=== PATIENT | male | born 1945 | race Caucasian/White ===

== ENCOUNTER → 2016-08-18 | Outpatient (CLI) | payer MEDICARE, BC ==
[2016-08-18 12:14] LABS: ALT 32 U/L (21-72); AST 15 U/L (17-59); Alkaline Phosphatase 89 U/L (38-126); Anion Gap 9 mmol/L; Blood Urea Nitrogen 14 mg/dL (9-20); Calcium 9.1 mg/dL (8.4-10.2); Carbon Dioxide 29 mmol/L (22-30); Chloride 103 mmol/L (98-107); Cholesterol 160 mg/dL (<200); Glucose 163 mg/dL (74-99); HDL Cholesterol 83 mg/dL (40-60); Non-African American GFR(MDRD) >60 (>60 ml/min/1.73 sqM); Potassium 4.6 mmol/L (3.5-5.1); Sodium 141 mmol/L (137-145); Total Bilirubin 0.7 mg/dL (0.2-1.3); Total Protein 6.8 g/dL (6.3-8.2); Triglycerides 48 mg/dL (<150)
== END | disposition home or self-care (01) ==
LOC: LABWHC1 10:19
PROVIDERS: ATTEND Internal Medicine Endocrinology, Diabetes & Metabolism
DX: E11.65 Type 2 diabetes mellitus with hyperglycemia (principal)
CPT/HCPCS: 36415; 80053; 80061; 82043

== ENCOUNTER → 2017-01-27 | Outpatient (CLI) | payer MEDICARE, BC ==
[2017-01-27 09:31] LABS: ALT 17 U/L (21-72); AST 13 U/L (17-59); Alkaline Phosphatase 83 U/L (38-126); Anion Gap 8 mmol/L; Blood Urea Nitrogen 17 mg/dL (9-20); Calcium 9.1 mg/dL (8.4-10.2); Carbon Dioxide 27 mmol/L (22-30); Chloride 103 mmol/L (98-107); Cholesterol 161 mg/dL (<200); Glucose 212 mg/dL (74-99); HDL Cholesterol 64 mg/dL (40-60); Non-African American GFR(MDRD) >60 (>60 ml/min/1.73 sqM); Potassium 4.6 mmol/L (3.5-5.1); Sodium 138 mmol/L (137-145); Total Bilirubin 0.9 mg/dL (0.2-1.3); Total Protein 6.4 g/dL (6.3-8.2); Triglycerides 62 mg/dL (<150)
[2017-01-27 19:35] LABS: Urine Creatinine 59.4 mg/dL
== END ==
LOC: LABWHC1 08:26
PROVIDERS: ATTEND Internal Medicine Endocrinology, Diabetes & Metabolism
DX: E11.65 Type 2 diabetes mellitus with hyperglycemia (principal)
CPT/HCPCS: 36415; 80053; 80061; 82043; 82570

== ENCOUNTER → 2017-08-12 | Outpatient (CLI) | payer MEDICARE, BC ==
[2017-08-12 09:16] LABS: ALT 31 U/L (21-72); AST 15 U/L (17-59); Albumin 3.8 g/dL (3.5-5.0); Alkaline Phosphatase 71 U/L (38-126); Anion Gap 8 mmol/L; Blood Urea Nitrogen 18 mg/dL (9-20); Calcium 9.5 mg/dL (8.4-10.2); Carbon Dioxide 31 mmol/L (22-30); Chloride 103 mmol/L (98-107); Cholesterol 154 mg/dL (<200); Glucose 107 mg/dL (74-99); HDL Cholesterol 70 mg/dL (40-60); LDL Cholesterol,Calculated 76 mg/dL (0-99); Potassium 4.7 mmol/L (3.5-5.1); Sodium 142 mmol/L (137-145); Total Bilirubin 0.5 mg/dL (0.2-1.3); Total Protein 6.3 g/dL (6.3-8.2); Triglycerides 42 mg/dL (<150)
[2017-08-12 20:07] LABS: Hemoglobin A1C 10.7 % (4.0-6.0)
== END | disposition home or self-care (01) ==
LOC: LABWHC1 08:17
PROVIDERS: ATTEND Internal Medicine Endocrinology, Diabetes & Metabolism
DX: E11.65 Type 2 diabetes mellitus with hyperglycemia (principal)
CPT/HCPCS: 36415; 80053; 80061; 82043; 82570; 83036

== ENCOUNTER → 2018-03-10 | Outpatient (CLI) | payer MEDICARE, BC ==
[2018-03-10 08:59] LABS: Basophils % (A) 0 %; Eosinophils # (A) 0.1 k/uL (0-0.7); Eosinophils % (A) 1 %; HCT 47.6 % (39.0-53.0); HGB 14.9 gm/dL (13.0-17.5); Lymphocytes # (A) 1.2 k/uL (1.0-4.8); Lymphocytes % (A) 16 %; MCH 29.1 pg (25.0-35.0); MCHC 31.3 g/dL (31.0-37.0); MCV 92.9 fL (80.0-100.0); Mean Platelet Volume 7.9; Monocytes # (A) 0.4 k/uL (0-1.0); Monocytes % (A) 5 %; Neutrophils # (A) 5.7 k/uL (1.3-7.7); Neutrophils % (A) 76 %; Platelet Count 171 k/uL (150-450); RBC 5.13 m/uL (4.30-5.90); RDW 13.3 % (11.5-15.5); WBC 7.4 k/uL (3.8-10.6)
[2018-03-10 11:35] LABS: ALT 31 U/L (21-72); AST 20 U/L (17-59); Albumin 3.9 g/dL (3.5-5.0); Alkaline Phosphatase 73 U/L (38-126); Anion Gap 6 mmol/L; Blood Urea Nitrogen 17 mg/dL (9-20); Calcium 9.3 mg/dL (8.4-10.2); Carbon Dioxide 28 mmol/L (22-30); Chloride 106 mmol/L (98-107); Cholesterol 160 mg/dL (<200); Glucose 138 mg/dL (74-99); HDL Cholesterol 76 mg/dL (40-60); LDL Cholesterol,Calculated 72 mg/dL (0-99); Potassium 4.7 mmol/L (3.5-5.1); Sodium 140 mmol/L (137-145); Total Bilirubin 0.5 mg/dL (0.2-1.3); Total Protein 6.4 g/dL (6.3-8.2); Triglycerides 58 mg/dL (<150)
[2018-03-10 11:52] LABS: T4, Free (Free Thyroxine) 0.92 ng/dL (0.78-2.19)
[2018-03-10 12:05] LABS: Prostate Specific Antigen 4.03 ng/mL (0.00-4.00)
[2018-03-10 18:00] LABS: Hemoglobin A1C 10.6 % (4.0-6.0)
== END | disposition home or self-care (01) ==
LOC: LABWHC1 08:07
PROVIDERS: ATTEND Internal Medicine Endocrinology, Diabetes & Metabolism
DX: R07.9 Chest pain, unspecified (principal); E78.5 Hyperlipidemia, unspecified; N40.1 Benign prostatic hyperplasia with lower urinary tract symptoms; E11.65 Type 2 diabetes mellitus with hyperglycemia
CPT/HCPCS: 36415; 80053; 80061; 82043; 82570; 83036; 84153; 84439; 84443; 85025

== ENCOUNTER → 2018-03-18 | Outpatient (CLI) | payer MEDICARE, BC ==
[~2018-03-18] MED LIST: DOBUTamine 250 MG in DEXTROSE 5% IN WATER 250 ML IV ONE; DOBUTamine DRIP for NUC MED 500 MG in DEXTROSE/WATER 1 250ML.BAG IV ONE
--- NOTE | 2018-03-18 13:07 | ECHOS ---
STRESS ECHOCARDIOGRAM DATE OF SERVICE: 03/18/2018 INDICATIONS: Physical MEDICATIONS: BASELINE HEART RATE: 69 BASELINE BLOOD PRESSURE: 147/52 MAXIMUM HEART RATE: 123 MAXIMUM BLOOD PRESSURE: 213/38 85% MPHR: 126 100% MPHR: 148 METS: MAXIMUM STAGE REACHED: TOTAL EXERCISE TIME: CLINICAL INFORMATION: Baseline rhythm is sinus mechanism, rate 69, normal axis and intervals with sinus arrhythmia. Baseline blood pressure 147/52 mmHg. Patient received an infusion of dobutamine per protocol reaching peak rate 123 beats per minute which is equal to 83% maximum predicted heart rate. Peak blood pressure 213/38 mmHg. Electrocardiograph monitoring revealed occasional PVCs with triplets. There was a [address]-segment depression that resolved rapidly in recovery. Baseline echocardiogram revealed normal wall motion. At peak infusion, there was normal wall thickening and motion. There was no evidence of stress-induced ischemia. CONCLUSION: 1. Borderline electrocardiograph response to dobutamine fusion with occasional PVCs and triplets. 2. Normal stress echocardiogram with no evidence of stress induced ischemia. MMODL / IJN: [id number] /
== END | disposition home or self-care (01) ==
LOC: RADNMMAIN 09:49
PROVIDERS: ATTEND Internal Medicine Geriatric Medicine
DX: I49.3 Ventricular premature depolarization (principal)
CPT/HCPCS: 93351; J1250

== ENCOUNTER → 2018-10-04 | Outpatient (CLI) | payer MEDICARE, BC ==
[2018-10-04 16:27] LABS: Albumin/Globulin Ratio 2.35 (1.60-3.17); Anion Gap 12.2 mmol/L (4.00-12.00); Calcium 9.1 mg/dL (8.7-10.3); Carbon Dioxide 25.8 mmol/L (21.6-31.8); Globulin 1.7 g/dL (1.6-3.3); LDL Cholesterol,Calculated 85.2 mg/dL (0.0-131.0); Potassium 4.7 mmol/L (3.5-5.5); Total Bilirubin 0.6 mg/dL (0.2-1.2); Total Protein 5.7 g/dL (6.2-8.2); VLDL Calculation 10.8 mg/dL (5.00-40.00)
[2018-10-04 18:46] LABS: Hemoglobin A1C 10.7 % (4.0-6.0)
== END ==
LOC: LABWHC1 08:19
PROVIDERS: ATTEND Internal Medicine Endocrinology, Diabetes & Metabolism
DX: E11.65 Type 2 diabetes mellitus with hyperglycemia (principal)
CPT/HCPCS: 36415; 80053; 80061; 82043; 82570; 83036; 84443

== ENCOUNTER → 2019-05-05 | Outpatient (CLI) | payer MEDICARE, BC ==
[2019-05-05 16:08] LABS: ALT 17 U/L (10-49); AST 18 U/L (14-35); African American GFR (CKD) 97.9 (60.0-200.0); Albumin/Globulin Ratio 2.35 (1.60-3.17); Alkaline Phosphatase 71 U/L (41-126); BUN/Creat Ratio 18.89 Ratio (12.00-20.00); Calcium 9.2 mg/dL (8.7-10.3); Carbon Dioxide 27.3 mmol/L (21.6-31.8); Chloride 106 mmol/L (96-109); Chol/HDL Ratio 2.38; Cholesterol 157 mg/dL (0-200); Globulin 1.7 g/dL (1.6-3.3); Glucose 113 mg/dL (70-110); Potassium 4.4 mmol/L (3.5-5.5); Sodium 140 mmol/L (135-145); Total Bilirubin 0.6 mg/dL (0.3-1.2); Total Protein 5.7 g/dL (6.2-8.2); Triglycerides <50.0 mg/dL (0.0-149.0)
[2019-05-05 16:49] LABS: Hemoglobin A1C 9.6 % (4.0-6.0)
== END | disposition home or self-care (01) ==
LOC: LABWHC1 08:13
PROVIDERS: ATTEND Internal Medicine Endocrinology, Diabetes & Metabolism
DX: E11.65 Type 2 diabetes mellitus with hyperglycemia (principal)
CPT/HCPCS: 36415; 80053; 80061; 82043; 82570; 83036; 84443

== ENCOUNTER 2023-07-26 08:34 | Inpatient (IN) | payer MEDICARE, BC ==
--- NOTE | 2023-07-26 08:45 | ED ---
Chest Pain HPI - General Chief Complaint: Chest Pain Stated Complaint: Chest pain, Weakness Time Seen by Provider: 07/26/23 08:40 Source: patient, RN notes reviewed, old records reviewed Mode of arrival: ambulatory Limitations: no limitations - History of Present Illness Initial Comments: This is a 77-year-old male who comes in complaining for the last 10 days he's had intermittent chest pain but it only occurs with breathing. Patient states she's also been more short of breath. Patient states he was in [place] when it started but since she's been home he has seen his doctor about it but it continues. Patient denies any fever chills. Patient denies any radiation of the pain. Patient states he doesn't breathe there is no pain. Patient is on a abdominal pain patient started vomiting diarrhea. Patient denies any swelling to legs or calf tenderness. - Related Data Allergies Allergy/AdvReac Type Severity Reaction Status Date / Time No Known Allergies Allergy Unverified 07/26/23 08:40 Review of Systems ROS Statement: Those systems with pertinent positive or pertinent negative responses have been documented in the HPI. ROS Other: All systems not noted in ROS Statement are negative. Past Medical History Past Medical History: Coronary Artery Disease (CAD), Diabetes Mellitus, GERD/Reflux History of Any Multi-Drug Resistant Organisms: None Reported Past Surgical History: No Surgical Hx Reported Past Psychological History: No Psychological Hx Reported Smoking Status: Never smoker Past Alcohol Use History: Occasional Past Drug Use History: None Reported General Exam - General Exam Comments Initial Comments: GENERAL: Patient is well-developed and well-nourished. Patient is nontoxic and well- hydrated and is in mild. ENT: Neck is soft and supple. No significant lymphadenopathy is noted. Oropharynx is clear. Moist mucous membranes. Neck has full range of motion without eliciting any pain. EYES: The sclera were anicteric and conjunctiva were pink and moist. Extraocular movements were intact and pupils were equal round and reactive to light. Eyelids were unremarkable. PULMONARY: Unlabored respirations. Good breath sounds bilaterally. No audible rales rhonchi or wheezing was noted. CARDIOVASCULAR: There is a regular rate and rhythm without any murmurs gallops or rubs. ABDOMEN: Soft and nontender with normal bowel sounds. N SKIN: Skin is clear with no lesions or rashes and otherwise unremarkable. NEUROLOGIC: Patient is alert and oriented x3. Cranial nerves II through XII are grossly intact. Motor and sensory are also intact. Normal speech, volume and content. Symmetrical smile. MUSCULOSKELETAL: Normal extremities with adequate strength and full range of motion. No lower extremity swelling or edema. No calf tenderness. LYMPHATICS: No significant lymphadenopathy is noted PSYCHIATRIC: Normal psychiatric evaluation. Limitations: no limitations Course Vital Signs 07/26/23 07/26/23 08:38 10:35 Temperature 98 F 99.5 F Pulse Rate 64 104 H Respiratory 20 20 Rate Blood Pressure 137/75 134/85 O2 Sat by Pulse 99 95 Oximetry Chest Pain [facility] EKG is interpreted by myself. EKG shows sinus tachycardia at 114 bpm TN interval is on a 76 QRS is 80 QT interval 293 Q-T C is 370. EKG shows T-wave inversion in precordial leads V4 through V6 as well as 1 and aVL. Was pt. sent in by a medical professional or institution (, PA, [employer], urgent care, hospital, or skilled nursing...) When possible be specific @ -No Did you speak to anyone other than the patient for history (EMS, parent, family, police, friend...)? What history was obtained from this source @ - gave part of the history Did you review nursing and triage notes (agree or disagree)? Why? @ -I reviewed and agree with nursing and triage notes Were old charts reviewed (outside hosp., previous admission, EMS record, old EKG, old radiological studies, urgent care reports/EKG's, skilled nursing records)? Report findings @ -I reviewed prior labs prior charts on this patient Differential Diagnosis (chest pain, altered mental status, abdominal pain women, abdominal pain men, vaginal bleeding, weakness, fever, dyspnea, syncope, headache, dizziness, GI bleed, back pain, seizure, CVA, palpatations, mental health, musculoskeletal)? @ -Differential Dyspnea: Coronary syndrome, arrhythmia, tamponade, asthma, COPD, pulmonary embolism, pneumonia, pneumothorax, pulmonary effusion, anaphylaxis, diabetic ketoacidosis, flailed chest, pulmonary contusion, diaphragmatic rupture, anemia, neuromuscular, this is not meant to be an all-inclusive list. EKG interpreted by me (3pts min.). @ -As above X-rays interpreted by me (1pt min.). @ -Chest x-ray shows pulmonary edema CT interpreted by me (1pt min.). @ -None done U/S interpreted by me (1pt. min.). @ -None done What testing was considered but not performed or refused? (CT, X-rays, U/S, labs)? Why? @ -None What meds were considered but not given or refused? Why? @ -None Did you discuss the management of the patient with other professionals (professionals i.e. , PA, [employer], lab, RT, psych nurse, medical social worker, e commerce project manager, teacher, ship's officer, case investigator)? Give summary @ -[facility] Was smoking cessation discussed for >3mins.? @ -No Was critical care preformed (if so, how long)? @ -35 minutes Were there social determinants of health that impacted care today? How? (Homelessness, low income, unemployed, alcoholism, drug addiction, transportation, low edu. Level, literacy, decrease access to med. care, [facility], rehab)? @ -No Was there de-escalation of care discussed even if they declined (Discuss DNR or withdrawal of care, Hospice)? DNR status @ -No What co-morbidities impacted this encounter? (DM, HTN, Smoking, COPD, CAD, Cancer, CVA, ARF, Chemo, Hep., AIDS, mental health diagnosis, sleep apnea, morbid obesity)? @ -Diabetes Was patient admitted / discharged? Hospital course, mention meds given and rou te, prescriptions, significant lab abnormalities, going to OR and other pertinent info. @ -Patient's troponin was elevated so patient was having a non-STEMI patient was placed on heparin given aspirin had Nitropaste placed. Patient's pain continued to only be with deep breathing. I consult cardiology [facility]-ray showed pulmonary edema psychiatric the patient Lasix as well Undiagnosed new problem with uncertain prognosis? @ -No Drug Therapy requiring intensive monitoring for toxicity (Heparin, Nitro, Insulin, Cardizem)? @ -No Were any procedures done? @ -No Diagnosis/symptom? @ -Non-STEMI Acute, or Chronic, or Acute on Chronic? @ -Acute Uncomplicated (without systemic symptoms) or Complicated (systemic symptoms)? @ -Complicated Side effects of treatment? @ -No Exacerbation, Progression, or Severe Exacerbation? @ -No Poses a threat to life or bodily function? How? (Chest pain, USA, AR, pneumonia, PE, COPD, DKA, ARF, appy, cholecystitis, CVA, Diverticulitis, Homicidal, Suicida l, threat to staff... and all critical care pts) @ -Yes this could lead to hypoxia and end organ dysfunction Critical Care Time Critical Care Time: Yes Total Critical Care Time: 35 Disposition Clinical Impression: Acute non-ST elevation myocardial infarction (NSTEMI) Disposition: ADMITTED IP TO THIS HOSP Referrals: Derian Link MD [Primary Care Provider] - 1-2 days Time of Disposition: 10:50
[2023-07-26 09:10] LABS: Basophils % (A) 0 %; Eosinophils # (A) 0.3 k/uL (0-0.7); Eosinophils % (A) 2 %; HCT 44.8 % (39.0-53.0); HGB 14.5 gm/dL (13.0-17.5); Lymphocytes # (A) 0.8 k/uL (1.0-4.8); Lymphocytes % (A) 5 %; MCH 31.1 pg (25.0-35.0); MCHC 32.3 g/dL (31.0-37.0); MCV 96.2 fL (80.0-100.0); Mean Platelet Volume 9.6; Monocytes # (A) 0.6 k/uL (0-1.0); Monocytes % (A) 4 %; Neutrophils # (A) 14.9 k/uL (1.3-7.7); Neutrophils % (A) 90 %; Platelet Count 247 k/uL (150-450); RBC 4.66 m/uL (4.30-5.90); WBC 16.7 k/uL (3.8-10.6)
--- NOTE | 2023-07-26 09:12 | XR ---
EXAMINATION TYPE: XR chest 2V DATE OF EXAM: 07/26/2023 COMPARISON: None HISTORY: 77-year-old male with chest pain for a week TECHNIQUE: PA and lateral views FINDINGS: Heart borderline in size. Diffuse interstitial density. Some Tay B lines also noted. Some blunting of the left costophrenic angle. IMPRESSION: Correlate for CHF with pulmonary vascular congestion. The presence of some Tay B lines suggests mi ld interstitial edema. Trace left pleural effusion.
[2023-07-26 09:40] LABS: ALT 35 U/L (4-49); AST 36 U/L (17-59); African American GFR (CKD) 89 (>60 ml/min/1.73 sqM); Albumin 3.7 g/dL (3.5-5.0); Alkaline Phosphatase 88 U/L (38-126); Anion Gap 11 mmol/L; Blood Urea Nitrogen 21 mg/dL (9-20); Carbon Dioxide 25 mmol/L (22-30); Chloride 104 mmol/L (98-107); Glucose 199 mg/dL (74-99); INR 1.1 (<1.2); Magnesium 2.1 mg/dL (1.6-2.3); Non-African American GFR(CKD) 77 (>60 ml/min/1.73 sqM); Partial Thromboplastin Time 25.1 sec (22.0-30.0); Prothrombin Time 11.4 sec (10.0-12.5); Sodium 140 mmol/L (137-145); Total Protein 6.8 g/dL (6.3-8.2)
[2023-07-26 09:42] LABS: Potassium 5.1 mmol/L (3.5-5.1)
[2023-07-26] MEDS ORDERED: HEPARIN SODIUM 1,000 UN/ML (10ML VL) IV ONE (10:24)
[2023-07-26] MEDS ORDERED: FUROSEMIDE 10 MG/ML 4 ML VIAL IV STA (10:24)
[2023-07-26] MEDS ORDERED: NITROGLYCERIN OINT 1 INCH/GM PACKET TOPICAL STA (10:25)
[2023-07-26] MEDS ORDERED: ASPIRIN 81 MG PO STA (10:25)
[2023-07-26] MEDS: HEPARIN SOD,PORK IN 0.45% NACL 25,000 UNIT in 0.45% NACL 1 250ML.BAG IV SCH (10:48)
[2023-07-26] MEDS ORDERED: NITROGLYCERIN SL TABS 0.4 MG TAB SUBLINGUAL PRN (10:50)
[2023-07-26] MEDS: NITROGLYCERIN OINT 1 INCH/GM PACKET TOPICAL SCH ×3 (11:02→23:56)
[2023-07-26] MEDS ORDERED: ACETAMINOPHEN TAB 325 MG TAB PO PRN (14:29)
[2023-07-26] MEDS ORDERED: DEXTROSE 50% SYRINGE 50 ML IVP PRN ×2 (15:10)
--- NOTE | 2023-07-26 15:11 | P.HPIM ---
History of Present Illness H&P Date: 07/26/23 History of present illness; patient is 77-year-old gentleman with past medical h istory significant for diabetes mellitus, hypertension presented to the ER for chest pain. Patient states that chest pain started 2 weeks ago, the patient on the left side, intermittent, sharp in intensity, no aggravating or relieving factors associated with this chest pain, nonradiating. Patient did mention that sometimes he gets short of breath during those episodes of chest pain. Denies any nausea or vomiting. Denies any diaphoresis. Because this chest pain, patient became concerned and came to the ER Initial lab work done in the ER showed 16.7, hemoglobin 14.5, platelet count 247, sodium 140, potassium 5.1, BUN 21, creatinine 0.95, troponin 1.2 Influenza A not detected Influenza B not detected RSV not detected COVID-19 not detected EKG done in the ER showed heart rate of 114, no ST segment elevation or depression seen, no T-wave inversions seen. Chest x-ray done in the ER correlate for CHF with pulmonary vascular congestion Patient admitted to internal medicine service REVIEW OF SYSTEMS: CONSTITUTIONAL: No fever, no malaise, no fatigue. HEENT: No recent visual problems or hearing problems. Denied any sore throat. CARDIOVASCULAR: Mentioned in HPI PULMONARY: As mentioned in HPI GASTROINTESTINAL: No diarrhea, no nausea, no vomiting, no abdominal pain. NEUROLOGICAL: No headaches, no weakness, no numbness. HEMATOLOGICAL: Denies any bleeding or petechiae. GENITOURINARY: Denies any burning micturition, frequency, or urgency. MUSCULOSKELETAL/RHEUMATOLOGICAL: Denies any joint pain, swelling, or any muscle pain. ENDOCRINE: Denies any polyuria or polydipsia. The rest of the 14-point review of systems is negative. PHYSICAL EXAMINATION: GENERAL: The patient is alert and oriented x3, not in any acute distress. Well developed, well nourished. HEENT: Pupils are round and equally reacting to light. EOMI. No scleral icterus. No conjunctival pallor. Normocephalic, atraumatic. No pharyngeal erythema. No thyromegaly. CARDIOVASCULAR: S1 and S2 present. No murmurs, rubs, or gallops. PULMONARY: Chest is clear to auscultation, no wheezing or crackles. ABDOMEN: Soft, nontender, nondistended, normoactive bowel sounds. No palpable organomegaly. MUSCULOSKELETAL: No joint swelling or deformity. EXTREMITIES: No cyanosis, clubbing, or pedal edema. NEUROLOGICAL: Gross neurological examination did not reveal any focal deficits. SKIN: No rashes. Assessment and plan Non-ST elevation KS Hypertension Insulin-dependent diabetes mellitus Monitor vital signs Monitor CBC Monitor CMP Continue telemetry monitoring Trend troponin Ordered 2-D echo Continue pharmacy dose heparin Continue aspirin and Lipitor Monitor blood sugar levels, continue sliding scale insulin. Consult cardiology Labs and medication were reviewed.. Continue same treatment. Continue with symptomatic treatment. Resume home medication. Monitor labs and vitals. DVT and GI prophylaxis. Further recommendations as per clinical course of the patient Dictation was produced using [employer] dictation software. please excuse any grammatical, word or spelling errors. Past Medical History Past Medical History: Coronary Artery Disease (CAD), Diabetes Mellitus, GERD/Reflux History of Any Multi-Drug Resistant Organisms: None Reported Past Surgical History: No Surgical Hx Reported Past Psychological History: No Psychological Hx Reported Smoking Status: Never smoker Past Alcohol Use History: Occasional Past Drug Use History: None Reported Medications and Allergies Home Medications Medication Instructions Recorded Confirmed Type Glucagon [Gvoke Pfs 1-Pack Syringe] 1 mg SQ DIRECTED PRN 07/26/23 07/26/23 History INSULIN ASPART (NovoLOG) [NovoLOG 15 - 30 unit SQ AC-TID 07/26/23 07/26/23 History (formulary)] Insulin Degludec [Tresiba 55 units SQ DAILY 07/26/23 07/26/23 History Flextouch U-100 Pen] Losartan [Cozaar] 50 mg PO DAILY 07/26/23 07/26/23 History Lovastatin [Mevacor] 40 mg PO DAILY 07/26/23 07/26/23 History Semaglutide [Ozempic] 2 mg SQ FR 07/26/23 07/26/23 History metFORMIN HCL ER [Glucophage XR] 1,000 mg PO BID 07/26/23 07/26/23 History Allergies Allergy/AdvReac Type Severity Reaction Status Date / Time No Known Allergies Allergy Verified 07/26/23 12:15 Physical Exam Vitals: Vital Signs Temp Pulse Pulse Resp BP Pulse Ox 07/26/23 14:15 100.7 F H 94 23 111/81 94 L 07/26/23 13:25 100 17 126/79 97 07/26/23 12:00 98 16 126/72 95 07/26/23 11:14 105 H 18 128/75 96 07/26/23 10:35 99.5 F 104 H 20 134/85 95 07/26/23 10:30 105 H 07/26/23 08:38 98 F 64 20 137/75 99 Intake and Output 07/26/23 07/26/23 07/26/23 06:59 14:59 22:59 Other: Weight 102.058 kg Results CBC & Chem 7: 07/26/23 08:41 07/26/23 08:41 Labs: Abnormal Lab Results - Last 24 Hours (Table) 07/26/23 07/26/23 07/26/23 Range/Units 08:41 08:41 08:41 WBC 16.7 H (3.8-10.6) k/uL Neutrophils # 14.9 H (1.3-7.7) k/uL Lymphocytes # 0.8 L (1.0-4.8) k/uL D-Dimer 0.64 H (<0.60) mg/L FEU BUN 21 H (9-20) mg/dL Glucose 199 H (74-99) mg/dL Troponin I (0.000-0.034) ng/mL 07/26/23 07/26/23 Range/Units 08:41 12:11 WBC (3.8-10.6) k/uL Neutrophils # (1.3-7.7) k/uL Lymphocytes # (1.0-4.8) k/uL D-Dimer (<0.60) mg/L FEU BUN (9-20) mg/dL Glucose (74-99) mg/dL Troponin I 1.200 H* 1.320 H* (0.000-0.034) ng/mL
--- NOTE | 2023-07-26 16:20 | CT ---
EXAMINATION TYPE: CT chest angio for PE DATE OF EXAM: 07/26/2023 COMPARISON: Radiograph same day HISTORY: 77-year-old male shortness of breath, code STEMI- dyspnea, high dimer. TECHNIQUE: Contiguous axial scanning of the chest performed with IV Contrast, patient injected with 1 00 mL of Isovue 300. Coronal and sagittal MIP reconstructions performed. CT DLP: 508.5 mGycm Automated exposure control for dose reduction was used. FINDINGS: The heart borderline enlarged without pericardial effusion. No flattening of the interventricular sep cheryl. Minimal reflux of contrast into the hepatic veins. LAD coronary artery calcifications are presen t. Aorta normal caliber with conventional arch vessel branching anatomy. Scattered prominent lymph nodes measuring up to 1.9 cm and the right hilum. Measuring up to 1.2 cm pr ecarinal. Likely reactive/post inflammatory. Borderline caliber to the main right and left pulmonary arteries measuring up to 2.6 cm. There is cuco athing motion artifact limiting assessment of the more distal arterial branches. No definite pulmonar y embolus is seen. There are small bilateral pleural effusions with some adjacent atelectasis. No consolidation. Visualized upper abdomen shows no gross abnormality. Bones: Left paracentral disc protrusion T8-T9 does not contribute any significant spinal canal steno sis. IMPRESSION: 1. BREATHING MOTION LIMITING ASSESSMENT OF THE MORE DISTAL ARTERIAL BRANCHES. NO DEFINITE PULMONARY E MBOLUS IS SEEN. 2. BORDERLINE CARDIOMEGALY WITH PULMONARY ARTERIAL HYPERTENSION. SMALL BILATERAL PLEURAL EFFUSIONS WI TH ADJACENT ATELECTASIS. CORRELATE FOR MILD CHF WITH PULMONARY VASCULAR CONGESTION. 3. Prominent LAD coronary artery calcifications. 4. A few scattered mildly enlarged mediastinal/hilar lymph nodes measuring up to 1.9 cm likely reacti ve. Follow-up CT in 3 months to ensure stability/resolution.
[2023-07-26] MEDS: INSULIN ASPART (NovoLOG) 100 UNIT/ML VIAL SQ SCH ×2 (17:31→20:39)
[2023-07-26] MEDS: FUROSEMIDE 10 MG/ML 2 ML VIAL IV SCH ×2 (17:36→23:59)
[2023-07-26] MEDS ORDERED: NITROGLYCERIN-D5W PMX 50 MG in DEXTROSE/WATER 1 250ML.BAG IV PRN (18:16)
[2023-07-26 20:35] LABS: Glucose,Whole Blood 303 mg/dL (70-110)
[2023-07-26] MEDS: ATORVASTATIN 80 MG TAB PO SCH (20:45)
[2023-07-26] MEDS: METOPROLOL TARTRATE 25 MG TAB PO SCH (20:46)
[2023-07-27] MEDS ORDERED: HEPARIN SODIUM 1,000 UN/ML (10ML VL) IV PRN (03:17)
[2023-07-27] MEDS: INSULIN DETEMIR (LEVEMIR) 100 UNIT/ML SYR SQ SCH (06:30)
[2023-07-27] MEDS ORDERED: HEPARIN SODIUM,PORCINE (1 ML) 2,500 UNIT in SODIUM CHLORIDE 0.9% 250 ML IRRIGATION PRN (07:00)
[2023-07-27] MEDS ORDERED: HEPARIN SODIUM,PORCINE 10,000 UNIT in SODIUM CHLORIDE 0.9% 1,000 ML IRRIGATION PRN (07:00)
[2023-07-27] MEDS: HEPARIN SOD,PORK IN 0.45% NACL 25,000 UNIT in 0.45% NACL 1 250ML.BAG IV SCH (07:49)
[2023-07-27 08:19] LABS: Basophils % (A) 0 %; Eosinophils # (A) 0.4 k/uL (0-0.7); Eosinophils % (A) 4 %; HCT 43.3 % (39.0-53.0); Hypochromasia Slight; Lymphocytes # (A) 1.7 k/uL (1.0-4.8); Lymphocytes % (A) 16 %; MCH 31.7 pg (25.0-35.0); MCHC 32.3 g/dL (31.0-37.0); MCV 98.2 fL (80.0-100.0); Mean Platelet Volume 10.7; Monocytes # (A) 0.6 k/uL (0-1.0); Monocytes % (A) 6 %; Neutrophils # (A) 7.8 k/uL (1.3-7.7); Neutrophils % (A) 72 %; Platelet Count 174 k/uL (150-450); RBC 4.41 m/uL (4.30-5.90); RDW 12.9 % (11.5-15.5); WBC 10.8 k/uL (3.8-10.6)
[2023-07-27] MEDS ORDERED: ALPRAZolam 0.25 MG TAB PO PRN (08:22)
[2023-07-27] MEDS ORDERED: ALPRAZolam 0.5 MG TAB PO PRN (08:22)
[2023-07-27] MEDS ORDERED: NITROGLYCERIN SL TABS 0.4 MG TAB SUBLINGUAL PRN (08:22)
[2023-07-27] MEDS ORDERED: ASPIRIN 325 MG TAB PO STA (08:22)
[2023-07-27] MEDS ORDERED: ATORVASTATIN 80 MG TAB PO STA (08:22)
[2023-07-27 08:27] LABS: African American GFR (CKD) 74 (>60 ml/min/1.73 sqM); Anion Gap 8 mmol/L; Blood Urea Nitrogen 27 mg/dL (9-20); Calcium 8.7 mg/dL (8.4-10.2); Carbon Dioxide 28 mmol/L (22-30); Chloride 101 mmol/L (98-107); Glucose 142 mg/dL (74-99); Non-African American GFR(CKD) 64 (>60 ml/min/1.73 sqM); Potassium 4.4 mmol/L (3.5-5.1); Sodium 137 mmol/L (137-145)
[2023-07-27 08:31] LABS: Glucose,Whole Blood 123 mg/dL (70-110)
[2023-07-27] MEDS: INSULIN ASPART (NovoLOG) 100 UNIT/ML VIAL SQ SCH ×4 (08:31→21:36)
[2023-07-27] MEDS: NITROGLYCERIN OINT 1 INCH/GM PACKET TOPICAL SCH ×3 (08:32→23:45)
[2023-07-27] MEDS: METOPROLOL TARTRATE 25 MG TAB PO SCH ×2 (08:32→21:36)
[2023-07-27] MEDS ORDERED: ATORVASTATIN 10 MG TAB PO SCH (09:00)
[2023-07-27] MEDS ORDERED: ASPIRIN 325 MG TAB PO SCH (09:00)
[2023-07-27] MEDS: SODIUM CHLORIDE 0.9% 1,000 ML in EMPTY BAG 1 BAG IV SCH ×2 (10:17→17:26)
[2023-07-27] MEDS: LOSARTAN 50 MG TAB PO SCH (10:17)
[2023-07-27] MEDS ORDERED: VERAPAMIL 2.5 MG/ML 2 ML AMP ONE (10:51)
[2023-07-27] MEDS ORDERED: HEPARIN SODIUM 1,000 UN/ML (10ML VL) ONE (10:52)
[2023-07-27] MEDS ORDERED: IV FLUID CONTINUATION 1,000 ML IV ONE (11:07)
[2023-07-27] MEDS ORDERED: MIDAZOLAM 2 MG/2 ML VIAL IVP ONE (11:07)
[2023-07-27] MEDS ORDERED: LIDOCAINE 1% INJ 10MG/ML (10 ML MDV) SQ ONE (11:12)
[2023-07-27] MEDS ORDERED: VERAPAMIL SYRINGE (5 MG/10 ML) INTRAARTER ONE (11:14)
--- NOTE | 2023-07-27 11:20 | P.CRDCN ---
History of Present Illness History of present illness: HISTORY OF PRESENT ILLNESS: This is a 77-year-old male with a past medical history significant for hypertension, hyperlipidemia, and diabetes. 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 We have been asked to see the patient in consultation for non- STEMI. Patient examined at the bedside in the emergency room. Patient's spouse is present. Patient states he has been having chest pain for the past 2-3 days. He states the chest pain is fairly steady. He states the pain started when he was not doing anything exertionally related. He reports the pain is on the left side of his chest and is associated with shortness of breath. He describes the pain as a dull pain. His states that he was ashen in color at home. The patient denies a history of CAD. However he reports that his 2 brothers in their 40s due to heart attacks. * EKG reveals sinus mechanism with Q waves in V1V2 and T-wave inversions in lateral leads * Chest xray correlate for CHF with pulmonary vascular congestion. Trace left pleural effusion. * Chest CT: Negative for pulmonary embolism. Prominent LAD coronary artery calcifications. Borderline cardiomegaly with pulmonary arterial hypertension. Small bilateral pleural effusions with adjacent atelectasis. * Laboratory data: Troponin 1.200. 1.320. 1.560 * Patient underwent dobutamine stress test in February 2018 which was negative for stress-induced ischemia REVIEW OF SYSTEMS: At the time of my exam: CONSTITUTIONAL: Denies fever or chills. HEENT: Denies blurred vision, vision changes, or eye pain. Denies hemoptysis CARDIOVASCULAR: Denies chest pain. Denies orthopnea. Denies PND. Denies palpitations RESPIRATORY: Denies shortness of breath. GASTROINTESTINAL: Denies abdominal pain. Denies nausea or vomiting. HEMATOLOGIC: Denies bleeding disorders. GENITOURINARY: Denies any blood in urine. SKIN: Denies pruitis. Denies rash. PHYSICAL EXAM: VITAL SIGNS: Reviewed. GENERAL: Well-developed in no acute distress. HEENT: Head is normocephalic. Pupils are equal, round. Sclerae anicteric. Mucous membranes of the mouth are moist. Neck supple. No JVD or thyromegaly LUNGS: Respirations even and unlabored. Lungs essentially clear to auscultation bilaterally. HEART: Regular rate and rhythm. S1 and S2 heard. ABDOMEN: Soft. Nondistended. Nontender. EXTREMITIES: Normal range of motion. No clubbing or cyanosis. Peripheral pulses intact. No lower extremity edema NEUROLOGIC: Awake and alert. Oriented x 3. ASSESSMENT: Non-STEMI Possible mild acute heart failure, type unknown, echo pending, proBNP 2610, currently euvolemic at the time of examination Hypertension Hyperlipidemia Diabetes Family history of premature coronary artery disease PLAN: Obtain 2-D echo to assess cardiac structure and function Continue IV heparin Discontinue IV Lasix. Begin oral Lasix 20 mg daily Continue aspirin 81 mg daily and atorvastatin 80 mg at night Continue metoprolol 25 mg twice a day and losartan 50 mg daily Continue Nitropaste Patient to undergo cardiac catheterization today with Dr. Dean Further recommendations pending patient's course Nurse practitioner note has been reviewed by physician. Signing provider agrees with the documented findings, assessment, and plan of care. 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 nephew/niece cardiac stents, Medications and Allergies Home Medications Medication Instructions Recorded Confirmed Type Glucagon [Gvoke Pfs 1-Pack Syringe] 1 mg SQ DIRECTED PRN 07/26/23 07/26/23 History INSULIN ASPART (NovoLOG) [NovoLOG 15 - 30 unit SQ AC-TID 07/26/23 07/26/23 History (formulary)] Insulin Degludec [Tresiba 55 units SQ DAILY 07/26/23 07/26/23 History Flextouch U-100 Pen] Losartan [Cozaar] 50 mg PO DAILY 07/26/23 07/26/23 History Lovastatin [Mevacor] 40 mg PO DAILY 07/26/23 07/26/23 History Semaglutide [Ozempic] 2 mg SQ FR 07/26/23 07/26/23 History metFORMIN HCL ER [Glucophage XR] 1,000 mg PO BID 07/26/23 07/26/23 History Allergies Allergy/AdvReac Type Severity Reaction Status Date / Time No Known Allergies Allergy Verified 07/26/23 12:15 Physical Exam Vitals: Vital Signs Temp Pulse Pulse Resp BP BP Pulse Ox 07/27/23 07:58 98.1 F 96 21 110/67 100 07/27/23 07:07 97.7 F 87 17 103/72 100 07/27/23 02:39 90 17 105/51 97 07/27/23 00:00 90 20 93/61 100 07/26/23 20:44 98.1 F 101 H 17 112/64 99 07/26/23 14:15 100.7 F H 94 23 111/81 94 L 07/26/23 13:25 100 17 126/79 97 07/26/23 12:00 98 16 126/72 95 07/26/23 11:14 105 H 18 128/75 96 07/26/23 10:35 99.5 F 104 H 20 134/85 95 07/26/23 10:30 105 H 07/26/23 08:38 98 F 64 20 137/75 99 Intake and Output 07/26/23 07/27/23 07/27/23 22:59 06:59 14:59 Intake Total 197.667 182.333 Output Total 200 Balance -2.333 182.333 Intake: IV 10 Invasive Line 1 10 Intake, IV Titration 67.667 182.333 Amount Heparin Sod,Pork in 0.45% 67.667 182.333 NaCl 25,000 unit In 0.45 % NaCl 1 250ml.bag @ 9. 798 UNITS/KG/HR 10 mls/hr IV .Q24H [facility] Rx#: [id number] Oral 120 Output: Urine 200 Other: Voiding Method Urinal # Voids 1 Weight 102.058 kg Results 07/27/23 07:09 07/27/23 07:09 Cardiac Enzymes 07/26/23 07/26/23 07/26/23 Range/Units 08:41 08:41 12:11 AST 36 (17-59) U/L Troponin I 1.200 H* 1.320 H* (0.000-0.034) ng/mL 07/26/23 Range/Units 16:29 AST (17-59) U/L Troponin I 1.560 H* (0.000-0.034) ng/mL Coagulation 07/26/23 07/26/23 07/26/23 Range/Units 08:41 16:29 22:40 PT 11.4 (10.0-12.5) sec APTT 25.1 29.3 40.1 H (22.0-30.0) sec 07/27/23 Range/Units 07:09 PT (10.0-12.5) sec APTT 69.7 H (22.0-30.0) sec CBC 07/26/23 Range/Units 08:41 WBC 16.7 H (3.8-10.6) k/uL RBC 4.66 (4.30-5.90) m/uL Hgb 14.5 (13.0-17.5) gm/dL Hct 44.8 (39.0-53.0) % Plt Count 247 (150-450) k/uL Comprehensive Metabolic Panel 07/26/23 Range/Units 08:41 Sodium 140 (137-145) mmol/L Potassium 5.1 (3.5-5.1) mmol/L Chloride 104 (98-107) mmol/L Carbon Dioxide 25 (22-30) mmol/L BUN 21 H (9-20) mg/dL Creatinine 0.95 (0.66-1.25) mg/dL Glucose 199 H (74-99) mg/dL Calcium 9.0 (8.4-10.2) mg/dL AST 36 (17-59) U/L ALT 35 (4-49) U/L Alkaline Phosphatase 88 (38-126) U/L Total Protein 6.8 (6.3-8.2) g/dL Albumin 3.7 (3.5-5.0) g/dL Current Medications Generic Name Dose Route Start Last Admin Trade Name Freq PRN Reason Stop Dose Admin Acetaminophen 650 mg 07/26/23 14:29 07/26/23 14:43 Acetaminophen Tab 325 Mg Tab PO 650 mg Q6HR PRN Administration Fever and/ or Pain Aspirin 325 mg 07/27/23 09:00 Aspirin 325 Mg Tab PO DAILY GUSTAVO Atorvastatin Calcium 80 mg 07/26/23 21:00 07/26/23 20:45 Atorvastatin 80 Mg Tab PO 80 mg HS GUSTAVO Administration Dextrose/Water 25 ml 07/26/23 15:10 Dextrose 50% Syringe 50 Ml IVP PER PROTOCOL PRN Hypoglycemia Protocol Dextrose/Water 50 ml 07/26/23 15:10 Dextrose 50% Syringe 50 Ml IVP PER PROTOCOL PRN Hypoglycemia Protocol Furosemide 20 mg 07/26/23 16:00 07/26/23 23:59 Furosemide 10 Mg/Ml 2 Ml Vial IV 20 mg Q8HR GUSTAVO Administration Heparin Sodium (Porcine) 0 unit 07/27/23 03:17 07/27/23 03:26 Heparin Sodium 1,000 Un/Ml (10ml Vl) IV 2,550 unit Q6HR PRN Administration Low PTT Protocol Heparin Sodium/Sodium Chloride 250 mls @ 10 mls/hr 07/26/23 10:30 07/27/23 07:49 25,000 unit/ Sodium Chloride IV 14.798 units/kg/hr .Q24H GUSTAVO 15.103 mls/hr Administration Protocol 9.798 UNITS/KG/HR Nitroglycerin/Dextrose 50 mg/ 250 mls @ 3 mls/hr 07/26/23 18:16 IV Solution IV .Q24H PRN Chest Pain Protocol 10 MCG/MIN Insulin Aspart 0 unit 07/26/23 17:30 07/26/23 20:39 Insulin Aspart (Novolog) 100 Unit/Ml Vial SQ 12 unit ACHS [facility] Administration Protocol Insulin Detemir 55 unit 07/27/23 07:00 07/27/23 06:30 Insulin Detemir (Levemir) 100 Unit/Ml Syr SQ 55 unit DAILY@0700 GUSTAVO Administration Losartan Potassium 50 mg 07/27/23 09:00 Losartan 50 Mg Tab PO DAILY [facility] Metoprolol Tartrate 25 mg 07/26/23 21:00 07/26/23 20:46 Metoprolol Tartrate 25 Mg Tab PO 25 mg BID GUSTAVO Administration Nitroglycerin 0.4 mg 07/26/23 10:50 Nitroglycerin Sl Tabs 0.4 Mg Tab SUBLINGUAL Q5M PRN Chest Pain Nitroglycerin 1 inch 07/27/23 00:00 07/26/23 23:56 Nitroglycerin Oint 1 Inch/Gm Packet TOPICAL 1 inch Q8HR GUSTAVO Administration Intake and Output 07/26/23 07/27/23 07/27/23 22:59 06:59 14:59 Intake Total 197.667 182.333 Output Total 200 Balance -2.333 182.333 Intake: IV 10 Invasive Line 1 10 Intake, IV Titration 67.667 182.333 Amount Heparin Sod,Pork in 0.45% 67.667 182.333 NaCl 25,000 unit In 0.45 % NaCl 1 250ml.bag @ 9. 798 UNITS/KG/HR 10 mls/hr IV .Q24H [facility] Rx#: [id number] Oral 120 Output: Urine 200 Other: Voiding Method Urinal # Voids 1 Weight 102.058 kg 07/26/23 08:41 07/26/23 08:41
[2023-07-27] MEDS: HEPARIN SODIUM 1,000 UN/ML (10ML VL) IV ONE ×2 (11:26→11:40)
[2023-07-27] MEDS ORDERED: IOPAMIDOL-370 100ML BTL INJ ONE (11:40)
[2023-07-27] MEDS ORDERED: RX INFO: IV CONTRAST WAS GIVEN 1 EACH MISC MISCELLANE PRN (11:52)
--- NOTE | 2023-07-27 11:57 | P.PCN ---
Date of Procedure: 07/27/23 Operative Findings: CARDIAC CATHETERIZATION PERFORMING PHYSICIAN: iRchie Dean MD, RPVI PROCEDURE PERFORMED: 1. Selective right and left coronary angiogram 2. Left heart catheterization 3. Ultrasound-guided access of the right radial artery INDICATION: Acute non-ST elevation myocardial infarction in this 77-year-old gentleman with diabetes and hypertension and dyslipidemia who presented to the emergency department with chest discomfort and ruled in for acute coronary syndrome. COMPLICATION: None APPROACH: Right radial artery LEVEL OF SEDATION: Moderate with a sedation length of 16 minutes PROCEDURE DESCRIPTION: After obtaining an informed consent, the patient was brought to cardiac laboratory analyst. Local anesthesia was performed using lidocaine subcutaneously. The right radial artery was cannulated using Seldinger technique, the guidewire passed easily, following that we advanced a 5-Bolivian sheath dilator assembly, the wire and dilator were removed and sheath was flushed. Following that, 2 mg of verapamil along with 5000 unit heparin were given. Selective right and left coronary angiogram using a 6-Bolivian JR4 and JL 3.5 catheters. Following that we did left heart catheterization using 6-Bolivian pigtail catheter. The procedure was completed there was no complication. SELECTIVE CORONARY ANGIOGRAM: The right coronary artery: Large caliber vessel and a dominant vessel. The RCA has a tight lesion in the proximal to midportion appears to be in the range of 80%. The mid RCA has intermediate lesion appeared to be in the range of 40-50%. The RCA distally appeared to be angiographically normal and bifurcates into PDA and PLV branches. Left main: Appears to be angiographically normal. Bifurcates into an LCx and LAD The left circumflex: The proximal LCx appeared to have mild disease only. It gives rises into a large OM branch which has mild disease as well. OM to is a small caliber vessel was a critical lesion. OM 3 appears to be angiographically normal. The circ umflex distally bifurcates into PDA branch which has a critical lesion by the ostium and the PLV branch which is small caliber vessel in the AV groove The left anterior descending artery: The proximal LAD appeared to have a critical lesion in the range of 95%. The lesion is tubular was possible thrombus formation. The lesion is by the bifurcation of a small size diagonal branch. The mid and distal LAD appears to have mild disease only. HEMODYNAMICS: The LVEDP was about 24 mmHg was no significant gradient across aortic valve. CONCLUSION: 1. Severe disease involving the proximal to mid RCA was a focal lesion 2. Critical disease involving the proximal LAD 3. Severe disease involving the ostial of the [employer] of the left circumflex which is small caliber vessel 4. Elevated left-sided filling pressure POSTPROCEDURE MANAGEMENT: Obtain a surgical consult for the evaluation of CABG
[2023-07-27] MEDS ORDERED: SODIUM CHLORIDE 0.9% 1,000 ML IV SCH (12:00)
--- NOTE | 2023-07-27 14:28 | P.GSCN ---
History of Present Illness Consult date: 07/27/23 Reason for Consult: Coronary artery disease, non-ST elevated myocardial infarction this admission, evaluation for myocardial revascularization surgery Requesting physician: Richie Dean History of present illness: This is a 77-year-old gentleman who follows in an outpatient basis with Dr. Derian Link for his primary care. He is a past medical history significant for hypertension, hyperlipidemia, pancreatitis, insulin-dependent diabetes mellitus type 2, obesity with a BMI of 33.2 kg/m, osteoarthritis, lifetime nonsmoker and a family history of early-onset coronary artery disease with his dad, 2 brothers and some nephews having myocardial infarctions in their 40s. Yesterday 07/26/2023 the patient presented to the emergency department here at [facility] with complaints of chest pain, chest tightness, associated with shortness of breath, nausea and vomiting. Patient denies any recent headache, fever, chills, hemoptysis, cough, hematemesis, palpitations, diarrhea, presyncope or syncope. A 12-lead EKG was completed in the emergency department which showed sinus tachycardia with a heart rate of 114, no ST segment elevation or depression or T-wave inversion. Initial laboratory results showed a WBC count is 16.7, hemoglobin 14.5, hematocrit 44.8, platelets 247, PT 11.4, INR 1.1, PTT 25.1, d-dimer 0.64, sodium 140, potassium 5.1, chloride 104, CO2 25, BUN 21, creatinine 0.95, glucose 199, calcium 9.0, magnesium 2.1, AST 36, ALT 35, proBNP 2610, and serial troponins showing positive at 1.200, 1.320 and 1.560. A chest x-ray was also completed which showed some pulmonary vascular congestion with presence of Tay B lines suggestive of mild interstitial edema and a trace left pleural effusion. A CT chest angio for PE was also completed with the report showing no definite pulmonary embolus seen, borderline cardiomegaly with pulmonary arterial hypertension, small bilateral pleural effusions with adjacent atelectasis, prominent LAD coronary artery calcifications and a few scattered mildly enlarged mediastinal/hilar lymph nodes measuring up to 1.9 cm likely reactive. Subsequently, due to the patient's presenting symptoms and elevated troponins a consult was placed to cardiology associates for further evaluation and treatment recommendations. The patient was recommended to undergo a cardiac catheterization which was completed today which demonstrated severe disease involving the proximal to mid right coronary artery with an 80% stenosis to the proximal right coronary artery, and a 40-50% stenosis to his mid right coronary artery, a 95% stenosis to his proximal left anterior descending coronary artery and mild disease to the proximal left circumflex coronary artery. Due to the findings on the cardiac catheterization films a consult was placed to Dr. Ran Villasenor from cardiothoracic surgery for further evaluation and treatment recommendations including myocardial revascularization surgery. Review of Systems A 14 point review of systems was completed and was negative except as mentioned in the HPI. 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 nephew/niece cardiac stents, Brother(s) Family Medical History: Coronary Artery Disease (CAD) Additional Family Medical History / Comment(s): 2 Brothers were diagnosed with early onset coronary artery disease in their 40s Medications and Allergies Home Medications Medication Instructions Recorded Confirmed Type Glucagon [Gvoke Pfs 1-Pack Syringe] 1 mg SQ ONCE PRN 07/26/23 08/06/23 History INSULIN ASPART (NovoLOG) [NovoLOG 15 - 30 unit SQ AC-TID 07/26/23 08/06/23 History (formulary)] Losartan [Cozaar] 50 mg PO DAILY 07/26/23 08/06/23 History metFORMIN HCL ER [Glucophage XR] 1,000 mg PO BID 07/26/23 08/06/23 History Apixaban [Eliquis] 2.5 mg PO BID #60 tab 07/31/23 08/06/23 Rx Aspirin 81 mg PO DAILY #90 tab 07/31/23 08/06/23 Rx Atorvastatin [Lipitor] 80 mg PO HS #90 tab 07/31/23 08/06/23 Rx Furosemide [Lasix] 20 mg PO DAILY #90 tab 07/31/23 08/06/23 Rx Insulin Degludec [Tresiba 40 units SQ DAILY #0 07/31/23 08/06/23 Rx Flextouch U-100 Pen] Metoprolol Tartrate [Lopressor] 50 mg PO BID #180 tab 07/31/23 08/06/23 Rx Nitroglycerin Sl Tabs [Nitrostat] 0.4 mg SUBLINGUAL Q5M PRN #100 tab 07/31/23 08/06/23 Rx Omeprazole [PriLOSEC] 20 mg PO AC-BID #60 cap 07/31/23 08/06/23 Rx Ticagrelor [Brilinta] 90 mg PO BID #180 tab 07/31/23 08/06/23 Rx Amiodarone [Cordarone] See Taper PO DIRECTED 08/06/23 08/06/23 History Allergies Allergy/AdvReac Type Severity Reaction Status Date / Time No Known Allergies Allergy Verified 08/06/23 11:04 Surgical - Exam Vital Signs Temp Pulse Resp BP Pulse Ox 98 F 64 20 137/75 99 07/26/23 08:38 07/26/23 08:38 07/26/23 08:38 07/26/23 08:38 07/26/23 08:38 - General well developed, well nourished, no distress, no pain, obese - Eyes PERRL, normal ocular movement, no pale, no icteric - ENT normal pinna, normal nares, normal mucosa, no congestion, decreased hearing - Neck Neck is supple, no lymphadenopathy. no masses, no bruits, trachea midline, no venous distension - Respiratory Lungs essentially clear throughout, respirations are symmetrical and nonlabored. No wheezes, rhonchi or crackles. - Cardiovascular Regular rhythm and rate. S1 and S2 present, negative for S3, gallop or murmur. - Abdomen Abdomen is soft, nontender and nondistended. Active bowel sounds present in all 4 abdominal quadrants. No guarding or rigidity. No organomegaly appreciated. - Genitourinary Deferred - Rectum Deferred - Integumentary Skin is warm and dry. No clubbing or cyanosis is present. no rash, no growths, no abnormal pigmentation - Neurologic No focal deficits. normal coordination - Musculoskeletal Moves all 4 extremities with equal strength bilateral. - Psychiatric oriented to time, oriented to person, oriented to place, speech is normal, memory intact Results - Labs 07/30/23 08:08 07/30/23 08:08 Abnormal Lab Results - Last 24 Hours (Table) 07/26/23 07/26/23 07/26/23 Range/Units 16:29 20:33 22:40 WBC (3.8-10.6) k/uL Neutrophils # (1.3-7.7) k/uL APTT 40.1 H (22.0-30.0) sec BUN (9-20) mg/dL Glucose (74-99) mg/dL POC Glucose (mg/dL) 303 H (70-110) mg/dL Hemoglobin A1c (<=6.0) % Troponin I 1.560 H* (0.000-0.034) ng/mL Procalcitonin (0.02-0.09) ng/mL 07/27/23 07/27/23 07/27/23 Range/Units 07:09 07:09 07:09 WBC (3.8-10.6) k/uL Neutrophils # (1.3-7.7) k/uL APTT (22.0-30.0) sec BUN 27 H (9-20) mg/dL Glucose 142 H (74-99) mg/dL POC Glucose (mg/dL) (70-110) mg/dL Hemoglobin A1c 8.1 H (<=6.0) % Troponin I (0.000-0.034) ng/mL Procalcitonin 0.62 H (0.02-0.09) ng/mL 07/27/23 07/27/23 07/27/23 Range/Units 07:09 07:09 08:30 WBC 10.8 H (3.8-10.6) k/uL Neutrophils # 7.8 H (1.3-7.7) k/uL APTT 69.7 H (22.0-30.0) sec BUN (9-20) mg/dL Glucose (74-99) mg/dL POC Glucose (mg/dL) 123 H (70-110) mg/dL Hemoglobin A1c (<=6.0) % Troponin I (0.000-0.034) ng/mL Procalcitonin (0.02-0.09) ng/mL Diabetes panel 07/27/23 07/27/23 Range/Units 07:09 07:09 Sodium 137 (137-145) mmol/L Potassium 4.4 (3.5-5.1) mmol/L Chloride 101 (98-107) mmol/L Carbon Dioxide 28 (22-30) mmol/L BUN 27 H (9-20) mg/dL Creatinine 1.11 (0.66-1.25) mg/dL Glucose 142 H (74-99) mg/dL Hemoglobin A1c 8.1 H (<=6.0) % Calcium 8.7 (8.4-10.2) mg/dL Calcium panel 07/27/23 Range/Units 07:09 Calcium 8.7 (8.4-10.2) mg/dL Pituitary panel 07/27/23 Range/Units 07:09 Sodium 137 (137-145) mmol/L Potassium 4.4 (3.5-5.1) mmol/L Chloride 101 (98-107) mmol/L Carbon Dioxide 28 (22-30) mmol/L BUN 27 H (9-20) mg/dL Creatinine 1.11 (0.66-1.25) mg/dL Glucose 142 H (74-99) mg/dL Calcium 8.7 (8.4-10.2) mg/dL Adrenal panel 07/27/23 Range/Units 07:09 Sodium 137 (137-145) mmol/L Potassium 4.4 (3.5-5.1) mmol/L Chloride 101 (98-107) mmol/L Carbon Dioxide 28 (22-30) mmol/L BUN 27 H (9-20) mg/dL Creatinine 1.11 (0.66-1.25) mg/dL Glucose 142 H (74-99) mg/dL Calcium 8.7 (8.4-10.2) mg/dL - Imaging Chest x-ray: report reviewed, image reviewed Additional studies: Cardiac catheterization films reviewed by Dr. Ran Villasenor. Assessment and Plan Assessment: Coronary artery disease Non-ST elevated myocardial infarction this admission Hypertension Hyperlipidemia Insulin-dependent diabetes mellitus Osteoarthritis Obesity with a BMI of 33.2 kg/m Lifetime nonsmoker History of pancreatitis Plan: The patient was seen and examined at his bedside in the extended stay unit. His chart and diagnostics were reviewed. This case was discussed in detail with Dr. Ran Villasenor from cardiothoracic surgery. At this point we will obtain a transthoracic 2-D echocardiogram to evaluate his anterior wall viability. Once the 2-D echocardiogram has been reviewed more recommendations to follow. Continue CHF optimalization. Continue to maximize medical management with aspir in, statin and beta casper. Medical management and other comorbidities per primary care service. More recommendations to follow based on patient's clinical course and once the results of the transthoracic 2-D echocardiogram have been reviewed. Thank you Dr. Dean for this consult and we look for to work with you in the care of this patient. I have personally seen and examined the patient, performed the documentation and the assessment and plan as written. 30 minutes spent on the visit . Odell ULLOAC Addendum: 2D Echo reviewed and as preliminary result shows evidence of an old extensive anterior wall myocardial infarction therefore, patient was considered poor candidate for surgical revascularization. RAN VILLASENOR MD
[2023-07-27 15:16] LABS: Chol/HDL Ratio 2.42 Ratio; LDL Cholesterol,Calculated 52.8 mg/dL (0.0-131.0); VLDL Calculation 12.38 mg/dL (5.00-40.00)
[2023-07-27 16:54] LABS: Glucose,Whole Blood 57 mg/dL (70-110)
[2023-07-27 16:54] LABS: Glucose,Whole Blood 60 mg/dL (70-110)
--- NOTE | 2023-07-27 16:56 | CA ---
Transthoracic Echo Report Name: Bhupinder Ruiz Age: 77 Gender: M : 1945 Exam Date: 07/27/2023 14:35 Exam Location: [place] [facility] Ht (in): 69 Wt (lb): 225 Ordering Physician: Blane Parham MD Attending/Referring Phys: Environmental Health Technician Hilary Hollingsworth RDCS Procedure CPT: Indications: Non-STEMI Cardiac Hx: Technical Quality: Fair Contrast 1: Total Dose (mL): Contrast 2: Total Dose (mL): MEASUREMENTS (Male / Female) Normal Values 2D ECHO LV Diastolic Diameter PLAX 5.7 cm 4.2 - 5.9 / 3.9 - 5.3 cm LV Systolic Diameter PLAX 4.9 cm IVS Diastolic Thickness 1.2 cm 0.6 - 1.0 / 0.6 - 0.9 cm LVPW Diastolic Thickness 1.2 cm 0.6 - 1.0 / 0.6 - 0.9 cm LV Relative Wall Thickness 0.4 RV Internal Dim ED PLAX 4.0 cm LA Systolic Diameter LX 4.3 cm 3.0 - 4.0 / 2.7 - 3.8 cm LV Diastolic Volume MOD 4C 79.1 cm??? LV Systolic Volume MOD 4C 57.9 cm??? LV Ejection Fraction MOD 4C 26.8 % LV Cardiac Index MOD 4C 878.4 cm???/min???m??? LV Diastolic Length 4C 8.1 cm LV Systolic Length 4C 7.2 cm LV Diastolic Volume MOD 2C 115.1 cm??? LV Systolic Volume MOD 2C 89.3 cm??? LV Ejection Fraction MOD 2C 22.4 % LV Cardiac Index MOD 2C 1069.2 cm???/min???m??? LV Diastolic Length 2C 8.5 cm LV Systolic Length 2C 7.9 cm LA Volume 70.9 cm??? 18 - 58 / 22 - 52 cm??? LA Volume Index 31.3 cm???/m??? 16 - 28 cm???/m??? M-MODE LV Diastolic Diameter MM 6.4 cm 4.2 - 5.9 / 3.9 - 5.3 cm LV Systolic Diameter MM 5.5 cm LV Cardiac Index MM Teich 2541.4 cm???/min???m??? IVS Diastolic Thickness MM 0.9 cm 0.6 - 1.0 / 0.6 - 0.9 cm LVPW Diastolic Thickness MM 1.0 cm 0.6 - 1.0 / 0.6 - 0.9 cm LV Relative Wall Thickness MM 0.3 0.24 - 0.42 / 0.22 - 0.42 LV Mass Index MM 111.1 g/m??? 49 - 115 / 43 - 95 g/m??? Aortic Root Diameter MM 3.1 cm AV Cusp Separation MM 1.8 cm DOPPLER AV Peak Velocity 108.4 cm/s AV Peak Gradient 4.7 mmHg MV Area PHT 4.2 cm??? Mitral E Point Velocity 97.3 cm/s Mitral A Point Velocity 50.7 cm/s Mitral E to A Ratio 1.9 MV Deceleration Time 180.1 ms TR Peak Velocity 280.5 cm/s TR Peak Gradient 31.5 mmHg Right Ventricular Systolic Press 46.3 mmHg FINDINGS Left Ventricle Left ventricular ejection fraction is estimated at 25-30 %. Borderline left ventricular hypertrophy. Severely reduced global left ventricular systolic function. Mildly increased left ventricular mass. Severely decreased fractional shortening. Severely decreased midwall fractional shortening. Mildly increased left ventricular diastolic diameter. Right Ventricle Severe right ventricular dilatation. Moderate pulmonary hypertension. Right ventricular systolic pressure estimated at 46 mm hg. Right Atrium Normal right atrial size. Left Atrium Mildly increased left atrial diameter. Mildly increased left atrial volume. Mitral Valve Structurally normal mitral valve. Moderate mitral regurgitation. Aortic Valve Trileaflet aortic valve. No aortic valve stenosis or regurgitation. Tricuspid Valve Structurally normal tricuspid valve. Mild tricuspid regurgitation. Pulmonic Valve Pulmonic valve not well visualized. No pulmonic regurgitation. Pericardium No pericardial effusion. Aorta Normal size aortic root and proximal ascending aorta. CONCLUSIONS Severe LV systolic dysfunction Right ventricular dilated dictation Moderate pulmonary hypertension Moderate mitral regurgitation Previewed by: Dr. Marciano Rodarte MD (Electronically Signed) Final Date: 27 July 2023 16:55
--- NOTE | 2023-07-27 18:52 | P.PN ---
Subjective History of present illness; patient is 77-year-old gentleman with past medical history significant for diabetes mellitus, hypertension presented to the ER for chest pain. Patient states that chest pain started 2 weeks ago, the patient on the left side, intermittent, sharp in intensity, no aggravating or relieving factors associated with this chest pain, nonradiating. Patient did mention that sometimes he gets short of breath during those episodes of chest pain. Denies any nausea or vomiting. Denies any diaphoresis. Because this chest pain, patient became concerned and came to the ER Initial lab work done in the ER showed 16.7, hemoglobin 14.5, platelet count 247, sodium 140, potassium 5.1, BUN 21, creatinine 0.95, troponin 1.2 Influenza A not detected Influenza B not detected RSV not detected COVID-19 not detected EKG done in the ER showed heart rate of 114, no ST segment elevation or depression seen, no T-wave inversions seen. Chest x-ray done in the ER correlate for CHF with pulmonary vascular congestion Patient admitted to internal medicine service 07/27/2023 Patient presents with non-STEMI, he underwent cardiac cath today showing severe triple vessel coronary artery disease Thoracic surgery team were consulted Hypertension with urgency is better controlled now patient IV Lasix were switched to oral dose 20 mg once daily He is currently on aspirin 81 mg on heparin drip Patient has 1 episodes of low-grade fever around 100 and mild increase in WBC him back to close to the reference range from 16.7 down to 10.8. Patient currently is afebrile admitted for antibiotics for acute monitoring Objective - Vital Signs Vital signs: Vital Signs Temp 98.1 F 07/27/23 07:58 Pulse 92 07/27/23 13:46 Resp 14 07/27/23 13:46 BP 107/53 07/27/23 13:46 Pulse Ox 100 07/27/23 13:46 FiO2 Intake & Output 07/26/23 07/27/23 07/27/23 18:59 06:59 18:59 Intake Total 77.667 302.333 102.792 Output Total 200 Balance 77.667 102.333 102.792 Weight 102.058 kg Intake: IV 10 60 Invasive Line 1 10 10 Intake, IV Titration 67.667 182.333 42.792 Amount Heparin Sod,Pork in 0.45% 67.667 182.333 42.792 NaCl 25,000 unit In 0.45 % NaCl 1 250ml.bag @ 9. 798 UNITS/KG/HR 10 mls/hr IV .Q24H [facility] Rx#: [id number] Oral 120 Output: Urine 200 Other: Voiding Method Urinal Urinal # Voids 1 - Exam GENERAL: The patient is alert and oriented x3, not in any acute distress. Well developed, well nourished. HEENT: Pupils are round and equally reacting to light. EOMI. No scleral icterus. No conjunctival pallor. Normocephalic, atraumatic. No pharyngeal erythema. No thyromegaly. CARDIOVASCULAR: S1 and S2 present. No murmurs, rubs, or gallops. PULMONARY: Chest is clear to auscultation, no wheezing , no crackles. ABDOMEN: Soft, nontender, nondistended, normoactive bowel sounds. No palpable organomegaly. MUSCULOSKELETAL: No joint swelling or deformity. EXTREMITIES: No cyanosis, clubbing, or pedal edema. NEUROLOGICAL: Gross neurological examination did not reveal any focal deficits. SKIN: No rashes. no petechiae. - Labs CBC & Chem 7: 07/27/23 07:09 07/27/23 07:09 Labs: Abnormal Lab Results - Last 24 Hours (Table) 07/26/23 07/26/23 07/26/23 Range/Units 16:29 20:33 22:40 WBC (3.8-10.6) k/uL Neutrophils # (1.3-7.7) k/uL APTT 40.1 H (22.0-30.0) sec BUN (9-20) mg/dL Glucose (74-99) mg/dL POC Glucose (mg/dL) 303 H (70-110) mg/dL Hemoglobin A1c (<=6.0) % Troponin I 1.560 H* (0.000-0.034) ng/mL Procalcitonin (0.02-0.09) ng/mL 07/27/23 07/27/23 07/27/23 Range/Units 07:09 07:09 07:09 WBC (3.8-10.6) k/uL Neutrophils # (1.3-7.7) k/uL APTT (22.0-30.0) sec BUN 27 H (9-20) mg/dL Glucose 142 H (74-99) mg/dL POC Glucose (mg/dL) (70-110) mg/dL Hemoglobin A1c 8.1 H (<=6.0) % Troponin I (0.000-0.034) ng/mL Procalcitonin 0.62 H (0.02-0.09) ng/mL 07/27/23 07/27/23 07/27/23 Range/Units 07:09 07:09 08:30 WBC 10.8 H (3.8-10.6) k/uL Neutrophils # 7.8 H (1.3-7.7) k/uL APTT 69.7 H (22.0-30.0) sec BUN (9-20) mg/dL Glucose (74-99) mg/dL POC Glucose (mg/dL) 123 H (70-110) mg/dL Hemoglobin A1c (<=6.0) % Troponin I (0.000-0.034) ng/mL Procalcitonin (0.02-0.09) ng/mL Assessment and Plan Assessment: Non-ST elevation [place], secondary to triple-vessel coronary artery disease involving critical disease of the RCA, LAD and PDA branch of the left circumflex artery Hypertension Insulin-dependent diabetes mellitus Leukocytosis, most likely reactive Hilar and mediastinal lymphadenopathy, require repeat this in 3 months Plan: Continue with heparin drip Continue with aspirin Cardiology consult Cardiothoracic surgery consult Continue with insulin and monitor glucose Labs and medication were reviewed.. Continue same treatment. Continue with symptomatic treatment. Resume home medication. Monitor labs and vitals. DVT a nd GI prophylaxis. Further recommendations as per clinical course of the patient DVT prophylaxis: heparin GI Prophylaxis: Pepcid Prognosis is guarded
[2023-07-27 20:53] LABS: Glucose,Whole Blood 170 mg/dL (70-110)
[2023-07-27] MEDS: FUROSEMIDE 10 MG/ML 2 ML VIAL IV SCH (21:33)
[2023-07-27] MEDS: ATORVASTATIN 80 MG TAB PO SCH (21:36)
[2023-07-28 05:53] LABS: Glucose,Whole Blood 81 mg/dL (70-110)
[2023-07-28] MEDS: INSULIN ASPART (NovoLOG) 100 UNIT/ML VIAL SQ SCH ×4 (06:05→20:13)
[2023-07-28] MEDS: FUROSEMIDE 20 MG TAB PO SCH (09:43)
[2023-07-28] MEDS: LOSARTAN 50 MG TAB PO SCH (09:43)
[2023-07-28] MEDS: ASPIRIN 81 MG PO SCH (09:43)
[2023-07-28] MEDS: METOPROLOL TARTRATE 25 MG TAB PO SCH ×2 (09:43→20:15)
--- NOTE | 2023-07-28 09:52 | P.PN ---
Subjective Progress Note Date: 07/28/23 Principal diagnosis: Coronary artery disease, non-ST elevated myocardial infarction this admission, evaluation for myocardial revascularization surgery. He is a past medical histor y significant for hypertension, hyperlipidemia, pancreatitis, insulin-dependent diabetes mellitus type 2, obesity with a BMI of 33.2 kg/m, osteoarthritis, lifetime nonsmoker and a family history of early-onset coronary artery disease with his dad, 2 brothers and some nephews having myocardial infarctions in their 40s. The patient was seen and examined in follow-up today 07/28/2023 at his bedside on the third floor cardiac stepdown unit. The patient's is present at his bedside at this time. The patient is currently laying in bed, is awake, alert, oriented 3 and is in no acute apparent distress. The patient underwent a transthoracic 2-D echocardiogram yesterday which demonstrated a left ventricular ejection fraction estimated at 25-30%, borderline left ventricular hypertrophy, severely reduced global left ventricular systolic function, mildly increased left ventricular mass, severely decreased fractional shortening, severely decreased mental fractional shortening and mildly increased left ventricular diastolic diameter. The 2-D echo also demonstrated moderate mitral valve regurgitation, no aortic valve stenosis or regurgitation, mild tricuspid valve regurgitation, no pulmonic regurgitation, and no pericardial effusion. This morning he denies any further complaints of chest pain or pressure. He remains hemodynamically stable and is currently on no inotropic pressor support. Dr. Villasenor had met with the patient and his family members present at his bedside yesterday and discussed treatment options. Objective - Vital Signs Vital signs: Vital Signs Temp 97.9 F 07/28/23 08:00 Pulse 96 07/28/23 08:00 Resp 17 07/28/23 08:00 BP 125/72 07/28/23 08:00 Pulse Ox 99 07/28/23 08:00 FiO2 Intake & Output 07/27/23 07/28/23 07/28/23 18:59 06:59 18:59 Intake Total 422.792 Balance 422.792 Weight 98.8 kg Intake: IV 260 Invasive Line 1 10 Intake, IV Titration 42.792 Amount Heparin Sod,Pork in 0.45% 42.792 NaCl 25,000 unit In 0.45 % NaCl 1 250ml.bag @ 9. 798 UNITS/KG/HR 10 mls/hr IV .Q24H [facility] Rx#: [id number] Oral 120 Other: Voiding Method Urinal Urinal # Voids 1 1 - Exam CONSTITUTIONAL: Appears comfortable, cooperative, no apparent acute distress. HEENT: Neck is supple, no JVD, no lymphadenopathy. RESPIRATORY: Lungs sounds essentially clear throughout, diminished to his bilateral bases. Respirations are symmetrical and nonlabored. Currently on room air with oxygen saturations 99%. CARDIOVASCULAR: Regular rhythm and rate. S1 and S2 present, negative for S3, gallop or murmur. GASTROINTESTINAL: Abdomen soft, nontender, nondistended. Active bowel sounds present 4 quadrants. GENITOURINARY: Continues to void. INTEGUMENTARY: Skin is warm and dry with no evidence of clubbing or cyanosis. NEUROLOGIC: Cranial nerves II through XII intact. No focal deficits. MUSKULOSKELETAL: Able to move all extremities, strength equal bilaterally, generalized weakness. PSYCHIATRIC: Alert and oriented to person place and time, appropriate affect, intact judgment and insight. - Allied health notes Allied health notes reviewed: nursing - Labs CBC & Chem 7: 07/27/23 07:09 07/27/23 07:09 Labs: Abnormal Lab Results - Last 24 Hours (Table) 07/27/23 07/27/23 07/27/23 Range/Units 07:09 07:09 16:43 POC Glucose (mg/dL) 60 L (70-110) mg/dL Hemoglobin A1c 8.1 H (<=6.0) % Procalcitonin 0.62 H (0.02-0.09) ng/mL 07/27/23 07/27/23 Range/Units 16:44 20:51 POC Glucose (mg/dL) 57 L 170 H (70-110) mg/dL Hemoglobin A1c (<=6.0) % Procalcitonin (0.02-0.09) ng/mL Assessment and Plan Assessment: Coronary artery disease Non-ST elevated myocardial infarction this admission Hypertension Hyperlipidemia Insulin-dependent diabetes mellitus Osteoarthritis Obesity with a BMI of 33.2 kg/m Lifetime nonsmoker History of pancreatitis Plan: Dr. Villasenor review the results of the transthoracic 2-D echocardiogram and is recommending medical management with possible PCI. This was discussed with Dr. Dean from cardiology. Medical management and other comorbidities per primary care service and other consultants. Continue to maximize medical management with aspirin, statin and beta casper. We will continue to follow the patient on an as-needed basis. Time with Patient: Less than 30
[2023-07-28] MEDS ORDERED: ALPRAZolam 0.25 MG TAB PO PRN (10:14)
[2023-07-28] MEDS ORDERED: ATORVASTATIN 80 MG TAB PO STA (10:14)
[2023-07-28] MEDS ORDERED: NITROGLYCERIN SL TABS 0.4 MG TAB SUBLINGUAL PRN (10:14)
[2023-07-28] MEDS ORDERED: ASPIRIN 325 MG TAB PO STA (10:14)
[2023-07-28] MEDS: NITROGLYCERIN OINT 1 INCH/GM PACKET TOPICAL SCH ×3 (10:33→23:48)
[2023-07-28 11:18] LABS: Basophils % (A) 0 %; Eosinophils # (A) 0.4 k/uL (0-0.7); Eosinophils % (A) 3 %; HGB 12.7 gm/dL (13.0-17.5); Lymphocytes # (A) 1.1 k/uL (1.0-4.8); Lymphocytes % (A) 10 %; MCH 30.5 pg (25.0-35.0); MCHC 31.6 g/dL (31.0-37.0); MCV 96.6 fL (80.0-100.0); Mean Platelet Volume 9.8; Monocytes # (A) 0.6 k/uL (0-1.0); Monocytes % (A) 6 %; Neutrophils # (A) 8.8 k/uL (1.3-7.7); Neutrophils % (A) 80 %; Platelet Count 241 k/uL (150-450); RBC 4.15 m/uL (4.30-5.90); RDW 13.1 % (11.5-15.5); WBC 11.1 k/uL (3.8-10.6)
[2023-07-28 11:43] LABS: African American GFR (CKD) 74 (>60 ml/min/1.73 sqM); Anion Gap 11 mmol/L; Blood Urea Nitrogen 25 mg/dL (9-20); Calcium 8.8 mg/dL (8.4-10.2); Carbon Dioxide 27 mmol/L (22-30); Chloride 100 mmol/L (98-107); Glucose 86 mg/dL (74-99); Non-African American GFR(CKD) 64 (>60 ml/min/1.73 sqM); Potassium 4.7 mmol/L (3.5-5.1); Sodium 138 mmol/L (137-145)
[2023-07-28 12:06] LABS: Glucose,Whole Blood 109 mg/dL (70-110)
--- NOTE | 2023-07-28 12:36 | P.PN ---
Subjective History of present illness; patient is 77-year-old gentleman with past medical history significant for diabetes mellitus, hypertension presented to the ER for chest pain. Patient states that chest pain started 2 weeks ago, the patient on the left side, intermittent, sharp in intensity, no aggravating or relieving factors associated with this chest pain, nonradiating. Patient did mention that sometimes he gets short of breath during those episodes of chest pain. Denies any nausea or vomiting. Denies any diaphoresis. Because this chest pain, patient became concerned and came to the ER Initial lab work done in the ER showed 16.7, hemoglobin 14.5, platelet count 247, sodium 140, potassium 5.1, BUN 21, creatinine 0.95, troponin 1.2 Influenza A not detected Influenza B not detected RSV not detected COVID-19 not detected EKG done in the ER showed heart rate of 114, no ST segment elevation or depression seen, no T-wave inversions seen. Chest x-ray done in the ER correlate for CHF with pulmonary vascular congestion Patient admitted to internal medicine service 07/27/2023 Patient presents with non-STEMI, he underwent cardiac cath today showing severe triple vessel coronary artery disease Thoracic surgery team were consulted Hypertension with urgency is better controlled now patient IV Lasix were switched to oral dose 20 mg once daily He is currently on aspirin 81 mg on heparin drip Patient has 1 episodes of low-grade fever around 100 and mild increase in WBC him back to close to the reference range from 16.7 down to 10.8. Patient currently is afebrile admitted for antibiotics for acute monitoring 07/28/2023 Patient with no chest pain or dyspnea today Cardia thoracic surgery recommended no surgical intervention Patient is going for cardiac cath with cartilage team today. Patient informed about his hilar and mediastinal lymphadenopathy and the need to repeat CAT scan in 3 months and he agrees. Risk of tumor and cancer explained for him and he verbalized understanding and acceptance. He is vitals and labs looks stable Continue with aspirin and heparin drip was held. Objective - Vital Signs Vital signs: Vital Signs Temp 97.9 F 07/28/23 08:00 Pulse 96 07/28/23 08:00 Resp 17 07/28/23 08:00 BP 125/72 07/28/23 08:00 Pulse Ox 99 07/28/23 08:00 FiO2 Intake & Output 07/27/23 07/28/23 07/28/23 18:59 06:59 18:59 Intake Total 422.792 Balance 422.792 Weight 98.8 kg Intake: IV 260 Invasive Line 1 10 Intake, IV Titration 42.792 Amount Heparin Sod,Pork in 0.45% 42.792 NaCl 25,000 unit In 0.45 % NaCl 1 250ml.bag @ 9. 798 UNITS/KG/HR 10 mls/hr IV .Q24H [facility] Rx#: [id number] Oral 120 Other: Voiding Method Urinal Urinal # Voids 1 1 - Exam GENERAL: The patient is alert and oriented x3, not in any acute distress. Well developed, well nourished. HEENT: Pupils are round and equally reacting to light. EOMI. No scleral icterus. No conjunctival pallor. Normocephalic, atraumatic. No pharyngeal erythema. No thyromegaly. CARDIOVASCULAR: S1 and S2 present. No murmurs, rubs, or gallops. PULMONARY: Chest is clear to auscultation, no wheezing , no crackles. ABDOMEN: Soft, nontender, nondistended, normoactive bowel sounds. No palpable organomegaly. MUSCULOSKELETAL: No joint swelling or deformity. EXTREMITIES: No cyanosis, clubbing, or pedal edema. NEUROLOGICAL: Gross neurological examination did not reveal any focal deficits. SKIN: No rashes. no petechiae. - Labs CBC & Chem 7: 07/28/23 10:40 07/28/23 10:40 Labs: Abnormal Lab Results - Last 24 Hours (Table) 07/27/23 07/27/23 07/27/23 Range/Units 07:09 16:43 16:44 POC Glucose (mg/dL) 60 L 57 L (70-110) mg/dL Procalcitonin 0.62 H (0.02-0.09) ng/mL 07/27/23 Range/Units 20:51 POC Glucose (mg/dL) 170 H (70-110) mg/dL Procalcitonin (0.02-0.09) ng/mL Assessment and Plan Assessment: Non-ST elevation [place], secondary to triple-vessel coronary artery disease involving critical disease of the RCA, LAD and PDA branch of the left circumflex artery Hypertension Insulin-dependent diabetes mellitus Leukocytosis, most likely reactive Hilar and mediastinal lymphadenopathy, require repeat this in 3 months Plan: Continue with heparin, after that patient is going for cardiac cath with cartilage team Continue with aspirin Cardiology consult Cardiothoracic surgery consult, recommend no surgical intervention Continue with insulin and monitor glucose Labs and medication were reviewed.. Continue same treatment. Continue with symptomatic treatment. Resume home medication. Monitor labs and vitals. DVT and GI prophylaxis. Further recommendations as per clinical course of the patient DVT prophylaxis: heparin GI Prophylaxis: Pepcid Prognosis is guarded
[2023-07-28] MEDS: SODIUM CHLORIDE 0.9% 1,000 ML in EMPTY BAG 1 BAG IV SCH ×4 (12:58→22:42)
[2023-07-28] MEDS: HEPARIN SOD,PORK IN 0.45% NACL 25,000 UNIT in 0.45% NACL 1 250ML.BAG IV SCH (12:58)
[2023-07-28] MEDS: INSULIN DETEMIR (LEVEMIR) 100 UNIT/ML SYR SQ SCH (13:30)
[2023-07-28] MEDS ORDERED: LIDOCAINE 1% INJ 10MG/ML (20 ML MDV) ONE (13:43)
[2023-07-28] MEDS ORDERED: VERAPAMIL 2.5 MG/ML 2 ML AMP ONE (13:44)
[2023-07-28] MEDS ORDERED: HEPARIN SODIUM 1,000 UN/ML (10ML VL) ONE (13:44)
[2023-07-28] MEDS ORDERED: IV FLUID CONTINUATION 1,000 ML IV ONE (14:00)
[2023-07-28] MEDS ORDERED: MIDAZOLAM 2 MG/2 ML VIAL IVP ONE (14:08)
[2023-07-28] MEDS ORDERED: fentaNYL (PF) 50 MCG/ML 2 ML AMP IVP ONE (14:08)
[2023-07-28] MEDS ORDERED: LIDOCAINE 1% INJ 10MG/ML (20 ML MDV) SQ ONE (14:08)
[2023-07-28] MEDS ORDERED: fentaNYL (PF) 50 MCG/ML 2 ML AMP ONE (14:09)
[2023-07-28] MEDS ORDERED: HEPARIN SODIUM 1,000 UN/ML (10ML VL) IV ONE (14:24)
[2023-07-28] MEDS ORDERED: TICAGRELOR 90 MG TAB ONE (14:39)
[2023-07-28] MEDS ORDERED: TICAGRELOR 90 MG TAB PO ONE (14:42)
[2023-07-28] MEDS ORDERED: IOPAMIDOL-370 100ML BTL INJ ONE ×2 (15:24→15:31)
[2023-07-28] MEDS ORDERED: NITROGLYCERIN 1000MCG/10ML SYRINGE INTRACORON ONE (15:26)
[2023-07-28] MEDS ORDERED: RX INFO: IV CONTRAST WAS GIVEN 1 EACH MISC MISCELLANE PRN (15:44)
[2023-07-28] MEDS ORDERED: ZOLPIDEM 5 MG TAB PO PRN (15:44)
[2023-07-28] MEDS ORDERED: ATROPINE SULFATE 0.1 MG/ML 10ML SYRINGE IV PRN (15:44)
[2023-07-28 15:57] LABS: Glucose,Whole Blood 99 mg/dL (70-110)
--- NOTE | 2023-07-28 18:04 | P.PCN ---
Date of Procedure: 07/28/23 Operative Findings: PERCUTANEOUS PERIPHERAL INTERVENTION Performing physician Richie Dean M.D. Procedure performed 1. Successful stenting of the right coronary artery using 4.0 x 15 mm and 3.5 x 23 mm Xience GERI with an excellent angiographic results 2. Successful stenting of the left anterior descending artery using 2.75 x 28 and 3.5 x 15 mm Xience GERI with an excellent angiographic results 3. Adjunctive use of intravascular imaging 4. Successful placement Impella in the left ventricle 5. Right common femoral artery angiogram 6. Ultrasound-guided of the right common femoral artery Indication Severe vessels a CAD involving the RCA and LAD in this patient who was admitted with acute coronary syndrome and deemed to be high risk for surgery Approach Right common femoral artery Complications None Level of sedation Moderate with a sedation time of 61 minutes Procedure description After obtaining informed consent the patient was brought to the cardiac dental lab technician. The right common femoral artery was cannulated using micropuncture te chnique under ultrasound guidance and micropuncture wire passed easily then I placed the micropuncture sheath over the wire and the wire and dilator were pulled out and I did selective right common femoral artery angiogram and showed that the entry was in the middle of the right common femoral artery. At that point I did exchange might micropuncture sheath into 6 Latvian 11 cm sheath using a 035 wire. Subsequently I did place Perclose device with 10:00 and 2:00. After that I did plate and 8 Latvian sheath at the right common femoral artery. Subsequently I did exchange my 035 wire into and 035 stiff wire rhythm dilated using 12 Latvian dilator and subsequently I advanced 14 Latvian sheath under fluoroscopy guidance. At that point anticoagulation was initiated using heparin with continuous ACT monitoring. After that I did graft the aortic valve using a 6 Latvian pigtail catheter with a 035 wire and subsequently I pulled the 035 wire out and did advance 018 wire and then the pigtail catheter was withdrawn out. Under fluoroscopy guidance the Impella CP was advanced to the LV and palpitation no to be was noted. After that I accessed the 14 Latvian sheath using micropuncture doing well and I placed a 6 Latvian sheath inside the 14 Latvian sheath. Subsequently I did engage the right coronary artery using JR4 guiding catheter and I wire to think vented through wire. Intravascular imaging performed and showed a diameter around 4 mm. Predilatation was performed using 3.5 mm balloon before I deployed in the proximal RCA 4.0 x 15 mm stent and an angiogram was performed showed that the and aunts dissection distally decided to cover with another stent so I deployed a 3.5 x 23 mm. Final angiogram showed excellent angiographic results. Subsequently I did engage the left main using CLS 3.5 guiding catheter. After that I did wire and cross the lesion in the LAD using a whisper wire with the backup support of microcatheter. Subsequently intravascular imaging showed calcified lesion in the LAD. I believe that he would using 2 mm balloon and subsequently 2.5 mm noncompliant balloon before I deployed 2.75 x 28 mm stent. An angiogram showed possible edge dissection. I decided to cover with another stent so I deployed 2.5 x 15 mm. The area of overlap was dilated using the stent balloon. Final angiogram showed good angiographic results and the procedure was completed was no complication. After that the Impella CP was withdrawn out and I was able to achieve hemostasis at the right groin. Postprocedure management 1. Dual antiplatelet therapy using aspirin and Brilinta for at least 12 month 2. Aggressive cholesterol control 3. Risk factors modification 4. Follow-up with the patient Proc
[2023-07-28] MEDS ORDERED: DEXTROSE 5% IN WATER 100 ML with AMIODARONE 150 MG IV ONE (18:49)
[2023-07-28] MEDS ORDERED: AMIODARONE 360 MG in DEXTROSE 5% IN WATER 200 ML IV ONE ×2 (18:50)
[2023-07-28] MEDS ORDERED: HEPARIN SODIUM 1,000 UN/ML (10ML VL) IV PRN (18:52)
[2023-07-28] MEDS ORDERED: HEPARIN SOD,PORK IN 0.45% NACL 25,000 UNIT in 0.45% NACL 1 250ML.BAG IV SCH (19:00)
[2023-07-28] MEDS ORDERED: AMIODARONE 450 MG in DEXTROSE 5% IN WATER 250 ML IV SCH ×2 (19:00)
[2023-07-28 19:17] LABS: Basophils % (A) 0 %; Eosinophils # (A) 0.2 k/uL (0-0.7); Eosinophils % (A) 2 %; HCT 39.8 % (39.0-53.0); HGB 13.1 gm/dL (13.0-17.5); Lymphocytes # (A) 0.6 k/uL (1.0-4.8); Lymphocytes % (A) 6 %; MCH 31.5 pg (25.0-35.0); MCV 95.6 fL (80.0-100.0); Mean Platelet Volume 9.4; Monocytes # (A) 0.4 k/uL (0-1.0); Monocytes % (A) 4 %; Neutrophils # (A) 8.9 k/uL (1.3-7.7); Neutrophils % (A) 87 %; Platelet Count 225 k/uL (150-450); RBC 4.16 m/uL (4.30-5.90); RDW 12.9 % (11.5-15.5); WBC 10.2 k/uL (3.8-10.6)
[2023-07-28 19:26] LABS: INR 1.1 (<1.2); Partial Thromboplastin Time 26.1 sec (22.0-30.0); Prothrombin Time 11.6 sec (10.0-12.5)
[2023-07-28 20:09] LABS: Glucose,Whole Blood 133 mg/dL (70-110)
[2023-07-28] MEDS: ATORVASTATIN 80 MG TAB PO SCH (20:15)
[2023-07-28] MEDS: TICAGRELOR 90 MG TAB PO SCH (20:15)
[2023-07-28] MEDS ORDERED: HEPARIN SODIUM,PORCINE 5,000 UNIT/ML 1 ML VIAL SQ SCH (21:00)
[2023-07-29] MEDS ORDERED: AMIODARONE 450 MG in DEXTROSE 5% IN WATER 250 ML IV SCH ×2 (01:00)
[2023-07-29] MEDS ORDERED: SODIUM CHLORIDE 0.9% 1,000 ML in EMPTY BAG 1 BAG IV SCH (02:00)
[2023-07-29 04:16] LABS: Basophils % (A) 0 %; Eosinophils % (A) 0 %; HCT 39.5 % (39.0-53.0); HGB 12.9 gm/dL (13.0-17.5); Lymphocytes # (A) 0.6 k/uL (1.0-4.8); Lymphocytes % (A) 6 %; MCHC 32.5 g/dL (31.0-37.0); MCV 95.2 fL (80.0-100.0); Mean Platelet Volume 9.5; Monocytes # (A) 0.5 k/uL (0-1.0); Monocytes % (A) 5 %; Neutrophils # (A) 9.2 k/uL (1.3-7.7); Neutrophils % (A) 87 %; Platelet Count 239 k/uL (150-450); RBC 4.15 m/uL (4.30-5.90); RDW 12.8 % (11.5-15.5); WBC 10.5 k/uL (3.8-10.6)
[2023-07-29 05:00] LABS: INR 1.2 (<1.2); Prothrombin Time 12.8 sec (10.0-12.5)
[2023-07-29 06:25] LABS: Glucose,Whole Blood 207 mg/dL (70-110)
[2023-07-29] MEDS: INSULIN ASPART (NovoLOG) 100 UNIT/ML VIAL SQ SCH ×4 (06:56→20:44)
[2023-07-29] MEDS: SODIUM CHLORIDE 0.9% 1,000 ML in EMPTY BAG 1 BAG IV SCH (06:57)
[2023-07-29] MEDS: INSULIN DETEMIR (LEVEMIR) 100 UNIT/ML SYR SQ SCH (06:59)
--- NOTE | 2023-07-29 06:59 | P.PN ---
Subjective Progress Note Date: 07/29/23 Principal diagnosis: Coronary artery disease The patient is a pleasant 77-year-old gentleman with coronary artery disease he underwent yesterday successful stenting of the LAD and RCA as well as ischemic cardiomyopathy and hypertension and dyslipidemia and recent diagnosis of atrial fibrillation. He was admitted to the hospital with acute coronary syndrome consistent with acute non-ST elevation myocardial infarction and underwent heart catheterization which revealed critical 2 vessel CAD he was deemed to be at high-risk undergo open heart surgery and he underwent yesterday PCI of the RCA and LAD. May [id number] The patient was seen and evaluated this morning. He is asymptomatic. He is a moderately stable. Yesterday he went into atrial fibrillation with RVR. He is in atrial fibrillation at this point with overall controlled heart rate. Currently he is on heparin IV which I'm going to stop and start him on oral anticoagulation. Continue aspirin. Continue antiplatelet. DC amiodarone IV and start the patient on amiodarone orally. The examination is remarkable for soft nontender right groin with a good femoral pulse and only Doppler pulse in both feet. Otherwise the rest of the examination is unremarkable beside irregular heart rhythm. Assessment Acute non-ST elevation myocardial infarction Status post PCI of the RCA and LAD Ischemic cardiomyopathy Hypertension Dyslipidemia Paroxysmal atrial fibrillation Plan DC amiodarone IV and start the patient on oral amiodarone DC IV heparin and start the patient on oral anticoagulation The patient can be transferred to the third floor Is not ready to be discharged home as of yet Follow-up with the patient Objective - Vital Signs Vital signs: Vital Signs Temp 98.4 F 07/29/23 00:00 Pulse 107 H 07/29/23 04:00 Resp 18 07/29/23 04:00 BP 120/68 07/29/23 04:00 Pulse Ox 95 07/29/23 04:00 FiO2 Intake & Output 07/28/23 07/28/23 07/29/23 06:59 18:59 06:59 Intake Total 500 663.494 Output Total 350 550 Balance 150 113.494 Weight 98.8 kg 101 kg Intake: IV 100 400 Sodium Chloride 0.9% 1, 400 000 ml In Empty Bag 1 bag @ 75 mls/hr IV .[id number] [facility] Rx#:[id number] Intake, IV Titration 400 263.494 Amount Heparin Sod,Pork in 0.45% 63.494 NaCl 25,000 unit In 0.45 % NaCl 1 250ml.bag @ 10. 12 UNITS/KG/HR 9.999 mls/ hr IV .Q24H [facility] Rx#: [id number] Sodium Chloride 0.9% 1, 400 200 000 ml In Empty Bag 1 bag @ 1 ML/KG/HR 98.8 mls/hr IV .Q10H8M [facility] Rx#: [id number] Sodium Chloride 0.9% 1, 0 000 ml In Empty Bag 1 bag @ 75 mls/hr IV .[id number] [facility] Rx#:[id number] Output: Urine 350 550 Other: Voiding Method Urinal Urinal Urinal # Voids 1 2 - Labs CBC & Chem 7: 07/29/23 03:43 07/28/23 10:40 Labs: Abnormal Lab Results - Last 24 Hours (Table) 07/28/23 07/28/23 07/28/23 Range/Units 10:40 10:40 19:02 WBC 11.1 H (3.8-10.6) k/uL RBC 4.15 L 4.16 L (4.30-5.90) m/uL Hgb 12.7 L (13.0-17.5) gm/dL Neutrophils # 8.8 H 8.9 H (1.3-7.7) k/uL Lymphocytes # 0.6 L (1.0-4.8) k/uL PT (10.0-12.5) sec INR (<1.2) APTT (22.0-30.0) sec BUN 25 H (9-20) mg/dL POC Glucose (mg/dL) (70-110) mg/dL 07/28/23 07/29/23 07/29/23 Range/Units 20:08 00:30 03:43 WBC (3.8-10.6) k/uL RBC 4.15 L (4.30-5.90) m/uL Hgb 12.9 L (13.0-17.5) gm/dL Neutrophils # 9.2 H (1.3-7.7) k/uL Lymphocytes # 0.6 L (1.0-4.8) k/uL PT (10.0-12.5) sec INR (<1.2) APTT 31.2 H (22.0-30.0) sec BUN (9-20) mg/dL POC Glucose (mg/dL) 133 H (70-110) mg/dL 07/29/23 07/29/23 Range/Units 03:43 06:22 WBC (3.8-10.6) k/uL RBC (4.30-5.90) m/uL Hgb (13.0-17.5) gm/dL Neutrophils # (1.3-7.7) k/uL Lymphocytes # (1.0-4.8) k/uL PT 12.8 H (10.0-12.5) sec INR 1.2 H (<1.2) APTT (22.0-30.0) sec BUN (9-20) mg/dL POC Glucose (mg/dL) 207 H (70-110) mg/dL
[2023-07-29] MEDS ORDERED: HEPARIN SODIUM,PORCINE 10,000 UNIT in SODIUM CHLORIDE 0.9% 1,000 ML IRRIGATION PRN (07:00)
[2023-07-29] MEDS ORDERED: HEPARIN SODIUM,PORCINE (1 ML) 2,500 UNIT in SODIUM CHLORIDE 0.9% 250 ML IRRIGATION PRN (07:00)
[2023-07-29 07:36] LABS: African American GFR (CKD) >90 (>60 ml/min/1.73 sqM); Anion Gap 12 mmol/L; Blood Urea Nitrogen 24 mg/dL (9-20); Calcium 8.2 mg/dL (8.4-10.2); Carbon Dioxide 19 mmol/L (22-30); Chloride 102 mmol/L (98-107); Glucose 213 mg/dL (74-99); Non-African American GFR(CKD) 78 (>60 ml/min/1.73 sqM); Potassium 4.4 mmol/L (3.5-5.1); Sodium 133 mmol/L (137-145)
[2023-07-29] MEDS: AMIODARONE 200 MG TAB PO SCH ×2 (08:24→20:44)
[2023-07-29] MEDS: LOSARTAN 50 MG TAB PO SCH (08:24)
[2023-07-29] MEDS: ASPIRIN 81 MG PO SCH (08:24)
[2023-07-29] MEDS: FUROSEMIDE 20 MG TAB PO SCH (08:24)
[2023-07-29] MEDS: METOPROLOL TARTRATE 25 MG TAB PO SCH ×2 (08:24→20:44)
[2023-07-29] MEDS: NITROGLYCERIN OINT 1 INCH/GM PACKET TOPICAL SCH ×2 (08:25→16:40)
[2023-07-29] MEDS: APIXABAN 2.5 MG TABLET PO SCH ×2 (08:25→20:44)
[2023-07-29] MEDS: TICAGRELOR 90 MG TAB PO SCH ×2 (08:25→20:44)
[2023-07-29 11:26] LABS: Glucose,Whole Blood 226 mg/dL (70-110)
[2023-07-29 11:28] VITALS: BMI 32.8
--- NOTE | 2023-07-29 11:57 | CDI ---
Documentation Clarification Form Date: 07/29/2023 11:39:23 AM From: Nanette Anand RN CCDS Phone: [phone] Admit Date: 07/26/2023 10:52:00 AM Patient Name: Bhupinder Ruiz Visit Number: [id number] Discharge Date: ATTENTION: The Clinical Documentation Specialists (CDI) and [facility] Coding Staff appreciate your assistance in clarifying documentation. Please respond to the clarification below the line at the bottom and electronically sign. The CDI & [facility] Coding staff will review the response and follow-up if needed. Please note: Queries are made part of the Legal Health Record. If you have any questions, please contact the author of this message via ITS. Dr. Richie Dean Your patient has the documented diagnosis of possible mild acute heart failure 07/27, Cardiology consult. Additional information regarding the type of CHF is requested. History/Risk Factors: 77-year-old male presents to the ED for left sided chest pain with shortness of breath. Medical Hx: HTN, DM, HLD and CAD. 07/26, H&P. Clinical Indicators: VS/Pulse OX, 07/26: B/P 137/75; HR 64; Temp 98.0 F Oral; RR 20; SpO2 99% room air BNP, 07/26: 2610 Echocardiogram Results, 07/27: EF 25-30% Severe LV systolic dysfunction. Right ventricular dilated dictation. Moderate pulmonary hypertension. Moderate mitral regurgitation. Chest X Ray, 07/26: Correlate for CHF with pulmonary vascular congestion. The presence of some Tay B lines suggests mild interstitial edema. Trace left pleural effusion. Treatment: 07/26 Lasix 40mg IV x 1; 07/26 07/27 Lasix 20mg IV Q8HR, 07/28 Lasix 20mg PO Daily; 07/26 Lopressor 25mg PO BID In your professional opinion, can you please clarify the [acuity and type] of CHF if known? [ ] Acute Systolic Heart Failure (reduced EF) [ ] Heart Failure ruled out [ ] Other, please specify [ ] Unable to determine (Template Last Revised: August 2020) Answered in Cardiology Note 07/30/2022: Dr. Dean / Suzie Melendrez [employer]CH Possible mild acute heart failure with reduced EF, currently euvolemic. MTDD
--- NOTE | 2023-07-29 14:42 | P.PN ---
Subjective Progress Note Date: 07/29/23 History of present illness; patient is 77-year-old gentleman with past medical history significant for diabetes mellitus, hypertension presented to the ER for chest pain. Patient states that chest pain started 2 weeks ago, the patient on the left side, intermittent, sharp in intensity, no aggravating or relieving factors associated with this chest pain, nonradiating. Patient did mention that sometimes he gets short of breath during those episodes of chest pain. Denies any nausea or vomiting. Denies any diaphoresis. Because this chest pain, patient became concerned and came to the ER Initial lab work done in the ER showed 16.7, hemoglobin 14.5, platelet count 247, sodium 140, potassium 5.1, BUN 21, creatinine 0.95, troponin 1.2 Influenza A not detected Influenza B not detected RSV not detected COVID-19 not detected EKG done in the ER showed heart rate of 114, no ST segment elevation or depr ession seen, no T-wave inversions seen. Chest x-ray done in the ER correlate for CHF with pulmonary vascular congestion Patient admitted to internal medicine service 07/27/2023 Patient presents with non-STEMI, he underwent cardiac cath today showing severe triple vessel coronary artery disease Thoracic surgery team were consulted Hypertension with urgency is better controlled now patient IV Lasix were switched to oral dose 20 mg once daily He is currently on aspirin 81 mg on heparin drip Patient has 1 episodes of low-grade fever around 100 and mild increase in WBC him back to close to the reference range from 16.7 down to 10.8. Patient currently is afebrile admitted for antibiotics for acute monitoring 07/28/2023 Patient with no chest pain or dyspnea today Cardia thoracic surgery recommended no surgical intervention Patient is going for cardiac cath with cardiology team today. Patient informed about his hilar and mediastinal lymphadenopathy and the need to repeat CAT scan in 3 months and he agrees. Risk of tumor and cancer explained for him and he verbalized understanding and acceptance. He is vitals and labs looks stable Continue with aspirin and heparin drip was held. 07/29. Patient seen and examined. Status post cardiac cath with stent placement in RCA and LAD on 07/28. Denies any chest pain. Denies any shortness of breath. Vital signs stable REVIEW OF SYSTEMS: CONSTITUTIONAL: No fever, no malaise,. CARDIOVASCULAR: No chest pain, no palpitations, no syncope. PULMONARY: No shortness of breath, no cough, GASTROINTESTINAL: No diarrhea, no nausea, no vomiting, no abdominal pain. NEUROLOGICAL: No headaches, no weakness, PHYSICAL EXAMINATION: GENERAL: The patient is alert and oriented x3, not in any acute distress. Well developed, well nourished. HEENT: Pupils are round and equally reacting to light. EOMI. No scleral icterus. No conjunctival pallor. Normocephalic, atraumatic. No pharyngeal erythema. No thyromegaly. CARDIOVASCULAR: S1 and S2 present. No murmurs, rubs, or gallops. PULMONARY: Chest is clear to auscultation, no wheezing or crackles. ABDOMEN: Soft, nontender, nondistended, normoactive bowel sounds. No palpable or ganomegaly. MUSCULOSKELETAL: No joint swelling or deformity. EXTREMITIES: No cyanosis, clubbing, or pedal edema. NEUROLOGICAL: Gross neurological examination did not reveal any focal deficits. SKIN: No rashes. Assessment and plan Non-ST elevation UT, secondary to triple-vessel coronary artery disease involving critical disease of the RCA, LAD and PDA branch of the left circumflex artery Status post PCI of the RCA and LAD Ischemic cardiomyopathy Hypertension Dyslipidemia Paroxysmal atrial fibrillation Insulin-dependent diabetes mellitus Leukocytosis, most likely reactive Hilar and mediastinal lymphadenopathy, require repeat this in 3 months Plan: Monitor vital signs Monitor CBC Monitor CMP Continue telemetry monitoring Status post cardiac cath , Successful stenting of the right coronary artery using 4.0 x 15 mm and 3.5 x 23 mm Xience GERI with an excellent angiographic results, Successful stenting of the left anterior descending artery using 2.75 x 28 and 3.5 x 15 mm Xience GERI with an excellent angiographic results Continue with aspirin and brilinta IV amiodarone switched to oral amiodarone DC heparin and patient was started on Eliquis. Patient will be transferred out of ICU Cardiology following Labs and medication were reviewed.. Continue same treatment. Continue with symptomatic treatment. Resume home medication. Monitor labs and vitals. DVT and GI prophylaxis. Further recommendations as per clinical course of the patient Dictation was produced using [employer] dictation software. please excuse any gram matical, word or spelling errors. Objective - Vital Signs Vital signs: Vital Signs Temp 97.9 F 07/29/23 08:00 Pulse 109 H 07/29/23 09:00 Resp 20 07/29/23 09:00 BP 131/79 07/29/23 08:00 Pulse Ox 94 L 07/29/23 09:00 FiO2 Intake & Output 07/28/23 07/29/23 07/29/23 18:59 06:59 18:59 Intake Total 500 663.494 194.231 Output Total 350 550 Balance 150 113.494 194.231 Weight 101 kg Intake: IV 100 400 Sodium Chloride 0.9% 1, 400 000 ml In Empty Bag 1 bag @ 75 mls/hr IV .[id number] [facility] Rx#:[id number] Intake, IV Titration 400 263.494 194.231 Amount Amiodarone 450 mg In 110.836 Dextrose 5% in Water 250 ml @ 0.5 MG/MIN 16.667 mls/hr IV .Q15H [facility] Rx#: [id number] Heparin Sod,Pork in 0.45% 63.494 83.395 NaCl 25,000 unit In 0.45 % NaCl 1 250ml.bag @ 10. 12 UNITS/KG/HR 9.999 mls/ hr IV .Q24H [facility] Rx#: [id number] Sodium Chloride 0.9% 1, 400 200 0 000 ml In Empty Bag 1 bag @ 1 ML/KG/HR 98.8 mls/hr IV .Q10H8M [facility] Rx#: [id number] Sodium Chloride 0.9% 1, 0 000 ml In Empty Bag 1 bag @ 75 mls/hr IV .[id number] [facility] Rx#:[id number] Output: Urine 350 550 Other: Voiding Method Urinal Urinal # Voids 2 - Labs CBC & Chem 7: 07/29/23 03:43 07/29/23 07:01 Labs: Abnormal Lab Results - Last 24 Hours (Table) 07/28/23 07/28/23 07/28/23 Range/Units 10:40 10:40 19:02 WBC 11.1 H (3.8-10.6) k/uL RBC 4.15 L 4.16 L (4.30-5.90) m/uL Hgb 12.7 L (13.0-17.5) gm/dL Neutrophils # 8.8 H 8.9 H (1.3-7.7) k/uL Lymphocytes # 0.6 L (1.0-4.8) k/uL PT (10.0-12.5) sec INR (<1.2) APTT (22.0-30.0) sec Sodium (137-145) mmol/L Carbon Dioxide (22-30) mmol/L BUN 25 H (9-20) mg/dL Glucose (74-99) mg/dL POC Glucose (mg/dL) (70-110) mg/dL Calcium (8.4-10.2) mg/dL 07/28/23 07/29/23 07/29/23 Range/Units 20:08 00:30 03:43 WBC (3.8-10.6) k/uL RBC 4.15 L (4.30-5.90) m/uL Hgb 12.9 L (13.0-17.5) gm/dL Neutrophils # 9.2 H (1.3-7.7) k/uL Lymphocytes # 0.6 L (1.0-4.8) k/uL PT (10.0-12.5) sec INR (<1.2) APTT 31.2 H (22.0-30.0) sec Sodium (137-145) mmol/L Carbon Dioxide (22-30) mmol/L BUN (9-20) mg/dL Glucose (74-99) mg/dL POC Glucose (mg/dL) 133 H (70-110) mg/dL Calcium (8.4-10.2) mg/dL 07/29/23 07/29/23 07/29/23 Range/Units 03:43 06:22 07:01 WBC (3.8-10.6) k/uL RBC (4.30-5.90) m/uL Hgb (13.0-17.5) gm/dL Neutrophils # (1.3-7.7) k/uL Lymphocytes # (1.0-4.8) k/uL PT 12.8 H (10.0-12.5) sec INR 1.2 H (<1.2) APTT 48.4 H (22.0-30.0) sec Sodium (137-145) mmol/L Carbon Dioxide (22-30) mmol/L BUN (9-20) mg/dL Glucose (74-99) mg/dL POC Glucose (mg/dL) 207 H (70-110) mg/dL Calcium (8.4-10.2) mg/dL 07/29/23 Range/Units 07:01 WBC (3.8-10.6) k/uL RBC (4.30-5.90) m/uL Hgb (13.0-17.5) gm/dL Neutrophils # (1.3-7.7) k/uL Lymphocytes # (1.0-4.8) k/uL PT (10.0-12.5) sec INR (<1.2) APTT (22.0-30.0) sec Sodium 133 L (137-145) mmol/L Carbon Dioxide 19 L (22-30) mmol/L BUN 24 H (9-20) mg/dL Glucose 213 H (74-99) mg/dL POC Glucose (mg/dL) (70-110) mg/dL Calcium 8.2 L (8.4-10.2) mg/dL
[2023-07-29 16:21] LABS: Glucose,Whole Blood 190 mg/dL (70-110)
[2023-07-29 19:51] LABS: Glucose,Whole Blood 162 mg/dL (70-110)
[2023-07-29] MEDS: ATORVASTATIN 80 MG TAB PO SCH (20:44)
[2023-07-30] MEDS: NITROGLYCERIN OINT 1 INCH/GM PACKET TOPICAL SCH ×2 (00:02→13:29)
[2023-07-30 00:41] LABS: Glucose,Whole Blood 78 mg/dL (70-110)
[2023-07-30 05:52] LABS: Glucose,Whole Blood 147 mg/dL (70-110)
[2023-07-30] MEDS: INSULIN ASPART (NovoLOG) 100 UNIT/ML VIAL SQ SCH ×4 (05:58→20:41)
[2023-07-30] MEDS: INSULIN DETEMIR (LEVEMIR) 100 UNIT/ML SYR SQ SCH (06:08)
[2023-07-30 08:40] LABS: Basophils % (A) 0 %; Eosinophils # (A) 0.1 k/uL (0-0.7); Eosinophils % (A) 1 %; HCT 41.2 % (39.0-53.0); HGB 13.5 gm/dL (13.0-17.5); Lymphocytes # (A) 0.8 k/uL (1.0-4.8); Lymphocytes % (A) 7 %; MCH 30.9 pg (25.0-35.0); MCHC 32.6 g/dL (31.0-37.0); MCV 94.8 fL (80.0-100.0); Mean Platelet Volume 9.3; Monocytes # (A) 0.8 k/uL (0-1.0); Monocytes % (A) 7 %; Neutrophils % (A) 84 %; Platelet Count 270 k/uL (150-450); RBC 4.35 m/uL (4.30-5.90); RDW 13.1 % (11.5-15.5); WBC 10.8 k/uL (3.8-10.6)
[2023-07-30 09:03] LABS: ALT 36 U/L (4-49); AST 55 U/L (17-59); African American GFR (CKD) 76 (>60 ml/min/1.73 sqM); Albumin 3.1 g/dL (3.5-5.0); Alkaline Phosphatase 109 U/L (38-126); Anion Gap 10 mmol/L; Blood Urea Nitrogen 25 mg/dL (9-20); Calcium 8.6 mg/dL (8.4-10.2); Carbon Dioxide 26 mmol/L (22-30); Chloride 99 mmol/L (98-107); Glucose 173 mg/dL (74-99); Non-African American GFR(CKD) 66 (>60 ml/min/1.73 sqM); Potassium 4.4 mmol/L (3.5-5.1); Sodium 135 mmol/L (137-145); Total Bilirubin 0.9 mg/dL (0.2-1.3); Total Protein 5.9 g/dL (6.3-8.2)
[2023-07-30] MEDS: ALPRAZolam 0.5 MG TAB PO PRN ×2 (09:07→23:18)
[2023-07-30] MEDS: FUROSEMIDE 20 MG TAB PO SCH (09:07)
[2023-07-30] MEDS: APIXABAN 2.5 MG TABLET PO SCH ×2 (09:08→20:40)
[2023-07-30] MEDS: ASPIRIN 81 MG PO SCH (09:08)
[2023-07-30] MEDS: TICAGRELOR 90 MG TAB PO SCH ×2 (09:08→20:40)
[2023-07-30] MEDS: AMIODARONE 200 MG TAB PO SCH ×2 (09:08→20:40)
[2023-07-30] MEDS: LOSARTAN 50 MG TAB PO SCH (09:08)
[2023-07-30] MEDS: METOPROLOL TARTRATE 50 MG TAB PO SCH ×2 (09:08→20:40)
[2023-07-30] MEDS ORDERED: ONDANSETRON 4 MG/2 ML VIAL IVP PRN (09:18)
[2023-07-30 11:23] LABS: Glucose,Whole Blood 159 mg/dL (70-110)
--- NOTE | 2023-07-30 11:26 | CA ---
Transthoracic Echo Report Name: Bhupinder Ruiz Age: 77 Gender: M : 1945 Exam Date: 07/29/2023 17:04 Exam Location: [place] [facility] Ht (in): 69 Wt (lb): 222 Ordering Physician: Richie Dean MD ([id number]) Attending/Referring Phys: Quality Assurance Intern Hilary Hollingsworth, PRANAY Procedure CPT: Indications: s/p PCI Cardiac Hx: Technical Quality: Fair Contrast 1: Total Dose (mL): Contrast 2: Total Dose (mL): MEASUREMENTS (Male / Female) Normal Values 2D ECHO LV Diastolic Volume MOD BP 127.1 cm??? 67 - 155 / 56 - 104 cm??? LV Systolic Volume MOD BP 105.9 cm??? 22 - 58 / 19 - 49 cm??? LV Ejection Fraction MOD BP 16.7 % >= 55 % LV Cardiac Index MOD BP 1010.0 cm???/min???m??? LV Diastolic Volume MOD 4C 109.0 cm??? LV Systolic Volume MOD 4C 94.8 cm??? LV Ejection Fraction MOD 4C 13.0 % LV Cardiac Index MOD 4C 675.6 cm???/min???m??? LV Diastolic Length 4C 9.2 cm LV Systolic Length 4C 8.8 cm LV Diastolic Volume MOD 2C 137.4 cm??? LV Systolic Volume MOD 2C 107.8 cm??? LV Ejection Fraction MOD 2C 21.6 % LV Cardiac Index MOD 2C 1411.8 cm???/min???m??? LV Diastolic Length 2C 8.4 cm LV Systolic Length 2C 8.0 cm DOPPLER TR Peak Velocity 244.6 cm/s TR Peak Gradient 23.9 mmHg Right Atrial Pressure 15.0 mmHg Pulmonary Artery Systolic Pressu 38.9 mmHg Right Ventricular Systolic Press 39.0 mmHg FINDINGS Left Ventricle Left ventricular ejection fraction is estimated at 20 %. Severely reduced global left ventricular systolic function. Right Ventricle Mild pulmonary hypertension. Right Atrium Left Atrium Mitral Valve Moderate mitral regurgitation. Aortic Valve Trileaflet aortic valve. No aortic valve stenosis or regurgitation. Tricuspid Valve Mild tricuspid regurgitation. Pulmonic Valve Pericardium No pericardial effusion. Aorta CONCLUSIONS Severe LV systolic dysfunction Moderate mitral regurgitation Previewed by: Dr. Marciano Rodarte MD (Electronically Signed) Final Date: 30 July 2023 11:26
[2023-07-30] MEDS: MAG HYDROX/AL HYDROX/SIMETH 30 ML CUP PO PRN ×2 (12:51→21:09)
[2023-07-30] MEDS ORDERED: QUEtiapine 25 MG TAB PO PRN (13:01)
--- NOTE | 2023-07-30 13:21 | P.PN ---
Subjective HISTORY OF PRESENT ILLNESS: This is a 77-year-old male with a past medical history significant for hypertension, hyperlipidemia, and diabetes. Patient does not follow with a surveillance sensor officer. We have been asked to see the patient in consultation for non- STEMI. Patient examined at the bedside in the emergency room. Patient's spouse is present. Patient states he has been having chest pain for the past 2-3 days. He states the chest pain is fairly steady. He states the pain started when he was not doing anything exertionally related. He reports the pain is on the left side of his chest and is associated with shortness of breath. He describes the pain as a dull pain. His states that he was ashen in color at home. The patient denies a history of CAD. However he reports that his 2 brothers in their 40s due to heart attacks. * EKG reveals sinus mechanism with Q waves in V1V2 and T-wave inversions in lat eral leads * Chest xray correlate for CHF with pulmonary vascular congestion. Trace left pleural effusion. * Chest CT: Negative for pulmonary embolism. Prominent LAD coronary artery calcifications. Borderline cardiomegaly with pulmonary arterial hypertension. Small bilateral pleural effusions with adjacent atelectasis. * Laboratory data: Troponin 1.200. 1.320. 1.560 * Patient underwent dobutamine stress test in February 2018 which was negative for stress-induced ischemia July 30 2023 Patient examined this morning at the bedside. Patient's family is present. Patient is status post cardiac catheterization with stenting of the RCA and LAD. Patient denies chest pain or pressure. He reports mild soreness of breath which he thinks is related to anxiety. He states he feels that his mind is racing. He reports mild nausea but no vomiting. Telemetry reveals atrial fibrillation with a heart rate around 110. PHYSICAL EXAM: VITAL SIGNS: Reviewed. GENERAL: Well-developed in no acute distress. HEENT: Head is normocephalic. Pupils are equal, round. Sclerae anicteric. Mucous membranes of the mouth are moist. Neck supple. No JVD or thyromegaly LUNGS: Respirations even and unlabored. Lungs essentially clear to auscultation bilaterally. HEART: Irregular rate and rhythm. S1 and S2 heard. ABDOMEN: Soft. Nondistended. Nontender. EXTREMITIES: Normal range of motion. No clubbing or cyanosis. Peripheral pulses intact. No lower extremity edema NEUROLOGIC: Awake and alert. Oriented x 3. ASSESSMENT: Non-STEMI Status post PCI of RCA and LAD Ischemic cardiomyopathy Paroxysmal atrial fibrillation Possible mild acute heart failure with reduced EF, currently euvolemic Hypertension Hyperlipidemia Diabetes Family history of premature coronary artery disease PLAN: Continue current cardiac medications Increase metoprolol tartrate to 50 mg twice a day Patient to receive Xanax on an as-needed basis Continue to monitor patient for an additional 24 hours Further recommendations pending patient's course Nurse practitioner note has been reviewed by physician. Signing provider agrees with the documented findings, assessment, and plan of care. Objective - Vital Signs Vital signs: Vital Signs Temp 98.1 F 07/30/23 12:00 Pulse 104 H 07/30/23 12:00 Resp 17 07/30/23 12:00 BP 112/76 07/30/23 12:00 Pulse Ox 98 07/30/23 12:00 FiO2 Intake & Output 07/29/23 07/30/23 07/30/23 18:59 06:59 18:59 Intake Total 194.231 120 Output Total 550 350 1 Balance -355.769 -350 119 Weight 101 kg 99.5 kg Intake: Intake, IV Titration 194.231 Amount Amiodarone 450 mg In 110.836 Dextrose 5% in Water 250 ml @ 0.5 MG/MIN 16.667 mls/hr IV .Q15H [facility] Rx#: [id number] Heparin Sod,Pork in 0.45% 83.395 NaCl 25,000 unit In 0.45 % NaCl 1 250ml.bag @ 10. 12 UNITS/KG/HR 9.999 mls/ hr IV .Q24H [facility] Rx#: [id number] Sodium Chloride 0.9% 1, 0 000 ml In Empty Bag 1 bag @ 1 ML/KG/HR 98.8 mls/hr IV .Q10H8M [facility] Rx#: [id number] Oral 120 Output: Urine 550 350 Emesis 1 Other: Voiding Method Urinal External Catheter External Catheter # Voids 2 - Labs CBC & Chem 7: 07/30/23 08:08 07/30/23 08:08 Labs: Abnormal Lab Results - Last 24 Hours (Table) 07/29/23 07/29/23 07/30/23 Range/Units 16:19 19:49 05:50 WBC (3.8-10.6) k/uL Neutrophils # (1.3-7.7) k/uL Lymphocytes # (1.0-4.8) k/uL Sodium (137-145) mmol/L BUN (9-20) mg/dL Glucose (74-99) mg/dL POC Glucose (mg/dL) 190 H 162 H 147 H (70-110) mg/dL Total Protein (6.3-8.2) g/dL Albumin (3.5-5.0) g/dL 07/30/23 07/30/23 07/30/23 Range/Units 08:08 08:08 11:22 WBC 10.8 H (3.8-10.6) k/uL Neutrophils # 9.0 H (1.3-7.7) k/uL Lymphocytes # 0.8 L (1.0-4.8) k/uL Sodium 135 L (137-145) mmol/L BUN 25 H (9-20) mg/dL Glucose 173 H (74-99) mg/dL POC Glucose (mg/dL) 159 H (70-110) mg/dL Total Protein 5.9 L (6.3-8.2) g/dL Albumin 3.1 L (3.5-5.0) g/dL
[2023-07-30 16:17] LABS: Glucose,Whole Blood 161 mg/dL (70-110)
[2023-07-30 19:51] LABS: Glucose,Whole Blood 218 mg/dL (70-110)
[2023-07-30] MEDS: ATORVASTATIN 80 MG TAB PO SCH (20:41)
--- NOTE | 2023-07-30 22:07 | P.PN ---
Subjective Progress Note Date: 07/30/23 Patient is evaluated on the medical floor today. Cardiology recommending to monitor overnight. Underwent cardiac catheterization found to have triple vessel disease evaluated by CT surgery. Patient underwent PCI and stent placed to the LAD and RCA. Remains on triple therapy with eliquis, aspirin, and brilinta. He has been anxious most of the day and episode of vomiting. Was given xanax. Does complain of some dizziness with ambulation today. Cardiology wants to monitor for one more night. Limited echocardiogram comes back showing EF 20% moderate MR and mild pulmonary hypertension. Review of Systems Constitutional: Denied any fatigue denied any fever. Reports dizziness and lightheadedness. Cardio vascular: denied any chest pain, palpitations Gastrointestinal: denied any nausea, vomiting, diarrhea Pulmonary: Denied any shortness of breath cough Neurologic denied any new focal deficits All inpatient medications were reviewed and appropriate changes in these medications as dictated in the interval history and assessment and plan. PHYSICAL EXAMINATION: GENERAL: The patient is alert and oriented x3, not in any acute distress. Well developed, well nourished. HEENT: Pupils are round and equally reacting to light. EOMI. No scleral icterus. No conjunctival pallor. Normocephalic, atraumatic. No pharyngeal erythema. No thyromegaly. CARDIOVASCULAR: S1 and S2 present. No murmurs, rubs, or gallops. PULMONARY: Chest is clear to auscultation, no wheezing or crackles. ABDOMEN: Soft, nontender, nondistended, normoactive bowel sounds. No palpable organomegaly. MUSCULOSKELETAL: No joint swelling or deformity. EXTREMITIES: No cyanosis, clubbing, or pedal edema. NEUROLOGICAL: Gross neurological examination did not reveal any focal deficits. SKIN: No rashes. Assessment Non-ST elevation MD, secondary to triple-vessel coronary artery disease involving critical disease of the RCA, LAD and PDA branch of the left circumflex artery Status post PCI of the RCA and LAD Ischemic cardiomyopathy EF 20% Hypertension Dyslipidemia Paroxysmal atrial fibrillation anticoagulated with eliquis Insulin-dependent diabetes mellitus Leukocytosis, most likely reactive Hilar and mediastinal lymphadenopathy, require repeat this in 3 months GI prophylaxis DVT prophylaxis Full Code Plan Continue triple therapy Continue statin therapy Continue on xanax Check orthostatic blood pressure Monitor for the next 24 hours The impression and plan of care has been dictated by Emily Espinosa, Nurse Practitioner as directed. Dr. Nancy MD I have performed a history and physical examination and medical decision making of this patient, discussed the same with the dictator, and agree with the dictators assessment and plan as written, documented as a scribe. Based on total visit time, I have performed more than 50% of this visit. Objective - Vital Signs Vital signs: Vital Signs Temp 97.7 F 07/30/23 20:00 Pulse 109 H 07/30/23 20:00 Resp 18 07/30/23 20:00 BP 109/63 07/30/23 20:00 Pulse Ox 99 07/30/23 20:00 FiO2 Intake & Output 07/30/23 07/30/23 07/31/23 06:59 18:59 06:59 Intake Total 240 Output Total 350 1 Balance -350 239 Weight 99.5 kg Intake: Oral 240 Output: Gastric Drainage 0 Urine 350 0 Stool 0 Urine/Stool Mix 0 Emesis 1 Oral Regurgitation 0 Other 0 Other: Voiding Method External Catheter External Catheter Toilet # Voids 0 # Bowel Movements 0 - Labs CBC & Chem 7: 07/30/23 08:08 07/30/23 08:08 Labs: Abnormal Lab Results - Last 24 Hours (Table) 07/30/23 07/30/23 07/30/23 Range/Units 05:50 08:08 08:08 WBC 10.8 H (3.8-10.6) k/uL Neutrophils # 9.0 H (1.3-7.7) k/uL Lymphocytes # 0.8 L (1.0-4.8) k/uL Sodium 135 L (137-145) mmol/L BUN 25 H (9-20) mg/dL Glucose 173 H (74-99) mg/dL POC Glucose (mg/dL) 147 H (70-110) mg/dL Total Protein 5.9 L (6.3-8.2) g/dL Albumin 3.1 L (3.5-5.0) g/dL 07/30/23 07/30/23 07/30/23 Range/Units 11:22 16:16 19:50 WBC (3.8-10.6) k/uL Neutrophils # (1.3-7.7) k/uL Lymphocytes # (1.0-4.8) k/uL Sodium (137-145) mmol/L BUN (9-20) mg/dL Glucose (74-99) mg/dL POC Glucose (mg/dL) 159 H 161 H 218 H (70-110) mg/dL Total Protein (6.3-8.2) g/dL Albumin (3.5-5.0) g/dL
[2023-07-31 06:18] LABS: Glucose,Whole Blood 56 mg/dL (70-110)
[2023-07-31] MEDS: INSULIN ASPART (NovoLOG) 100 UNIT/ML VIAL SQ SCH ×2 (06:29→11:52)
[2023-07-31 06:32] LABS: Glucose,Whole Blood 60 mg/dL (70-110)
[2023-07-31 06:45] LABS: Glucose,Whole Blood 69 mg/dL (70-110)
[2023-07-31] MEDS: INSULIN DETEMIR (LEVEMIR) 100 UNIT/ML SYR SQ SCH (06:47)
[2023-07-31 07:26] LABS: Glucose,Whole Blood 117 mg/dL (70-110)
[2023-07-31] MEDS: METOPROLOL TARTRATE 50 MG TAB PO SCH (08:19)
[2023-07-31] MEDS: TICAGRELOR 90 MG TAB PO SCH (08:19)
[2023-07-31] MEDS: FUROSEMIDE 20 MG TAB PO SCH (08:19)
[2023-07-31] MEDS: APIXABAN 2.5 MG TABLET PO SCH (08:19)
[2023-07-31] MEDS: ASPIRIN 81 MG PO SCH (08:19)
[2023-07-31] MEDS: AMIODARONE 200 MG TAB PO SCH (08:19)
[2023-07-31] MEDS: LOSARTAN 50 MG TAB PO SCH (08:19)
[2023-07-31] MEDS: MAG HYDROX/AL HYDROX/SIMETH 30 ML CUP PO PRN (11:29)
[2023-07-31 11:47] LABS: Glucose,Whole Blood 149 mg/dL (70-110)
--- NOTE | 2023-07-31 13:51 | P.PN ---
Subjective HISTORY OF PRESENT ILLNESS: This is a 77-year-old male with a past medical history significant for hypertension, hyperlipidemia, and diabetes. 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 We have been asked to see the patient in consultation for non- STEMI. Patient examined at the bedside in the emergency room. Patient's spouse is present. Patient states he has been having chest pain for the past 2-3 days. He states the chest pain is fairly steady. He states the pain started when he was not doing anything exertionally related. He reports the pain is on the left side of his chest and is associated with shortness of breath. He describes the pain as a dull pain. His states that he was ashen in color at home. The patient denies a history of CAD. However he reports that his 2 brothers in their 40s due to heart attacks. * EKG reveals sinus mechanism with Q waves in V1V2 and T-wave inversions in lat eral leads * Chest xray correlate for CHF with pulmonary vascular congestion. Trace left pleural effusion. * Chest CT: Negative for pulmonary embolism. Prominent LAD coronary artery calcifications. Borderline cardiomegaly with pulmonary arterial hypertension. Small bilateral pleural effusions with adjacent atelectasis. * Laboratory data: Troponin 1.200. 1.320. 1.560 * Patient underwent dobutamine stress test in February 2018 which was negative for stress-induced ischemia July 30 2023 Patient examined this morning at the bedside. Patient's family is present. Patient is status post cardiac catheterization with stenting of the RCA and LAD. Patient denies chest pain or pressure. He reports mild soreness of breath which he thinks is related to anxiety. He states he feels that his mind is racing. He reports mild nausea but no vomiting. Telemetry reveals atrial fibrillation with a heart rate around 110. 07/31/2023 Patient examined this morning at the bedside. Patient denies chest pain or pressure. He denies shortness of breath. Patient states his anxiety is better controlled today. He has been up ambulating in his room without difficulty. Telemetry reveals sinus mechanism. PHYSICAL EXAM: VITAL SIGNS: Reviewed. GENERAL: Well-developed in no acute distress. HEENT: Head is normocephalic. Pupils are equal, round. Sclerae anicteric. Mucous membranes of the mouth are moist. Neck supple. No JVD or thyromegaly LUNGS: Respirations even and unlabored. Lungs essentially clear to auscultation bilaterally. HEART: Irregular rate and rhythm. S1 and S2 heard. ABDOMEN: Soft. Nondistended. Nontender. EXTREMITIES: Normal range of motion. No clubbing or cyanosis. Peripheral pulses intact. No lower extremity edema NEUROLOGIC: Awake and alert. Oriented x 3. ASSESSMENT: Non-STEMI Status post PCI of RCA and LAD Ischemic cardiomyopathy Paroxysmal atrial fibrillation Possible mild acute heart failure with reduced EF, currently euvolemic Hypertension Hyperlipidemia Diabetes Family history of premature coronary artery disease PLAN: Continue dual-antiplatelet therapy with aspirin and Brilinta Continue high intensity statin Continue current cardiac medications Discussed with patient and his spouse regarding wearing a LifeVest to prevent sudden cardiac . Patient is declining a LifeVest at this time and states he is not interested in a LifeVest at this time as he believes that it will increase his anxiety Patient is stable for discharge home today from a cardiac standpoint Patient to follow-up post discharge with Dr. Dean Nurse practitioner note has been reviewed by physician. Signing provider agrees with the documented findings, assessment, and plan of care. Objective - Vital Signs Vital signs: Vital Signs Temp 97.4 F L 07/31/23 08:15 Pulse 104 H 07/31/23 11:48 Resp 17 07/31/23 11:48 BP 95/64 07/31/23 11:48 Pulse Ox 99 07/31/23 08:15 FiO2 Intake & Output 07/30/23 07/31/23 07/31/23 18:59 06:59 18:59 Intake Total 240 240 Output Total 1 Balance 239 240 Weight 96.5 kg Intake: Oral 240 240 Output: Gastric Drainage 0 Urine 0 Stool 0 Urine/Stool Mix 0 Emesis 1 Oral Regurgitation 0 Other 0 Other: Voiding Method External Catheter External Catheter External Catheter # Voids 0 1 3 # Bowel Movements 0 - Labs CBC & Chem 7: 07/30/23 08:08 07/30/23 08:08 Labs: Abnormal Lab Results - Last 24 Hours (Table) 07/30/23 07/30/23 07/31/23 Range/Units 16:16 19:50 06:15 POC Glucose (mg/dL) 161 H 218 H 56 L (70-110) mg/dL 07/31/23 07/31/23 07/31/23 Range/Units 06:31 06:45 07:24 POC Glucose (mg/dL) 60 L 69 L 117 H (70-110) mg/dL 07/31/23 Range/Units 11:46 POC Glucose (mg/dL) 149 H (70-110) mg/dL
[2023-07-31 17:45] VITALS: BP 110/70; PULSE 100; RESP 16; TEMP 97.6
[2023-08-01] MEDS ORDERED: INSULIN DETEMIR (LEVEMIR) 100 UNIT/ML SYR SQ SCH (07:00)
--- NOTE | 2023-08-02 21:34 | P.DS ---
Providers Date of admission: 07/26/23 10:52 Attending physician: Liban Rg MD Consults: 07/26/23 10:50 Consult Physician Urgent Consulting Provider: Cardiology Shankar Consult Reason/Comments: Non-STEMI Do you want consulting provider notified?: Yes 07/28/23 15:44 Consult Physician Routine Consulting Provider: Carole Chaparro Consult Reason/Comments: Post Interventional Patient Do you want consulting provider notified?: Already Contacted Primary care physician: [facility] Course: Final Diagnosis Non-ST elevation HI, secondary to triple-vessel coronary artery disease involvi ng critical disease of the RCA, LAD and PDA branch of the left circumflex artery Status post PCI of the RCA and LAD Ischemic cardiomyopathy EF 20% Hypertension Dyslipidemia Paroxysmal atrial fibrillation anticoagulated with eliquis Insulin-dependent diabetes mellitus Leukocytosis, most likely reactive Hilar and mediastinal lymphadenopathy, require repeat this in 3 months GI prophylaxis DVT prophylaxis Full Code Discharge Disposition Patient is stable for discharge home. Recommending aggressive risk factor modification. Patient to continue on triple therapy with aspirin, brilinta and low dose eliquis 2.5 mg BID. He has been started on high dose statin therapy. Recommend to decrease long acting insulin to 40 units HS and monitor blood glucose. Continue on omeprazole twice a day for acid reflux can continue on maalox as well as needed. Follow up with cardiology has an appt made with Dr Dean on 08/12/2023. Patient to repeat BMP in 2 to 3 days. Follow up with PCP Dr. Link in 1 to 2 days. Hospital Course This is a 77-year-old gentleman with past medical history significant for diabetes mellitus, hypertension presented to the ER for chest pain. Patient states that chest pain started 2 weeks ago, the patient on the left side, intermittent, sharp in intensity, no aggravating or relieving factors associated with this chest pain, nonradiating. Patient did mention that sometimes he gets short of breath during those episodes of chest pain. Denies any nausea or vomiting. Denies any diaphoresis. Because this chest pain, patient became concerned and came to the ER. Initial lab work done in the ER showed 16.7, hemoglobin 14.5, platelet count 247, sodium 140, potassium 5.1, BUN 21, creatinine 0.95, troponin 1.2. Viral panel was negative. EKG done in the ER showed heart rate of 114, no ST segment elevation or depression seen, no T-wave inversions seen. Chest x-ray done in the ER correlate for CHF with pulmonary vascular congestion. Patient admitted to internal medicine service with consult placed to cardiology services. He was started on IV heaprin. He was also started on IV lasix. Patient was taken to the cardiac cleaning laborer showing triple vessel disease thoracic surgery was consulted for evaluation. Decision made to undergo PCI vs. Bypass. Patient underwent PCI and stent placed to the LAD and RCA. Remains on triple therapy with eliquis, aspirin, and brilinta. He has been anxious most of the day and episode of vomiting. Was given xanax. Does complain of some dizziness with ambulation today. Cardiology wants to monitor for one more night. Limited echocardiogram comes back showing EF 20% moderate MR and mild pulmonary hypertension. He has now denied chest pain, denies shortness of breath. No further reports of dizziness. He has been up ambulating. Lungs are clear, S1 S2 auscultated. Alert x 3. Discharged home with the above mentioned recommendations. Please see medication reconciliation for a list of current medication. Thank you for allowing us to participate in the care of this patient. The impression and plan of care has been dictated by Emily Espinosa Nurse Practitioner as directed. Dr. Nancy MD I have performed a history and physical examination and medical decision making of this patient, discussed the same with the dictator, and agree with the dictators assessment and plan as written, documented as a scribe. Based on total visit time, I have performed more than 50% of this visit. Patient Condition at Discharge: Fair Plan - Discharge Summary Discharge Rx Participant: No New Discharge Prescriptions: New Ticagrelor [Brilinta] 90 mg PO BID #180 tab Furosemide [Lasix] 20 mg PO DAILY #90 tab Metoprolol Tartrate [Lopressor] 50 mg PO BID #180 tab Omeprazole [PriLOSEC] 20 mg PO AC-BID #60 cap Aspirin 81 mg PO DAILY #90 tab Amiodarone [Cordarone] 400 mg PO BID #180 tab Apixaban [Eliquis] 2.5 mg PO BID #60 tab Atorvastatin [Lipitor] 80 mg PO HS #90 tab Nitroglycerin Sl Tabs [Nitrostat] 0.4 mg SUBLINGUAL Q5M PRN #100 tab PRN Reason: Chest Pain Continue metFORMIN HCL ER [Glucophage XR] 1,000 mg PO BID INSULIN ASPART (NovoLOG) [NovoLOG (formulary)] 15 - 30 unit SQ AC-TID Glucagon [Gvoke Pfs 1-Pack Syringe] 1 mg SQ DIRECTED PRN PRN Reason: Hypoglycemia Losartan [Cozaar] 50 mg PO DAILY Semaglutide [Ozempic] 2 mg SQ FR Changed Insulin Degludec [Tresiba Flextouch U-100 Pen] 40 units SQ DAILY #0 Discontinued Lovastatin [Mevacor] 40 mg PO DAILY Discharge Medication List Glucagon [Gvoke Pfs 1-Pack Syringe] 1 mg SQ DIRECTED PRN 07/26/23 [History] INSULIN ASPART (NovoLOG) [NovoLOG (formulary)] 15 - 30 unit SQ AC-TID 07/26/23 [History] Losartan [Cozaar] 50 mg PO DAILY 07/26/23 [History] Semaglutide [Ozempic] 2 mg SQ FR 07/26/23 [History] metFORMIN HCL ER [Glucophage XR] 1,000 mg PO BID 07/26/23 [History] Amiodarone [Cordarone] 400 mg PO BID #180 tab 07/31/23 [Rx] Apixaban [Eliquis] 2.5 mg PO BID #60 tab 07/31/23 [Rx] Aspirin 81 mg PO DAILY #90 tab 07/31/23 [Rx] Atorvastatin [Lipitor] 80 mg PO HS #90 tab 07/31/23 [Rx] Furosemide [Lasix] 20 mg PO DAILY #90 tab 07/31/23 [Rx] Insulin Degludec [Tresiba Flextouch U-100 Pen] 40 units SQ DAILY #0 07/31/23 [Rx] Metoprolol Tartrate [Lopressor] 50 mg PO BID #180 tab 07/31/23 [Rx] Nitroglycerin Sl Tabs [Nitrostat] 0.4 mg SUBLINGUAL Q5M PRN #100 tab 07/31/23 [Rx] Omeprazole [PriLOSEC] 20 mg PO AC-BID #60 cap 07/31/23 [Rx] Ticagrelor [Brilinta] 90 mg PO BID #180 tab 07/31/23 [Rx] Follow up Appointment(s)/Referral(s): Richie Dean MD [STAFF PHYSICIAN] - 08/12/23 2:00 pm Derian Link MD [Primary Care Provider] - 1-2 days (office closed please call to schedule thursday ) Ambulatory/Diagnostic Orders: Basic Metabolic Panel [LAB.AMB] Time Frame: 3 Days, Location: None Selected Patient Instructions/Handouts: *Surgery [facility] - After Heart Catheterization - Senior Statistician Instructions Activity/Diet/Wound Care/Special Instructions: Continue on omeprazole twice a day for acid reflux can continue on maalox as well as needed Recommend to decrease long acting insulin to 40 units HS and monitor blood gluco se Follow up with cardiology Activity limited until f/u Discharge Disposition: HOME WITH HOME HEALTH SERVICES
== END 2023-07-31 16:54 | disposition home health service (06) | DRG 216 ==
LOC: EC 08:34 → 3SCARD 10:52 → 2SICU 07-28 15:46 → 3SCARD 07-29 17:58
PROVIDERS: ADMIT Internal Medicine; ATTEND Internal Medicine
PROC: B2111ZZ Fluoroscopy of Multiple Coronary Arteries using Low Osmolar Contrast (ICD-10-PCS; 2023-07-27)
PROC: 4A023N7 Measurement of Cardiac Sampling and Pressure, Left Heart, Percutaneous Approach (ICD-10-PCS; 2023-07-27 18:10)
PROC: 02HA3RJ Insertion of Short-term External Heart Assist System into Heart, Intraoperative, Percutaneous Approach (ICD-10-PCS; principal; 2023-07-28 14:55)
PROC: 027136Z Dilation of Coronary Artery, Two Arteries with Three Drug-eluting Intraluminal Devices, Percutaneous Approach (ICD-10-PCS; 2023-07-28 14:55)
PROC: 5A0221D Assistance with Cardiac Output using Impeller Pump, Continuous (ICD-10-PCS; 2023-07-28 14:55)
DX: I21.4 Non-ST elevation (NSTEMI) myocardial infarction (principal); I50.21 Acute systolic (congestive) heart failure; I27.21 Secondary pulmonary arterial hypertension; E66.9 Obesity, unspecified; I11.0 Hypertensive heart disease with heart failure; E11.9 Type 2 diabetes mellitus without complications; I25.5 Ischemic cardiomyopathy; E78.5 Hyperlipidemia, unspecified; I48.0 Paroxysmal atrial fibrillation; R59.0 Localized enlarged lymph nodes; K21.9 Gastro-esophageal reflux disease without esophagitis; I25.119 Atherosclerotic heart disease of native coronary artery with unspecified angina pectoris; H91.90 Unspecified hearing loss, unspecified ear; M19.90 Unspecified osteoarthritis, unspecified site; I08.1 Rheumatic disorders of both mitral and tricuspid valves; I16.0 Hypertensive urgency; D72.828 Other elevated white blood cell count; Z68.33 Body mass index [BMI] 33.0-33.9, adult; Z82.49 Family history of ischemic heart disease and other diseases of the circulatory system; Z79.01 Long term (current) use of anticoagulants; Z11.52 Encounter for screening for COVID-19; Z79.4 Long term (current) use of insulin; Z79.84 Long term (current) use of oral hypoglycemic drugs; Z79.85 Long-term (current) use of injectable non-insulin antidiabetic drugs; Z79.899 Other long term (current) drug therapy; Z87.19 Personal history of other diseases of the digestive system
CPT/HCPCS: 33990; 36415; 71046; 71275; 76937; 80048; 80053; 80061; 83036; 83735; 83880; 84145; 84484; 85025; 85379; 85610; 85730; 87636; 92978; 92979; 93005; 93306; 93308; 93458; 94760; 96365; 96366; 96375; 96376; 99291

== ENCOUNTER → 2023-08-05 | Outpatient (CLI) | payer MEDICARE, BC ==
[2023-08-05 18:53] LABS: Basophils # (A) 0.03 X 10*3/uL (0.00-0.10); Basophils % (A) 0.3 %; Eosinophils # (A) 0.01 X 10*3/uL (0.04-0.35); Eosinophils % (A) 0.1 %; HCT 42.8 % (39.6-50.0); HGB 13.8 g/dL (13.0-17.0); Lymphocytes # (A) 0.57 X 10*3/uL (0.90-5.00); Lymphocytes % (A) 4.8 %; MCH 30.5 pg (27.0-32.0); MCHC 32.2 g/dL (32.0-37.0); MCV 94.7 FL (80.0-97.0); Mean Platelet Volume 12.3 FL (9.5-12.2); Monocytes # (A) 0.82 X 10*3/uL (0.20-1.00); Monocytes % (A) 6.9 %; NRBC Per 100 WBC 0 X 10*3/uL (0.00-0.01); Neutrophils # (A) 10.38 X 10*3/uL (1.80-7.70); Neutrophils % (A) 87.4 %; Platelet Count 345 X 10*3/uL (140-440); RBC 4.52 X 10*6/uL (4.40-5.60); RDW 13.8 % (11.5-14.5); WBC 11.87 X 10*3/uL (4.50-10.00)
[2023-08-05 19:15] LABS: Chol/HDL Ratio 2.36 Ratio; LDL Cholesterol,Calculated 33.2 mg/dL (0.0-131.0); VLDL Calculation 14.66 mg/dL (5.00-40.00)
[2023-08-05 19:40] LABS: ALT 739 U/L (10-49); AST 208 U/L (14-35); Albumin 3.7 g/dL (3.8-4.9); Albumin/Globulin Ratio 1.61 Ratio (1.60-3.17); Alkaline Phosphatase 154 U/L (41-126); BUN/Creat Ratio 37.31 Ratio (12.00-20.00); Carbon Dioxide 23.4 mmol/L (21.6-31.8); Chloride 103 mmol/L (96-109); Globulin 2.3 g/dL (1.6-3.3); Glucose 88 mg/dL (70-110); Potassium 4.9 mmol/L (3.5-5.5); Sodium 141 mmol/L (135-145); Total Bilirubin 0.9 mg/dL (0.3-1.2)
== END | disposition home or self-care (01) ==
LOC: LABWHC1 12:44
PROVIDERS: ATTEND Internal Medicine Geriatric Medicine
DX: E11.9 Type 2 diabetes mellitus without complications (principal)
CPT/HCPCS: 36415; 80053; 80061; 83036; 84443; 85025

== ENCOUNTER 2023-08-06 10:52 | Inpatient (IN) | payer MEDICARE, BC ==
[2023-08-06 11:23] LABS: Basophils % (A) 0 %; Eosinophils # (A) 0.1 k/uL (0-0.7); Eosinophils % (A) 1 %; HCT 42.3 % (39.0-53.0); HGB 13.8 gm/dL (13.0-17.5); Lymphocytes # (A) 0.7 k/uL (1.0-4.8); Lymphocytes % (A) 6 %; MCH 31.2 pg (25.0-35.0); MCHC 32.8 g/dL (31.0-37.0); MCV 95.3 fL (80.0-100.0); Mean Platelet Volume 10.3; Monocytes # (A) 0.6 k/uL (0-1.0); Monocytes % (A) 5 %; Neutrophils # (A) 9.9 k/uL (1.3-7.7); Neutrophils % (A) 87 %; Platelet Count 305 k/uL (150-450); RBC 4.43 m/uL (4.30-5.90); RDW 13.4 % (11.5-15.5); WBC 11.3 k/uL (3.8-10.6)
[2023-08-06 11:40] LABS: INR 1.2 (<1.2); Partial Thromboplastin Time 25.6 sec (22.0-30.0)
--- NOTE | 2023-08-06 11:44 | XR ---
EXAMINATION TYPE: XR chest 2V DATE OF EXAM: 08/06/2023 COMPARISON: 07/26/2023 HISTORY: 77-year-old male with chest pain. TECHNIQUE: PA and lateral views FINDINGS: Heart mildly enlarged. A discrete cartilage calcifications. No consolidation or pleural effusion. Pre vious interstitial densities seen on 07/26/2023 have resolved. Cholecystectomy clips in the upper abdom en. IMPRESSION: Mild cardiomegaly. No acute process seen.
[2023-08-06 11:50] LABS: ALT 681 U/L (4-49); AST 198 U/L (17-59); African American GFR (CKD) 29 (>60 ml/min/1.73 sqM); Albumin 3.5 g/dL (3.5-5.0); Alkaline Phosphatase 161 U/L (38-126); Anion Gap 9 mmol/L; Blood Urea Nitrogen 91 mg/dL (9-20); Calcium 8.4 mg/dL (8.4-10.2); Carbon Dioxide 24 mmol/L (22-30); Chloride 107 mmol/L (98-107); Glucose 124 mg/dL (74-99); Magnesium 3.1 mg/dL (1.6-2.3); Non-African American GFR(CKD) 25 (>60 ml/min/1.73 sqM); Potassium 4.4 mmol/L (3.5-5.1); Sodium 140 mmol/L (137-145); Total Bilirubin 1.1 mg/dL (0.2-1.3); Total Protein 6.3 g/dL (6.3-8.2)
--- NOTE | 2023-08-06 12:41 | CT ---
EXAMINATION TYPE: CT abdomen pelvis wo con DATE OF EXAM: 08/06/2023 HISTORY: elevated LFTs, acute renal failure CT DLP: 906.8 mGycm. Automated Exposure Control for Dose Reduction was Utilized. TECHNIQUE: CT scan of the abdomen and pelvis is performed without oral or IV contrast. COMPARISON: NONE FINDINGS: Within the limitations of a non-contrast study, the following observations are made. LUNG BASES: Coronary artery stent in the RCA distribution. LIVER/GB: Cholecystectomy clips are seen. PANCREAS: No significant abnormality is seen. SPLEEN: No significant abnormality is seen. ADRENALS: No significant abnormality is seen. KIDNEYS: Cortical thinning in both kidneys. No hydronephrosis seen bilaterally. BOWEL: No significant abnormality is seen. GENITAL ORGANS: No gross abnormality seen. LYMPH NODES: No greater than 1cm abdominal or pelvic lymph nodes are appreciated. OSSEOUS STRUCTURES: Multilevel vacuum disc phenomenon L2-L3 through the L4-L5 levels. [id number] ere disc space narrowing at L2-L3 level. OTHER: Mild subcutaneous edema over the lower abdomen and pelvis. Mild calcified plaque of the aorta extends over branch vessels IMPRESSION: Some evidence of chronic medical renal disease. No hydronephrosis seen bilaterally. No dumas spicious intrahepatic mass or biliary dilatation.
[2023-08-06 13:19] LABS: Albumin 3.6 g/dL (3.5-5.0); Bilirubin, Delta 0.4 mg/dL (0.0-0.2); Bilirubin,Unconjugated 0.7 mg/dL (0.0-1.1); Total Bilirubin 1.1 mg/dL (0.2-1.3); Total Protein 6.3 g/dL (6.3-8.2)
--- NOTE | 2023-08-06 14:02 | US ---
EXAMINATION TYPE: US abdomen complete DATE OF EXAM: 08/06/2023 COMPARISON: NONE CLINICAL INDICATION: Male, 77 years old with history of kidney failure, renal failure s/p cardiac mercedes nts; Abdnormal labs TECHNIQUE: Multiple sonographic images of the abdomen are obtained. FINDINGS: EXAM MEASUREMENTS: Liver Length: 12.8 cm Gallbladder Wall: Surgically absent CBD: .6 cm Spleen: 8.5 cm Right Kidney: 11.1 x 4.8 x 5.2 cm Left Kidney: 12 x 4.8 x 3.3 cm Pancreas: Obscured by bowel gas Liver: Increased attenuation and echogenicity. No focal lesion identified. Gallbladder: Surgically absent Evidence for sonographic Ruffin's sign: No CBD: wnl Spleen: wnl Right Kidney: No hydronephrosis or masses seen Left Kidney: No hydronephrosis or masses seen Upper IVC: wnl Abd Aorta: Obscured by overlying bowel gas . IMPRESSION: Bile duct upper limits of normal in caliber likely age-related change and postcholecystectomy status. Moderate hepatic steatosis.
[2023-08-06] MEDS ORDERED: SODIUM CHLORIDE 0.9% 1,000 ML IV STA (14:07)
--- NOTE | 2023-08-06 14:07 | ED ---
General Adult HPI - General Chief complaint: Recheck/Abnormal Lab/Rx Stated complaint: Pain in kidneys Time Seen by Provider: 08/06/23 11:53 Source: patient Mode of arrival: ambulatory Limitations: no limitations - History of Present Illness Initial comments: The patient is a 77-year-old gentleman with a history of hypertension, diabetes, hyperlipidemia, coronary artery disease with 2 recent stents placed who presents to the emergency room accompanied by his [id number] for renal failure and elevated liver enzymes. Patient had routine blood work yesterday by was ordered by his chemistry instructor. They called him today and told him to come to the hospital for admission for abnormal LFTs and kidney function. The patient has no complaints. He denies any abdominal or flank pain. He denies any nausea, vomiting, fevers, shortness of breath, diarrhea since being discharged from the hospital last week. The patient's [id number] states that he may look a little bit jaundice but nothing severely abnormal. The patient does admit he had very bright yellow urine yesterday. He feels as though he is urinating normally however he has not urinated since this morning. He denies any blood in the urine. Denies any history of kidney issues. He's had a cholecystectomy in the past. - Related Data Home Medications Medication Instructions Recorded Confirmed Glucagon [Gvoke Pfs 1-Pack Syringe] 1 mg SQ ONCE PRN 07/26/23 08/06/23 INSULIN ASPART (NovoLOG) [NovoLOG 15 - 30 unit SQ AC-TID 07/26/23 08/06/23 (formulary)] Losartan [Cozaar] 50 mg PO DAILY 07/26/23 08/06/23 metFORMIN HCL ER [Glucophage XR] 1,000 mg PO BID 07/26/23 08/06/23 Amiodarone [Cordarone] See Taper PO DIRECTED 08/06/23 08/06/23 Previous Rx's Medication Instructions Recorded Apixaban [Eliquis] 2.5 mg PO BID #60 tab 07/31/23 Aspirin 81 mg PO DAILY #90 tab 07/31/23 Atorvastatin [Lipitor] 80 mg PO HS #90 tab 07/31/23 Furosemide [Lasix] 20 mg PO DAILY #90 tab 07/31/23 Insulin Degludec [Tresiba 40 units SQ DAILY #0 01/12/24 Flextouch U-100 Pen] Metoprolol Tartrate [Lopressor] 50 mg PO BID #180 tab 07/31/23 Nitroglycerin Sl Tabs [Nitrostat] 0.4 mg SUBLINGUAL Q5M PRN #100 tab 07/31/23 Omeprazole [PriLOSEC] 20 mg PO AC-BID #60 cap 07/31/23 Ticagrelor [Brilinta] 90 mg PO BID #180 tab 07/31/23 Allergies Allergy/AdvReac Type Severity Reaction Status Date / Time No Known Allergies Allergy Verified 08/06/23 11:04 Review of Systems ROS Statement: Those systems with pertinent positive or pertinent negative responses have been documented in the HPI. ROS Other: All systems not noted in ROS Statement are negative. 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 nephew/niece cardiac stents, Brother(s) Family Medical History: Coronary Artery Disease (CAD) Additional Family Medical History / Comment(s): 2 Brothers were diagnosed with early onset coronary artery disease in their 40s General Exam Limitations: no limitations General appearance: alert, in no apparent distress Head exam: Present: atraumatic Eye exam: Present: PERRL ENT exam: Present: normal exam Neck exam: Present: normal inspection, full ROM Respiratory exam: Present: normal lung sounds bilaterally Cardiovascular Exam: Present: regular rate, normal rhythm GI/Abdominal exam: Present: soft. Absent: distended, tenderness, guarding, rebound Extremities exam: Present: full ROM Back exam: Present: full ROM Neurological exam: Present: alert, oriented X3, CN II-XII intact Psychiatric exam: Present: normal affect, normal mood Skin exam: Present: warm, dry Course Vital Signs 08/06/23 08/06/23 11:01 18:44 Temperature 97.7 F Pulse Rate 99 87 Respiratory 18 18 Rate Blood Pressure 107/73 104/68 O2 Sat by Pulse 98 97 Oximetry - Reevaluation(s) Reevaluation #1: 08/06/23 1539 Patient will be admitted for further evaluation as the aching TIA and elevated liver enzymes. Hepatitis panel is pending. Patient had a bladder scan which showed a 5 90 mL bladder. He is attempting to urinate at this time as he did not have the urge to go. Will follow this her as well Patient be given IV fluids at a slower rate he will admitted for nephrology cons ult upon admission. 08/06/23 19:13 I discussed patient's symptoms are And disposition with attending ED physician Dr. Plummer today. Reevaluation #2: 08/06/23 19:19 Amylase and lipase level were added for further evaluation after speaking with the admitting nurse practitioner. The lipase was elevated at 1039 so there could be some slight pancreatitis Medical Decision Making - Medical Decision Making Was pt. sent in by a medical professional or institution (, PA, WELDING PROCESS SPECIALIST, urgent care, hospital, or skilled nursing...) When possible be specific @ -Sent in by chemistry instructor and pcp Did you speak to anyone other than the patient for history (EMS, parent, family, police, friend...)? What history was obtained from this source @ -spoke with [id number] who is initially at the bedside and then Did you review nursing and triage notes (agree or disagree)? Why? @ -[I reviewed and agree with nursing and triage notes] Were old charts reviewed (outside hosp., previous admission, EMS record, old EKG, old radiological studies, urgent care reports/EKG's, skilled nursing records)? Report findings @ -[yes old charts were reviewed] Differential Diagnosis (chest pain, altered mental status, abdominal pain women, abdominal pain men, vaginal bleeding, weakness, fever, dyspnea, syncope, headache, dizziness, GI bleed, back pain, seizure, CVA, palpatations, mental health, musculoskeletal)? @ -[elevated LFTs, GWEN, urinary retention, UTI, hepatorenal syndrome, choledocholithiasis, hepatitis EKG interpreted by me (3pts min.). @ -[As above] X-rays interpreted by me (1pt min.). @ -[None done] CT interpreted by me (1pt min.). @ -No significant changes on CT of the abdomen. Pending liver seen. Cholecystectomy seen. U/S interpreted by me (1pt. min.). @ -[Cholecystectomy noted, higher and the normal dilated common bile duct likely age-related. No obvious stones. Fatty liver seen What testing was considered but not performed or refused? (CT, X-rays, U/S, labs)? Why? @ -[None] What meds were considered but not given or refused? Why? @ -[None] Did you discuss the management of the patient with other professionals (professionals i.e. , PA, WELDING PROCESS SPECIALIST, lab, RT, psych nurse, social service director, stretch press operator, teacher, escrow officer, casework specialist)? Give summary @ -I spoke with Emily the nurse practitioner for EMS regarding the patient's admission for the GWEN and nephrology referral. patient continues to be hydrated at a slow rate. Was smoking cessation discussed for >3mins.? @ -[No] Was critical care preformed (if so, how long)? @ -[No] Were there social determinants of health that impacted care today? How? (Homelessness, low income, unemployed, alcoholism, drug addiction, transportation, low edu. Level, literacy, decrease access to med. care, care home, rehab)? @ -[No] Was there de-escalation of care discussed even if they declined (Discuss DNR or withdrawal of care, Hospice)? DNR status @ -[No] What co-morbidities impacted this encounter? (DM, HTN, Smoking, COPD, CAD, Cancer, CVA, ARF, Chemo, Hep., AIDS, mental health diagnosis, sleep apnea, morbid obesity)? @ -[HTN, recent cardiac stents and hospital admission Was patient admitted / discharged? Hospital course, mention meds given and route, prescriptions, significant lab abnormalities, going to OR and other pertinent info. @ -[patient will be admitted for further evaluation of the elevated LFTs and GWEN. He will continue with IVFs and receive a nephrology consult.] Undiagnosed new problem with uncertain prognosis? @ -[No] Drug Therapy requiring intensive monitoring for toxicity (Heparin, Nitro, Insulin, Cardizem)? @ -[No] Were any procedures done? @ -[No] Diagnosis/symptom? @ -[GWEN, elevated LFTs, hepatic steatosis, pancreatitis Acute, or Chronic, or Acute on Chronic? @ -[acute Uncomplicated (without systemic symptoms) or Complicated (systemic symptoms)? @ -[default] Side effects of treatment? @ -[No] Exacerbation, Progression, or Severe Exacerbation? @ -[No] Poses a threat to life or bodily function? How? (Chest pain, USA, MA, pneumonia, PE, COPD, DKA, ARF, appy, cholecystitis, CVA, Diverticulitis, Homicidal, Suicidal, threat to staff... and all critical care pts) @ -YES - Lab Data Result diagrams: 08/06/23 11:19 08/06/23 11:19 Lab Results 08/06/23 08/06/23 08/06/23 Range/Units 11:19 11:19 11:19 WBC 11.3 H (3.8-10.6) k/uL RBC 4.43 (4.30-5.90) m/uL Hgb 13.8 (13.0-17.5) gm/dL Hct 42.3 (39.0-53.0) % MCV 95.3 (80.0-100.0) fL MCH 31.2 (25.0-35.0) pg MCHC 32.8 (31.0-37.0) g/dL RDW 13.4 (11.5-15.5) % Plt Count 305 (150-450) k/uL MPV 10.3 Neutrophils % 87 % Lymphocytes % 6 % Monocytes % 5 % Eosinophils % 1 % Basophils % 0 % Neutrophils # 9.9 H (1.3-7.7) k/uL Lymphocytes # 0.7 L (1.0-4.8) k/uL Monocytes # 0.6 (0-1.0) k/uL Eosinophils # 0.1 (0-0.7) k/uL Basophils # 0.0 (0-0.2) k/uL PT 13.0 H (10.0-12.5) sec INR 1.2 H (<1.2) APTT 25.6 (22.0-30.0) sec Sodium 140 (137-145) mmol/L Potassium 4.4 (3.5-5.1) mmol/L Chloride 107 (98-107) mmol/L Carbon Dioxide 24 (22-30) mmol/L Anion Gap 9 mmol/L BUN 91 H (9-20) mg/dL Creatinine 2.42 H (0.66-1.25) mg/dL Est GFR (CKD-EPI)AfAm 29 (>60 ml/min/1.73 sqM) Est GFR (CKD-EPI)NonAf 25 (>60 ml/min/1.73 sqM) Glucose 124 H (74-99) mg/dL POC Glucose (mg/dL) (70-110) mg/dL POC Glu Burial Agent ID Calcium 8.4 (8.4-10.2) mg/dL Magnesium 3.1 H (1.6-2.3) mg/dL Total Bilirubin 1.1 (0.2-1.3) mg/dL Conjugated Bilirubin (0.0-0.3) mg/dL Unconjugated Bilirubin (0.0-1.1) mg/dL Delta Bilirubin (0.0-0.2) mg/dL AST 198 H (17-59) U/L ALT 681 H (4-49) U/L Alkaline Phosphatase 161 H (38-126) U/L Total Protein 6.3 (6.3-8.2) g/dL Albumin 3.5 (3.5-5.0) g/dL Amylase (30-110) U/L Lipase (23-300) U/L Urine Color Urine Appearance (Clear) Urine pH (5.0-8.0) Ur Specific [place] (1.001-1.035) Urine Protein (Negative) Urine Glucose (UA) (Negative) Urine Ketones (Negative) Urine Blood (Negative) Urine Nitrite (Negative) Urine Bilirubin (Negative) Urine Urobilinogen (<2.0) mg/dL Ur Leukocyte Esterase (Negative) 08/06/23 08/06/23 08/06/23 Range/Units 13:09 15:18 18:44 WBC (3.8-10.6) k/uL RBC (4.30-5.90) m/uL Hgb (13.0-17.5) gm/dL Hct (39.0-53.0) % MCV (80.0-100.0) fL MCH (25.0-35.0) pg MCHC (31.0-37.0) g/dL RDW (11.5-15.5) % Plt Count (150-450) k/uL MPV Neutrophils % % Lymphocytes % % Monocytes % % Eosinophils % % Basophils % % Neutrophils # (1.3-7.7) k/uL Lymphocytes # (1.0-4.8) k/uL Monocytes # (0-1.0) k/uL Eosinophils # (0-0.7) k/uL Basophils # (0-0.2) k/uL PT (10.0-12.5) sec INR (<1.2) APTT (22.0-30.0) sec Sodium (137-145) mmol/L Potassium (3.5-5.1) mmol/L Chloride (98-107) mmol/L Carbon Dioxide (22-30) mmol/L Anion Gap mmol/L BUN (9-20) mg/dL Creatinine (0.66-1.25) mg/dL Est GFR (CKD-EPI)AfAm (>60 ml/min/1.73 sqM) Est GFR (CKD-EPI)NonAf (>60 ml/min/1.73 sqM) Glucose (74-99) mg/dL POC Glucose (mg/dL) (70-110) mg/dL POC Glu Burial Agent ID Calcium (8.4-10.2) mg/dL Magnesium (1.6-2.3) mg/dL Total Bilirubin 1.1 (0.2-1.3) mg/dL Conjugated Bilirubin 0.0 (0.0-0.3) mg/dL Unconjugated Bilirubin 0.7 (0.0-1.1) mg/dL Delta Bilirubin 0.4 H (0.0-0.2) mg/dL AST 195 H (17-59) U/L ALT 670 H (4-49) U/L Alkaline Phosphatase 158 H (38-126) U/L Total Protein 6.3 (6.3-8.2) g/dL Albumin 3.6 (3.5-5.0) g/dL Amylase 223 H (30-110) U/L Lipase 1062 H (23-300) U/L Urine Color Light Yellow Urine Appearance Clear (Clear) Urine pH 5.0 (5.0-8.0) Ur Specific [place] 1.021 (1.001-1.035) Urine Protein Negative (Negative) Urine Glucose (UA) Negative (Negative) Urine Ketones Negative (Negative) Urine Blood Negative (Negative) Urine Nitrite Negative (Negative) Urine Bilirubin Negative (Negative) Urine Urobilinogen <2.0 (<2.0) mg/dL Ur Leukocyte Esterase Negative (Negative) 08/06/23 Range/Units 18:45 WBC (3.8-10.6) k/uL RBC (4.30-5.90) m/uL Hgb (13.0-17.5) gm/dL Hct (39.0-53.0) % MCV (80.0-100.0) fL MCH (25.0-35.0) pg MCHC (31.0-37.0) g/dL RDW (11.5-15.5) % Plt Count (150-450) k/uL MPV Neutrophils % % Lymphocytes % % Monocytes % % Eosinophils % % Basophils % % Neutrophils # (1.3-7.7) k/uL Lymphocytes # (1.0-4.8) k/uL Monocytes # (0-1.0) k/uL Eosinophils # (0-0.7) k/uL Basophils # (0-0.2) k/uL PT (10.0-12.5) sec INR (<1.2) APTT (22.0-30.0) sec Sodium (137-145) mmol/L Potassium (3.5-5.1) mmol/L Chloride (98-107) mmol/L Carbon Dioxide (22-30) mmol/L Anion Gap mmol/L BUN (9-20) mg/dL Creatinine (0.66-1.25) mg/dL Est GFR (CKD-EPI)AfAm (>60 ml/min/1.73 sqM) Est GFR (CKD-EPI)NonAf (>60 ml/min/1.73 sqM) Glucose (74-99) mg/dL POC Glucose (mg/dL) 237 H (70-110) mg/dL POC Glu Burial Agent ID December, Calcium (8.4-10.2) mg/dL Magnesium (1.6-2.3) mg/dL Total Bilirubin (0.2-1.3) mg/dL Conjugated Bilirubin (0.0-0.3) mg/dL Unconjugated Bilirubin (0.0-1.1) mg/dL Delta Bilirubin (0.0-0.2) mg/dL AST (17-59) U/L ALT (4-49) U/L Alkaline Phosphatase (38-126) U/L Total Protein (6.3-8.2) g/dL Albumin (3.5-5.0) g/dL Amylase (30-110) U/L Lipase (23-300) U/L Urine Color Urine Appearance (Clear) Urine pH (5.0-8.0) Ur Specific [place] (1.001-1.035) Urine Protein (Negative) Urine Glucose (UA) (Negative) Urine Ketones (Negative) Urine Blood (Negative) Urine Nitrite (Negative) Urine Bilirubin (Negative) Urine Urobilinogen (<2.0) mg/dL Ur Leukocyte Esterase (Negative) - Radiology Data Radiology results: report reviewed, image reviewed Disposition Clinical Impression: GWEN (acute kidney injury), Elevated LFTs, Hepatic steatosis, Pancreatitis Disposition: ADMITTED IP TO THIS [facility] Condition: Fair Referrals: Derian Link MD [Primary Care Provider] - 1-2 days Decision to Admit Reason: Admit from EC Decision Time: 15:39
[2023-08-06] MEDS ORDERED: NALOXONE 0.4 MG/ML 1 ML VIAL IV PRN (15:39)
[2023-08-06 16:31] LABS: Amylase 223 U/L (30-110); Lipase 1062 U/L (23-300)
[2023-08-06 18:47] LABS: Glucose,Whole Blood 237 mg/dL (70-110)
[2023-08-06 18:56] LABS: Appearance,Urine Clear (Clear); Bilirubin,Urine Negative (Negative); Blood,Urine Negative (Negative); Color,Urine Light Yellow; Glucose,Urine (UA) Negative (Negative); Ketones,Urine Negative (Negative); Leukocyte Esterase,Urine Negative (Negative); Nitrite,Urine Negative (Negative); Protein,Urine Negative (Negative); Specific Gravity,Urine 1.021 (1.001-1.035); Urobilinogen,Urine <2.0 mg/dL (<2.0)
[2023-08-06] MEDS ORDERED: NITROGLYCERIN SL TABS 0.4 MG TAB SUBLINGUAL PRN (19:37)
[2023-08-06] MEDS ORDERED: DEXTROSE 50% SYRINGE 50 ML IVP PRN ×2 (19:39)
[2023-08-06 21:45] LABS: Glucose,Whole Blood 353 mg/dL (70-110)
[2023-08-06] MEDS: APIXABAN 2.5 MG TABLET PO SCH (21:48)
[2023-08-06] MEDS: INSULIN ASPART (NovoLOG) 100 UNIT/ML VIAL SQ SCH (21:49)
[2023-08-06] MEDS: METOPROLOL TARTRATE 50 MG TAB PO SCH (21:49)
[2023-08-06] MEDS: TICAGRELOR 90 MG TAB PO SCH (22:00)
[2023-08-07 07:33] LABS: Glucose,Whole Blood 149 mg/dL (70-110)
[2023-08-07] MEDS ORDERED: SODIUM CHLORIDE 0.65% NASAL SPRAY 44 ML BTL NASAL PRN (08:20)
[2023-08-07] MEDS: INSULIN ASPART (NovoLOG) 100 UNIT/ML VIAL SQ SCH ×5 (08:24→21:23)
[2023-08-07 09:57] LABS: Basophils % (A) 0 %; Eosinophils # (A) 0.2 k/uL (0-0.7); Eosinophils % (A) 2 %; HCT 38.6 % (39.0-53.0); HGB 12.5 gm/dL (13.0-17.5); Lymphocytes # (A) 0.8 k/uL (1.0-4.8); Lymphocytes % (A) 10 %; MCH 31.3 pg (25.0-35.0); MCHC 32.5 g/dL (31.0-37.0); MCV 96.4 fL (80.0-100.0); Mean Platelet Volume 10.1; Monocytes # (A) 0.5 k/uL (0-1.0); Monocytes % (A) 6 %; Neutrophils # (A) 6.7 k/uL (1.3-7.7); Neutrophils % (A) 81 %; Platelet Count 231 k/uL (150-450); RBC 4.01 m/uL (4.30-5.90); RDW 13.5 % (11.5-15.5); WBC 8.3 k/uL (3.8-10.6)
[2023-08-07 10:08] LABS: ALT 466 U/L (4-49); AST 76 U/L (17-59); African American GFR (CKD) 35 (>60 ml/min/1.73 sqM); Albumin 2.9 g/dL (3.5-5.0); Albumin/Globulin Ratio 1.2; Alkaline Phosphatase 135 U/L (38-126); Anion Gap 8 mmol/L; Blood Urea Nitrogen 77 mg/dL (9-20); Calcium 7.8 mg/dL (8.4-10.2); Carbon Dioxide 21 mmol/L (22-30); Chloride 107 mmol/L (98-107); Globulin 2.5 g/dL; Glucose 161 mg/dL (74-99); Non-African American GFR(CKD) 30 (>60 ml/min/1.73 sqM); Potassium 4.3 mmol/L (3.5-5.1); Sodium 136 mmol/L (137-145); Total Bilirubin 0.8 mg/dL (0.2-1.3); Total Protein 5.4 g/dL (6.3-8.2)
[2023-08-07] MEDS: ASPIRIN 81 MG PO SCH (10:15)
[2023-08-07] MEDS: APIXABAN 2.5 MG TABLET PO SCH ×2 (10:15→21:23)
[2023-08-07] MEDS: TICAGRELOR 90 MG TAB PO SCH ×2 (10:15→21:23)
[2023-08-07] MEDS: METOPROLOL TARTRATE 50 MG TAB PO SCH ×2 (10:15→21:23)
[2023-08-07 12:14] LABS: Glucose,Whole Blood 198 mg/dL (70-110)
--- NOTE | 2023-08-07 12:24 | P.NPCON ---
History of Present Illness - Reason for Consult acute renal failure - History of Present Illness Reason for consultation: Acute kidney injury History of present illness: Patient is a 77-year-old male seen in renal consultation for acute kidney injury. Patient's creatinine dated 07/29/2023 was 0.94. This admission it was elevated at 2.6 and is down to 2.05 today. Patient states he was in the hospital last week and had cardiac stents placed. Patient's ejection fraction is 25-30% and also has moderate mitral regurgitation and pulmonary hypertension. is present at bedside. He denies any personal history of kidney disease and does not follow with nephrology outpatient. Patient had blood work done outpatient and was sent to the hospital. CAT scan showed no evidence of hydronephrosis. No evidence of fluid overload noted on chest x-ray. He denies chest pain or shortness of breath. He does have significant edema in the lower extremities. Has been voiding. Denies gross hematuria. This morning his bladder scan showed over 500 mL of urine in Sánchez catheter was placed. Patient does have history of diabetes. Denies regular use of nonsteroidals. Denies family history of renal disease. Vital signs are stable. General: No acute distress. HEENT: Head exam is unremarkable. LUNGS: No audible rhonchi or wheezes. HEART: Rate and Rhythm are regular. ABDOMEN: Nontender. EXTREMITITES: 2+ edema. 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 nephew/niece cardiac stents, Brother(s) Family Medical History: Coronary Artery Disease (CAD) Additional Family Medical History / Comment(s): 2 Brothers were diagnosed with early onset coronary artery disease in their 40s Medications and Allergies Home Medications Medication Instructions Recorded Confirmed Type Glucagon [Gvoke Pfs 1-Pack Syringe] 1 mg SQ ONCE PRN 07/26/23 08/06/23 History INSULIN ASPART (NovoLOG) [NovoLOG 15 - 30 unit SQ AC-TID 07/26/23 08/06/23 History (formulary)] Losartan [Cozaar] 50 mg PO DAILY 07/26/23 08/06/23 History metFORMIN HCL ER [Glucophage XR] 1,000 mg PO BID 07/26/23 08/06/23 History Apixaban [Eliquis] 2.5 mg PO BID #60 tab 07/31/23 08/06/23 Rx Aspirin 81 mg PO DAILY #90 tab 07/31/23 08/06/23 Rx Atorvastatin [Lipitor] 80 mg PO HS #90 tab 07/31/23 08/06/23 Rx Furosemide [Lasix] 20 mg PO DAILY #90 tab 07/31/23 08/06/23 Rx Insulin Degludec [Tresiba 40 units SQ DAILY #0 07/31/23 08/06/23 Rx Flextouch U-100 Pen] Metoprolol Tartrate [Lopressor] 50 mg PO BID #180 tab 07/31/23 08/06/23 Rx Nitroglycerin Sl Tabs [Nitrostat] 0.4 mg SUBLINGUAL Q5M PRN #100 tab 07/31/23 08/06/23 Rx Omeprazole [PriLOSEC] 20 mg PO AC-BID #60 cap 07/31/23 08/06/23 Rx Ticagrelor [Brilinta] 90 mg PO BID #180 tab 07/31/23 08/06/23 Rx Amiodarone [Cordarone] See Taper PO DIRECTED 08/06/23 08/06/23 History Allergies Allergy/AdvReac Type Severity Reaction Status Date / Time No Known Allergies Allergy Verified 08/06/23 11:04 Physical Exam Vitals: Vital Signs Temp Pulse Pulse Resp BP BP Pulse Ox 08/07/23 07:25 97.7 F 93 16 103/68 97 08/07/23 02:11 97.7 F 91 19 100/60 97 08/06/23 21:39 97.5 F L 90 18 104/68 99 08/06/23 18:44 87 18 104/68 97 Intake and Output 08/06/23 08/07/2308/07/24 22:59 06:59 14:59 Intake Total 120 Balance 120 Intake: Oral 120 Other: Voiding Method Toilet # Voids 1 Weight 99.337 kg Results - Lab Results Most recent lab results Calcium 7.8 mg/dL (8.4-10.2) L 08/07/23 07:06 Magnesium 3.0 mg/dL (1.6-2.3) H 08/07/23 07:06 08/07/23 07:06 08/07/23 07:06 Assessment and Plan Plan: Assessment: 1. Acute kidney injury secondary to ATN secondary to cardiorenal syndrome and component of urinary retention. Creatinine 2.6 on admission and is down to 2.05 today. Creatinine near 1 earlier in July 2023. No hydronephrosis noted on CAT scan. UA benign. 2. Acute on chronic systolic CHF with ejection fraction of 25-30% with moderate mitral regurgitation and pulmonary hypertension. 3. Coronary disease with cardiac stents. 4. Volume overload. 5. Diabetes mellitus. 6. Urinary retention status post Sánchez catheter placement. Plan: Add IV Lasix 40 mg twice daily. Low-salt diet and 1500 mL fluid restriction. Add Flomax. Avoid nephrotoxins. Continue to monitor renal function and urine output. Thank you for the consultation. I will continue to follow the patient with you during his hospital stay.
[2023-08-07] MEDS: FUROSEMIDE 10 MG/ML 4 ML VIAL IV SCH ×2 (13:03→21:23)
[2023-08-07] MEDS: TAMSULOSIN 0.4 MG CAP.ER.24H PO SCH (13:04)
--- NOTE | 2023-08-07 14:48 | P.HPIM ---
History of Present Illness H&P Date: 08/07/23 This is a 77-year-old gentleman with past medical history significant for diabetes mellitus, hypertension. He was recently hospitalized with Non-ST elevation [place], secondary to triple-vessel coronary artery disease involving critical disease of the RCA, LAD and PDA branch of the left circumflex artery, Status post PCI of the RCA and LAD with 4 stents. He was also found to have Ischemic cardiomyopathy with an EF 25% and also has moderate mitral regurgitation and pulmonary hypertension. He was discharged home on triple therapy with acetaminophen to low-dose eliquis as well as high-dose statin ther apy. Patient is also on amiodarone. Patient was at his PCPs office for routine blood work and hospital follow-up found to have significantly elevated LFTs and renal dysfunction he was sent to the hospital for evaluation. Denies having any chest pain he is not having any shortness of breath no nausea vomiting or diarrhea. States he is not drinking alcohol he has been compliant with this medication. Initial blood work reveals a white count of 11.3, INR 1.2, BUN 91, current 2.42, glucose 353, magnesium 3.1, AST ALT and alk phos elevated. Check amylase and lipase which were also elevated. His chest x-ray does not reveal any vascular congestion or fluid overload. His computed tomography scan shows evidence of chronic medical renal disease with no hydronephrosis seen bilaterally with no intrahepatic mass or biliary dilation. Abdominal ultrasound shows bile duct upper limits of normal in caliber likely age-related change in post cholecystectomy status moderate hepatic steatosis. He was admitted to the hospital and consult placed to nephrology. Suspect is a component of vascular c ongestion as he has quite edematous in his lower extremities. REVIEW OF SYSTEMS: CONSTITUTIONAL: No fever, no malaise, no fatigue. HEENT: No recent visual problems or hearing problems. Denied any sore throat. CARDIOVASCULAR: No chest pain, orthopnea, PND, no palpitations, no syncope. PULMONARY: No shortness of breath, no cough, no hemoptysis. GASTROINTESTINAL: No diarrhea, no nausea, no vomiting, no abdominal pain. NEUROLOGICAL: No headaches, no weakness, no numbness. HEMATOLOGICAL: Denies any bleeding or petechiae. GENITOURINARY: Denies any burning micturition, frequency, or urgency. MUSCULOSKELETAL/RHEUMATOLOGICAL: Denies any joint pain, swelling, or any muscle pain. ENDOCRINE: Denies any polyuria or polydipsia. The rest of the 14-point review of systems is negative. PHYSICAL EXAMINATION: GENERAL: The patient is alert and oriented x3, not in any acute distress. Well developed, well nourished. HEENT: Pupils are round and equally reacting to light. EOMI. No scleral icterus. No conjunctival pallor. Normocephalic, atraumatic. No pharyngeal erythema. No thyromegaly. CARDIOVASCULAR: S1 and S2 present. No murmurs, rubs, or gallops. PULMONARY: Chest is clear to auscultation, no wheezing or crackles. ABDOMEN: Soft, nontender, nondistended, normoactive bowel sounds. No palpable organomegaly. MUSCULOSKELETAL: No joint swelling or deformity. EXTREMITIES: No cyanosis, clubbing, or pedal edema. Significant bilateral lower extremity edema NEUROLOGICAL: Gross neurological examination did not reveal any focal deficits. SKIN: No rashes. Assessment and Plan Acute kidney injury due to ATN and need to rule out urinary retention. Bladder scan requested follow protocol for placement of IDC. Transaminitis likely due to vascular congestion patient has been started on IV lasix this should improve. Abdominal ultrasound shows fatty liver. Status post PCI of the RCA and LAD discharged from the hospital 1 week ago with NSTEMI Ischemic cardiomyopathy EF 25% Acute on chronic systolic heart failure Hypertension holding losartan. 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 GI prophylaxis DVT prophylaxis Full Code The impression and plan of care has been dictated by Emily Espinosa, Nurse Practitioner as directed. Dr. Nancy MD I have performed a history and physical examination and medical decision making of this patient, discussed the same with the dictator, and agree with the dictators assessment and plan as written, documented as a scribe. Based on total visit time, I have performed more than 50% of this visit. 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, [facility] History of Any Multi-Drug Resistant Organisms: None Reported Past Surgical History: Cholecystectomy Past Anesthesia/Blood Transfusion Reactions: No Reported Reaction Past Psychological History: No Psychological Hx Reported Smoking Status: Never smoker Past Alcohol Use History: Occasional Past Drug Use History: None Reported - Past Family History Mother Additional Family Medical History / Comment(s): Sick sinus syndrome Father Family Medical History: Congestive Heart Failure (CHF) Additional Family Medical History / Comment(s): brother-heart failure, other borther heart attack. nephew/niece cardiac stents, Brother(s) Family Medical History: Coronary Artery Disease (CAD) Additional Family Medical History / Comment(s): 2 Brothers were diagnosed with early onset coronary artery disease in their 40s Medications and Allergies Home Medications Medication Instructions Recorded Confirmed Type Glucagon [Gvoke Pfs 1-Pack Syringe] 1 mg SQ ONCE PRN 07/26/23 08/06/23 History INSULIN ASPART (NovoLOG) [NovoLOG 15 - 30 unit SQ AC-TID 07/26/23 08/06/23 History (formulary)] Losartan [Cozaar] 50 mg PO DAILY 07/26/23 08/06/23 History metFORMIN HCL ER [Glucophage XR] 1,000 mg PO BID 07/26/23 08/06/23 History Apixaban [Eliquis] 2.5 mg PO BID #60 tab 07/31/23 08/06/23 Rx Aspirin 81 mg PO DAILY #90 tab 07/31/23 08/06/23 Rx Atorvastatin [Lipitor] 80 mg PO HS #90 tab 07/31/23 08/06/23 Rx Furosemide [Lasix] 20 mg PO DAILY #90 tab 07/31/23 08/06/23 Rx Insulin Degludec [Tresiba 40 units SQ DAILY #0 07/31/23 08/06/23 Rx Flextouch U-100 Pen] Metoprolol Tartrate [Lopressor] 50 mg PO BID #180 tab 07/31/23 08/06/23 Rx Nitroglycerin Sl Tabs [Nitrostat] 0.4 mg SUBLINGUAL Q5M PRN #100 tab 07/31/23 08/06/23 Rx Omeprazole [PriLOSEC] 20 mg PO AC-BID #60 cap 07/31/23 08/06/23 Rx Ticagrelor [Brilinta] 90 mg PO BID #180 tab 07/31/23 08/06/23 Rx Amiodarone [Cordarone] See Taper PO DIRECTED 08/06/23 08/06/23 History Allergies Allergy/AdvReac Type Severity Reaction Status Date / Time No Known Allergies Allergy Verified 08/06/23 11:04 Physical Exam Vitals: Vital Signs Temp Pulse Pulse Resp BP BP Pulse Ox 08/07/23 07:25 97.7 F 93 16 103/68 97 08/07/23 02:11 97.7 F 91 19 100/60 97 08/06/23 21:39 97.5 F L 90 18 104/68 99 08/06/23 18:44 87 18 104/68 97 08/06/23 11:01 97.7 F 99 18 107/73 98 Intake and Output 08/06/23 08/07/23 08/07/23 22:59 06:59 14:59 Intake Total 120 Balance 120 Intake: Oral 120 Other: # Voids 1 Weight 99.337 kg Results CBC & Chem 7: 08/07/23 07:06 08/07/23 07:06 Labs: Abnormal Lab Results - Last 24 Hours (Table) 08/06/23 08/06/23 08/06/23 Range/Units 11:19 11:19 11:19 WBC 11.3 H (3.8-10.6) k/uL RBC (4.30-5.90) m/uL Hgb (13.0-17.5) gm/dL Hct (39.0-53.0) % Neutrophils # 9.9 H (1.3-7.7) k/uL Lymphocytes # 0.7 L (1.0-4.8) k/uL PT 13.0 H (10.0-12.5) sec INR 1.2 H (<1.2) BUN 91 H (9-20) mg/dL Creatinine 2.42 H (0.66-1.25) mg/dL Glucose 124 H (74-99) mg/dL POC Glucose (mg/dL) (70-110) mg/dL Magnesium 3.1 H (1.6-2.3) mg/dL Delta Bilirubin (0.0-0.2) mg/dL AST 198 H (17-59) U/L ALT 681 H (4-49) U/L Alkaline Phosphatase 161 H (38-126) U/L Amylase (30-110) U/L Lipase (23-300) U/L 08/06/23 08/06/23 08/06/23 Range/Units 13:09 15:18 18:45 WBC (3.8-10.6) k/uL RBC (4.30-5.90) m/uL Hgb (13.0-17.5) gm/dL Hct (39.0-53.0) % Neutrophils # (1.3-7.7) k/uL Lymphocytes # (1.0-4.8) k/uL PT (10.0-12.5) sec INR (<1.2) BUN (9-20) mg/dL Creatinine (0.66-1.25) mg/dL Glucose (74-99) mg/dL POC Glucose (mg/dL) 237 H (70-110) mg/dL Magnesium (1.6-2.3) mg/dL Delta Bilirubin 0.4 H (0.0-0.2) mg/dL AST 195 H (17-59) U/L ALT 670 H (4-49) U/L Alkaline Phosphatase 158 H (38-126) U/L Amylase 223 H (30-110) U/L Lipase 1062 H (23-300) U/L 08/06/23 08/07/23 08/07/23 Range/Units 21:44 07:06 07:06 WBC (3.8-10.6) k/uL RBC 4.01 L (4.30-5.90) m/uL Hgb 12.5 L (13.0-17.5) gm/dL Hct 38.6 L (39.0-53.0) % Neutrophils # (1.3-7.7) k/uL Lymphocytes # 0.8 L (1.0-4.8) k/uL PT (10.0-12.5) sec INR (<1.2) BUN (9-20) mg/dL Creatinine (0.66-1.25) mg/dL Glucose (74-99) mg/dL POC Glucose (mg/dL) 353 H (70-110) mg/dL Magnesium 3.0 H (1.6-2.3) mg/dL Delta Bilirubin (0.0-0.2) mg/dL AST (17-59) U/L ALT (4-49) U/L Alkaline Phosphatase (38-126) U/L Amylase (30-110) U/L Lipase (23-300) U/L 08/07/23 Range/Units 07:31 WBC (3.8-10.6) k/uL RBC (4.30-5.90) m/uL Hgb (13.0-17.5) gm/dL Hct (39.0-53.0) % Neutrophils # (1.3-7.7) k/uL Lymphocytes # (1.0-4.8) k/uL PT (10.0-12.5) sec INR (<1.2) BUN (9-20) mg/dL Creatinine (0.66-1.25) mg/dL Glucose (74-99) mg/dL POC Glucose (mg/dL) 149 H (70-110) mg/dL Magnesium (1.6-2.3) mg/dL Delta Bilirubin (0.0-0.2) mg/dL AST (17-59) U/L ALT (4-49) U/L Alkaline Phosphatase (38-126) U/L Amylase (30-110) U/L Lipase (23-300) U/L Thrombosis Risk Factor Assmnt - Choose All That Apply Any of the Below Risk Factors Present?: Yes Each Factor Represents 1 point: Obesity (BMI >25) Each Risk Factor Represents 3 Points: Age 75 years or older Other congenital or acquired thrombophilia - If yes, enter type in comment: No Thrombosis Risk Factor Assessment Total Risk Factor Score: 4 Thrombosis Risk Factor Assessment Level: Moderate Risk Assessment and Plan Time with Patient: Less than 30
[2023-08-07 17:41] LABS: Glucose,Whole Blood 335 mg/dL (70-110)
[2023-08-07 21:13] LABS: Glucose,Whole Blood 383 mg/dL (70-110)
[2023-08-08 07:56] LABS: Glucose,Whole Blood 172 mg/dL (70-110)
[2023-08-08] MEDS: APIXABAN 2.5 MG TABLET PO SCH ×2 (09:12→21:28)
[2023-08-08] MEDS: ASPIRIN 81 MG PO SCH (09:12)
[2023-08-08] MEDS: TICAGRELOR 90 MG TAB PO SCH ×2 (09:13→21:30)
[2023-08-08] MEDS: INSULIN ASPART (NovoLOG) 100 UNIT/ML VIAL SQ SCH ×7 (09:13→21:29)
[2023-08-08] MEDS: FAMOTIDINE 20 MG TAB PO SCH (09:14)
[2023-08-08] MEDS: FUROSEMIDE 10 MG/ML 4 ML VIAL IV SCH ×2 (09:14→21:28)
[2023-08-08] MEDS: METOPROLOL TARTRATE 50 MG TAB PO SCH ×2 (09:14→21:29)
[2023-08-08] MEDS: TAMSULOSIN 0.4 MG CAP.ER.24H PO SCH (09:14)
--- NOTE | 2023-08-08 11:35 | P.PN ---
Subjective Patient is seen in follow-up for acute kidney injury. Morning labs pending. On IV Lasix. Nonoliguric. Has Sánchez catheter for urinary retention. Denies chest pain or shortness of breath. Edema improved. Vital signs are stable. General: No acute distress. HEENT: Head exam is unremarkable. LUNGS: No audible rhonchi or wheezes. HEART: Rate and Rhythm are regular. ABDOMEN: Nontender. EXTREMITITES: 2+ edema. Objective - Vital Signs Vital signs: Vital Signs Temp 98.0 F 08/08/23 07:54 Pulse 99 08/08/23 07:54 Resp 16 08/08/23 07:54 BP 111/77 08/08/23 07:54 Pulse Ox 95 08/08/23 07:54 FiO2 Intake & Output 08/07/23 08/08/23 08/08/23 18:59 06:59 18:59 Intake Total 740 Output Total 1400 1175 Balance -1400 -435 Intake: Oral 740 Output: Urine 1400 1175 Uretheral (Sánchez) 150 Other: Voiding Method Toilet Indwelling Catheter Indwelling Catheter - Labs CBC & Chem 7: 08/07/23 07:06 08/07/23 07:06 Labs: Abnormal Lab Results - Last 24 Hours (Table) 08/07/23 08/07/23 08/07/23 Range/Units 07:06 12:13 17:40 POC Glucose (mg/dL) 198 H 335 H (70-110) mg/dL Hemoglobin A1c 7.9 H (<=6.0) % 08/07/23 08/08/23 Range/Units 21:10 07:55 POC Glucose (mg/dL) 383 H 172 H (70-110) mg/dL Hemoglobin A1c (<=6.0) % Assessment and Plan Plan: Assessment: 1. Acute kidney injury secondary to ATN secondary to cardiorenal syndrome and component of urinary retention. Creatinine 2.6 on admission - 2.05 yesterday. Creatinine near 1 earlier in July 2023. No hydronephrosis noted on CAT scan. UA benign. 2. Acute on chronic systolic CHF with ejection fraction of 25-30% with moderate mitral regurgitation and pulmonary hypertension. 3. Coronary disease with cardiac stents. 4. Volume overload. Improving with diuresis. 5. Diabetes mellitus. 6. Urinary retention status post Sánchez catheter placement. On Flomax. Urology consulted. Plan: Maintain IV Lasix. Low-salt diet and 1500 mL fluid restriction. Avoid nephrotoxins. Continue to monitor renal function and urine output.
[2023-08-08 12:19] LABS: Glucose,Whole Blood 142 mg/dL (70-110)
--- NOTE | 2023-08-08 12:36 | P.GSCN ---
History of Present Illness Consult date: 08/08/23 Reason for Consult: Urinary retention Requesting physician: Mane Alba History of present illness: The patient is a 77-year-old white male recently hospitalized with non-ST elevation [place]. He underwent PCI with stents. He has a history of ischemic cardiomyopathy (EF=25%) with mitral regurgitation and pulmonary hypertension. He is now admitted after being told to return to the hospital for evaluation of abnormal laboratory values. CT scan showed no evidence of hydronephrosis, but bladder distention was noted. Bladder scan showed 558 mL, and a Sánchez catheter was placed. For the past year, the patient has noted his urinary stream to be weak and prolonged, with intermittency. 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, [facility] History of Any Multi-Drug Resistant Organisms: None Reported Past Surgical History: Cholecystectomy Past Anesthesia/Blood Transfusion Reactions: No Reported Reaction Past Psychological History: No Psychological Hx Reported Smoking Status: Never smoker Past Alcohol Use History: Occasional Past Drug Use History: None Reported - Past Family History Mother Additional Family Medical History / Comment(s): Sick sinus syndrome Father Family Medical History: Congestive Heart Failure (CHF) Additional Family Medical History / Comment(s): brother-heart failure, other borther heart attack. nephew/niece cardiac stents, Brother(s) Family Medical History: Coronary Artery Disease (CAD) Additional Family Medical History / Comment(s): 2 Brothers were diagnosed with early onset coronary artery disease in their 40s Medications and Allergies Home Medications Medication Instructions Recorded Confirmed Type Glucagon [Gvoke Pfs 1-Pack Syringe] 1 mg SQ ONCE PRN 07/26/23 08/06/23 History INSULIN ASPART (NovoLOG) [NovoLOG 15 - 30 unit SQ AC-TID 07/26/23 08/06/23 History (formulary)] Losartan [Cozaar] 50 mg PO DAILY 07/26/23 08/06/23 History metFORMIN HCL ER [Glucophage XR] 1,000 mg PO BID 07/26/23 08/06/23 History Apixaban [Eliquis] 2.5 mg PO BID #60 tab 07/31/23 08/06/23 Rx Aspirin 81 mg PO DAILY #90 tab 07/31/23 08/06/23 Rx Atorvastatin [Lipitor] 80 mg PO HS #90 tab 07/31/23 08/06/23 Rx Furosemide [Lasix] 20 mg PO DAILY #90 tab 07/31/23 08/06/23 Rx Insulin Degludec [Tresiba 40 units SQ DAILY #0 07/31/23 08/06/23 Rx Flextouch U-100 Pen] Metoprolol Tartrate [Lopressor] 50 mg PO BID #180 tab 07/31/23 08/06/23 Rx Nitroglycerin Sl Tabs [Nitrostat] 0.4 mg SUBLINGUAL Q5M PRN #100 tab 07/31/23 08/06/23 Rx Omeprazole [PriLOSEC] 20 mg PO AC-BID #60 cap 07/31/23 08/06/23 Rx Ticagrelor [Brilinta] 90 mg PO BID #180 tab 07/31/23 08/06/23 Rx Amiodarone [Cordarone] See Taper PO DIRECTED 08/06/23 08/06/23 History Allergies Allergy/AdvReac Type Severity Reaction Status Date / Time No Known Allergies Allergy Verified 08/06/23 11:04 Surgical - Exam Vital Signs Temp Pulse Resp BP Pulse Ox 97.7 F 99 18 107/73 98 08/06/23 11:01 08/06/23 11:01 08/06/23 11:01 08/06/23 11:01 08/06/23 11:01 - General well developed, well nourished, no distress - Respiratory normal respiratory effort - Abdomen Abdomen: soft, non tender, no guarding, no rigid, no rebound - Genitourinary normal penis with no external lesions, testicles non-tender - Rectum Rectum: normal sphincter tone, no masses, other (Prostate 30 g in size, smooth in consistency) - Psychiatric oriented to time, oriented to person, oriented to place, speech is normal, memory intact Results - Labs 08/07/23 07:06 08/07/23 07:06 Abnormal Lab Results - Last 24 Hours (Table) 08/07/23 08/07/23 08/07/23 Range/Units 07:06 07:06 07:06 RBC 4.01 L (4.30-5.90) m/uL Hgb 12.5 L (13.0-17.5) gm/dL Hct 38.6 L (39.0-53.0) % Lymphocytes # 0.8 L (1.0-4.8) k/uL Sodium 136 L (137-145) mmol/L Carbon Dioxide 21 L (22-30) mmol/L BUN 77 H (9-20) mg/dL Creatinine 2.05 H (0.66-1.25) mg/dL Glucose 161 H (74-99) mg/dL POC Glucose (mg/dL) (70-110) mg/dL Hemoglobin A1c 7.9 H (<=6.0) % Calcium 7.8 L (8.4-10.2) mg/dL AST 76 H (17-59) U/L ALT 466 H (4-49) U/L Alkaline Phosphatase 135 H (38-126) U/L Total Protein 5.4 L (6.3-8.2) g/dL Albumin 2.9 L (3.5-5.0) g/dL 08/07/23 08/07/23 08/07/23 Range/Units 12:13 17:40 21:10 RBC (4.30-5.90) m/uL Hgb (13.0-17.5) gm/dL Hct (39.0-53.0) % Lymphocytes # (1.0-4.8) k/uL Sodium (137-145) mmol/L Carbon Dioxide (22-30) mmol/L BUN (9-20) mg/dL Creatinine (0.66-1.25) mg/dL Glucose (74-99) mg/dL POC Glucose (mg/dL) 198 H 335 H 383 H (70-110) mg/dL Hemoglobin A1c (<=6.0) % Calcium (8.4-10.2) mg/dL AST (17-59) U/L ALT (4-49) U/L Alkaline Phosphatase (38-126) U/L Total Protein (6.3-8.2) g/dL Albumin (3.5-5.0) g/dL 08/08/23 Range/Units 07:55 RBC (4.30-5.90) m/uL Hgb (13.0-17.5) gm/dL Hct (39.0-53.0) % Lymphocytes # (1.0-4.8) k/uL Sodium (137-145) mmol/L Carbon Dioxide (22-30) mmol/L BUN (9-20) mg/dL Creatinine (0.66-1.25) mg/dL Glucose (74-99) mg/dL POC Glucose (mg/dL) 172 H (70-110) mg/dL Hemoglobin A1c (<=6.0) % Calcium (8.4-10.2) mg/dL AST (17-59) U/L ALT (4-49) U/L Alkaline Phosphatase (38-126) U/L Total Protein (6.3-8.2) g/dL Albumin (3.5-5.0) g/dL Diabetes panel 08/07/23 08/07/23 Range/Units 07:06 07:06 Sodium 136 L (137-145) mmol/L Potassium 4.3 (3.5-5.1) mmol/L Chloride 107 (98-107) mmol/L Carbon Dioxide 21 L (22-30) mmol/L BUN 77 H (9-20) mg/dL Creatinine 2.05 H (0.66-1.25) mg/dL Glucose 161 H (74-99) mg/dL Hemoglobin A1c 7.9 H (<=6.0) % Calcium 7.8 L (8.4-10.2) mg/dL AST 76 H (17-59) U/L ALT 466 H (4-49) U/L Alkaline Phosphatase 135 H (38-126) U/L Total Protein 5.4 L (6.3-8.2) g/dL Albumin 2.9 L (3.5-5.0) g/dL Calcium panel 08/07/23 Range/Units 07:06 Calcium 7.8 L (8.4-10.2) mg/dL Albumin 2.9 L (3.5-5.0) g/dL Pituitary panel 08/07/23 Range/Units 07:06 Sodium 136 L (137-145) mmol/L Potassium 4.3 (3.5-5.1) mmol/L Chloride 107 (98-107) mmol/L Carbon Dioxide 21 L (22-30) mmol/L BUN 77 H (9-20) mg/dL Creatinine 2.05 H (0.66-1.25) mg/dL Glucose 161 H (74-99) mg/dL Calcium 7.8 L (8.4-10.2) mg/dL Adrenal panel 08/07/23 Range/Units 07:06 Sodium 136 L (137-145) mmol/L Potassium 4.3 (3.5-5.1) mmol/L Chloride 107 (98-107) mmol/L Carbon Dioxide 21 L (22-30) mmol/L BUN 77 H (9-20) mg/dL Creatinine 2.05 H (0.66-1.25) mg/dL Glucose 161 H (74-99) mg/dL Calcium 7.8 L (8.4-10.2) mg/dL Total Bilirubin 0.8 (0.2-1.3) mg/dL AST 76 H (17-59) U/L ALT 466 H (4-49) U/L Alkaline Phosphatase 135 H (38-126) U/L Total Protein 5.4 L (6.3-8.2) g/dL Albumin 2.9 L (3.5-5.0) g/dL - Imaging CT scan - abdomen: report reviewed, image reviewed US - abdomen: report reviewed Assessment and Plan (1) Retention of urine, unspecified Current Visit: Yes Status: Acute Code(s): R33.9 - RETENTION OF URINE, UNSPECIFIED SNOMED Code(s): 067414446 Plan: - Continue Sánchez catheter drainage for several days - Continue tamsulosin - Assuming the patient has been discharged home, he has been instructed to remove his catheter 12 hours prior to seeing me in the office on 08/12/2023. If he remains hospitalized, the voiding trial can occur while he is here. They confirm it approaches rate Mr. Ruiz's care. Please notify me if I can be of any further assistance. Time with Patient: Greater than 30
[2023-08-08 12:46] LABS: Magnesium 2.4 mg/dL (1.5-2.4)
[2023-08-08 12:51] LABS: BUN/Creat Ratio 28.33 Ratio (12.00-20.00); Blood Urea Nitrogen 59.5 mg/dL (9.0-27.0); Carbon Dioxide 22.6 mmol/L (21.6-31.8); Chloride 104 mmol/L (96-109); Glucose 177 mg/dL (70-110); Sodium 137 mmol/L (135-145)
--- NOTE | 2023-08-08 13:31 | P.PN ---
Subjective Progress Note Date: 08/08/23 This is a 77-year-old gentleman with past medical history significant for diabetes mellitus, hypertension. He was recently hospitalized with Non-ST elevation [place], secondary to triple-vessel coronary artery disease involving critical disease of the RCA, LAD and PDA branch of the left circumflex artery, Status post PCI of the RCA and LAD with 4 stents. He was also found to have Ischemic cardiomyopathy with an EF 25% and also has moderate mitral regurgitation and pulmonary hypertension. He was discharged home on triple therapy with acetaminophen to low-dose eliquis as well as high-dose statin therapy. Patient is also on amiodarone. Patient was at his PCPs office for routine blood work and hospital follow-up found to have significantly elevated LFTs and renal dysfunction he was sent to the hospital for evaluation. Denies having any chest pain he is not having any shortness of breath no nausea v omiting or diarrhea. States he is not drinking alcohol he has been compliant with this medication. Initial blood work reveals a white count of 11.3, INR 1.2, BUN 91, current 2.42, glucose 353, magnesium 3.1, AST ALT and alk phos elevated. Check amylase and lipase which were also elevated. His chest x-ray does not reveal any vascular congestion or fluid overload. His computed tomography scan shows evidence of chronic medical renal disease with no hydronephrosis seen bilaterally with no intrahepatic mass or biliary dilation. Abdominal ultrasound shows bile duct upper limits of normal in caliber likely age-related change in post cholecystectomy status moderate hepatic steatosis. He was admitted to the hospital and consult placed to nephrology. Suspect is a component of vascular congestion as he has quite edematous in his lower extremities. 08/08. Patient seen and examined. Denies any shortness of breath. Still has swelling of extremities. REVIEW OF SYSTEMS: CONSTITUTIONAL: No fever, no malaise,. CARDIOVASCULAR: No chest pain, no palpitations, no syncope. PULMONARY: No shortness of breath, no cough, GASTROINTESTINAL: No diarrhea, no nausea, no vomiting, no abdominal pain. NEUROLOGICAL: No headaches, no weakness, PHYSICAL EXAMINATION: GENERAL: The patient is alert and oriented x3, not in any acute distress. Well developed, well nourished. HEENT: Pupils are round and equally reacting to light. EOMI. No scleral icterus. No conjunctival pallor. Normocephalic, atraumatic. No pharyngeal erythema. No thyromegaly. CARDIOVASCULAR: S1 and S2 present. No murmurs, rubs, or gallops. PULMONARY: Chest is clear to auscultation, no wheezing or crackles. ABDOMEN: Soft, nontender, nondistended, normoactive bowel sounds. No palpable organomegaly. MUSCULOSKELETAL: No joint swelling or deformity. EXTREMITIES: 2+ pitting edema of lower extremities bilaterally NEUROLOGICAL: Gross neurological examination did not reveal any focal deficits. SKIN: No rashes. 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 Monitor vital signs Monitor CBC Monitor CMP Continue telemetry monitoring Encourage use of incentive spirometer Strict I's and O's, daily weights Monitor LFTs Continue IV Lasix 40 mg every 12 Continue aspirin and brilinta Nephrology followed Cardiology following Labs and medication were reviewed.. Continue same treatment. Continue with symptomatic treatment. Resume home medication. Monitor labs and vitals. DVT and GI prophylaxis. Further recommendations as per clinical course of the fredy ent Dictation was produced using [employer] dictation software. please excuse any grammatical, word or spelling errors. Objective - Vital Signs Vital signs: Vital Signs Temp 98.0 F 08/08/23 07:54 Pulse 99 08/08/23 07:54 Resp 16 08/08/23 07:54 BP 111/77 08/08/23 07:54 Pulse Ox 95 08/08/23 07:54 FiO2 Intake & Output 08/07/23 08/08/23 08/08/23 18:59 06:59 18:59 Intake Total 740 Output Total 1400 1175 Balance -1400 -435 Intake: Oral 740 Output: Urine 1400 1175 Uretheral (Sánchez) 150 Other: Voiding Method Toilet Indwelling Catheter Indwelling Catheter - Labs CBC & Chem 7: 08/07/23 07:06 08/08/23 06:40 Labs: Abnormal Lab Results - Last 24 Hours (Table) 08/07/23 08/07/2308/07/24 Range/Units 07:06 12:13 17:40 POC Glucose (mg/dL) 198 H 335 H (70-110) mg/dL Hemoglobin A1c 7.9 H (<=6.0) % 08/07/23 08/08/23 Range/Units 21:10 07:55 POC Glucose (mg/dL) 383 H 172 H (70-110) mg/dL Hemoglobin A1c (<=6.0) %
[2023-08-08 17:14] LABS: Glucose,Whole Blood 235 mg/dL (70-110)
--- NOTE | 2023-08-08 18:39 | P.CRDCN ---
History of Present Illness Consult date: 08/08/23 History of present illness: HISTORY OF PRESENTING ILLNESS 77-year-old with PMH of type 2 diabetes, hypertension, recent non-STEMI and a heart cath which showed critical disease involving RCA, LAD, PDA branch of LCx. He is status post PCI of RCA and LAD with 4 stents. 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 Patient was at his PCPs office, His blood work showed elevated LFTs, and renal dysfunction for which he was asked to get evaluated in the hospital. Patient denies having any active chest pain chest pressure shortness of breath. WBC 11.3, INR 1.2, BUN 91, creatinine 2.4, glucose 300, transaminitis with AST 195, AST 600, ALP 150 His chest x-ray showed mild vascular congestion. His CT abdomen showed chronic medial kidney disease and and hepatic steatosis REVIEW OF SYSTEMS 14 point review of system is negative except what is mentioned above in HPI. PHYSICAL EXAMINATION Vital signs reviewed. Head: Normocephalic. Eyes: Sclerae nonicteric. Neck: Brisk carotid upstroke, no jugular venous distention. Lungs: Clear to auscultation. Heart: Regular rate and rhythm, S1-S2, no S3, no murmur or rub. Abdomen: Soft nontender, positive bowel sounds no organomegaly. Extremities: No edema, intact distal pulses. Neuro: Alert, oritented, no focal deficits ASSESSMENT Transaminitis combination of hepatic steatosis, statin use and congestive of neuropathy Right-sided heart failure Recent non-STEMI with status post PCI to RCA and LAD with 4 stents. 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 nephew/niece cardiac stents, Brother(s) Family Medical History: Coronary Artery Disease (CAD) Additional Family Medical History / Comment(s): 2 Brothers were diagnosed with early onset coronary artery disease in their 40s Medications and Allergies Home Medications Medication Instructions Recorded Confirmed Type Glucagon [Gvoke Pfs 1-Pack Syringe] 1 mg SQ ONCE PRN 07/26/23 08/06/23 History INSULIN ASPART (NovoLOG) [NovoLOG 15 - 30 unit SQ AC-TID 07/26/23 08/06/23 History (formulary)] Losartan [Cozaar] 50 mg PO DAILY 07/26/23 08/06/23 History metFORMIN HCL ER [Glucophage XR] 1,000 mg PO BID 07/26/23 08/06/23 History Apixaban [Eliquis] 2.5 mg PO BID #60 tab 07/31/23 08/06/23 Rx Aspirin 81 mg PO DAILY #90 tab 07/31/23 08/06/23 Rx Atorvastatin [Lipitor] 80 mg PO HS #90 tab 07/31/23 08/06/23 Rx Furosemide [Lasix] 20 mg PO DAILY #90 tab 07/31/23 08/06/23 Rx Insulin Degludec [Tresiba 40 units SQ DAILY #0 07/31/23 08/06/23 Rx Flextouch U-100 Pen] Metoprolol Tartrate [Lopressor] 50 mg PO BID #180 tab 07/31/23 08/06/23 Rx Nitroglycerin Sl Tabs [Nitrostat] 0.4 mg SUBLINGUAL Q5M PRN #100 tab 07/31/23 08/06/23 Rx Omeprazole [PriLOSEC] 20 mg PO AC-BID #60 cap 07/31/23 08/06/23 Rx Ticagrelor [Brilinta] 90 mg PO BID #180 tab 07/31/23 08/06/23 Rx Amiodarone [Cordarone] See Taper PO DIRECTED 08/06/23 08/06/23 History Allergies Allergy/AdvReac Type Severity Reaction Status Date / Time No Known Allergies Allergy Verified 08/06/23 11:04 Physical Exam Vitals: Vital Signs Temp Pulse Resp BP Pulse Ox 08/08/23 12:16 97.8 F 66 18 94/65 98 08/08/23 07:54 98.0 F 99 16 111/77 95 08/08/23 01:17 97.9 F 99 16 112/67 97 08/07/23 21:22 98 117/72 98 08/07/23 20:00 97.5 F L 97 16 110/65 98 Intake and Output 08/08/23 08/08/23 08/08/23 06:59 14:59 22:59 Intake Total 740 Output Total 525 1550 Balance 215 -1550 Intake: Oral 740 Output: Urine 525 1550 Uretheral (Sánchez) 150 Other: Voiding Method Indwelling Catheter # Voids 2 Results 08/07/23 07:06 08/08/23 06:40 Comprehensive Metabolic Panel 08/08/23 Range/Units 06:40 Sodium 137 (135-145) mmol/L Potassium 4.0 (3.5-5.5) mmol/L Chloride 104 (96-109) mmol/L Carbon Dioxide 22.6 (21.6-31.8) mmol/L BUN 59.5 H (9.0-27.0) mg/dL Creatinine 2.1 H (0.6-1.5) mg/dL Glucose 177 H (70-110) mg/dL Calcium 8.0 L (8.7-10.3) mg/dL Current Medications Generic Name Dose Route Start Last Admin Trade Name Miguelangelq PRN Reason Stop Dose Admin Apixaban 2.5 mg 08/06/23 21:00 08/08/23 09:12 Apixaban 2.5 Mg Tablet PO 2.5 mg BID GUSTAVO Administration Protocol Aspirin 81 mg 08/07/23 09:00 08/08/23 09:12 Aspirin 81 Mg PO 81 mg DAILY GUSTAVO Administration Dextrose/Water 25 ml 08/06/23 19:39 Dextrose 50% Syringe 50 Ml IVP PER PROTOCOL PRN Hypoglycemia Protocol Dextrose/Water 50 ml 08/06/23 19:39 Dextrose 50% Syringe 50 Ml IVP PER PROTOCOL PRN Hypoglycemia Protocol Famotidine 20 mg 08/08/23 09:00 08/08/23 09:14 Famotidine 20 Mg Tab PO 20 mg DAILY GUSTAVO Administration Furosemide 40 mg 08/07/23 12:30 08/08/23 09:14 Furosemide 10 Mg/Ml 4 Ml Vial IV 40 mg Q12HR GUSTAVO Administration Gabapentin 100 mg 08/08/23 22:00 Gabapentin 100 Mg Cap PO TID GUSTAVO Insulin Aspart 0 unit 08/06/23 21:00 08/08/23 17:41 Insulin Aspart (Novolog) 100 Unit/Ml Vial SQ 4 unit ACHS [facility] Administration Protocol Insulin Aspart 3 unit 08/07/23 17:30 08/08/23 17:41 Insulin Aspart (Novolog) 100 Unit/Ml Vial SQ 3 unit AC-TID [facility] Administration Metoprolol Tartrate 50 mg 08/06/23 21:00 08/08/23 09:14 Metoprolol Tartrate 50 Mg Tab PO 50 mg BID [facility] Administration Naloxone HCl 0.2 mg 08/06/23 15:39 Naloxone 0.4 Mg/Ml 1 Ml Vial IV Q2M PRN Opioid Reversal Nitroglycerin 0.4 mg 08/06/23 19:37 Nitroglycerin Sl Tabs 0.4 Mg Tab SUBLINGUAL Q5M PRN Chest Pain Sodium Chloride 2 spray 08/07/23 08:20 Sodium Chloride 0.65% Nasal [place] 44 Ml Btl NASAL QID PRN Nasal Congestion Tamsulosin HCl 0.4 mg 08/07/23 12:30 08/08/23 09:14 Tamsulosin 0.4 Mg Cap.Er.24h PO 0.4 mg PC-BRKFST [facility] Administration Ticagrelor 90 mg 08/06/23 21:00 08/08/23 09:13 Ticagrelor 90 Mg Tab PO 90 mg BID [facility] Administration Intake and Output 08/08/23 08/08/23 08/08/23 06:59 14:59 22:59 Intake Total 740 Output Total 525 1550 Balance 215 -1550 Intake: Oral 740 Output: Urine 525 1550 Uretheral (Sánchez) 150 Other: Voiding Method Indwelling Catheter # Voids 2 08/07/23 07:06 08/08/23 06:40
[2023-08-08 19:54] LABS: Glucose,Whole Blood 268 mg/dL (70-110)
[2023-08-08] MEDS: GABAPENTIN 100 MG CAP PO SCH (21:29)
[2023-08-09 07:24] LABS: Glucose,Whole Blood 255 mg/dL (70-110)
[2023-08-09] MEDS: GABAPENTIN 100 MG CAP PO SCH ×3 (08:56→21:30)
[2023-08-09] MEDS: TAMSULOSIN 0.4 MG CAP.ER.24H PO SCH (08:56)
[2023-08-09] MEDS: APIXABAN 2.5 MG TABLET PO SCH ×2 (08:56→21:29)
[2023-08-09] MEDS: METOPROLOL TARTRATE 50 MG TAB PO SCH ×2 (08:56→21:30)
[2023-08-09] MEDS: FAMOTIDINE 20 MG TAB PO SCH (08:56)
[2023-08-09] MEDS: ASPIRIN 81 MG PO SCH (08:56)
[2023-08-09] MEDS: INSULIN ASPART (NovoLOG) 100 UNIT/ML VIAL SQ SCH ×7 (08:57→21:29)
[2023-08-09] MEDS: FUROSEMIDE 10 MG/ML 4 ML VIAL IV SCH ×2 (08:57→21:29)
[2023-08-09] MEDS: TICAGRELOR 90 MG TAB PO SCH ×2 (08:57→21:30)
[2023-08-09 09:20] LABS: ALT 242 U/L (10-49); AST 19 U/L (14-35); Albumin 3.2 g/dL (3.8-4.9); Alkaline Phosphatase 112 U/L (41-126); BUN/Creat Ratio 24.52 Ratio (12.00-20.00); Blood Urea Nitrogen 51.5 mg/dL (9.0-27.0); Calcium 8.5 mg/dL (8.7-10.3); Carbon Dioxide 23.4 mmol/L (21.6-31.8); Chloride 103 mmol/L (96-109); Glucose 286 mg/dL (70-110); Potassium 4.3 mmol/L (3.5-5.5); Sodium 138 mmol/L (135-145); Total Bilirubin 0.6 mg/dL (0.3-1.2); Total Protein 5.2 g/dL (6.2-8.2)
[2023-08-09 09:52] LABS: Basophils # (A) 0.03 X 10*3/uL (0.00-0.10); Basophils % (A) 0.3 %; Eosinophils # (A) 0.42 X 10*3/uL (0.04-0.35); Eosinophils % (A) 3.9 %; HCT 37.8 % (39.6-50.0); HGB 12.3 g/dL (13.0-17.0); Lymphocytes # (A) 0.91 X 10*3/uL (0.90-5.00); Lymphocytes % (A) 8.4 %; MCH 30.6 pg (27.0-32.0); MCHC 32.5 g/dL (32.0-37.0); Mean Platelet Volume 12.8 FL (9.5-12.2); Monocytes # (A) 0.62 X 10*3/uL (0.20-1.00); Monocytes % (A) 5.7 %; NRBC Per 100 WBC 0 X 10*3/uL (0.00-0.01); Neutrophils # (A) 8.81 X 10*3/uL (1.80-7.70); Neutrophils % (A) 81.3 %; Platelet Count 202 X 10*3/uL (140-440); RBC 4.02 X 10*6/uL (4.40-5.60); RDW 13.4 % (11.5-14.5); WBC 10.83 X 10*3/uL (4.50-10.00)
--- NOTE | 2023-08-09 11:10 | P.PN ---
Subjective Patient is seen in follow-up for acute kidney injury. Renal function stable. On IV Lasix. Nonoliguric. Has Sánchez catheter for urinary retention. Denies chest pain or shortness of breath. Edema improving. Vital signs are stable. General: No acute distress. HEENT: Head exam is unremarkable. LUNGS: No audible rhonchi or wheezes. HEART: Rate and Rhythm are regular. ABDOMEN: Nontender. EXTREMITITES: 1+ edema. Objective - Vital Signs Vital signs: Vital Signs Temp 98.3 F 08/09/23 07:20 Pulse 104 H 08/09/23 07:20 Resp 18 08/09/23 07:20 BP 112/74 08/09/23 07:20 Pulse Ox 96 08/09/23 07:20 FiO2 Intake & Output 08/08/23 08/09/23 08/09/23 18:59 06:59 18:59 Intake Total 500 Output Total 1550 1200 Balance -1550 -700 Intake: Oral 500 Output: Urine 1550 1200 Other: Voiding Method Indwelling Catheter Indwelling Catheter Indwelling Catheter # Voids 2 - Labs CBC & Chem 7: 08/09/23 05:43 08/09/23 05:43 Labs: Abnormal Lab Results - Last 24 Hours (Table) 08/08/23 08/08/23 08/08/23 Range/Units 06:40 12:17 17:13 WBC (4.50-10.00) X 10*3/uL RBC (4.40-5.60) X 10*6/uL Hgb (13.0-17.0) g/dL Hct (39.6-50.0) % MPV (9.5-12.2) FL Neutrophils # (1.80-7.70) X 10*3/uL Eosinophils # (0.04-0.35) X 10*3/uL BUN 59.5 H (9.0-27.0) mg/dL Creatinine 2.1 H (0.6-1.5) mg/dL Est GFR (CKD-EPI) 32 L (>=60) BUN/Creatinine Ratio 28.33 H (12.00-20.00) Ratio Glucose 177 H (70-110) mg/dL POC Glucose (mg/dL) 142 H 235 H (70-110) mg/dL Calcium 8.0 L (8.7-10.3) mg/dL ALT (10-49) U/L Total Protein (6.2-8.2) g/dL Albumin (3.8-4.9) g/dL 08/08/23 08/09/23 08/09/23 Range/Units 19:52 05:43 05:43 WBC 10.83 H (4.50-10.00) X 10*3/uL RBC 4.02 L (4.40-5.60) X 10*6/uL Hgb 12.3 L (13.0-17.0) g/dL Hct 37.8 L (39.6-50.0) % MPV 12.8 H (9.5-12.2) FL Neutrophils # 8.81 H (1.80-7.70) X 10*3/uL Eosinophils # 0.42 H (0.04-0.35) X 10*3/uL BUN 51.5 H (9.0-27.0) mg/dL Creatinine 2.1 H (0.6-1.5) mg/dL Est GFR (CKD-EPI) 32 L (>=60) BUN/Creatinine Ratio 24.52 H (12.00-20.00) Ratio Glucose 286 H (70-110) mg/dL POC Glucose (mg/dL) 268 H (70-110) mg/dL Calcium 8.5 L (8.7-10.3) mg/dL ALT 242 H (10-49) U/L Total Protein 5.2 L (6.2-8.2) g/dL Albumin 3.2 L (3.8-4.9) g/dL 08/09/23 Range/Units 07:23 WBC (4.50-10.00) X 10*3/uL RBC (4.40-5.60) X 10*6/uL Hgb (13.0-17.0) g/dL Hct (39.6-50.0) % MPV (9.5-12.2) FL Neutrophils # (1.80-7.70) X 10*3/uL Eosinophils # (0.04-0.35) X 10*3/uL BUN (9.0-27.0) mg/dL Creatinine (0.6-1.5) mg/dL Est GFR (CKD-EPI) (>=60) BUN/Creatinine Ratio (12.00-20.00) Ratio Glucose (70-110) mg/dL POC Glucose (mg/dL) 255 H (70-110) mg/dL Calcium (8.7-10.3) mg/dL ALT (10-49) U/L Total Protein (6.2-8.2) g/dL Albumin (3.8-4.9) g/dL Assessment and Plan Plan: Assessment: 1. Acute kidney injury secondary to ATN secondary to cardiorenal syndrome and component of urinary retention. Creatinine 2.6 on admission - stable at 2.1 today. Creatinine near 1 earlier in July 2023. No hydronephrosis noted on CAT scan. UA benign. 2. Acute on chronic systolic CHF with ejection fraction of 25-30% with moderate mitral regurgitation and pulmonary hypertension. 3. Coronary disease with cardiac stents. 4. Volume overload. Improving with diuresis. 5. Diabetes mellitus. 6. Urinary retention status post Sánchez catheter placement. On Flomax. Urology following. Plan: Maintain IV Lasix. Transition to oral diuretics possibly tomorrow. Low-salt diet and 1500 mL fluid restriction. Avoid nephrotoxins. Continue to monitor renal function and urine output. Advised patient to maintain low salt diet and fluid restriction of less than 50 ounces per day upon discharge. He was also advised to monitor this closely at home and notify physician if de velops worsening edema or gains more than 3 pounds in 1 week duration. Follow up outpatient in 1 week post discharge.
[2023-08-09 12:49] LABS: Glucose,Whole Blood 325 mg/dL (70-110)
--- NOTE | 2023-08-09 13:02 | P.PN ---
Subjective Progress Note Date: 08/09/23 This is a 77-year-old gentleman with past medical history significant for diabetes mellitus, hypertension. He was recently hospitalized with Non-ST elevation [place], secondary to triple-vessel coronary artery disease involving critical disease of the RCA, LAD and PDA branch of the left circumflex artery, Status post PCI of the RCA and LAD with 4 stents. He was also found to have Ischemic cardiomyopathy with an EF 25% and also has moderate mitral regurgitation and pulmonary hypertension. He was discharged home on triple therapy with acetaminophen to low-dose eliquis as well as high-dose statin therapy. Patient is also on amiodarone. Patient was at his PCPs office for routine blood work and hospital follow-up found to have significantly elevated LFTs and renal dysfunction he was sent to the hospital for evaluation. Denies having any chest pain he is not having any shortness of breath no nausea v omiting or diarrhea. States he is not drinking alcohol he has been compliant with this medication. Initial blood work reveals a white count of 11.3, INR 1.2, BUN 91, current 2.42, glucose 353, magnesium 3.1, AST ALT and alk phos elevated. Check amylase and lipase which were also elevated. His chest x-ray does not reveal any vascular congestion or fluid overload. His computed tomography scan shows evidence of chronic medical renal disease with no hydronephrosis seen bilaterally with no intrahepatic mass or biliary dilation. Abdominal ultrasound shows bile duct upper limits of normal in caliber likely age-related change in post cholecystectomy status moderate hepatic steatosis. He was admitted to the hospital and consult placed to nephrology. Suspect is a component of vascular congestion as he has quite edematous in his lower extremities. 08/08. Patient seen and examined. Denies any shortness of breath. Still has swelling of extremities. 08/09. Patient seen and examined. Level done this morning sodium 138, potassium 4.3, BUN 51, creatinine 2.1, AST 19, ALT 242. Swelling of legs is improved. REVIEW OF SYSTEMS: CONSTITUTIONAL: No fever, no malaise,. CARDIOVASCULAR: No chest pain, no palpitations, no syncope. PULMONARY: No shortness of breath, no cough, GASTROINTESTINAL: No diarrhea, no nausea, no vomiting, no abdominal pain. NEUROLOGICAL: No headaches, no weakness, PHYSICAL EXAMINATION: GENERAL: The patient is alert and oriented x3, not in any acute distress. Well developed, well nourished. HEENT: Pupils are round and equally reacting to light. EOMI. No scleral icterus. No conjunctival pallor. Normocephalic, atraumatic. No pharyngeal erythema. No thyromegaly. CARDIOVASCULAR: S1 and S2 present. No murmurs, rubs, or gallops. PULMONARY: Chest is clear to auscultation, no wheezing or crackles. ABDOMEN: Soft, nontender, nondistended, normoactive bowel sounds. No palpable organomegaly. MUSCULOSKELETAL: No joint swelling or deformity. EXTREMITIES: 2+ pitting edema of lower extremities bilaterally NEUROLOGICAL: Gross neurological examination did not reveal any focal deficits. SKIN: No rashes. Assessment and plan Acute kidney injury due to ATN Transaminitis likely due to vascular congestion Status post PCI of the RCA and LAD discharged from the hospital 1 week ago with NSTEMI Ischemic cardiomyopathy EF 25% Acute on chronic systolic heart failure Hypertension Dyslipidemia Paroxysmal atrial fibrillation Insulin-dependent diabetes mellitus Hilar and mediastinal lymphadenopathy, require repeat imanging of this in 3 months History of cholecystectomy due to gallstone pancreatitis and states that his reyez creas does not function at baseline. Monitor vital signs Monitor CBC Monitor CMP Continue telemetry monitoring Encourage use of incentive spirometer Strict I's and O's, daily weights Monitor LFTs Continue IV Lasix 40 mg every 12 ow-salt diet and 1500 mL fluid restriction. Avoid nephrotoxins. Continue to monitor renal function and urine output. Continue aspirin and brilinta Continue Eliquis Nephrology followed Cardiology following Labs and medication were reviewed.. Continue same treatment. Continue with symptomatic treatment. Resume home medication. Monitor labs and vitals. DVT and GI prophylaxis. Further recommendations as per clinical course of the patient Dictation was produced using [employer] dictation software. please excuse any grammatical, word or spelling errors. Objective - Vital Signs Vital signs: Vital Signs Temp 98.3 F 08/09/23 07:20 Pulse 104 H 08/09/23 07:20 Resp 18 08/09/23 07:20 BP 112/74 08/09/23 07:20 Pulse Ox 96 08/09/23 07:20 FiO2 Intake & Output 08/08/23 08/09/23 08/09/23 18:59 06:59 18:59 Intake Total 500 Output Total 1550 1200 Balance -1550 -700 Intake: Oral 500 Output: Urine 1550 1200 Other: Voiding Method Indwelling Catheter Indwelling Catheter # Voids 2 - Labs CBC & Chem 7: 08/09/23 05:43 08/09/23 05:43 Labs: Abnormal Lab Results - Last 24 Hours (Table) 08/08/23 08/08/23 08/08/23 Range/Units 06:40 12:17 17:13 BUN 59.5 H (9.0-27.0) mg/dL Creatinine 2.1 H (0.6-1.5) mg/dL Est GFR (CKD-EPI) 32 L (>=60) BUN/Creatinine Ratio 28.33 H (12.00-20.00) Ratio Glucose 177 H (70-110) mg/dL POC Glucose (mg/dL) 142 H 235 H (70-110) mg/dL Calcium 8.0 L (8.7-10.3) mg/dL ALT (10-49) U/L Total Protein (6.2-8.2) g/dL Albumin (3.8-4.9) g/dL 08/08/23 08/09/23 08/09/23 Range/Units 19:52 05:43 07:23 BUN 51.5 H (9.0-27.0) mg/dL Creatinine 2.1 H (0.6-1.5) mg/dL Est GFR (CKD-EPI) 32 L (>=60) BUN/Creatinine Ratio 24.52 H (12.00-20.00) Ratio Glucose 286 H (70-110) mg/dL POC Glucose (mg/dL) 268 H 255 H (70-110) mg/dL Calcium 8.5 L (8.7-10.3) mg/dL ALT 242 H (10-49) U/L Total Protein 5.2 L (6.2-8.2) g/dL Albumin 3.2 L (3.8-4.9) g/dL
--- NOTE | 2023-08-09 13:41 | P.PN ---
Subjective Progress Note Date: 08/09/23 Progress note Patient is doing well. Hemodynamically stable. Good urine output with IV diuretic therapy. His renal function is stable. HISTORY OF PRESENTING ILLNESS 77-year-old with PMH of type 2 diabetes, hypertension, recent non-STEMI and a heart cath which showed critical disease involving RCA, LAD, PDA branch of LCx. He is status post PCI of RCA and LAD with 4 stents. 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 Patient was at his PCPs office, His blood work showed elevated LFTs, and renal dysfunction for which he was asked to get evaluated in the hospital. Patient denies having any active chest pain chest pressure shortness of breath. WBC 11.3, INR 1.2, BUN 91, creatinine 2.4, glucose 300, transaminitis with AST 195, AST 600, ALP 150 His chest x-ray showed mild vascular congestion. His CT abdomen showed chronic medial kidney disease and and hepatic steatosis REVIEW OF SYSTEMS 14 point review of system is negative except what is mentioned above in HPI. PHYSICAL EXAMINATION Vital signs reviewed. Head: Normocephalic. Eyes: Sclerae nonicteric. Neck: Brisk carotid upstroke, no jugular venous distention. Lungs: Clear to auscultation. Heart: Regular rate and rhythm, S1-S2, no S3, no murmur or rub. Abdomen: Soft nontender, positive bowel sounds no organomegaly. Extremities: No edema, intact distal pulses. Neuro: Alert, oritented, no focal deficits ASSESSMENT Transaminitis combination of hepatic steatosis, statin use and congestive of neuropathy Right-sided heart failure Recent non-STEMI with status post PCI to RCA and LAD with 4 stents. 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% Paroxysmal atrial fibrillation Pulmonary hypertension Essential hypertension Type 2 diabetes, poorly controlled Dyslipidemia PLAN Discontinue statin Aspirin, Brilinta, Eliquis Lasix 40 IV twice a day Monitor renal function Metoprolol succinate roasterman Prognosis is guarded, prognosis was discussed with family at bedside Objective - Vital Signs Vital signs: Vital Signs Temp 98.3 F 08/09/23 07:20 Pulse 104 H 08/09/23 07:20 Resp 18 08/09/23 07:20 BP 112/74 08/09/23 07:20 Pulse Ox 96 08/09/23 07:20 FiO2 Intake & Output 08/08/23 08/09/23 08/09/23 18:59 06:59 18:59 Intake Total 500 Output Total 1550 1200 Balance -1550 -700 Intake: Oral 500 Output: Urine 1550 1200 Other: Voiding Method Indwelling Catheter Indwelling Catheter Indwelling Catheter # Voids 2 - Labs CBC & Chem 7: 08/09/23 05:43 08/09/23 05:43 Labs: Abnormal Lab Results - Last 24 Hours (Table) 08/08/23 08/08/23 08/09/23 Range/Units 17:13 19:52 05:43 WBC 10.83 H (4.50-10.00) X 10*3/uL RBC 4.02 L (4.40-5.60) X 10*6/uL Hgb 12.3 L (13.0-17.0) g/dL Hct 37.8 L (39.6-50.0) % MPV 12.8 H (9.5-12.2) FL Neutrophils # 8.81 H (1.80-7.70) X 10*3/uL Eosinophils # 0.42 H (0.04-0.35) X 10*3/uL BUN (9.0-27.0) mg/dL Creatinine (0.6-1.5) mg/dL Est GFR (CKD-EPI) (>=60) BUN/Creatinine Ratio (12.00-20.00) Ratio Glucose (70-110) mg/dL POC Glucose (mg/dL) 235 H 268 H (70-110) mg/dL Calcium (8.7-10.3) mg/dL ALT (10-49) U/L Total Protein (6.2-8.2) g/dL Albumin (3.8-4.9) g/dL 08/09/23 08/09/23 08/09/23 Range/Units 05:43 07:23 12:48 WBC (4.50-10.00) X 10*3/uL RBC (4.40-5.60) X 10*6/uL Hgb (13.0-17.0) g/dL Hct (39.6-50.0) % MPV (9.5-12.2) FL Neutrophils # (1.80-7.70) X 10*3/uL Eosinophils # (0.04-0.35) X 10*3/uL BUN 51.5 H (9.0-27.0) mg/dL Creatinine 2.1 H (0.6-1.5) mg/dL Est GFR (CKD-EPI) 32 L (>=60) BUN/Creatinine Ratio 24.52 H (12.00-20.00) Ratio Glucose 286 H (70-110) mg/dL POC Glucose (mg/dL) 255 H 325 H (70-110) mg/dL Calcium 8.5 L (8.7-10.3) mg/dL ALT 242 H (10-49) U/L Total Protein 5.2 L (6.2-8.2) g/dL Albumin 3.2 L (3.8-4.9) g/dL
[2023-08-09 17:17] LABS: Glucose,Whole Blood 247 mg/dL (70-110)
[2023-08-09 20:18] LABS: Glucose,Whole Blood 237 mg/dL (70-110)
[2023-08-10 07:27] LABS: Glucose,Whole Blood 320 mg/dL (70-110)
[2023-08-10] MEDS: GABAPENTIN 100 MG CAP PO SCH ×3 (08:54→20:45)
[2023-08-10] MEDS: INSULIN ASPART (NovoLOG) 100 UNIT/ML VIAL SQ SCH ×7 (08:54→20:45)
[2023-08-10] MEDS: TAMSULOSIN 0.4 MG CAP.ER.24H PO SCH (08:54)
[2023-08-10] MEDS: FAMOTIDINE 20 MG TAB PO SCH (08:54)
[2023-08-10] MEDS: METOPROLOL TARTRATE 50 MG TAB PO SCH ×2 (08:54→20:45)
[2023-08-10] MEDS: ASPIRIN 81 MG PO SCH (08:54)
[2023-08-10] MEDS: APIXABAN 2.5 MG TABLET PO SCH ×2 (08:55→20:45)
[2023-08-10] MEDS: TICAGRELOR 90 MG TAB PO SCH ×2 (08:55→20:45)
[2023-08-10 09:06] LABS: HCT 37.9 % (39.6-50.0); MCH 29.9 pg (27.0-32.0); MCHC 31.7 g/dL (32.0-37.0); MCV 94.5 FL (80.0-97.0); Mean Platelet Volume 12.5 FL (9.5-12.2); NRBC Per 100 WBC 0 X 10*3/uL (0.00-0.01); Platelet Count 209 X 10*3/uL (140-440); RBC 4.01 X 10*6/uL (4.40-5.60); RDW 13.5 % (11.5-14.5); WBC 9.78 X 10*3/uL (4.50-10.00)
[2023-08-10] MEDS: FUROSEMIDE 10 MG/ML 4 ML VIAL IV SCH ×2 (09:11→20:46)
[2023-08-10 09:14] LABS: ALT 179 U/L (10-49); AST 14 U/L (14-35); Albumin/Globulin Ratio 1.43 Ratio (1.60-3.17); Alkaline Phosphatase 113 U/L (41-126); BUN/Creat Ratio 26.42 Ratio (12.00-20.00); Blood Urea Nitrogen 50.2 mg/dL (9.0-27.0); Calcium 8.3 mg/dL (8.7-10.3); Carbon Dioxide 27.4 mmol/L (21.6-31.8); Chloride 102 mmol/L (96-109); Globulin 2.1 g/dL (1.6-3.3); Glucose 324 mg/dL (70-110); Magnesium 2.2 mg/dL (1.5-2.4); Potassium 4.4 mmol/L (3.5-5.5); Sodium 139 mmol/L (135-145); Total Bilirubin 0.5 mg/dL (0.3-1.2); Total Protein 5.1 g/dL (6.2-8.2)
--- NOTE | 2023-08-10 09:31 | P.PN ---
Subjective Progress Note Date: 08/10/23 HISTORY OF PRESENTING ILLNESS 77-year-old with PMH of type 2 diabetes, hypertension, recent non-STEMI and a heart cath which showed critical disease involving RCA, LAD, PDA branch of LCx. He is status post PCI of RCA and LAD with 4 stents. 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 Patient was at his PCPs office, His blood work showed elevated LFTs, and renal dysfunction for which he was asked to get evaluated in the hospital. Patient denies having any active chest pain chest pressure shortness of breath. WBC 11.3, INR 1.2, BUN 91, creatinine 2.4, glucose 300, transaminitis with AST 195, AST 600, ALP 150 His chest x-ray showed mild vascular congestion. His CT abdomen showed chronic medial kidney disease and and hepatic steatosis Progress note Patient is doing well. Hemodynamically stable. Good urine output with IV diuretic therapy. His renal function is stable. 08/10 Patient is seen today in follow-up. He states he ate his breakfast this morning okay. He is urinating well. He is currently on IV Lasix 40 mg every 12 hours per nephrology. He states lower extremity edema accumulated quickly when he got out of bed to use the bathroom but improves with elevation. In general he is feeling much better. He does have a Sánchez catheter in place for urinary retention. Blood pressure 119/75, heart rate 88, pulse ox 96% on room air. Repeat blood work reveals hemoglobin of 12, electrolytes are normal with potassium 4.4, BUN 50 creatinine 1.9. Blood sugar 324. ALT 179. PHYSICAL EXAMINATION Vital signs reviewed. Head: Normocephalic. Eyes: Sclerae nonicteric. Neck: Brisk carotid upstroke, no jugular venous distention. Lungs: Clear to auscultation. Heart: Regular rate and rhythm, S1-S2, no S3, no murmur or rub. Abdomen: Soft nontender, positive bowel sounds no organomegaly. Extremities: +1 edema, intact distal pulses. Neuro: Alert, oritented, no focal deficits ASSESSMENT Transaminitis combination of hepatic steatosis, statin use and congestive of neuropathy Right-sided heart failure Recent non-STEMI with status post PCI to RCA and LAD with 4 stents. 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 Consider optimizing heart failure medications once renal function is improved. Nurse practitioner note has been reviewed, I agree with documented findings and plan of care. Patient was seen and examined. Objective - Vital Signs Vital signs: Vital Signs Temp 98.1 F 08/10/23 07:24 Pulse 88 08/10/23 07:24 Resp 18 08/10/23 07:24 BP 119/75 08/10/23 07:24 Pulse Ox 96 08/10/23 07:24 FiO2 Intake & Output 08/09/23 08/10/23 08/10/23 18:59 06:59 18:59 Intake Total 240 118 240 Output Total 2050 1350 Balance -1810 -1232 240 Intake: Oral 240 118 240 Output: Urine 2049 1350 Other: Voiding Method Indwelling Catheter - Labs CBC & Chem 7: 08/10/23 05:39 08/10/23 05:39 Labs: Abnormal Lab Results - Last 24 Hours (Table) 08/09/23 08/09/23 08/09/23 Range/Units 05:43 05:43 12:48 WBC 10.83 H (4.50-10.00) X 10*3/uL RBC 4.02 L (4.40-5.60) X 10*6/uL Hgb 12.3 L (13.0-17.0) g/dL Hct 37.8 L (39.6-50.0) % MPV 12.8 H (9.5-12.2) FL Neutrophils # 8.81 H (1.80-7.70) X 10*3/uL Eosinophils # 0.42 H (0.04-0.35) X 10*3/uL BUN 51.5 H (9.0-27.0) mg/dL Creatinine 2.1 H (0.6-1.5) mg/dL Est GFR (CKD-EPI) 32 L (>=60) BUN/Creatinine Ratio 24.52 H (12.00-20.00) Ratio Glucose 286 H (70-110) mg/dL POC Glucose (mg/dL) 325 H (70-110) mg/dL Calcium 8.5 L (8.7-10.3) mg/dL ALT 242 H (10-49) U/L Total Protein 5.2 L (6.2-8.2) g/dL Albumin 3.2 L (3.8-4.9) g/dL 08/09/23 08/09/23 08/10/23 Range/Units 17:15 20:16 07:25 WBC (4.50-10.00) X 10*3/uL RBC (4.40-5.60) X 10*6/uL Hgb (13.0-17.0) g/dL Hct (39.6-50.0) % MPV (9.5-12.2) FL Neutrophils # (1.80-7.70) X 10*3/uL Eosinophils # (0.04-0.35) X 10*3/uL BUN (9.0-27.0) mg/dL Creatinine (0.6-1.5) mg/dL Est GFR (CKD-EPI) (>=60) BUN/Creatinine Ratio (12.00-20.00) Ratio Glucose (70-110) mg/dL POC Glucose (mg/dL) 247 H 237 H 320 H (70-110) mg/dL Calcium (8.7-10.3) mg/dL ALT (10-49) U/L Total Protein (6.2-8.2) g/dL Albumin (3.8-4.9) g/dL
[2023-08-10] MEDS: INSULIN DETEMIR (LEVEMIR) 100 UNIT/ML SYR SQ SCH ×2 (11:06→22:50)
[2023-08-10 12:15] LABS: Glucose,Whole Blood 366 mg/dL (70-110)
--- NOTE | 2023-08-10 12:43 | P.CONS ---
History of Present Illness - Reason for Consult Consult date: 08/10/23 wound care - History of Present Illness This is a 77-year-old patient with past medical history significant for diabetes. Patient noticed drainage while walking in the hospital resulting in a ulceration to the left plantar foot. Patient has a blister filled with sanguinous drainage and callus to the left forefoot. Patient is unsure how long it has been there she did not notice it prior to coming to the hospital. Altagracia ent has history of diabetes and neuropathy. He is a former smoker. Review Of Systems: Constitutional: No fever, no chills, no night sweats. No weight change. No weakness, fatigue or lethargy. No daytime sleepiness. Integumentary:reports wounds, no lesions. No rash or pruritus. No unusual brui sing. No change in hair or nails. Physical exam: General Appearance: Alert, cooperative, no distress, appears stated age. Skin: See HPI all other Skin color, texture, tugor normal, no rashes or lesions. Neurologic: Alert oriented x3 Assessment: 1. Nonhealing ulceration plantar foot that layer exposure 2. Diabetic foot ulcer Plan: 1. Apply honey gel, border foam, wrap with rolled gauze and secure. Change Thursday. Patient benefit from advanced wound care and wound care setting. We'll be happy to see him upon discharge. Thank you for the consultation any questions to contact the wound care center DNP note has been reviewed and discussed with Dr. Kowalski and the impression and plan of care has been directed as dictated. 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, [facility] History of Any Multi-Drug Resistant Organisms: None Reported Past Surgical History: Cholecystectomy Past Anesthesia/Blood Transfusion Reactions: No Reported Reaction Past Psychological History: No Psychological Hx Reported Smoking Status: Never smoker Past Alcohol Use History: Occasional Past Drug Use History: None Reported - Past Family History Mother Additional Family Medical History / Comment(s): Sick sinus syndrome Father Family Medical History: Congestive Heart Failure (CHF) Additional Family Medical History / Comment(s): brother-heart failure, other sourav rther heart attack. nephew/niece cardiac stents, Brother(s) Family Medical History: Coronary Artery Disease (CAD) Additional Family Medical History / Comment(s): 2 Brothers were diagnosed with early onset coronary artery disease in their 40s Medications and Allergies Home Medications Medication Instructions Recorded Confirmed Type Glucagon [Gvoke Pfs 1-Pack Syringe] 1 mg SQ ONCE PRN 07/26/23 08/06/23 History INSULIN ASPART (NovoLOG) [NovoLOG 15 - 30 unit SQ AC-TID 07/26/23 08/06/23 Hist ory (formulary)] Losartan [Cozaar] 50 mg PO DAILY 07/26/23 08/06/23 History metFORMIN HCL ER [Glucophage XR] 1,000 mg PO BID 07/26/23 08/06/23 History Apixaban [Eliquis] 2.5 mg PO BID #60 tab 07/31/23 08/06/23 Rx Aspirin 81 mg PO DAILY #90 tab 07/31/23 08/06/23 Rx Atorvastatin [Lipitor] 80 mg PO HS #90 tab 07/31/23 08/06/23 Rx Furosemide [Lasix] 20 mg PO DAILY #90 tab 07/31/23 08/06/23 Rx Insulin Degludec [Tresiba 40 units SQ DAILY #0 07/31/23 08/06/23 Rx Flextouch U-100 Pen] Metoprolol Tartrate [Lopressor] 50 mg PO BID #180 tab 07/31/23 08/06/23 Rx Nitroglycerin Sl Tabs [Nitrostat] 0.4 mg SUBLINGUAL Q5M PRN #100 tab 07/31/23 08/06/23 Rx Omeprazole [PriLOSEC] 20 mg PO AC-BID #60 cap 07/31/23 08/06/23 Rx Ticagrelor [Brilinta] 90 mg PO BID #180 tab 07/31/23 08/06/23 Rx Amiodarone [Cordarone] See Taper PO DIRECTED 08/06/23 08/06/23 History Allergies Allergy/AdvReac Type Severity Reaction Status Date / Time No Known Allergies Allergy Verified 08/06/23 11:04 Physical Exam Vitals: Vital Signs Temp Pulse Resp BP Pulse Ox 08/10/23 12:14 97.5 F L 89 18 99/69 98 08/10/23 09:17 18 08/10/23 07:24 98.1 F 88 18 119/75 96 01/22/24 01:33 98.7 F 108 H 18 119/68 96 08/09/23 18:54 97.6 F 106 H 18 111/75 96 08/09/23 12:48 97.7 F 100 18 111/73 97 Intake and Output 08/09/23 08/10/23 08/10/23 22:59 06:59 14:59 Intake Total 358 360 Output Total 600 1350 1000 Balance -242 -1350 -640 Intake: Oral 358 360 Output: Urine 600 1350 1000 Other: Voiding Method Indwelling Catheter Results CBC & Chem 7: 08/10/23 05:39 08/10/23 05:39 Labs: Abnormal Lab Results - Last 24 Hours (Table) 08/09/23 08/09/23 08/09/23 Range/Units 12:48 17:15 20:16 RBC (4.40-5.60) X 10*6/uL Hgb (13.0-17.0) g/dL Hct (39.6-50.0) % MCHC (32.0-37.0) g/dL MPV (9.5-12.2) FL BUN (9.0-27.0) mg/dL Creatinine (0.6-1.5) mg/dL Est GFR (CKD-EPI) (>=60) BUN/Creatinine Ratio (12.00-20.00) Ratio Glucose (70-110) mg/dL POC Glucose (mg/dL) 325 H 247 H 237 H (70-110) mg/dL Calcium (8.7-10.3) mg/dL ALT (10-49) U/L Total Protein (6.2-8.2) g/dL Albumin (3.8-4.9) g/dL Albumin/Globulin Ratio (1.60-3.17) Ratio 08/10/23 08/10/23 08/10/23 Range/Units 05:39 05:39 07:25 RBC 4.01 L (4.40-5.60) X 10*6/uL Hgb 12.0 L (13.0-17.0) g/dL Hct 37.9 L (39.6-50.0) % MCHC 31.7 L (32.0-37.0) g/dL MPV 12.5 H (9.5-12.2) FL BUN 50.2 H (9.0-27.0) mg/dL Creatinine 1.9 H (0.6-1.5) mg/dL Est GFR (CKD-EPI) 36 L (>=60) BUN/Creatinine Ratio 26.42 H (12.00-20.00) Ratio Glucose 324 H (70-110) mg/dL POC Glucose (mg/dL) 320 H (70-110) mg/dL Calcium 8.3 L (8.7-10.3) mg/dL ALT 179 H (10-49) U/L Total Protein 5.1 L (6.2-8.2) g/dL Albumin 3.0 L (3.8-4.9) g/dL Albumin/Globulin Ratio 1.43 L (1.60-3.17) Ratio 08/10/23 Range/Units 12:14 RBC (4.40-5.60) X 10*6/uL Hgb (13.0-17.0) g/dL Hct (39.6-50.0) % MCHC (32.0-37.0) g/dL MPV (9.5-12.2) FL BUN (9.0-27.0) mg/dL Creatinine (0.6-1.5) mg/dL Est GFR (CKD-EPI) (>=60) BUN/Creatinine Ratio (12.00-20.00) Ratio Glucose (70-110) mg/dL POC Glucose (mg/dL) 366 H (70-110) mg/dL Calcium (8.7-10.3) mg/dL ALT (10-49) U/L Total Protein (6.2-8.2) g/dL Albumin (3.8-4.9) g/dL Albumin/Globulin Ratio (1.60-3.17) Ratio
--- NOTE | 2023-08-10 16:19 | P.PN ---
Subjective Patient is seen for f/u for GWEN and volume overload. Maintained on IV lasix Has diuresed well. No SOB. Leg edema has improved. Cr at 1.9 mg/dL Objective - Vital Signs Vital signs: Vital Signs Temp 97.5 F L 08/10/23 12:14 Pulse 89 08/10/23 12:14 Resp 18 08/10/23 12:14 BP 99/69 08/10/23 12:14 Pulse Ox 98 08/10/23 12:14 FiO2 Intake & Output 08/09/23 08/10/23 08/10/23 18:59 06:59 18:59 Intake Total 240 118 600 Output Total 0 1350 1000 Balance -1810 -1232 -400 Intake: Oral 240 118 600 Output: Urine 2049 1350 1000 Other: Voiding Method Indwelling Catheter Indwelling Catheter - Exam Awake, comfortable, alert and oriented x3 Lungs are clear CVS S1 and S2 Abdomen is soft. Extremities show edema 2+ bilateral WORKING MANAGER exam is grossly intact. - Labs CBC & Chem 7: 08/10/23 05:39 08/10/23 05:39 Labs: Abnormal Lab Results - Last 24 Hours (Table) 08/09/23 08/09/23 08/10/23 Range/Units 17:15 20:16 05:39 RBC 4.01 L (4.40-5.60) X 10*6/uL Hgb 12.0 L (13.0-17.0) g/dL Hct 37.9 L (39.6-50.0) % MCHC 31.7 L (32.0-37.0) g/dL MPV 12.5 H (9.5-12.2) FL BUN (9.0-27.0) mg/dL Creatinine (0.6-1.5) mg/dL Est GFR (CKD-EPI) (>=60) BUN/Creatinine Ratio (12.00-20.00) Ratio Glucose (70-110) mg/dL POC Glucose (mg/dL) 247 H 237 H (70-110) mg/dL Calcium (8.7-10.3) mg/dL ALT (10-49) U/L Total Protein (6.2-8.2) g/dL Albumin (3.8-4.9) g/dL Albumin/Globulin Ratio (1.60-3.17) Ratio 08/10/23 08/10/23 08/10/23 Range/Units 05:39 07:25 12:14 RBC (4.40-5.60) X 10*6/uL Hgb (13.0-17.0) g/dL Hct (39.6-50.0) % MCHC (32.0-37.0) g/dL MPV (9.5-12.2) FL BUN 50.2 H (9.0-27.0) mg/dL Creatinine 1.9 H (0.6-1.5) mg/dL Est GFR (CKD-EPI) 36 L (>=60) BUN/Creatinine Ratio 26.42 H (12.00-20.00) Ratio Glucose 324 H (70-110) mg/dL POC Glucose (mg/dL) 320 H 366 H (70-110) mg/dL Calcium 8.3 L (8.7-10.3) mg/dL ALT 179 H (10-49) U/L Total Protein 5.1 L (6.2-8.2) g/dL Albumin 3.0 L (3.8-4.9) g/dL Albumin/Globulin Ratio 1.43 L (1.60-3.17) Ratio Assessment and Plan Assessment: 1. Acute kidney injury secondary to ATN secondary to cardiorenal syndrome and c omponent of urinary retention. Creatinine 2.6 on admission - stable at 1.9 today. Creatinine near 1 earlier in July 2023. No hydronephrosis noted on CAT scan. UA benign. 2. Acute on chronic systolic CHF with ejection fraction of 25-30% with moderate mitral regurgitation and pulmonary hypertension. 3. Coronary disease with cardiac stents. 4. Volume overload. Improving with diuresis. 5. Diabetes mellitus. 6. Urinary retention status post Merino catheter placement. On Flomax. Urology following. Plan: Continue current dose of lasix. Repeat labs in am Continue with merino catheter.
[2023-08-10 17:05] LABS: Glucose,Whole Blood 337 mg/dL (70-110)
[2023-08-10 20:04] LABS: Glucose,Whole Blood 353 mg/dL (70-110)
--- NOTE | 2023-08-10 22:01 | P.PN ---
Subjective Progress Note Date: 08/10/23 This is a 77-year-old gentleman was sent in by his PCP found to have significantly elevated LFTs and renal dysfunction he was sent to the hospital for evaluation. He has been maintained on course of IV lasix bid and his creatinine is down to 1.9. His LFTs have also been improving. Review of Systems Constitutional: Denied any fatigue denied any fever. Cardio vascular: denied any chest pain, palpitations Gastrointestinal: denied any nausea, vomiting, diarrhea Pulmonary: Denied any shortness of breath cough Neurologic denied any new focal deficits All inpatient medications were reviewed and appropriate changes in these medications as dictated in the interval history and assessment and plan. PHYSICAL EXAMINATION: GENERAL: The patient is alert and oriented x3, not in any acute distress. Well d eveloped, well nourished. HEENT: Pupils are round and equally reacting to light. EOMI. No scleral icterus. No conjunctival pallor. Normocephalic, atraumatic. No pharyngeal erythema. No thyromegaly. CARDIOVASCULAR: S1 and S2 present. No murmurs, rubs, or gallops. PULMONARY: Chest is clear to auscultation, no wheezing or crackles. ABDOMEN: Soft, nontender, nondistended, normoactive bowel sounds. No palpable organomegaly. MUSCULOSKELETAL: No joint swelling or deformity. EXTREMITIES: No cyanosis, clubbing, or pedal edema. Significant bilateral lower extremity edema NEUROLOGICAL: Gross neurological examination did not reveal any focal deficits. SKIN: No rashes. Assessment and Plan -Acute kidney injury due to ATN and cardiorenal syndrome and also with urinary retention on admission. Avoid nephrotoxins. -Acute on chronic systolic dysfunction -Transaminitis likely due to vascular congestion patient has been started on IV lasix this should improve. Abdominal ultrasound shows fatty liver. -Status post PCI of the RCA and LAD discharged from the hospital 1 week ago with NSTEMI on dual antiplatelet therapy -Ischemic cardiomyopathy EF 25%, moderate MR and pulmonary hypertension -Acute on chronic systolic heart failure -Hypertension currently hypotensive/normal BP continue holding losartan. -Nonhealing diabetic foot ulcer continue local wound care with honey gel change MW and follow up at [facility] wound care -Charcot foot. -Dyslipidemia -Paroxysmal atrial fibrillation anticoagulated with eliquis -Insulin-dependent diabetes mellitus Continue accuchecks achs and sliding scale insulin Levemir has been increased due to the hyperglycemia -Hilar and mediastinal lymphadenopathy, require repeat imanging of this in 3 months -History of cholecystectomy due to gallstone pancreatitis and states that his pancreas does not function at baseline. GI prophylaxis DVT prophylaxis Full Code Repeat labs in the AM. Maintain fluid restriction. Continue local wound care. Repeat labs in AM. The impression and plan of care has been dictated by Emily Espinosa Nurse Practitioner as directed. Dr. Nancy MD I have performed a history and physical examination and medical decision making of this patient, discussed the same with the dictator, and agree with the dictators assessment and plan as written, documented as a scribe. Based on total visit time, I have performed more than 50% of this visit. Objective - Vital Signs Vital signs: Vital Signs Temp 98.1 F 08/10/23 07:24 Pulse 88 08/10/23 07:24 Resp 18 08/10/23 09:17 BP 119/75 08/10/23 07:24 Pulse Ox 96 08/10/23 07:24 FiO2 Intake & Output 08/09/23 08/10/23 08/10/23 18:59 06:59 18:59 Intake Total 240 118 240 Output Total 2050 1350 Balance -1810 -1232 240 Intake: Oral 240 118 240 Output: Urine 2049 1350 Other: Voiding Method Indwelling Catheter Toilet - Labs CBC & Chem 7: 08/10/23 05:39 08/10/23 05:39 Labs: Abnormal Lab Results - Last 24 Hours (Table) 08/09/23 08/09/23 08/09/23 Range/Units 05:43 12:48 17:15 WBC 10.83 H (4.50-10.00) X 10*3/uL RBC 4.02 L (4.40-5.60) X 10*6/uL Hgb 12.3 L (13.0-17.0) g/dL Hct 37.8 L (39.6-50.0) % MCHC (32.0-37.0) g/dL MPV 12.8 H (9.5-12.2) FL Neutrophils # 8.81 H (1.80-7.70) X 10*3/uL Eosinophils # 0.42 H (0.04-0.35) X 10*3/uL BUN (9.0-27.0) mg/dL Creatinine (0.6-1.5) mg/dL Est GFR (CKD-EPI) (>=60) BUN/Creatinine Ratio (12.00-20.00) Ratio Glucose (70-110) mg/dL POC Glucose (mg/dL) 325 H 247 H (70-110) mg/dL Calcium (8.7-10.3) mg/dL ALT (10-49) U/L Total Protein (6.2-8.2) g/dL Albumin (3.8-4.9) g/dL Albumin/Globulin Ratio (1.60-3.17) Ratio 08/09/23 08/10/23 08/10/23 Range/Units 20:16 05:39 05:39 WBC (4.50-10.00) X 10*3/uL RBC 4.01 L (4.40-5.60) X 10*6/uL Hgb 12.0 L (13.0-17.0) g/dL Hct 37.9 L (39.6-50.0) % MCHC 31.7 L (32.0-37.0) g/dL MPV 12.5 H (9.5-12.2) FL Neutrophils # (1.80-7.70) X 10*3/uL Eosinophils # (0.04-0.35) X 10*3/uL BUN 50.2 H (9.0-27.0) mg/dL Creatinine 1.9 H (0.6-1.5) mg/dL Est GFR (CKD-EPI) 36 L (>=60) BUN/Creatinine Ratio 26.42 H (12.00-20.00) Ratio Glucose 324 H (70-110) mg/dL POC Glucose (mg/dL) 237 H (70-110) mg/dL Calcium 8.3 L (8.7-10.3) mg/dL ALT 179 H (10-49) U/L Total Protein 5.1 L (6.2-8.2) g/dL Albumin 3.0 L (3.8-4.9) g/dL Albumin/Globulin Ratio 1.43 L (1.60-3.17) Ratio 08/10/23 Range/Units 07:25 WBC (4.50-10.00) X 10*3/uL RBC (4.40-5.60) X 10*6/uL Hgb (13.0-17.0) g/dL Hct (39.6-50.0) % MCHC (32.0-37.0) g/dL MPV (9.5-12.2) FL Neutrophils # (1.80-7.70) X 10*3/uL Eosinophils # (0.04-0.35) X 10*3/uL BUN (9.0-27.0) mg/dL Creatinine (0.6-1.5) mg/dL Est GFR (CKD-EPI) (>=60) BUN/Creatinine Ratio (12.00-20.00) Ratio Glucose (70-110) mg/dL POC Glucose (mg/dL) 320 H (70-110) mg/dL Calcium (8.7-10.3) mg/dL ALT (10-49) U/L Total Protein (6.2-8.2) g/dL Albumin (3.8-4.9) g/dL Albumin/Globulin Ratio (1.60-3.17) Ratio Assessment and Plan Time with Patient: Less than 30
[2023-08-11 02:12] LABS: Glucose,Whole Blood 288 mg/dL (70-110)
[2023-08-11 07:09] LABS: Glucose,Whole Blood 209 mg/dL (70-110)
[2023-08-11] MEDS: METOPROLOL TARTRATE 50 MG TAB PO SCH ×2 (08:21→21:28)
[2023-08-11] MEDS: FUROSEMIDE 10 MG/ML 4 ML VIAL IV SCH ×2 (08:21→21:28)
[2023-08-11] MEDS: GABAPENTIN 100 MG CAP PO SCH ×3 (08:21→21:28)
[2023-08-11] MEDS: ASPIRIN 81 MG PO SCH (08:21)
[2023-08-11] MEDS: TICAGRELOR 90 MG TAB PO SCH ×2 (08:21→21:28)
[2023-08-11] MEDS: TAMSULOSIN 0.4 MG CAP.ER.24H PO SCH (08:21)
[2023-08-11] MEDS: FAMOTIDINE 20 MG TAB PO SCH (08:21)
[2023-08-11] MEDS: APIXABAN 2.5 MG TABLET PO SCH ×2 (08:22→21:28)
[2023-08-11] MEDS: INSULIN DETEMIR (LEVEMIR) 100 UNIT/ML SYR SQ SCH ×2 (08:22→21:28)
[2023-08-11] MEDS: INSULIN ASPART (NovoLOG) 100 UNIT/ML VIAL SQ SCH ×7 (08:22→21:28)
[2023-08-11 09:58] VITALS: BMI 32.3
[2023-08-11 10:57] LABS: BUN/Creat Ratio 23.16 Ratio (12.00-20.00); Calcium 8.8 mg/dL (8.7-10.3); Carbon Dioxide 29.5 mmol/L (21.6-31.8); Chloride 102 mmol/L (96-109); Glucose 244 mg/dL (70-110); Potassium 4.5 mmol/L (3.5-5.5); Sodium 140 mmol/L (135-145)
[2023-08-11 12:04] LABS: Glucose,Whole Blood 203 mg/dL (70-110)
--- NOTE | 2023-08-11 14:22 | P.PN ---
Subjective Progress Note Date: 08/11/23 This is a 77-year-old gentleman was sent in by his PCP found to have significantly elevated LFTs and renal dysfunction he was sent to the hospital for evaluation. He has been maintained on course of IV lasix bid and his creatinine is down to 1.9. His LFTs have also been improving. 08/11/2023 Patient continues with indwelling catheter he is slightly hematuria however it is clearing up. His creatinine today is 1.9 he remains on IV Lasix twice a day with nephrology following closely. His blood glucose was in the 200s. She has improved from yesterday with the addition of Levemir. Wound care was consulted for his right foot wound recommending To apply honey gel bordered foam and wrapped with rolled gauze and secured to change Thursday and follow-up with wound care on discharge. Review of Systems Constitutional: Denied any fatigue denied any fever. Cardio vascular: denied any chest pain, palpitations Gastrointestinal: denied any nausea, vomiting, diarrhea Pulmonary: Denied any shortness of breath cough Neurologic denied any new focal deficits All inpatient medications were reviewed and appropriate changes in these medications as dictated in the interval history and assessment and plan. PHYSICAL EXAMINATION: GENERAL: The patient is alert and oriented x3, not in any acute distress. Well developed, well nourished. HEENT: Pupils are round and equally reacting to light. EOMI. No scleral icterus. No conjunctival pallor. Normocephalic, atraumatic. No pharyngeal erythema. No thyromegaly. CARDIOVASCULAR: S1 and S2 present. No murmurs, rubs, or gallops. PULMONARY: Chest is clear to auscultation, no wheezing or crackles. ABDOMEN: Soft, nontender, nondistended, normoactive bowel sounds. No palpable organomegaly. MUSCULOSKELETAL: No joint swelling or deformity. EXTREMITIES: No cyanosis, clubbing, or pedal edema. Significant bilateral lower extremity edema NEUROLOGICAL: Gross neurological examination did not reveal any focal deficits. SKIN: No rashes. Assessment and Plan -Acute kidney injury due to ATN and cardiorenal syndrome and also with urinary retention on admission. Avoid nephrotoxins. -Acute on chronic systolic dysfunction -Transaminitis likely due to vascular congestion patient has been started on IV lasix this should improve. Abdominal ultrasound shows fatty liver. -Status post PCI of the RCA and LAD discharged from the hospital 1 week ago with NSTEMI on dual antiplatelet therapy -Ischemic cardiomyopathy EF 25%, moderate MR and pulmonary hypertension -Acute on chronic systolic heart failure -Hypertension currently hypotensive/normal BP continue holding losartan. -Nonhealing diabetic foot ulcer continue local wound care with honey gel change MWF and follow up at [facility] wound care -Charcot foot. -Dyslipidemia -Paroxysmal atrial fibrillation anticoagulated with eliquis -Insulin-dependent diabetes mellitus Continue accuchecks achs and sliding scale insulin Levemir has been increased due to the hyperglycemia -Hilar and mediastinal lymphadenopathy, require repeat imanging of this in 3 months -History of cholecystectomy due to gallstone pancreatitis and states that his pancreas does not function at baseline. GI prophylaxis DVT prophylaxis Full Code Repeat labs in the AM. Maintain fluid restriction. Continue local wound care. Repeat labs in AM. The impression and plan of care has been dictated by Emily Espinosa Nurse Practitioner as directed. Dr. Nancy MD I have performed a history and physical examination and medical decision making of this patient, discussed the same with the dictator, and agree with the dictators assessment and plan as written, documented as a scribe. Based on total visit time, I have performed more than 50% of this visit. Objective - Vital Signs Vital signs: Vital Signs Temp 97.4 F L 08/11/23 07:09 Pulse 103 H 08/11/23 07:09 Resp 16 08/11/23 07:09 BP 113/70 08/11/23 07:09 Pulse Ox 97 08/11/23 07:09 FiO2 Intake & Output 08/10/23 08/11/23 08/11/23 18:59 06:59 18:59 Intake Total 840 240 Output Total 1750 1550 600 Balance -910 -1310 -600 Weight 99.337 kg Intake: Oral 840 240 Output: Urine 1750 1550 600 Other: Voiding Method Indwelling Catheter Indwelling Catheter - Labs CBC & Chem 7: 08/10/23 05:39 08/11/23 05:28 Labs: Abnormal Lab Results - Last 24 Hours (Table) 08/10/23 08/10/23 08/10/23 Range/Units 12:14 17:04 20:02 BUN (9.0-27.0) mg/dL Creatinine (0.6-1.5) mg/dL Est GFR (CKD-EPI) (>=60) BUN/Creatinine Ratio (12.00-20.00) Ratio Glucose (70-110) mg/dL POC Glucose (mg/dL) 366 H 337 H 353 H (70-110) mg/dL 08/11/23 08/11/23 08/11/23 Range/Units 02:10 05:28 07:08 BUN 44.0 H (9.0-27.0) mg/dL Creatinine 1.9 H (0.6-1.5) mg/dL Est GFR (CKD-EPI) 36 L (>=60) BUN/Creatinine Ratio 23.16 H (12.00-20.00) Ratio Glucose 244 H (70-110) mg/dL POC Glucose (mg/dL) 288 H 209 H (70-110) mg/dL Assessment and Plan Time with Patient: Less than 30
--- NOTE | 2023-08-11 14:41 | P.PN ---
Subjective Progress Note Date: 08/11/23 HISTORY OF PRESENTING ILLNESS 77-year-old with PMH of type 2 diabetes, hypertension, recent non-STEMI and a heart cath which showed critical disease involving RCA, LAD, PDA branch of LCx. He is status post PCI of RCA and LAD with 4 stents. 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 Patient was at his PCPs office, His blood work showed elevated LFTs, and renal dysfunction for which he was asked to get evaluated in the hospital. Patient denies having any active chest pain chest pressure shortness of breath. WBC 11.3, INR 1.2, BUN 91, creatinine 2.4, glucose 300, transaminitis with AST 195, AST 600, ALP 150 His chest x-ray showed mild vascular congestion. His CT abdomen showed chronic medial kidney disease and and hepatic steatosis Progress note Patient is doing well. Hemodynamically stable. Good urine output with IV diuretic therapy. His renal function is stable. 08/10 Patient is seen today in follow-up. He states he ate his breakfast this morning okay. He is urinating well. He is currently on IV Lasix 40 mg every 12 hours per nephrology. He states lower extremity edema accumulated quickly when he got out of bed to use the bathroom but improves with elevation. In general he is feeling much better. He does have a Sánchez catheter in place for urinary retention. Blood pressure 119/75, heart rate 88, pulse ox 96% on room air. Repeat blood work reveals hemoglobin of 12, electrolytes are normal with potassium 4.4, BUN 50 creatinine 1.9. Blood sugar 324. ALT 179. 08/11 Patient remains on IV Lasix 40 mg every 12 hours managed by nephrology. He has been resumed on his home cardiac medications. Blood pressure 111/68, heart rate 85. Pulse ox 97% on room air. Patient is been afebrile. Repeat blood work reveals potassium 4.5, BUN 44 creatinine 1.9. Patient denies any new concerns today. His states that he most likely will be leaving tomorrow to rehab. PHYSICAL EXAMINATION Vital signs reviewed. Head: Normocephalic. Eyes: Sclerae nonicteric. Neck: Brisk carotid upstroke, no jugular venous distention. Lungs: Clear to auscultation. Heart: Regular rate and rhythm, S1-S2, no S3, no murmur or rub. Abdomen: Soft nontender, positive bowel sounds no organomegaly. Extremities: +1 edema, intact distal pulses. Neuro: Alert, oritented, no focal deficits ASSESSMENT Transaminitis combination of hepatic steatosis, statin use and congestive of neuropathy Right-sided heart failure Recent non-STEMI with status post PCI to RCA and LAD with 4 stents. 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 Consider optimizing heart failure medications once renal function is improved. Nurse practitioner note has been reviewed, I agree with documented findings and plan of care. Patient was seen and examined. Objective - Vital Signs Vital signs: Vital Signs Temp 97.8 F 08/11/23 13:03 Pulse 85 08/11/23 13:03 Resp 20 08/11/23 13:03 BP 111/68 08/11/23 13:03 Pulse Ox 97 08/11/23 13:03 FiO2 Intake & Output 08/10/23 08/11/23 08/11/23 18:59 06:59 18:59 Intake Total 840 240 462 Output Total 1750 1550 600 Balance -910 -1310 -138 Weight 99.337 kg Intake: Oral 840 240 462 Output: Urine 1750 1550 600 Other: Voiding Method Indwelling Catheter Indwelling Catheter - Labs CBC & Chem 7: 08/10/23 05:39 08/11/23 05:28 Labs: Abnormal Lab Results - Last 24 Hours (Table) 08/10/23 08/10/23 08/11/23 Range/Units 17:04 20:02 02:10 BUN (9.0-27.0) mg/dL Creatinine (0.6-1.5) mg/dL Est GFR (CKD-EPI) (>=60) BUN/Creatinine Ratio (12.00-20.00) Ratio Glucose (70-110) mg/dL POC Glucose (mg/dL) 337 H 353 H 288 H (70-110) mg/dL 08/11/23 08/11/23 08/11/23 Range/Units 05:28 07:08 12:02 BUN 44.0 H (9.0-27.0) mg/dL Creatinine 1.9 H (0.6-1.5) mg/dL Est GFR (CKD-EPI) 36 L (>=60) BUN/Creatinine Ratio 23.16 H (12.00-20.00) Ratio Glucose 244 H (70-110) mg/dL POC Glucose (mg/dL) 209 H 203 H (70-110) mg/dL
--- NOTE | 2023-08-11 16:56 | P.PN ---
Subjective Patient is seen for f/u for GWEN and volume overload. Maintained on IV lasix Has diuresed well. No SOB. Leg edema has improved. Serum creatinine staying at 1.9 mg/dL 24-hour urine output at 3.3 L. Objective - Vital Signs Vital signs: Vital Signs Temp 97.8 F 08/11/23 13:03 Pulse 85 08/11/23 13:03 Resp 20 08/11/23 13:03 BP 111/68 08/11/23 13:03 Pulse Ox 97 08/11/23 13:03 FiO2 Intake & Output 08/10/23 08/11/23 08/11/23 18:59 06:59 18:59 Intake Total 840 240 462 Output Total 1750 1550 1300 Balance -910 -1310 -838 Weight 99.337 kg Intake: Oral 840 240 462 Output: Urine 1750 1550 1300 Other: Voiding Method Indwelling Catheter Indwelling Catheter - Exam Awake, comfortable, alert and oriented x3 Lungs are clear CVS S1 and S2 Abdomen is soft. Extremities show edema 2+ bilateral TIN ROOFER exam is grossly intact. - Labs CBC & Chem 7: 08/10/23 05:39 08/11/23 05:28 Labs: Abnormal Lab Results - Last 24 Hours (Table) 08/10/23 08/10/23 08/11/23 Range/Units 17:04 20:02 02:10 BUN (9.0-27.0) mg/dL Creatinine (0.6-1.5) mg/dL Est GFR (CKD-EPI) (>=60) BUN/Creatinine Ratio (12.00-20.00) Ratio Glucose (70-110) mg/dL POC Glucose (mg/dL) 337 H 353 H 288 H (70-110) mg/dL 08/11/23 08/11/23 08/11/23 Range/Units 05:28 07:08 12:02 BUN 44.0 H (9.0-27.0) mg/dL Creatinine 1.9 H (0.6-1.5) mg/dL Est GFR (CKD-EPI) 36 L (>=60) BUN/Creatinine Ratio 23.16 H (12.00-20.00) Ratio Glucose 244 H (70-110) mg/dL POC Glucose (mg/dL) 209 H 203 H (70-110) mg/dL Assessment and Plan Assessment: 1. Acute kidney injury secondary to ATN secondary to cardiorenal syndrome and component of urinary retention. Creatinine 2.6 on admission - stable at 1.9 today. Creatinine near 1 earlier in July 2023. No hydronephrosis noted on CAT scan. UA benign. 2. Acute on chronic systolic CHF with ejection fraction of 25-30% with moderate mitral regurgitation and pulmonary hypertension. 3. Coronary disease with cardiac stents. 4. Volume overload. Improving with diuresis. 5. Diabetes mellitus. 6. Urinary retention status post Merino catheter placement. On Flomax. Urology following. Plan: Continue current dose of lasix. Can switch to oral diuretics in a.m. Repeat labs in am Continue with merino catheter.
[2023-08-11 17:17] LABS: Glucose,Whole Blood 244 mg/dL (70-110)
[2023-08-11 20:03] LABS: Glucose,Whole Blood 288 mg/dL (70-110)
[2023-08-12 02:44] VITALS: RESP 16
[2023-08-12 07:24] LABS: Glucose,Whole Blood 87 mg/dL (70-110)
[2023-08-12] MEDS: INSULIN ASPART (NovoLOG) 100 UNIT/ML VIAL SQ SCH ×7 (08:57→21:45)
[2023-08-12] MEDS: GABAPENTIN 100 MG CAP PO SCH ×3 (09:16→21:45)
[2023-08-12] MEDS: FAMOTIDINE 20 MG TAB PO SCH (09:16)
[2023-08-12] MEDS: FUROSEMIDE 10 MG/ML 4 ML VIAL IV SCH (09:16)
[2023-08-12] MEDS: ASPIRIN 81 MG PO SCH (09:16)
[2023-08-12] MEDS: APIXABAN 2.5 MG TABLET PO SCH ×2 (09:16→21:45)
[2023-08-12] MEDS: INSULIN DETEMIR (LEVEMIR) 100 UNIT/ML SYR SQ SCH ×2 (09:16→21:45)
[2023-08-12] MEDS: TAMSULOSIN 0.4 MG CAP.ER.24H PO SCH (09:16)
[2023-08-12] MEDS: TICAGRELOR 90 MG TAB PO SCH ×2 (09:17→21:45)
[2023-08-12] MEDS: METOPROLOL TARTRATE 50 MG TAB PO SCH ×2 (09:17→21:46)
[2023-08-12 11:32] LABS: BUN/Creat Ratio 21.53 Ratio (12.00-20.00); Blood Urea Nitrogen 40.9 mg/dL (9.0-27.0); Calcium 8.9 mg/dL (8.7-10.3); Chloride 102 mmol/L (96-109); Glucose 98 mg/dL (70-110); Sodium 142 mmol/L (135-145)
[2023-08-12 11:45] LABS: Glucose,Whole Blood 211 mg/dL (70-110)
--- NOTE | 2023-08-12 12:38 | P.PN ---
Subjective Progress Note Date: 08/12/23 HISTORY OF PRESENTING ILLNESS 77-year-old with PMH of type 2 diabetes, hypertension, recent non-STEMI and a heart cath which showed critical disease involving RCA, LAD, PDA branch of LCx. He is status post PCI of RCA and LAD with 4 stents. 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 Patient was at his PCPs office, His blood work showed elevated LFTs, and renal dysfunction for which he was asked to get evaluated in the hospital. Patient denies having any active chest pain chest pressure shortness of breath. WBC 11.3, INR 1.2, BUN 91, creatinine 2.4, glucose 300, transaminitis with AST 195, AST 600, ALP 150 His chest x-ray showed mild vascular congestion. His CT abdomen showed chronic medial kidney disease and and hepatic steatosis Progress note Patient is doing well. Hemodynamically stable. Good urine output with IV diuretic therapy. His renal function is stable. 08/10 Patient is seen today in follow-up. He states he ate his breakfast this morning okay. He is urinating well. He is currently on IV Lasix 40 mg every 12 hours per nephrology. He states lower extremity edema accumulated quickly when he got out of bed to use the bathroom but improves with elevation. In general he is feeling much better. He does have a Sánchez catheter in place for urinary retention. Blood pressure 119/75, heart rate 88, pulse ox 96% on room air. Repeat blood work reveals hemoglobin of 12, electrolytes are normal with potassium 4.4, BUN 50 creatinine 1.9. Blood sugar 324. ALT 179. 08/11 Patient remains on IV Lasix 40 mg every 12 hours managed by nephrology. He has been resumed on his home cardiac medications. Blood pressure 111/68, heart rate 85. Pulse ox 97% on room air. Patient is been afebrile. Repeat blood work reveals potassium 4.5, BUN 44 creatinine 1.9. Patient denies any new concerns today. His states that he most likely will be leaving tomorrow to rehab. 08/12 Patient is anticipating discharge to rehab today. Heart rate is 109. He is on Lopressor 50 mg twice daily. Blood pressure 107/73, pulse ox 97% on room air. Patient remains on IV Lasix per nephrology. Blood work today reveals BUN of 40 creatinine 1.9 which appears stable. PHYSICAL EXAMINATION Vital signs reviewed. Head: Normocephalic. Eyes: Sclerae nonicteric. Neck: Brisk carotid upstroke, no jugular venous distention. Lungs: Clear to auscultation. Heart: Regular rate and rhythm, S1-S2, no S3, no murmur or rub. Abdomen: Soft nontender, positive bowel sounds no organomegaly. Extremities: +1 edema, intact distal pulses. Neuro: Alert, oritented, no focal deficits ASSESSMENT Transaminitis combination of hepatic steatosis, statin use and congestive of neuropathy Right-sided heart failure Recent non-STEMI with status post PCI to RCA and LAD with 4 stents. 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 Consider optimizing heart failure medications once renal function is improved. Patient is cleared for discharge from cardiology will follow-up in the office in 1 to 2 weeks. Nurse practitioner note has been reviewed, I agree with documented findings and plan of care. Patient was seen and examined. Objective - Vital Signs Vital signs: Vital Signs Temp 98.0 F 08/12/23 07:23 Pulse 109 H 08/12/23 07:23 Resp 16 08/12/23 07:23 BP 107/73 08/12/23 07:23 Pulse Ox 97 08/12/23 07:23 FiO2 Intake & Output 08/11/23 08/12/23 08/12/23 18:59 06:59 18:59 Intake Total 702 600 Output Total 1300 Balance -598 600 Weight 99.337 kg Intake: Oral 702 600 Output: Urine 1300 Other: # Voids 1 - Labs CBC & Chem 7: 08/10/23 05:39 08/12/23 06:03 Labs: Abnormal Lab Results - Last 24 Hours (Table) 08/11/23 08/11/23 08/11/23 Range/Units 05:28 12:02 17:15 BUN 44.0 H (9.0-27.0) mg/dL Creatinine 1.9 H (0.6-1.5) mg/dL Est GFR (CKD-EPI) 36 L (>=60) BUN/Creatinine Ratio 23.16 H (12.00-20.00) Ratio Glucose 244 H (70-110) mg/dL POC Glucose (mg/dL) 203 H 244 H (70-110) mg/dL 08/11/23 Range/Units 20:02 BUN (9.0-27.0) mg/dL Creatinine (0.6-1.5) mg/dL Est GFR (CKD-EPI) (>=60) BUN/Creatinine Ratio (12.00-20.00) Ratio Glucose (70-110) mg/dL POC Glucose (mg/dL) 288 H (70-110) mg/dL
--- NOTE | 2023-08-12 15:29 | P.DS ---
Providers Date of admission: 08/06/23 17:23 Attending physician: Kai Bone MD Consults: 08/06/23 15:54 Consult Physician Urgent Consulting Provider: Mane Alba Consult Reason/Comments: GWEN Do you want consulting provider notified?: Yes 08/07/23 16:36 Consult Physician Routine Consulting Provider: Ryan Holguin Consult Reason/Comments: CHF Do you want consulting provider notified?: Yes 08/08/23 09:09 Consult Physician Routine Consulting Provider: Brice Orona Consult Reason/Comments: urinary retention Do you want consulting provider notified?: Yes Primary care physician: [facility] Course: Final Diagnosis -Acute kidney injury due to ATN and cardiorenal syndrome and also with urinary retention on admission. Avoid nephrotoxins. -Acute on chronic systolic dysfunction -Transaminitis likely due to vascular congestion patient has been started on IV lasix this should improve. Abdominal ultrasound shows fatty liver. -Status post PCI of the RCA and LAD discharged from the hospital 1 week ago with NSTEMI on dual antiplatelet therapy -Ischemic cardiomyopathy EF 25%, moderate MR and pulmonary hypertension -Acute on chronic systolic heart failure -Hypertension currently hypotensive/normal BP continue holding losartan. -Nonhealing diabetic foot ulcer continue local wound care with honey gel change MW and follow up at [facility] wound care -Charcot foot. -Dyslipidemia -Paroxysmal atrial fibrillation anticoagulated with eliquis -Insulin-dependent diabetes mellitus kanika -Hilar and mediastinal lymphadenopathy, require repeat imanging of this in 3 months -History of cholecystectomy due to gallstone pancreatitis and states that his pancreas does not function at baseline. Discharge disposition Patient is stable for discharge to subacute rehab. He needs to follow-up with cardiology and nephrology closely in the office recommended within 1 week. He will discharge on oral Lasix 40 mg twice a day. He should continue on a 1500 cc fluid restriction. Additionally patient will continue with local wound care with honey gel to the left foot wound on the plantar surface and can continue to change Thursday and follow-up with [facility] wound care. Recommend to repeat labs in 2 to 3 days. Hospital course This is a 77-year-old gentleman with past medical history significant for diabetes mellitus, hypertension. He was recently hospitalized with Non-ST elevation NH, secondary to triple-vessel coronary artery disease involving critical disease of the RCA, LAD and PDA branch of the left circumflex artery, Status post PCI of the RCA and LAD with 4 stents. He was also found to have Ischemic cardiomyopathy with an EF 25% and also has moderate mitral regurgitation and pulmonary hypertension. He was discharged home on triple therapy with acetaminophen to low-dose eliquis as well as high-dose statin therapy. Patient is also on amiodarone. Patient was at his PCPs office for routine blood work and hospital follow-up found to have significantly elevated LFTs and renal dysfunction he was sent to the hospital for evaluation. Denies having any chest pain he is not having any shortness of breath no nausea vomiting or diarrhea. States he is not drinking alcohol he has been compliant with this medication. Initial blood work reveals a white count of 11.3, INR 1.2, BUN 91, current 2.42, glucose 353, magnesium 3.1, AST ALT and alk phos elevated. Check amylase and lipase which were also elevated. His chest x-ray does not reveal any vascular congestion or fluid overload. His computed tomography scan shows evidence of chronic medical renal disease with no hydronephrosis seen bilaterally with no intrahepatic mass or biliary dilation. Abdominal ultrasound shows bile duct upper limits of normal in caliber likely age-related change in post cholecystectomy status moderate hepatic steatosis. He was admitted to the hospital and consult placed to nephrology. Suspect is a component of vascular congestion as he has quite edematous in his lower extremities. Patient was also eval by cardiology he was started on IV Lasix and has been diuresed. His creatinine currently has improved down to 1.9 and his remained stable for the last 3 days. He was also having issues with urinary retention did have a Sánchez catheter placed with hematuria noted he was seen in consultation by urology and was recommending to begin Flomax and follow-up in t he office. He has since passed a voiding trial and will follow-up as needed. From a cardiology perspective he will continue on his dual antiplatelet therapy as well as optimize medications continue on Lasix twice a day and follow-up in the office. Currently denying chest pain no shortness of breath no nausea vomiting diarrhea he is alert x 3 with no focal neurological deficits. Hemodynamically he is stable. And he is cleared for discharge to rehab. Please see medication reconciliation for list of current medication. Thank you for allowing us to participate in care of this patient. The impression and plan of care has been dictated by Emily Espinosa, Nurse Practitioner as directed. Dr. Nancy MD I have performed a history and physical examination and medical decision making of this patient, discussed the same with the dictator, and agree with the dictators assessment and plan as written, documented as a scribe. Based on total visit time, I have performed more than 50% of this visit. Patient Condition at Discharge: Fair Plan - Discharge Summary New Discharge Prescriptions: New Tamsulosin [Flomax] 0.4 mg PO PC-BRKFST cap Furosemide [Lasix] 40 mg PO BID@0900,1600 tab Sodium Chloride 0.65% Nasal [Deep Sea (Saline)] 2 spray NASAL QID PRN ml PRN Reason: Nasal Congestion Famotidine [Pepcid AC] 10 mg PO DAILY #30 tablet Continue INSULIN ASPART (NovoLOG) [NovoLOG (formulary)] 15 - 30 unit SQ AC-TID Ticagrelor [Brilinta] 90 mg PO BID #180 tab Metoprolol Tartrate [Lopressor] 50 mg PO BID #180 tab Insulin Degludec [Tresiba Flextouch U-100 Pen] 40 units SQ DAILY #0 Amiodarone [Cordarone] See Taper PO DIRECTED Glucagon [Gvoke Pfs 1-Pack Syringe] 1 mg SQ ONCE PRN PRN Reason: Hypoglycemia Aspirin 81 mg PO DAILY #90 tab Apixaban [Eliquis] 2.5 mg PO BID #60 tab Atorvastatin [Lipitor] 80 mg PO HS #90 tab Nitroglycerin Sl Tabs [Nitrostat] 0.4 mg SUBLINGUAL Q5M PRN #100 tab PRN Reason: Chest Pain Discontinued metFORMIN HCL ER [Glucophage XR] 1,000 mg PO BID Furosemide [Lasix] 20 mg PO DAILY #90 tab Omeprazole [PriLOSEC] 20 mg PO AC-BID #60 cap Losartan [Cozaar] 50 mg PO DAILY Discharge Medication List Glucagon [Gvoke Pfs 1-Pack Syringe] 1 mg SQ ONCE PRN 07/26/23 [History] INSULIN ASPART (NovoLOG) [NovoLOG (formulary)] 15 - 30 unit SQ AC-TID 07/26/23 [History] Apixaban [Eliquis] 2.5 mg PO BID #60 tab 07/31/23 [Rx] Aspirin 81 mg PO DAILY #90 tab 07/31/23 [Rx] Atorvastatin [Lipitor] 80 mg PO HS #90 tab 07/31/23 [Rx] Insulin Degludec [Tresiba Flextouch U-100 Pen] 40 units SQ DAILY #0 07/31/23 [Rx] Metoprolol Tartrate [Lopressor] 50 mg PO BID #180 tab 07/31/23 [Rx] Nitroglycerin Sl Tabs [Nitrostat] 0.4 mg SUBLINGUAL Q5M PRN #100 tab 07/31/23 [Rx] Ticagrelor [Brilinta] 90 mg PO BID #180 tab 07/31/23 [Rx] Amiodarone [Cordarone] See Taper PO DIRECTED 08/06/23 [History] Famotidine [Pepcid AC] 10 mg PO DAILY #30 tablet 08/12/23 [Rx] Furosemide [Lasix] 40 mg PO BID@0900,1600 tab 08/12/23 [Rx] Sodium Chloride 0.65% Nasal [Deep Sea (Saline)] 2 spray NASAL QID PRN ml 08/12/23 [Rx] Tamsulosin [Flomax] 0.4 mg PO PC-BRKFST cap 08/12/23 [Rx] Follow up Appointment(s)/Referral(s): [facility], [NON-STAFF] - 1 Week Richie Dean MD [STAFF PHYSICIAN] - 1 Week (Office will call with appointment time) Derian Link MD [Primary Care Provider] - 1-2 days [facility] [NON-STAFF] - 08/18/23 12:45 pm Discharge/Stand Alone Forms: Who Do I Call?, Community Resources, Help In The Home
[2023-08-12] MEDS: FUROSEMIDE 40 MG TAB PO SCH (16:50)
[2023-08-12 17:21] LABS: Glucose,Whole Blood 208 mg/dL (70-110)
[2023-08-12 20:25] LABS: Glucose,Whole Blood 228 mg/dL (70-110)
[2023-08-13 07:35] LABS: Glucose,Whole Blood 157 mg/dL (70-110)
[2023-08-13 08:20] VITALS: BP 109/67; PULSE 106; TEMP 98.2
[2023-08-13] MEDS: INSULIN ASPART (NovoLOG) 100 UNIT/ML VIAL SQ SCH ×2 (08:24)
[2023-08-13] MEDS: INSULIN DETEMIR (LEVEMIR) 100 UNIT/ML SYR SQ SCH (08:24)
[2023-08-13] MEDS: FAMOTIDINE 20 MG TAB PO SCH (08:25)
[2023-08-13] MEDS: ASPIRIN 81 MG PO SCH (08:25)
[2023-08-13] MEDS: FUROSEMIDE 40 MG TAB PO SCH (08:25)
[2023-08-13] MEDS: METOPROLOL TARTRATE 50 MG TAB PO SCH (08:25)
[2023-08-13] MEDS: GABAPENTIN 100 MG CAP PO SCH (08:25)
[2023-08-13] MEDS: APIXABAN 2.5 MG TABLET PO SCH (08:25)
[2023-08-13] MEDS: TICAGRELOR 90 MG TAB PO SCH (08:26)
[2023-08-13] MEDS: TAMSULOSIN 0.4 MG CAP.ER.24H PO SCH (08:26)
--- NOTE | 2023-08-13 12:22 | P.PN ---
Subjective Patient is seen for f/u for GWEN and volume overload. Lasix has been switched to oral Has diuresed well. No SOB. Leg edema has improved. Serum creatinine staying at 1.9 mg/dL 24-hour urine output at 1.3 L. 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 - Labs CBC & Chem 7: 08/10/23 05:39 08/12/23 06:03 Labs: Abnormal Lab Results - Last 24 Hours (Table) 08/12/23 08/12/23 08/13/23 Range/Units 17:19 20:23 07:34 POC Glucose (mg/dL) 208 H 228 H 157 H (70-110) mg/dL Assessment and Plan Assessment: 1. Acute kidney injury secondary to ATN secondary to cardiorenal syndrome and component of urinary retention. Creatinine 2.6 on admission - stable at 1.9 today. Creatinine near 1 earlier in July 2023. No hydronephrosis noted on CAT scan. UA benign. 2. Acute on chronic systolic CHF with ejection fraction of 25-30% with moderate mitral regurgitation and pulmonary hypertension. 3. Coronary disease with cardiac stents. 4. Volume overload. Improving with diuresis. 5. Diabetes mellitus. 6. Urinary retention status post Sánchez catheter placement which has now been discontinued. On Flomax. Urology following. Plan: Continue current dose of lasix. Follow-up as outpatient in about 1 to 2 weeks
--- NOTE | 2023-08-13 12:41 | P.PN ---
Subjective Progress Note Date: 08/13/23 No acute overnight event, catheter was removed yesterday he is able to void without any difficulties Objective - Vital Signs Vital signs: Vital Signs Temp 98.2 F 08/13/23 07:32 Pulse 106 H 08/13/23 07:32 Resp 16 08/13/23 07:32 BP 109/67 08/13/23 07:32 Pulse Ox 96 08/13/23 07:32 FiO2 Intake & Output 08/12/23 08/13/23 08/13/23 18:59 06:59 18:59 Intake Total 240 830 Balance 240 830 Intake: Oral 240 830 Other: # Voids 4 3 - Constitutional General appearance: Present: no acute distress - Psychiatric Psychiatric: Present: A&O x's 3 - Labs CBC & Chem 7: 08/10/23 05:39 08/12/23 06:03 Labs: Abnormal Lab Results - Last 24 Hours (Table) 08/12/23 08/12/23 08/13/23 Range/Units 17:19 20:23 07:34 POC Glucose (mg/dL) 208 H 228 H 157 H (70-110) mg/dL Assessment and Plan Assessment: 77-year-old male with urinary retention, acute kidney injury, catheter was removed yesterday he is able to void spontaneously without any difficulties -Recommend obtaining a postvoid residual, if less than 300 mL then no further intervention from urology standpoint.
== END 2023-08-13 12:18 | DRG 682 ==
LOC: EC 10:52 → 4SSUR 17:23 → 5NMEDONC 19:16
PROVIDERS: ADMIT Internal Medicine; ATTEND Internal Medicine
DX: N17.0 Acute kidney failure with tubular necrosis (principal); I21.4 Non-ST elevation (NSTEMI) myocardial infarction; I50.23 Acute on chronic systolic (congestive) heart failure; I13.0 Hypertensive heart and chronic kidney disease with heart failure and stage 1 through stage 4 chronic kidney disease, or unspecified chronic kidney disease; A52.16 Charcot's arthropathy (tabetic); K76.0 Fatty (change of) liver, not elsewhere classified; E11.621 Type 2 diabetes mellitus with foot ulcer; E11.610 Type 2 diabetes mellitus with diabetic neuropathic arthropathy; I95.9 Hypotension, unspecified; E11.40 Type 2 diabetes mellitus with diabetic neuropathy, unspecified; E11.22 Type 2 diabetes mellitus with diabetic chronic kidney disease; E78.5 Hyperlipidemia, unspecified; H91.90 Unspecified hearing loss, unspecified ear; L97.522 Non-pressure chronic ulcer of other part of left foot with fat layer exposed; R33.9 Retention of urine, unspecified; E66.9 Obesity, unspecified; I25.10 Atherosclerotic heart disease of native coronary artery without angina pectoris; K86.9 Disease of pancreas, unspecified; R59.0 Localized enlarged lymph nodes; R31.9 Hematuria, unspecified; K21.9 Gastro-esophageal reflux disease without esophagitis; I25.5 Ischemic cardiomyopathy; Z68.32 Body mass index [BMI] 32.0-32.9, adult; I34.0 Nonrheumatic mitral (valve) insufficiency; I48.0 Paroxysmal atrial fibrillation; R74.01 Elevation of levels of liver transaminase levels; Z79.4 Long term (current) use of insulin; Z79.02 Long term (current) use of antithrombotics/antiplatelets; Z79.01 Long term (current) use of anticoagulants; Z79.82 Long term (current) use of aspirin; Z79.84 Long term (current) use of oral hypoglycemic drugs; Z79.899 Other long term (current) drug therapy; Z82.49 Family history of ischemic heart disease and other diseases of the circulatory system; Z95.5 Presence of coronary angioplasty implant and graft; Z71.3 Dietary counseling and surveillance
CPT/HCPCS: 36415; 71046; 74176; 76700; 80048; 80053; 80076; 81003; 82140; 82150; 83036; 83690; 83735; 85025; 85027; 85610; 85730; 93005; 96360; 96361; 99285

== ENCOUNTER → 2023-08-18 | Outpatient (CLI) | payer MEDICARE, BC ==
--- NOTE | 2023-08-19 07:13 | XR ---
EXAMINATION TYPE: XR foot complete LT DATE OF EXAM: 08/18/2023 CLINICAL HISTORY: pain TECHNIQUE: Frontal, lateral and oblique images of the left foot are obtained. COMPARISON: None. FINDINGS: There is no acute fracture/dislocation evident. Degenerative joint space narrowing through out the midfoot and tarsometatarsal joints felt to reflect changes of Charcot joint. There is pes jan nus deformity noted. Plantar calcaneal spur seen. The overlying soft tissue appears unremarkable. IMPRESSION: There is no acute fracture or dislocation. ICD 10 NO FRACTURE, INITIAL EVALUATION
== END | disposition home or self-care (01) ==
LOC: RADXRMAIN 14:34
PROVIDERS: ATTEND Nurse Practitioner Family
DX: I70.245 Atherosclerosis of native arteries of left leg with ulceration of other part of foot (principal); E11.621 Type 2 diabetes mellitus with foot ulcer; L97.524 Non-pressure chronic ulcer of other part of left foot with necrosis of bone

== ENCOUNTER → 2023-09-01 | Outpatient (CLI) | payer MEDICARE, BC ==
--- NOTE | 2023-09-02 08:45 | US ---
EXAMINATION TYPE: US venous doppler duplex LE DATE OF EXAM: 09/01/2023 2:58 PM COMPARISON: NONE CLINICAL INDICATION: Male, 77 years old with history of L97.524 NON-PRESSURE CHRONIC ULCER OF OTHER P ART O; WOUND CARE PATIENT OPEN WOUND LEFT FOOT SIDE PERFORMED: Bilateral LOWER EXTREMITY VENOUS INSUFFICIENCY CLINICAL INDICATION: Male, 77 years old with history of L97.524 NON-PRESSURE CHRONIC ULCER OF OTHER P ART O; SIDE PERFORMED Bilateral 1) Color flow is present and patency is documented in the following vessels. No DVT or SVT is noted . Common Femoral Vein Deep Femoral Vein Femoral Vein Popliteal Vein Proximal Calf Veins Greater Saph Vein Upper Small Saph Vein 2) There is venous reflux noted at the following venous levels: none 3) Incompetent perforators are noted at these levels: no IMPRESSION: 1. No evidence for insufficiency. 2. No evidence for deep vein thrombosis.
--- NOTE | 2023-09-02 08:47 | US ---
EXAMINATION TYPE: US arterial LE single level DATE OF EXAM: 09/01/2023 3:36 PM CLINICAL INDICATION: Male, 77 years old with history of L97.524 NON-PRESSURE CHRONIC ULCER OF OTHER P ART O; History of: Smoker: No Hypertension: No Diabetic: Yes Hyperlipidemia: Yes TIA/CVA: Yes Previous Vascular Surgery: Yes CAD: No KS: Yes Vascular Ulcers: Yes Claudication: No Gangrene: No Doppler Waveforms: Right: Multiphasic Left: Multiphasic Ankle-Brachial Indices: Right: 1.10 Left: 1.40 Toe Brachial Indices: Right: 0.57 Left: 0.57 IMPRESSION: 1. Ankle-brachial indices within normal limits. 2. Toe brachial indices suggest moderate disease.
== END | disposition home or self-care (01) ==
LOC: RADUSWWP 14:11
PROVIDERS: ATTEND Nurse Practitioner Family
DX: I70.245 Atherosclerosis of native arteries of left leg with ulceration of other part of foot (principal); L97.524 Non-pressure chronic ulcer of other part of left foot with necrosis of bone; E11.621 Type 2 diabetes mellitus with foot ulcer; E78.5 Hyperlipidemia, unspecified
CPT/HCPCS: 93922; 93970

== ENCOUNTER 2023-09-23 15:14 | Inpatient (IN) | payer MEDICARE, BC ==
--- NOTE | 2023-09-23 15:34 | ED ---
Syncope HPI - General Source: patient, family, RN notes reviewed Mode of arrival: ambulatory Limitations: no limitations <Renetta Tubbs - Last Filed: 09/23/23 15:52> - General Source: patient, family, old records reviewed Mode of arrival: ambulatory Limitations: no limitations - History of Present Illness MD Complaint: loss of consciousness, seizure -: hour(s) Prodromal Symptoms: none Description of Event: tonic-clonic movements, post-event confusion -: second(s) Witnessed: yes - by bystander Injuries Sustained Associated with Event: None Current Symptoms: back to baseline History: previous syncopal episode Context: at rest, after urination Treatments Prior to Arrival: none <Blane Espinosa - Last Filed: 10/01/23 00:20> - General Stated Complaint: Syncope then Seizure Time Seen by Provider: 09/23/23 15:33 - History of Present Illness Initial Comments: Patient is a 78-year-old male presenting to the ER with chief complaint of syncopal episode. Family reports while having at home physical therapy patient had a syncopal episode and a seizure while on the toilet. Unknown downtime. Patient recently released from [facility] after a 3-week stay. (Renetta Tubbs) This is a 78-year-old male with a syncopal event that occurred at home. Patient was going through physical therapy after having a urination and had a syncopal event which then physical therapy at home thought he was having a seizure. Patient is currently awake and alert has no headache chest pain or shortness of breath and no other complaints (Blane Espinosa) - Related Data Home Medications Medication Instructions Recorded Confirmed Furosemide [Lasix] 40 mg PO BID@0900,1700 09/23/23 09/23/23 INSULIN ASPART (NovoLOG) [NovoLOG See Protocol SQ ACHS 09/23/23 09/23/23 (formulary)] Levofloxacin [Levaquin] 500 mg PO DAILY 09/23/23 09/23/23 Metoprolol Tartrate [Lopressor] 50 mg PO BID@0900,1700 09/23/23 09/23/23 Omeprazole 20 mg PO DAILY 09/23/23 09/23/23 Tamsulosin [Flomax] 0.4 mg PO DAILY 09/23/23 09/23/23 Previous Rx's Medication Instructions Recorded Apixaban [Eliquis] 2.5 mg PO BID #60 tab 07/31/23 Aspirin 81 mg PO DAILY #90 tab 07/31/23 Insulin Degludec [Tresiba 40 units SQ DAILY #0 07/31/23 Flextouch U-100 Pen] Nitroglycerin Sl Tabs [Nitrostat] 0.4 mg SUBLINGUAL Q5M PRN #100 tab 07/31/23 Ticagrelor [Brilinta] 90 mg PO BID #180 tab 07/31/23 INSULIN ASPART (NovoLOG) [NovoLOG 3 unit SQ AC-TID each 08/12/23 (formulary)] Sodium Chloride 0.65% Nasal [Deep 2 spray NASAL QID PRN ml 08/12/23 Sea (Saline)] Allergies Allergy/AdvReac Type Severity Reaction Status Date / Time No Known Allergies Allergy Verified 09/23/23 17:34 Review of Systems ROS Other: All systems not noted in ROS Statement are negative. <Renetta Tubbs - Last Filed: 09/23/23 15:52> ROS Other: All systems not noted in ROS Statement are negative. <Blane Espinosa - Last Filed: 10/01/23 00:20> ROS Statement: Those systems with pertinent positive or pertinent negative responses have been documented in the HPI. 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 History of Any Multi-Drug Resistant Organisms: None Reported Past Surgical History: Cholecystectomy Past Anesthesia/Blood Transfusion Reactions: No Reported Reaction Past Psychological History: No Psychological Hx Reported Smoking Status: Never smoker Past Alcohol Use History: Occasional Past Drug Use History: None Reported - Past Family History Mother Additional Family Medical History / Comment(s): Sick sinus syndrome Father Family Medical History: Congestive Heart Failure (CHF) Additional Family Medical History / Comment(s): brother-heart failure, other borther heart attack. nephew/niece cardiac stents, Brother(s) Family Medical History: Coronary Artery Disease (CAD) Additional Family Medical History / Comment(s): 2 Brothers were diagnosed with early onset coronary artery disease in their 40s <Renetta Tubbs - Last Filed: 09/23/23 15:52> General Exam <Renetta Tubbs - Last Filed: 09/23/23 15:52> General appearance: alert, in no apparent distress Head exam: Present: atraumatic, normocephalic, normal inspection Eye exam: Present: normal appearance, PERRL, EOMI. Absent: scleral icterus, conjunctival injection, periorbital swelling ENT exam: Present: normal exam, mucous membranes moist Neck exam: Present: normal inspection. Absent: tenderness, meningismus, lymphadenopathy Respiratory exam: Present: normal lung sounds bilaterally. Absent: respiratory distress, wheezes, rales, rhonchi, stridor Cardiovascular Exam: Present: regular rate, normal rhythm, normal heart sounds. Absent: systolic murmur, diastolic murmur, rubs, gallop, clicks GI/Abdominal exam: Present: soft, normal bowel sounds. Absent: distended, tenderness, guarding, rebound, rigid Extremities exam: Present: normal inspection, full ROM, normal capillary refill. Absent: tenderness, pedal edema, joint swelling, calf tenderness Back exam: Present: normal inspection Neurological exam: Present: alert, oriented X3, CN II-XII intact Psychiatric exam: Present: normal affect, normal mood Skin exam: Present: warm, dry, intact, normal color. Absent: rash <Blane Espinosa - Last Filed: 10/01/23 00:20> - General Exam Comments Initial Comments: Visual Physical Exam Vital signs reviewed General: Well-appearing, nontoxic, no acute distress. Head: Normocephalic, atraumatic Eyes: PERRLA, EOMI ENT: Airway patent Chest: Nonlabored breathing Skin: No visual rash, normal skin tone Neuro: Alert and oriented 3 Musculoskeletal: No gross abnormalities (Renetta Tubbs) Course <Blane Espinosa - Last Filed: 10/01/23 00:20> Vital Signs 09/23/23 09/23/23 09/24/23 15:37 22:59 01:15 Temperature 97.8 F Pulse Rate 71 84 79 Pulse Rate [ Sitting Pulse Oximetery] Pulse Rate [ Standing Pulse Oximetery] Pulse Rate [ Supine Pulse Oximetery] Respiratory 18 18 18 Rate Blood Pressure 110/64 123/53 121/65 Blood Pressure [Right Arm Sitting] Blood Pressure [Right Arm Standing] Blood Pressure [Right Arm Supine] O2 Sat by Pulse 100 Oximetry 09/24/23 09/24/23 09/24/23 02:53 03:57 05:23 Temperature Pulse Rate 80 80 76 Pulse Rate [ Sitting Pulse Oximetery] Pulse Rate [ Standing Pulse Oximetery] Pulse Rate [ Supine Pulse Oximetery] Respiratory 12 16 16 Rate Blood Pressure 124/64 131/72 128/72 Blood Pressure [Right Arm Sitting] Blood Pressure [Right Arm Standing] Blood Pressure [Right Arm Supine] O2 Sat by Pulse 97 94 L 97 Oximetry 09/24/23 09/24/23 09/24/23 06:27 09:45 10:10 Temperature 97.6 F Pulse Rate 87 Pulse Rate [ 73 73 Sitting Pulse Oximetery] Pulse Rate [ 70 70 Standing Pulse Oximetery] Pulse Rate [ 82 82 Supine Pulse Oximetery] Respiratory 18 16 Rate Blood Pressure 117/59 Blood Pressure 93/53 [Right Arm Sitting] Blood Pressure 90/45 [Right Arm Standing] Blood Pressure 116/65 [Right Arm Supine] O2 Sat by Pulse 95 98 Oximetry 09/24/23 09/24/23 09/24/23 11:38 13:11 15:44 Temperature 98.1 F Pulse Rate 94 Pulse Rate [ Sitting Pulse Oximetery] Pulse Rate [ Standing Pulse Oximetery] Pulse Rate [ 93 93 Supine Pulse Oximetery] Respiratory 16 16 Rate Blood Pressure 116/68 Blood Pressure [Right Arm Sitting] Blood Pressure [Right Arm Standing] Blood Pressure 131/64 [Right Arm Supine] O2 Sat by Pulse 96 95 Oximetry - Reevaluation(s) Reevaluation #1: 09/23/23 19:23 medical record is reviewed (Blane Espinosa) Reevaluation #2: 09/23/23 19:23 no recurrent syncope here in the ED (Blane Espinosa) Reevaluation #3: 09/23/23 19:23 patient informed of rsesults and questions answered (Blane Espinosa) Reevaluation #4: Was pt. sent in by a medical professional or institution (, PA, REST ROOM MAID, urgent care, hospital, or [facility]...) When possible be specific @ -no Did you speak to anyone other than the patient for history (EMS, parent, family, police, friend...)? What history was obtained from this source @ -no Did you review nursing and triage notes (agree or disagree)? Why? @ -agree Are old charts reviewed (outside hosp., previous admission, EMS record, old EKG, old radiological studies, urgent care reports/EKG's, [facility] records)? Report findings @ -yes Differential Diagnosis (chest pain, altered mental status, abdominal pain women, abdominal pain men, vaginal bleeding, weakness, fever, dyspnea, syncope, headache, dizziness, GI bleed, back pain, seizure, CVA, palpatations, mental health, musculoskeletal)? @ -prior EKG interpreted by me (3pts min.). @ -yes X-rays interpreted by me (1pt min.). @ -yes negative for acute disease CT interpreted by me (1pt min.). @ -Yes negative for acute disease U/S interpreted by me (1pt. min.). @ -no What testing was considered but not performed or refused? (CT, X-rays, U/S, labs)? Why? @ -none What meds were considered but not given or refused? Why? @ -none Did you discuss the management of the patient with other professionals (professionals i.e. , PA, REST ROOM MAID, lab, RT, psych nurse, social science professor, dielectric press operator, teacher, environmental officer, pillowcase cleaner)? Give summary @ -no Was smoking cessation discussed for >3mins.? @ -no Was critical care preformed (if so, how long)? @ -no Were there social determinants of health that impacted care today? How? (Homelessness, low income, unemployed, alcoholism, drug addiction, transportation, low edu. Level, literacy, decrease access to med. care, long-term, rehab)? @ -none Was there de-escalation of care discussed even if they declined (Discuss DNR or withdrawal of care, Hospice)? DNR status @ -no What co-morbidities impacted this encounter? (DM, HTN, Smoking, COPD, CAD, Cancer, CVA, ARF, Chemo, Hep., AIDS, mental health diagnosis, sleep apnea, morbid obesity)? @ -none Was patient admitted / discharged? Hospital course, mention meds given and route, prescriptions, significant lab abnormalities, going to OR and other pertinent info. @ - 78 male to the ER for evaluation today. Patient presents today for evaluation regards to syncopal event with seizure activity. This was witnessed by his at home care nurse. Patient sent to ER for evaluation, no acute cause of syncope found here in the ER, no recurrent seizure activity, no headache chest pain shortness of breath abdominal pain. Patient admitted for cause of syncope Admitted Undiagnosed new problem with uncertain prognosis? @ -no Drug Therapy requiring intensive monitoring for toxicity (Heparin, Nitro, Insulin, Cardizem)? @ -no Were any procedures done? @ -no Diagnosis/symptom? @ -Syncope Acute, or Chronic, or Acute on Chronic? @ -Acute Uncomplicated (without systemic symptoms) or Complicated (systemic symptoms)? @ -Complicated Side effects of treatment? @ -no Exacerbation, Progression, or Severe Exacerbation? @ -exacerbation Poses a threat to life or bodily function? How? (Chest pain, [place], [place], pneumonia, PE, COPD, DKA, ARF, appy, cholecystitis, CVA, Diverticulitis, Homicidal, S uicidal, threat to staff... and all critical care pts) @ -yes with extreme of age and syncope (Blane Espinosa) Reevaluation #5: Differential Syncope: Valvular disease, hypertrophic cardiomyopathy, pulmonary embolism, tamponade, tachycardia, bradycardia, TX, hypovolemia, hemorrhage, dissection, anemia, intracranial hemorrhage, seizure, hypoglycemia, carbon monoxide poisoning, this is not meant to be an all-inclusive list. (Blane Espinosa) - Consultations Consultation #1: Spoke with many physicians who agreed admit this patient (Blane Espinosa) EKG Findings - EKG Comments: EKG Findings:: EKG is sinus 87 [place] 164 QRS 79 QTc 442 - EKG Results: EKG: interpreted by ERMD <Blane Espinosa - Last Filed: 10/01/23 00:20> Medical Decision Making <Renetta Tubbs - Last Filed: 09/23/23 15:52> - Lab Data Result diagrams: 09/24/23 07:23 09/24/23 07:23 - EKG Data -: EKG Interpreted by Vt - Radiology Data Radiology results: report reviewed (CT brain and chest x-ray is negative for acute disease), image reviewed <Blane Espinosa - Last Filed: 10/01/23 00:20> - Medical Decision Making I performed the quick note portion of this chart. Electronically signed by Renetta Tubbs PA-C (Renetta Tubbs) 78 male to the ER for evaluation today. Patient presents today for evaluation r egards to syncopal event with seizure activity. This was witnessed by his at home care nurse. Patient sent to ER for evaluation, no acute cause of syncope found here in the ER, no recurrent seizure activity, no headache chest pain shortness of breath abdominal pain. Patient admitted for cause of syncope (Blane Espinosa) - Lab Data Lab Results 09/23/23 09/23/23 09/23/23 Range/Units 15:51 15:51 15:51 WBC 9.8 (3.8-10.6) k/uL RBC 3.49 L (4.30-5.90) m/uL Hgb 10.7 L (13.0-17.5) gm/dL Hct 32.1 L (39.0-53.0) % MCV 92.0 (80.0-100.0) fL MCH 30.8 (25.0-35.0) pg MCHC 33.4 (31.0-37.0) g/dL RDW 13.8 (11.5-15.5) % Plt Count 370 (150-450) k/uL MPV 7.8 Neutrophils % 87 % Lymphocytes % 8 % Monocytes % 3 % Eosinophils % 1 % Basophils % 1 % Neutrophils # 8.5 H (1.3-7.7) k/uL Lymphocytes # 0.8 L (1.0-4.8) k/uL Monocytes # 0.3 (0-1.0) k/uL Eosinophils # 0.1 (0-0.7) k/uL Basophils # 0.1 (0-0.2) k/uL PT 12.2 (10.0-12.5) sec INR 1.1 (<1.2) APTT 30.2 H (22.0-30.0) sec Sodium 136 L (137-145) mmol/L Potassium 3.8 (3.5-5.1) mmol/L Chloride 102 (98-107) mmol/L Carbon Dioxide 27 (22-30) mmol/L Anion Gap 7 mmol/L BUN 39 H (9-20) mg/dL Creatinine 1.82 H (0.66-1.25) mg/dL Est GFR (CKD-EPI)AfAm 40 (>60 ml/min/1.73 sqM) Est GFR (CKD-EPI)NonAf 35 (>60 ml/min/1.73 sqM) Glucose 134 H (74-99) mg/dL Calcium 8.5 (8.4-10.2) mg/dL Magnesium 2.1 (1.6-2.3) mg/dL Total Bilirubin 0.6 (0.2-1.3) mg/dL AST 23 (17-59) U/L ALT 18 (4-49) U/L Alkaline Phosphatase 104 (38-126) U/L Troponin I (0.000-0.034) ng/mL Total Protein 6.5 (6.3-8.2) g/dL Albumin 3.1 L (3.5-5.0) g/dL Urine Color Urine Appearance (Clear) Urine pH (5.0-8.0) Ur Specific Clements (1.001-1.035) Urine Protein (Negative) Urine Glucose (UA) (Negative) Urine Ketones (Negative) Urine Blood (Negative) Urine Nitrite (Negative) Urine Bilirubin (Negative) Urine Urobilinogen (<2.0) mg/dL Ur Leukocyte Esterase (Negative) Urine RBC (0-5) /hpf Urine WBC (0-5) /hpf Hyaline Casts (0-2) /lpf Urine Mucus (None) /hpf 09/23/23 09/23/23 Range/Units 15:51 18:41 WBC (3.8-10.6) k/uL RBC (4.30-5.90) m/uL Hgb (13.0-17.5) gm/dL Hct (39.0-53.0) % MCV (80.0-100.0) fL MCH (25.0-35.0) pg MCHC (31.0-37.0) g/dL RDW (11.5-15.5) % Plt Count (150-450) k/uL MPV Neutrophils % % Lymphocytes % % Monocytes % % Eosinophils % % Basophils % % Neutrophils # (1.3-7.7) k/uL Lymphocytes # (1.0-4.8) k/uL Monocytes # (0-1.0) k/uL Eosinophils # (0-0.7) k/uL Basophils # (0-0.2) k/uL PT (10.0-12.5) sec INR (<1.2) APTT (22.0-30.0) sec Sodium (137-145) mmol/L Potassium (3.5-5.1) mmol/L Chloride (98-107) mmol/L Carbon Dioxide (22-30) mmol/L Anion Gap mmol/L BUN (9-20) mg/dL Creatinine (0.66-1.25) mg/dL Est GFR (CKD-EPI)AfAm (>60 ml/min/1.73 sqM) Est GFR (CKD-EPI)NonAf (>60 ml/min/1.73 sqM) Glucose (74-99) mg/dL Calcium (8.4-10.2) mg/dL Magnesium (1.6-2.3) mg/dL Total Bilirubin (0.2-1.3) mg/dL AST (17-59) U/L ALT (4-49) U/L Alkaline Phosphatase (38-126) U/L Troponin I 0.018 (0.000-0.034) ng/mL Total Protein (6.3-8.2) g/dL Albumin (3.5-5.0) g/dL Urine Color Colorless Urine Appearance Clear (Clear) Urine pH 5.0 (5.0-8.0) Ur Specific Clements 1.010 (1.001-1.035) Urine Protein Negative (Negative) Urine Glucose (UA) Negative (Negative) Urine Ketones Negative (Negative) Urine Blood Small H (Negative) Urine Nitrite Negative (Negative) Urine Bilirubin Negative (Negative) Urine Urobilinogen <2.0 (<2.0) mg/dL Ur Leukocyte Esterase Negative (Negative) Urine RBC 8 H (0-5) /hpf Urine WBC 1 (0-5) /hpf Hyaline Casts 16 H (0-2) /lpf Urine Mucus Rare H (None) /hpf Disposition <Renetta Tubbs - Last Filed: 09/23/23 15:52> Is patient prescribed a controlled substance at d/c from ED?: No Time of Disposition: 19:20 <Blane Espinosa - Last Filed: 10/01/23 00:20> Clinical Impression: Syncope due to orthostatic hypotension, Dehydration, Syncope Narrative: ?seizure (Blane Espinosa) Disposition: ADMITTED IP TO THIS HOSP Condition: Fair
[2023-09-23 16:13] LABS: Basophils # (A) 0.1 k/uL (0-0.2); Basophils % (A) 1 %; Eosinophils # (A) 0.1 k/uL (0-0.7); Eosinophils % (A) 1 %; HCT 32.1 % (39.0-53.0); HGB 10.7 gm/dL (13.0-17.5); Lymphocytes # (A) 0.8 k/uL (1.0-4.8); Lymphocytes % (A) 8 %; MCH 30.8 pg (25.0-35.0); MCHC 33.4 g/dL (31.0-37.0); Mean Platelet Volume 7.8; Monocytes # (A) 0.3 k/uL (0-1.0); Monocytes % (A) 3 %; Neutrophils # (A) 8.5 k/uL (1.3-7.7); Neutrophils % (A) 87 %; Platelet Count 370 k/uL (150-450); RBC 3.49 m/uL (4.30-5.90); RDW 13.8 % (11.5-15.5); WBC 9.8 k/uL (3.8-10.6)
[2023-09-23 16:22] LABS: INR 1.1 (<1.2); Partial Thromboplastin Time 30.2 sec (22.0-30.0); Prothrombin Time 12.2 sec (10.0-12.5)
[2023-09-23 16:23] LABS: ALT 18 U/L (4-49); AST 23 U/L (17-59); African American GFR (CKD) 40 (>60 ml/min/1.73 sqM); Albumin 3.1 g/dL (3.5-5.0); Alkaline Phosphatase 104 U/L (38-126); Anion Gap 7 mmol/L; Blood Urea Nitrogen 39 mg/dL (9-20); Calcium 8.5 mg/dL (8.4-10.2); Carbon Dioxide 27 mmol/L (22-30); Chloride 102 mmol/L (98-107); Glucose 134 mg/dL (74-99); Magnesium 2.1 mg/dL (1.6-2.3); Non-African American GFR(CKD) 35 (>60 ml/min/1.73 sqM); Potassium 3.8 mmol/L (3.5-5.1); Sodium 136 mmol/L (137-145); Total Bilirubin 0.6 mg/dL (0.2-1.3); Total Protein 6.5 g/dL (6.3-8.2)
--- NOTE | 2023-09-23 17:03 | XR ---
EXAMINATION TYPE: XR chest 2V DATE OF EXAM: 09/23/2023 COMPARISON: 08/06/2023 HISTORY: Shortness of breath TECHNIQUE: Frontal and lateral views of the chest are obtained. FINDINGS: Scattered senescent parenchymal changes noted. Hyperinflation compatible with COPD. No evidence for infiltrate. No evidence for atelectasis. Heart size is stable. Mediastinal structures are stable and grossly unremarkable. No evidence for hilar prominence. Degenerative changes dorsal spine. IMPRESSION: 1. No evidence for acute pulmonary disease.
--- NOTE | 2023-09-23 17:12 | CT ---
EXAMINATION TYPE: CT brain wo con DATE OF EXAM: 09/23/2023 COMPARISON: None HISTORY: syncope CT DLP: 1122.[address] of the brain was performed. The ventricles, basal cisterns and sulci overlying the cerebral convexities demonstrate mild enlargem ent. There is no evidence for intracranial hemorrhage or sulcal effacement. There is decreased attenuation about the periventricular white matter and deep white matter of both c erebral hemispheres, compatible with chronic small vessel ischemia. Differential diagnosis does inclu de demyelination. No mass effects are seen.No midline shift. Osseous calvarium is intact. If symptoms persist consider MRI. IMPRESSION: 1. Age related atrophic and chronic small vessel ischemic change without acute intracranial process s een at this time.
[2023-09-23 18:53] LABS: Appearance,Urine Clear (Clear); Bilirubin,Urine Negative (Negative); Blood,Urine Small (Negative); Color,Urine Colorless; Glucose,Urine (UA) Negative (Negative); Hyaline Casts,Urine 16 /lpf (0-2); Ketones,Urine Negative (Negative); Leukocyte Esterase,Urine Negative (Negative); Mucus,Urine Rare /hpf; Nitrite,Urine Negative (Negative); Protein,Urine Negative (Negative); RBC,Urine 8 /hpf (0-5); Urobilinogen,Urine <2.0 mg/dL (<2.0); WBC,Urine 1 /hpf (0-5)
[2023-09-23] MEDS ORDERED: NALOXONE 0.4 MG/ML 1 ML VIAL IV PRN (19:30)
[2023-09-23] MEDS ORDERED: MORPHINE SULFATE 4 MG/ML SYRINGE IV PRN (19:49)
[2023-09-23] MEDS ORDERED: ONDANSETRON 4 MG/2 ML VIAL IVP PRN (19:49)
[2023-09-23] MEDS ORDERED: SODIUM CHLORIDE 0.65% NASAL SPRAY 44 ML BTL NASAL PRN (21:48)
[2023-09-23] MEDS ORDERED: NITROGLYCERIN SL TABS 0.4 MG TAB SUBLINGUAL PRN (21:48)
[2023-09-24 01:49] LABS: Glucose,Whole Blood 234 mg/dL (70-110)
[2023-09-24] MEDS: INSULIN ASPART (NovoLOG) 100 UNIT/ML VIAL SQ ONE (02:10)
[2023-09-24] MEDS ORDERED: INSULIN ASPART (NovoLOG) 100 UNIT/ML VIAL SQ SCH (07:30)
[2023-09-24 07:43] LABS: Basophils % (A) 0 %; Eosinophils # (A) 0.2 k/uL (0-0.7); Eosinophils % (A) 2 %; HCT 31.7 % (39.0-53.0); HGB 10.2 gm/dL (13.0-17.5); Lymphocytes # (A) 1.4 k/uL (1.0-4.8); Lymphocytes % (A) 18 %; MCH 29.6 pg (25.0-35.0); MCHC 32.3 g/dL (31.0-37.0); MCV 91.5 fL (80.0-100.0); Mean Platelet Volume 7.8; Monocytes # (A) 0.4 k/uL (0-1.0); Monocytes % (A) 6 %; Neutrophils # (A) 5.3 k/uL (1.3-7.7); Neutrophils % (A) 72 %; Platelet Count 334 k/uL (150-450); RBC 3.46 m/uL (4.30-5.90); RDW 13.8 % (11.5-15.5); WBC 7.4 k/uL (3.8-10.6)
--- NOTE | 2023-09-24 08:02 | P.HPIM ---
History of Present Illness H&P Date: 09/23/23 Chief Complaint: Syncope, A-fib, possible seizure. HISTORY OF PRESENT ILLNESS: 78-year-old one of my office patient seen for the last few years with known history of coronary artery disease post non-ST WI with triple-vessel require multiple angioplasty and stent placement, who is also known to have history of type 2 diabetes, stage IIIb chronic kidney disease, ischemic cardiomyopathy, hypertension, hyperlipidemia, paroxysmal atrial fibrillation, was in the hospital last time This past July for acute kidney injury with nonhealing u lcer on his foot along with significant abnormal liver function test. Found to have his acute kidney injury was mostly secondary to ATN in cardiogenic syndrome. Also had abnormal liver function test mostly from hypoperfusion related to his recent angioplasty and stent placement. Patient ejection fraction remained at 25 percentile and he had nonhealing ulcer of his foot start seeing the wound center has been on for the last few months. He presented to the emergency department today with syncopal episode witnessed by family and physical therapy, core being to the physical therapist show up at the house around 1:30 in the afternoon the patient was using the computer he walked to the bathroom and came back to the living room to see the physical therapist to talk about the plan for medical to do today he had a witnessed syncopal episode all of a sudden he does not recall any of it and according to physical therapy he had seizure-like activity lasted for couple minutes. She called 911 and patient brought to the emergency department at [facility]. He regained his consciousness completely back to normal since., Patient and do not describe any similar activity in the last few weeks. Same time patient had major cardiac event last few weeks also has been treated for left nonhealing ulcer and infection in his foot which she has been on quinolone lately for it. REVIEW OF SYSTEMS: CONSTITUTIONAL: Well-developed no acute respiratory distress. EYES: No icterus sclerae, no conjunctivitis. EARS, NOSE, MOUTH, THROAT, and FACE: No sore throat, lymphadenopathy, carotid bruits or deformity. RESPIRATORY: Mild shortness of breath no cough or wheezes. CARDIOVASCULAR: Positive PND orthopnea and orthopnea. GASTROINTESTINAL: No Abd pain, Nausea or vomiting, no Diarrhea or constipation, No GI Bleed, no distention or masses. GENITOURINARY: Negative for Hematuria or UTI, no kidney stones. INTEGUMENT/BREAST: Negative for any muscular injury with mild osteoarthritis.. HEMATOLOGIC/LYMPHATIC: Negative for bleed or purpura. MUSCULOSKELTAL: Left foot has callus with healing ulcer currently better than what was 2-month ago. NEURLOGICAL: No LOC, Sz or syncope, blurred vision dizziness or abnormality.. BEHAVIORAL/PSYCH: Negative. ENDOCRINE: Negative. PHYSICAL EXAMINATION: General Appearance: Alert, cooperative, no distress, appears stated age. Neck HEENT: Supple, no lymphadenopathy, no thyroid enlargement, no carotid bruits. Lungs: Decreased breath sound bilaterally with fine rhonchi no crackles or wheezes. Chest Wall: Decreased expansion with deep inspiration no tenderness and no deformity was found on exam, no costochondral pain or discomfort. Heart: Irregular rate and rhythm, S1, S2 normal, no murmur, rub or gallop. Back: Symmetric, no curvature, ROM normal, no CVA tenderness. Abdomen: Soft, non-tender, bowel sounds active all four quadrants, no masses, no organomegaly. Extremities: Left foot has nonhealing ulcer on the plantar area. Pulses: 2+ and symmetric. Skin: Skin color, texture, tugor normal, no rashes or lesions. Neurologic: Alert oriented x3 cranial nerves II through XII intact, no motor deficit, no abnormal balance or gait. ASSESSMENT AND PLAN: _Syncope: Not a clear etiology but witnessed and believe can be seizure activity. Patient be hospitalized consult neurology plan for an EEG as for his brain CAT scan was negative also patient had complete testing last few months with echo carotid ultrasound with his ejection fraction being low he did have ventricular tachycardia can be the cause of his syncope which will be more cardiac syncope will has different affect normally but still cannot be 100% excluded. Even one of the possibility of this is torsade the point from the effect of Levaquin recently can be the ER had missed finding in EKG we will do an EKG and still run it by cardiology. _Advanced cardiac disease with severe cardiomyopathy and multiple vessel disease: Still seeing cardiology and still on medical management. _Cardiomyopathy: Remain on metoprolol, furosemide and still on anticoagulation at this point. _A-fib: Continue Eliquis 2.5 mg twice a day still on metoprolol tartrate 50 mg twice a day. _Stage IIIb chronic kidney disease with GFR of 35 creatinine 1.82 continue to avoid any nephrotoxic agent continue gentle hydration watch for any toxic medication. _Nonhealing ulcer in the left foot: Has been seen wound care and remain on Levaquin apparently from a new culture. _Type 2 diabetes: Remain on insulin with Lantus or Tresiba 40 units a day along with 3 units of NovoLog AC meals plus sliding scales. _Chronic edema: Remain on furosemide. _Severe GERD continue omeprazole 20 mg daily. _DVT prophylaxis: Remain on Eliquis. _GI prophylaxis: Remain on omeprazole. _CODE STATUS: Full code. _Admit patient to the inpatient service for 1-2 night stay. 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, [facility] History of Any Multi-Drug Resistant Organisms: None Reported Past Surgical History: Cholecystectomy Past Anesthesia/Blood Transfusion Reactions: No Reported Reaction Past Psychological History: No Psychological Hx Reported Smoking Status: Never smoker Past Alcohol Use History: Occasional Past Drug Use History: None Reported - Past Family History Mother Additional Family Medical History / Comment(s): Sick sinus syndrome Father Family Medical History: Congestive Heart Failure (CHF) Additional Family Medical History / Comment(s): brother-heart failure, other borther heart attack. nephew/niece cardiac stents, Brother(s) Family Medical History: Coronary Artery Disease (CAD) Additional Family Medical History / Comment(s): 2 Brothers were diagnosed with early onset coronary artery disease in their 40s Medications and Allergies Home Medications Medication Instructions Recorded Confirmed Type Apixaban [Eliquis] 2.5 mg PO BID #60 tab 07/31/23 09/23/23 Rx Aspirin 81 mg PO DAILY #90 tab 07/31/23 09/23/23 Rx Insulin Degludec [Tresiba 40 units SQ DAILY #0 07/31/23 09/23/23 Rx Flextouch U-100 Pen] Nitroglycerin Sl Tabs [Nitrostat] 0.4 mg SUBLINGUAL Q5M PRN #100 tab 07/31/23 09/23/23 Rx Ticagrelor [Brilinta] 90 mg PO BID #180 tab 07/31/23 09/23/23 Rx INSULIN ASPART (NovoLOG) [NovoLOG 3 unit SQ AC-TID each 08/12/23 09/23/23 Rx (formulary)] Sodium Chloride 0.65% Nasal [Deep 2 spray NASAL QID PRN ml 08/12/23 09/23/23 Rx Sea (Saline)] Furosemide [Lasix] 40 mg PO BID@0900,1700 09/23/23 09/23/23 History INSULIN ASPART (NovoLOG) [NovoLOG See Protocol SQ ACHS 09/23/23 09/23/23 History (formulary)] Levofloxacin [Levaquin] 500 mg PO DAILY 09/23/23 09/23/23 History Metoprolol Tartrate [Lopressor] 50 mg PO BID@0900,1700 09/23/23 09/23/23 History Omeprazole 20 mg PO DAILY 09/23/23 09/23/23 History Tamsulosin [Flomax] 0.4 mg PO DAILY 09/23/23 09/23/23 History Allergies Allergy/AdvReac Type Severity Reaction Status Date / Time No Known Allergies Allergy Verified 09/23/23 17:34 Physical Exam Vitals: Vital Signs Temp Pulse Resp BP Pulse Ox 09/23/23 15:37 97.8 F 71 18 110/64 100 Intake and Output 09/23/23 09/23/23 09/23/23 06:59 14:59 22:59 Other: Weight 85.729 kg Results CBC & Chem 7: 09/24/23 07:23 09/23/23 15:51 Labs: Abnormal Lab Results - Last 24 Hours (Table) 09/23/23 09/23/23 09/23/23 Range/Units 15:51 15:51 15:51 RBC 3.49 L (4.30-5.90) m/uL Hgb 10.7 L (13.0-17.5) gm/dL Hct 32.1 L (39.0-53.0) % Neutrophils # 8.5 H (1.3-7.7) k/uL Lymphocytes # 0.8 L (1.0-4.8) k/uL APTT 30.2 H (22.0-30.0) sec Sodium 136 L (137-145) mmol/L BUN 39 H (9-20) mg/dL Creatinine 1.82 H (0.66-1.25) mg/dL Glucose 134 H (74-99) mg/dL Albumin 3.1 L (3.5-5.0) g/dL Urine Blood (Negative) Urine RBC (0-5) /hpf Hyaline Casts (0-2) /lpf Urine Mucus (None) /hpf 09/23/23 Range/Units 18:41 RBC (4.30-5.90) m/uL Hgb (13.0-17.5) gm/dL Hct (39.0-53.0) % Neutrophils # (1.3-7.7) k/uL Lymphocytes # (1.0-4.8) k/uL APTT (22.0-30.0) sec Sodium (137-145) mmol/L BUN (9-20) mg/dL Creatinine (0.66-1.25) mg/dL Glucose (74-99) mg/dL Albumin (3.5-5.0) g/dL Urine Blood Small H (Negative) Urine RBC 8 H (0-5) /hpf Hyaline Casts 16 H (0-2) /lpf Urine Mucus Rare H (None) /hpf
[2023-09-24 08:12] LABS: ALT 15 U/L (4-49); AST 21 U/L (17-59); African American GFR (CKD) 43 (>60 ml/min/1.73 sqM); Albumin 2.6 g/dL (3.5-5.0); Alkaline Phosphatase 98 U/L (38-126); Anion Gap 5 mmol/L; Blood Urea Nitrogen 36 mg/dL (9-20); Calcium 8.5 mg/dL (8.4-10.2); Carbon Dioxide 29 mmol/L (22-30); Chloride 104 mmol/L (98-107); Glucose 140 mg/dL (74-99); Magnesium 2.4 mg/dL (1.6-2.3); Non-African American GFR(CKD) 38 (>60 ml/min/1.73 sqM); Phosphorus 4.2 mg/dL (2.5-4.5); Potassium 3.8 mmol/L (3.5-5.1); Sodium 138 mmol/L (137-145); Total Bilirubin 0.4 mg/dL (0.2-1.3); Total Protein 5.7 g/dL (6.3-8.2)
[2023-09-24 08:36] LABS: Glucose,Whole Blood 132 mg/dL (70-110)
[2023-09-24] MEDS: TICAGRELOR 90 MG TAB PO SCH (08:37)
[2023-09-24] MEDS: FUROSEMIDE 20 MG TAB PO SCH (08:37)
[2023-09-24] MEDS: PANTOPRAZOLE 40 MG TABLET PO SCH (08:38)
[2023-09-24] MEDS: METOPROLOL TARTRATE 50 MG TAB PO SCH (08:38)
[2023-09-24] MEDS: TAMSULOSIN 0.4 MG CAP.ER.24H PO SCH (08:38)
[2023-09-24] MEDS: INSULIN ASPART (NovoLOG) 100 UNIT/ML VIAL SQ SCH ×2 (08:38)
[2023-09-24] MEDS ORDERED: ASPIRIN 81 MG PO SCH (09:00)
[2023-09-24] MEDS: APIXABAN 2.5 MG TABLET PO SCH (09:03)
[2023-09-24] MEDS: INSULIN DETEMIR (LEVEMIR) 100 UNIT/ML SYR SQ SCH (09:04)
--- NOTE | 2023-09-24 11:04 | P.CRDCN ---
History of Present Illness History of present illness: HISTORY OF PRESENT ILLNESS: This is a 78-year-old male with a past medical history significant for hypertension, hyperlipidemia, diabetes, ischemic cardiomyopathy, valvular heart disease, pulmonary hypertension, and coronary artery disease with recent stenting of the RCA and LAD. Patient follows in the office with Dr. Dean. We have been asked to see the patient in consultation for A-fib with RVR. Patient examined at the bedside in the emergency room. Patient states yesterday he was working with physical therapy when he went to the bathroom. He states after he used the bathroom he came out and began to feel like he was going to pass out. The patient then did have a witnessed syncopal episode. The patient states he did not have any warning signs. He denied any chest pain or pressure. Denied any shortness of breath. Denied any dizziness or lightheadedness. He denies any nausea, vomiting, or diarrhea. No further episodes of syncope since coming to the hospital. Apparently there is some question of possibility of seizure activity. DIAGNOSTICS: - EKG reveals sinus mechanism with PACs. No signs of acute ischemia.. - Chest xray negative for acute process - Laboratory data: WBC 7.4. Hemoglobin 10.2. Platelet count 334. Sodium 136. Potassium 3.8. BUN 39. Creatinine 1.82. Troponin negative x 3 - Current home cardiac medications include Eliquis 2.5 mg twice a day, aspirin 81 mg daily, Lasix 40 mg twice a day, metoprolol tartrate 50 mg twice a day, Brilinta 90 mg twice a day. - Most recent echocardiogram obtained in July 2023 revealed ejection fraction 20% - Cardiac catheterization history: July 26, 2023 with stenting of the right coronary artery with 2 stents and LAD with 2 stents. Impella assisted procedure. REVIEW OF SYSTEMS: At the time of my exam: CONSTITUTIONAL: Denies fever or chills. HEENT: Denies blurred vision, vision changes, or eye pain. Denies hemoptysis CARDIOVASCULAR: Denies chest pain. Denies orthopnea. Denies PND. Denies palpitations RESPIRATORY: Denies shortness of breath. GASTROINTESTINAL: Denies abdominal pain. Denies nausea or vomiting. HEMATOLOGIC: Denies bleeding disorders. GENITOURINARY: Denies any blood in urine. SKIN: Denies pruitis. Denies rash. PHYSICAL EXAM: VITAL SIGNS: Reviewed. GENERAL: Well-developed in no acute distress. HEENT: Head is normocephalic. Pupils are equal, round. Sclerae anicteric. Mucous membranes of the mouth are moist. Neck supple. No JVD or thyromegaly LUNGS: Respirations even and unlabored. Lungs essentially clear to auscultation bilaterally. HEART: Regular rate and rhythm. S1 and S2 heard. ABDOMEN: Soft. Nondistended. Nontender. EXTREMITIES: Normal range of motion. No clubbing or cyanosis. Peripheral pulses intact. No lower extremity edema NEUROLOGIC: Awake and alert. Oriented x 3. ASSESSMENT: Syncope, r/o cardiac etiology, can not rule out ventricular arrhythmia due to cardiomyopathy, possible vasovagal Possible seizure like activity, per family Recent admission for congestive heart failure, July 2023 Coronary artery disease with stenting of the RCA and LAD Paroxysmal atrial fibrillation Hypertension Hyperlipidemia Ischemic cardiomyopathy, EF 20% Diabetes Valvular heart disease including moderate MR Pulmonary hypertension Chronic kidney disease History of pancreatitis PLAN: Obtain limited echo to reassess LV function Resume home cardiac medications Decrease Lasix to once daily dosing Obtain orthostatic vital signs Continue telemetry monitoring to assess for any arrhythmias Consider event monitor at the time of discharge. If episodes of VT with cardiomyopathy, consider AICD Further recommendations pending patient course Nurse practitioner note has been reviewed by physician. Signing provider agrees with the documented findings, assessment, and plan of care documented by OCCASIONAL CAREGIVER as a scribe. 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, [facility] History of Any Multi-Drug Resistant Organisms: None Reported Past Surgical History: Cholecystectomy Past Anesthesia/Blood Transfusion Reactions: No Reported Reaction Past Psychological History: No Psychological Hx Reported Smoking Status: Never smoker Past Alcohol Use History: Occasional Past Drug Use History: None Reported - Past Family History Mother Additional Family Medical History / Comment(s): Sick sinus syndrome Father Family Medical History: Congestive Heart Failure (CHF) Additional Family Medical History / Comment(s): brother-heart failure, other bor ther heart attack. nephew/niece cardiac stents, Brother(s) Family Medical History: Coronary Artery Disease (CAD) Additional Family Medical History / Comment(s): 2 Brothers were diagnosed with early onset coronary artery disease in their 40s Medications and Allergies Home Medications Medication Instructions Recorded Confirmed Type Apixaban [Eliquis] 2.5 mg PO BID #60 tab 07/31/23 09/23/23 Rx Aspirin 81 mg PO DAILY #90 tab 07/31/23 09/23/23 Rx Insulin Degludec [Tresiba 40 units SQ DAILY #0 07/31/23 09/23/23 Rx Flextouch U-100 Pen] Nitroglycerin Sl Tabs [Nitrostat] 0.4 mg SUBLINGUAL Q5M PRN #100 tab 07/31/23 09/23/23 Rx Ticagrelor [Brilinta] 90 mg PO BID #180 tab 07/31/23 09/23/23 Rx INSULIN ASPART (NovoLOG) [NovoLOG 3 unit SQ AC-TID each 08/12/23 09/23/23 Rx (formulary)] Sodium Chloride 0.65% Nasal [Deep 2 spray NASAL QID PRN ml 08/12/23 09/23/23 Rx Sea (Saline)] Furosemide [Lasix] 40 mg PO BID@0900,1700 09/23/23 09/23/23 History INSULIN ASPART (NovoLOG) [NovoLOG See Protocol SQ ACHS 09/23/23 09/23/23 History (formulary)] Levofloxacin [Levaquin] 500 mg PO DAILY 09/23/23 09/23/23 History Metoprolol Tartrate [Lopressor] 50 mg PO BID@0900,1700 09/23/23 09/23/23 History Omeprazole 20 mg PO DAILY 09/23/23 09/23/23 History Tamsulosin [Flomax] 0.4 mg PO DAILY 09/23/23 09/23/23 History Allergies Allergy/AdvReac Type Severity Reaction Status Date / Time No Known Allergies Allergy Verified 09/23/23 17:34 Physical Exam Vitals: Vital Signs Temp Pulse Resp BP Pulse Ox 09/24/23 06:27 87 18 117/59 95 09/24/23 05:23 76 16 128/72 97 09/24/23 03:57 80 16 131/72 94 L 09/24/23 02:53 80 12 124/64 97 09/24/23 01:15 79 18 121/65 09/23/23 22:59 84 18 123/53 09/23/23 15:37 97.8 F 71 18 110/64 100 Intake and Output 09/23/23 09/24/23 09/24/23 22:59 06:59 14:59 Other: Weight 85.729 kg Results 09/24/23 07:23 09/24/23 07:23 Cardiac Enzymes 09/23/23 09/23/23 09/23/23 Range/Units 15:51 15:51 21:22 AST 23 (17-59) U/L Troponin I 0.018 0.018 (0.000-0.034) ng/mL 09/23/23 Range/Units 23:41 AST (17-59) U/L Troponin I 0.016 (0.000-0.034) ng/mL Coagulation 09/23/23 Range/Units 15:51 PT 12.2 (10.0-12.5) sec APTT 30.2 H (22.0-30.0) sec CBC 09/23/23 09/24/23 Range/Units 15:51 07:23 WBC 9.8 7.4 (3.8-10.6) k/uL RBC 3.49 L 3.46 L (4.30-5.90) m/uL Hgb 10.7 L 10.2 L (13.0-17.5) gm/dL Hct 32.1 L 31.7 L (39.0-53.0) % Plt Count 370 334 (150-450) k/uL Comprehensive Metabolic Panel 09/23/23 Range/Units 15:51 Sodium 136 L (137-145) mmol/L Potassium 3.8 (3.5-5.1) mmol/L Chloride 102 (98-107) mmol/L Carbon Dioxide 27 (22-30) mmol/L BUN 39 H (9-20) mg/dL Creatinine 1.82 H (0.66-1.25) mg/dL Glucose 134 H (74-99) mg/dL Calcium 8.5 (8.4-10.2) mg/dL AST 23 (17-59) U/L ALT 18 (4-49) U/L Alkaline Phosphatase 104 (38-126) U/L Total Protein 6.5 (6.3-8.2) g/dL Albumin 3.1 L (3.5-5.0) g/dL Current Medications Generic Name Dose Route Start Last Admin Trade Name Freq PRN Reason Stop Dose Admin Apixaban 2.5 mg 09/24/23 09:00 Apixaban 2.5 Mg Tablet PO BID [facility] Protocol Aspirin 81 mg 09/24/23 09:00 Aspirin 81 Mg PO DAILY [facility] Furosemide 40 mg 09/24/23 09:00 Furosemide 20 Mg Tab PO BID@0900,1600 [facility] Insulin Aspart 3 unit 09/24/23 07:30 Insulin Aspart (Novolog) 100 Unit/Ml Vial SQ AC-TID [facility] Insulin Aspart 0 unit 09/24/23 07:30 Insulin Aspart (Novolog) 100 Unit/Ml Vial SQ ACHS [facility] Protocol Insulin Detemir 40 unit 09/24/23 07:00 Insulin Detemir (Levemir) 100 Unit/Ml Syr SQ DAILY@0700 [facility] Metoprolol Tartrate 50 mg 09/24/23 09:00 Metoprolol Tartrate 50 Mg Tab PO BID [facility] Morphine Sulfate 4 mg 09/23/23 19:49 Morphine Sulfate 4 Mg/Ml Syringe IV Q4HR PRN Severe Pain (Scale 7 to 10) Naloxone HCl 0.2 mg 09/23/23 19:30 Naloxone 0.4 Mg/Ml 1 Ml Vial IV Q2M PRN Opioid Reversal Nitroglycerin 0.4 mg 09/23/23 21:48 Nitroglycerin Sl Tabs 0.4 Mg Tab SUBLINGUAL Q5M PRN Chest Pain Ondansetron HCl 4 mg 09/23/23 19:49 Ondansetron 4 Mg/2 Ml Vial IVP Q8HR PRN Nausea And Vomiting Pantoprazole Sodium 40 mg 09/24/23 07:30 Pantoprazole 40 Mg Tablet PO AC-BRKFST [facility] Sodium Chloride 2 spray 09/23/23 21:48 Sodium Chloride 0.65% Nasal [place] 44 Ml Btl NASAL QID PRN Nasal Congestion Tamsulosin HCl 0.4 mg 09/24/23 09:00 Tamsulosin 0.4 Mg Cap.Er.24h PO DAILY [facility] Ticagrelor 90 mg 09/24/23 09:00 Ticagrelor 90 Mg Tab PO BID [facility] Intake and Output 09/23/23 09/24/23 09/24/23 22:59 06:59 14:59 Other: Weight 85.729 kg 09/24/23 07:23 09/23/23 15:51
[2023-09-24 11:35] LABS: Glucose,Whole Blood 238 mg/dL (70-110)
--- NOTE | 2023-09-24 20:23 | EEG ---
ELECTROENCEPHALOGRAM REPORT PREAMBLE: This is a 78-year-old male who was at the physical therapy and had a syncopal episode followed by seizure-like activity. EEG FINDINGS: This is a 21-channel digital EEG recorded with video component, utilizing 10/20 international system with referential and bipolar montages. Background consists of well developed, well regulated moderate voltage activity in 8-9 hertz alpha. Background is posterior dominant and reactive to eye opening and closing. Drowsiness was shortly seen with appearance of bilaterally symmetric theta frequency rhythm. Stage 2 sleep was attained with presence of vertex waves, and sleep spindles. Photic driving response was not seen. No focal or generalized epileptiform activity was seen. EKG channel showed no obvious arrhythmia. IMPRESSION: This is a normal EEG during wakefulness, drowsiness, and stage 2 sleep. No focal, lateralized or epileptiform activity was seen. MMVILMA / ANUPAMAN: [id number] /
[2023-09-24 20:37] LABS: Appearance,Urine Clear (Clear); Bilirubin,Urine Negative (Negative); Blood,Urine Small (Negative); Color,Urine Colorless; Glucose,Urine (UA) Negative (Negative); Hyaline Casts,Urine 7 /lpf (0-2); Ketones,Urine Negative (Negative); Leukocyte Esterase,Urine Negative (Negative); Nitrite,Urine Negative (Negative); Protein,Urine Negative (Negative); RBC,Urine <1 /hpf (0-5); Specific Gravity,Urine 1.012 (1.001-1.035); Urobilinogen,Urine <2.0 mg/dL (<2.0); WBC,Urine 1 /hpf (0-5)
[2023-09-24 20:45] LABS: Glucose,Whole Blood 286 mg/dL (70-110)
--- NOTE | 2023-09-25 05:47 | P.PN ---
Subjective Progress Note Date: 09/24/23 HISTORY OF PRESENT ILLNESS: 78-year-old one of my office patient seen for the last few years with known history of coronary artery disease post non-ST ID with triple-vessel require multiple angioplasty and stent placement, who is also known to have history of type 2 diabetes, stage IIIb chronic kidney disease, ischemic cardiomyopathy, hypertension, hyperlipidemia, paroxysmal atrial fibrillation, was in the hospital last time This past July for acute kidney injury with nonhealing ulcer on his foot along with significant abnormal liver function test. Found to have his acute kidney injury was mostly secondary to ATN in cardiogenic syndrome. Also had abnormal liver function test mostly from hypoperfusion related to his recent angioplasty and stent placement. Patient ejection fraction remained at 25 percentile and he had nonhealing ulcer of his foot start seeing the wound center has been on for the last few months. He presented to the emergency department today with syncopal episode witnessed by family and physical therapy, core being to the physical therapist show up at the house around 1:30 in the afternoon the patient was using the computer he walked to the bathroom and came back to the living room to see the physical therapist to talk about the plan for medical to do today he had a witnessed syncopal episode all of a sudden he does not recall any of it and according to physical therapy he had seizure-like activity lasted for couple minutes. She called 911 and patient brought to the emergency department at [facility]. He regained his consciousness completely back to normal since., Patient and do not describe any similar activity in the last few weeks. Same time patient had major cardiac event last few weeks also has been treated for left nonhealing ulcer and infection in his foot which she has been on quinolone latel y for it. 09/24/2023: Patient was admitted last night still in emergency hold. No change no seizure activity since he has been watched carefully with the night, he will be seen cardiology neurology today with testing will be done baseline to decide next best management plan. REVIEW OF SYSTEMS: CONSTITUTIONAL: Well-developed no acute respiratory distress. EYES: No icterus sclerae, no conjunctivitis. EARS, NOSE, MOUTH, THROAT, and FACE: No sore throat, lymphadenopathy, carotid bruits or deformity. RESPIRATORY: Mild shortness of breath no cough or wheezes. CARDIOVASCULAR: Positive PND orthopnea and orthopnea. GASTROINTESTINAL: No Abd pain, Nausea or vomiting, no Diarrhea or constipation, No GI Bleed, no distention or masses. GENITOURINARY: Negative for Hematuria or UTI, no kidney stones. INTEGUMENT/BREAST: Negative for any muscular injury with mild osteoarthritis.. HEMATOLOGIC/LYMPHATIC: Negative for bleed or purpura. MUSCULOSKELTAL: Left foot has callus with healing ulcer currently better than what was 2-month ago. NEURLOGICAL: No LOC, Sz or syncope, blurred vision dizziness or abnormality.. BEHAVIORAL/PSYCH: Negative. ENDOCRINE: Negative. PHYSICAL EXAMINATION: General Appearance: Alert, cooperative, no distress, appears stated age. Neck HEENT: Supple, no lymphadenopathy, no thyroid enlargement, no carotid bruit s. Lungs: Decreased breath sound bilaterally with fine rhonchi no crackles or wheezes. Chest Wall: Decreased expansion with deep inspiration no tenderness and no deformity was found on exam, no costochondral pain or discomfort. Heart: Irregular rate and rhythm, S1, S2 normal, no murmur, rub or gallop. Back: Symmetric, no curvature, ROM normal, no CVA tenderness. Abdomen: Soft, non-tender, bowel sounds active all four quadrants, no masses, no organomegaly. Extremities: Left foot has nonhealing ulcer on the plantar area. Pulses: 2+ and symmetric. Skin: Skin color, texture, tugor normal, no rashes or lesions. Neurologic: Alert oriented x3 cranial nerves II through XII intact, no motor deficit, no abnormal balance or gait. ASSESSMENT AND PLAN: _Syncope: Not a clear etiology but witnessed and believe can be seizure activity. Patient be hospitalized consult neurology plan for an EEG as for his brain CAT scan was negative also patient had complete testing last few months with echo carotid ultrasound with his ejection fraction being low he did have ventricular tachycardia can be the cause of his syncope which will be more cardiac syncope will has different affect normally but still cannot be 100% excluded. Even one of the possibility of this is torsade de point from the effect of Levaquin recently can be the ER had missed finding in EKG we will do an EKG and still run it by cardiology. Not seeing much V. tach or arrhythmia at this point. _Advanced cardiac disease with severe cardiomyopathy and multiple vessel disease: Still seeing cardiology and still on medical management. _Cardiomyopathy: Cardiology will evaluate patient again for possibility of AICD specially with advanced cardiomyopathy with low ejection fraction but seeing if he is having any arrhythmia to push this to become more urgent. So we will have more construction mgr while he is in will have at least event monitor when he is in the hospital. _A-fib: Continue Eliquis 2.5 mg twice a day still on metoprolol tartrate 50 mg twice a day. Pulse rate is not rapid and still doing better. _Stage IIIb chronic kidney disease with GFR of 35 creatinine 1.82 continue to avoid any nephrotoxic agent continue gentle hydration watch for any toxic medication. _Nonhealing ulcer in the left foot: Has been seen wound care and remain on Levaquin apparently from a new culture. Request some wound care while he is in the hospital. _Type 2 diabetes: Remain on insulin with Lantus or Tresiba 40 units a day along with 3 units of NovoLog AC meals plus sliding scales. _Chronic edema: Remain on furosemide. _Severe GERD continue omeprazole 20 mg daily. Discharge expectation: 12 seen neurology and cardiology today EEG is pending, might do another echocardiogram if patient is doing well by tomorrow and clear from both might do some construction mgr and ended up going home. Objective - Vital Signs Vital signs: Vital Signs Temp 97.8 F 09/23/23 15:37 Pulse 76 09/24/23 05:23 Resp 16 09/24/23 05:23 BP 128/72 09/24/23 05:23 Pulse Ox 97 09/24/23 05:23 FiO2 Intake & Output 09/23/23 09/23/23 09/24/23 06:59 18:59 06:59 Weight 85.729 kg - Labs CBC & Chem 7: 09/24/23 07:23 09/24/23 07:23 Labs: Abnormal Lab Results - Last 24 Hours (Table) 09/23/23 09/23/23 09/23/23 Range/Units 15:51 15:51 15:51 RBC 3.49 L (4.30-5.90) m/uL Hgb 10.7 L (13.0-17.5) gm/dL Hct 32.1 L (39.0-53.0) % Neutrophils # 8.5 H (1.3-7.7) k/uL Lymphocytes # 0.8 L (1.0-4.8) k/uL APTT 30.2 H (22.0-30.0) sec Sodium 136 L (137-145) mmol/L BUN 39 H (9-20) mg/dL Creatinine 1.82 H (0.66-1.25) mg/dL Glucose 134 H (74-99) mg/dL POC Glucose (mg/dL) (70-110) mg/dL Albumin 3.1 L (3.5-5.0) g/dL Urine Blood (Negative) Urine RBC (0-5) /hpf Hyaline Casts (0-2) /lpf Urine Mucus (None) /hpf 09/23/23 09/24/23 Range/Units 18:41 01:46 RBC (4.30-5.90) m/uL Hgb (13.0-17.5) gm/dL Hct (39.0-53.0) % Neutrophils # (1.3-7.7) k/uL Lymphocytes # (1.0-4.8) k/uL APTT (22.0-30.0) sec Sodium (137-145) mmol/L BUN (9-20) mg/dL Creatinine (0.66-1.25) mg/dL Glucose (74-99) mg/dL POC Glucose (mg/dL) 234 H (70-110) mg/dL Albumin (3.5-5.0) g/dL Urine Blood Small H (Negative) Urine RBC 8 H (0-5) /hpf Hyaline Casts 16 H (0-2) /lpf Urine Mucus Rare H (None) /hpf
[2023-09-25 06:00] LABS: Glucose,Whole Blood 152 mg/dL (70-110)
[2023-09-25 07:06] LABS: Glucose,Whole Blood 146 mg/dL (70-110)
[2023-09-25] MEDS: FUROSEMIDE 40 MG TAB PO SCH (09:13)
--- NOTE | 2023-09-25 09:35 | P.CNNES ---
History of Present Illness Consult date: 09/24/23 Requesting physician: Derian Link Reason for Consult: Syncope, Possible SZ History of Present Illness: Patient is a 78-year-old right-handed male with longstanding history of diabetes, diabetic neuropathy,, diabetic foot ulcer, uses a walking chair for ambulation at this time because of foot ulcer, came to the hospital yesterday at 3:14 PM for a syncopal spell. Patient states that yesterday he was feeling good and physical therapist came to see him. He went to the bathroom in his walking chair, passed the urine as usual, and was coming back and the next thing he felt that he was going to pass out. He passed out for less than a minute. The therapist noted some seizure-like activity therefore EMS was called. He did not bite his tongue, did not lose control of urine. There was no significant postictal state. Vital signs on arrival blood pressure 110/64, pulse rate 71 temperature 97.8. Blood test shows normal WBC hemoglobin 10.7, platelets 370. PT PTT normal. Sodium 136 potassium 3.8. BUN 39 creatinine 1.82. Hepatic panel is normal, troponin negative, UA negative. Chest x-ray revealed no evidence for acute pulmonary disease. CT head revealed age-related atrophic and chronic small vessel ischemic change without acute intracranial process seen at this time. I personally reviewed CT head agree with the findings. EKG shows sinus rhythm. Patient states that in the year 1999 while he was working in [place], and on 1 day it was very hot outside 105 F. Once he got done, came home went to eat at a local restaurant and after he finished eating food, then all of a sudden he passed out and had a large vomitus. He passed out, turned waite. He was life flighted to hospital in [place]. He saw multiple postal service mail processor and was diagnosed with vasovagal syncope. Patient has history of diabetes diagnosed in 1990 after he had pancreatitis which affected his pancreas. Patient has Charcot feet diagnosed in 2016. Patient has diabetic neuropathy, and it hurts off and on for the last 5 years. The neuropathic pain may occur about 1 day a month, last half a day or so. It may involve the 1 foot and toes or the other foot. However about 3 weeks ago, the neuropathy symptoms became worse and it was very intense for the whole day. Then it quit and has been fine since then. He also has numbness of the hands. Patient states that he developed an open wound in the left foot on 07/24/2023. He is getting treatment for that. Review of Systems Constitutional: Denies chills, Denies fever Eyes: denies blurred vision, denies diplopia, denies pain, denies loss of peripheral vision Ears: left: decreased hearing, deny: earache, tinnitus Ears, nose, mouth and throat: Denies headache, Denies sore throat, Denies vertigo Cardiovascular: Reports shortness of breath, Denies chest pain Respiratory: Denies cough, Denies excessive sputum Gastrointestinal: Denies abdominal pain, Denies diarrhea, Denies nausea, Denies vomiting Genitourinary: Denies dysuria, Denies incontinence Musculoskeletal: Reports low back pain, Denies neck pain Integumentary: Reports brittle nails, Reports change in hair/nails, Reports foot/leg ulcers, Reports lesions, Reports wounds, Denies pruritus, Denies rash Neurological: Reports as per HPI Psychiatric: Denies anxiety, Denies depression Endocrine: Denies fatigue, Denies weight change Past Medical History Past Medical History: Diabetes Mellitus, GERD/Reflux, Hearing Disorder / Deafness, Hyperlipidemia, Hypertension, Myocardial Infarction (PR) Additional Past Medical History / Comment(s): 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, [facility] Last Myocardial Infarction Date:: 07/2023 History of Any Multi-Drug Resistant Organisms: None Reported Past Surgical History: Cholecystectomy, Heart Catheterization With Stent Additional Past Surgical History / Comment(s): [address] July 2023 Past Anesthesia/Blood Transfusion Reactions: No Reported Reaction Date of Last Stent Placement:: 07/28/2023 Past Psychological History: No Psychological Hx Reported Smoking Status: Never smoker Past Alcohol Use History: Occasional Past Drug Use History: None Reported - Past Family History Mother Additional Family Medical History / Comment(s): Sick sinus syndrome Father Family Medical History: Congestive Heart Failure (CHF) Additional Family Medical History / Comment(s): brother-heart failure, other borther heart attack. nephew/niece cardiac stents, Brother(s) Family Medical History: Coronary Artery Disease (CAD) Additional Family Medical History / Comment(s): 2 Brothers were diagnosed with early onset coronary artery disease in their 40s Medications and Allergies Home Medications Medication Instructions Recorded Confirmed Type Apixaban [Eliquis] 2.5 mg PO BID #60 tab 07/31/23 09/23/23 Rx Aspirin 81 mg PO DAILY #90 tab 07/31/23 09/23/23 Rx Insulin Degludec [Tresiba 40 units SQ DAILY #0 07/31/23 09/23/23 Rx Flextouch U-100 Pen] Nitroglycerin Sl Tabs [Nitrostat] 0.4 mg SUBLINGUAL Q5M PRN #100 tab 07/31/23 09/23/23 Rx Ticagrelor [Brilinta] 90 mg PO BID #180 tab 07/31/23 09/23/23 Rx INSULIN ASPART (NovoLOG) [NovoLOG 3 unit SQ AC-TID each 08/12/23 09/23/23 Rx (formulary)] Sodium Chloride 0.65% Nasal [Deep 2 spray NASAL QID PRN ml 08/12/23 09/23/23 Rx Sea (Saline)] Furosemide [Lasix] 40 mg PO BID@0900,1700 09/23/23 09/23/23 History INSULIN ASPART (NovoLOG) [NovoLOG See Protocol SQ ACHS 09/23/23 09/23/23 History (formulary)] Levofloxacin [Levaquin] 500 mg PO DAILY 09/23/23 09/23/23 History Metoprolol Tartrate [Lopressor] 50 mg PO BID@0900,1700 09/23/23 09/23/23 History Omeprazole 20 mg PO DAILY 09/23/23 09/23/23 History Tamsulosin [Flomax] 0.4 mg PO DAILY 09/23/23 09/23/23 History Allergies Allergy/AdvReac Type Severity Reaction Status Date / Time No Known Allergies Allergy Verified 09/23/23 17:34 Physical Examination - Vital Signs Vital Signs: Vital Signs Temp Pulse Pulse Pulse Pulse Resp BP 09/24/23 18:17 97.9 F 81 16 09/24/23 15:44 98.1 F 94 16 116/68 09/24/23 13:11 93 09/24/23 11:38 93 16 09/24/23 10:10 73 70 82 09/24/23 09:45 97.6 F 73 70 82 16 09/24/23 06:27 87 18 117/59 09/24/23 05:23 76 16 128/72 09/24/23 03:57 80 16 131/72 09/24/23 02:53 80 12 124/64 09/24/23 01:15 79 18 121/65 09/23/23 22:59 84 18 123/53 BP BP BP Pulse Ox 09/24/23 18:17 112/69 99 09/24/23 15:44 95 09/24/23 13:11 09/24/23 11:38 131/64 96 09/24/23 10:10 09/24/23 09:45 93/53 90/45 116/65 98 09/24/23 06:27 95 09/24/23 05:23 97 09/24/23 03:57 94 L 09/24/23 02:53 97 09/24/23 01:15 09/23/23 22:59 Intake and Output 09/24/23 09/24/23 09/24/23 06:59 14:59 22:59 Other: Voiding Method Bedside Commode Urinal # Voids 1 # Bowel Movements 1 Weight 85.729 kg Patient is an elderly male, very pleasant, in no acute distress. Patient is alert awake oriented to time place and person. Speech and language functions are normal. Patient can name and repeat very well. No aphasia or dysarthria. Attention, concentration and fund of knowledge is adequate. On cranial nerve examination, pupils are equal, round and reacting to light, visual franklin are full on confrontation, with no neglect on double simultaneous stimulation. Extraocular muscles are intact with no nystagmus. Face is symmetric, tongue protrudes to the midline. Palatal elevation and sensation normal, hearing is decreased particularly in the left ear and shoulder shrug normal, facial sensation normal. On muscle strength testing, there is no pronator drift and the strength is normal in arms and legs distally and proximally. Deep tendon reflexes are (right/left) biceps trace/trace, brachioradialis 0/0, knee trace/1, ankle 0/0, plantars flat. Sensory to touch is equal with no neglect on double simultaneous stimulation. Cerebellar function showed no ataxia for [id number] testing. No dysdiadochokinesia. No ataxia for [id number] testing on either side. Tone and bulk of muscles normal. Gait deferred.. On general examination, there is no carotid bruit heard on either sides, no murmur, S1-S2 audible. Chest is clear on consultation. Abdomen is soft nontender. No organomegaly, bowel sounds present. Patient has bandage on his left foot because of the foot ulcer. Results - Laboratory Findings CBC and BMP: 09/24/23 07:23 09/24/23 07:23 Abnormal Lab Findings: Abnormal Labs 09/23/23 09/23/23 09/23/23 15:51 15:51 15:51 RBC 3.49 L Hgb 10.7 L Hct 32.1 L Neutrophils # 8.5 H Lymphocytes # 0.8 L APTT 30.2 H Sodium 136 L BUN 39 H Creatinine 1.82 H Glucose 134 H POC Glucose (mg/dL) Magnesium Total Protein Albumin 3.1 L Urine Blood Urine RBC Hyaline Casts Urine Mucus 09/23/23 09/24/23 09/24/23 18:41 01:46 07:23 RBC 3.46 L Hgb 10.2 L Hct 31.7 L Neutrophils # Lymphocytes # APTT Sodium BUN Creatinine Glucose POC Glucose (mg/dL) 234 H Magnesium Total Protein Albumin Urine Blood Small H Urine RBC 8 H Hyaline Casts 16 H Urine Mucus Rare H 09/24/23 09/24/23 09/24/23 07:23 08:35 11:34 RBC Hgb Hct Neutrophils # Lymphocytes # APTT Sodium BUN 36 H Creatinine 1.71 H Glucose 140 H POC Glucose (mg/dL) 132 H 238 H Magnesium 2.4 H Total Protein 5.7 L Albumin 2.6 L Urine Blood Urine RBC Hyaline Casts Urine Mucus Assessment and Plan Assessment: * Syncopal spell, likely vasovagal, rule out arrhythmia. Patient had history of vasovagal syncope once in 1999 as well while working in [place]. * Diabetes, with diabetic neuropathy * Hypertension * Hyperlipidemia * Coronary artery disease * Hearing disorder, particularly left ear Plan: * Patient had an EEG performed today, which is normal during wakefulness, drows iness and stage II sleep. No focal, lateralized or epileptiform activity was seen. * Patient probably had a convulsive syncope, does not appear a seizure. No indication for antiepileptic medication. * Cardiology on board, evaluating for possible arrhythmia. 2D echo has been initiated. * Orthostatics checked supine blood pressure 116/65 with pulse of 82, sitting 93/53, pulse 73 and standing 90/45, pulse 70. Orthostatics are slightly positive. Cardiology has adjusted blood pressure medications. * Telemetry monitoring showing atrial fibrillation. * Patient currently on Eliquis 2.5 mg twice daily, and Brilinta 90 mg twice daily. * Patient has diabetic neuropathy, which bothers him intermittently. We will check B12, folate, MMA and B6 levels. * Patient currently not taking any medication for diabetic neuropathy. His symptoms are intermittent. If the symptoms become more problematic, then he could be tried on Lyrica or Cymbalta. At present we will hold off on medication, as he does not have any pain all the time. * Neurologically, no other workup indicated. * Neurologically clear. Thank you for the consult.
--- NOTE | 2023-09-25 10:47 | CA ---
Transthoracic Echo Report Name: Bhupinder Ruiz Age: 78 Gender: M : 1945 Exam Date: 09/25/2023 08:48 Exam Location: [facility] Ht (in): 69 Wt (lb): 189 Ordering Physician: Alisa Melendrez Attending/Referring Phys: [id number], Parvin Substation Operator Helper Any Quinonez RCS Procedure CPT: Indications: LV function Cardiac Hx: Technical Quality: Poor Contrast 1: Total Dose (mL): Contrast 2: Total Dose (mL): MEASUREMENTS (Male / Female) Normal Values 2D ECHO LV Diastolic Diameter PLAX 5.7 cm 4.2 - 5.9 / 3.9 - 5.3 cm LV Systolic Diameter PLAX 4.8 cm IVS Diastolic Thickness 1.0 cm 0.6 - 1.0 / 0.6 - 0.9 cm LVPW Diastolic Thickness 0.7 cm 0.6 - 1.0 / 0.6 - 0.9 cm LV Relative Wall Thickness 0.3 RV Internal Dim ED PLAX 2.3 cm LV Diastolic Volume MOD BP 146.5 cm??? 67 - 155 / 56 - 104 cm??? LV Systolic Volume MOD BP 72.0 cm??? 22 - 58 / 19 - 49 cm??? LV Ejection Fraction MOD BP 50.8 % >= 55 % LV Cardiac Index MOD BP 2819.5 cm???/min???m??? LV Diastolic Volume MOD 4C 157.4 cm??? LV Systolic Volume MOD 4C 64.5 cm??? LV Ejection Fraction MOD 4C 59.0 % LV Cardiac Index MOD 4C 3515.4 cm???/min???m??? LV Diastolic Length 4C 8.6 cm LV Systolic Length 4C 6.9 cm LV Diastolic Volume MOD 2C 130.9 cm??? LV Systolic Volume MOD 2C 78.0 cm??? LV Ejection Fraction MOD 2C 40.4 % LV Cardiac Index MOD 2C 2001.8 cm???/min???m??? LV Diastolic Length 2C 8.3 cm LV Systolic Length 2C 7.2 cm LA Volume 60.4 cm??? 18 - 58 / 22 - 52 cm??? LA Volume Index 29.3 cm???/m??? 16 - 28 cm???/m??? FINDINGS Left Ventricle Left ventricular ejection fraction is estimated at 30-35 %. Moderately increased left ventricular systolic volume. Mildly decreased left ventricular ejection fraction. Right Ventricle Normal right ventricular size and function. Right Atrium Normal right atrial size. Left Atrium Mildly increased left atrial volume. Mitral Valve Structurally normal mitral valve. Aortic Valve Trileaflet aortic valve. Tricuspid Valve Structurally normal tricuspid valve. Pulmonic Valve Pulmonic valve not well visualized. Pericardium No pericardial effusion. Aorta Aortic root and proximal ascending aorta not well visualized. CONCLUSIONS Moderate to severe LV systolic dysfunction with an ejection fraction of 30-35% Previewed by: Dr. Marciano Rodarte MD (Electronically Signed) Final Date: 25 September 2023 10:46
--- NOTE | 2023-09-25 11:10 | P.PN ---
Subjective HISTORY OF PRESENT ILLNESS: This is a 78-year-old male with a past medical history significant for hypertension, hyperlipidemia, diabetes, ischemic cardiomyopathy, valvular heart disease, pulmonary hypertension, and coronary artery disease with recent stenting of the RCA and LAD. Patient follows in the office with Dr. Dean. We have been asked to see the patient in consultation for A-fib with RVR. Patient examined at the bedside in the emergency room. Patient states yesterday he was working with physical therapy when he went to the bathroom. He states after he used the bathroom he came out and began to feel like he was going to pass out. The patient then did have a witnessed syncopal episode. The patient states he did not have any warning signs. He denied any chest pain or pressure. Denied any shortness of breath. Denied any dizziness or lightheadedness. He denies any nausea, vomiting, or diarrhea. No further episodes of syncope since coming to the hospital. Apparently there is some question of possibility of seizure activity. DIAGNOSTICS: - EKG reveals sinus mechanism with PACs. No signs of acute ischemia.. - Chest xray negative for acute process - Laboratory data: WBC 7.4. Hemoglobin 10.2. Platelet count 334. Sodium 136. Potassium 3.8. BUN 39. Creatinine 1.82. Troponin negative x 3 - Current home cardiac medications include Eliquis 2.5 mg twice a day, aspirin 81 mg daily, Lasix 40 mg twice a day, metoprolol tartrate 50 mg twice a day, Brilinta 90 mg twice a day. - Most recent echocardiogram obtained in July 2023 revealed ejection fraction 20% - Cardiac catheterization history: July 26, 2023 with stenting of the right coronary artery with 2 stents and LAD with 2 stents. Impella assisted proc edure. 09/25/2023 Patient examined this morning at the bedside. Patient denies chest pain or pressure. He denies shortness of breath. He denies any dizziness or lightheadedness. No further episodes of syncope. Patient did have positive orthostatic blood pressures yesterday. Telemetry reveals sinus mechanism with a heart rate in the 70s. Limited echo obtained revealing ejection fraction 30 to 35%. PHYSICAL EXAM: VITAL SIGNS: Reviewed. GENERAL: Well-developed in no acute distress. HEENT: Head is normocephalic. Pupils are equal, round. Sclerae anicteric. Mucous membranes of the mouth are moist. Neck supple. No JVD or thyromegaly LUNGS: Respirations even and unlabored. Lungs essentially clear to auscultation bilaterally. HEART: Regular rate and rhythm. S1 and S2 heard. ABDOMEN: Soft. Nondistended. Nontender. EXTREMITIES: Normal range of motion. No clubbing or cyanosis. Peripheral pulses intact. No lower extremity edema NEUROLOGIC: Awake and alert. Oriented x 3. ASSESSMENT: Syncope, r/o cardiac etiology, can not rule out ventricular arrhythmia due to cardiomyopathy, possible vasovagal Orthostatic hypotension Possible seizure like activity, per family Recent admission for congestive heart failure Coronary artery disease with stenting of the RCA and LAD, July 2023 Paroxysmal atrial fibrillation Hypertension Hyperlipidemia Ischemic cardiomyopathy, EF 20% Diabetes Valvular heart disease including moderate MR Pulmonary hypertension Chronic kidney disease History of pancreatitis PLAN: Current cardiac medications Repeat orthostatic blood pressures Continue telemetry monitoring to assess for any arrhythmias Consider event monitor at the time of discharge. If episodes of VT with cardiomyopathy, consider AICD Further recommendations pending patient course Nurse practitioner note has been reviewed by physician. Signing provider agrees with the documented findings, assessment, and plan of care documented by COMMISSARY MANAGER as a scribe. Objective - Vital Signs Vital signs: Vital Signs Temp 98 F 09/25/23 08:00 Pulse 93 09/25/23 11:05 Resp 16 09/25/23 08:00 BP 112/68 09/25/23 11:05 Pulse Ox 95 09/25/23 08:00 FiO2 Intake & Output 09/24/23 09/25/23 09/25/23 18:59 06:59 18:59 Intake Total 340 240 Output Total 800 Balance -460 240 Weight 85.729 kg Intake: Oral 340 240 Output: Urine 800 Other: Voiding Method Bedside Commode Toilet Toilet Urinal # Voids 1 1 # Bowel Movements 1 - Labs CBC & Chem 7: 09/24/23 07:23 09/24/23 07:23 Labs: Abnormal Lab Results - Last 24 Hours (Table) 09/24/23 09/24/23 09/24/23 Range/Units 11:34 20:05 20:43 POC Glucose (mg/dL) 238 H 286 H (70-110) mg/dL Urine Blood Small H (Negative) Hyaline Casts 7 H (0-2) /lpf 03/08/24 03/08/24 Range/Units 05:58 07:02 POC Glucose (mg/dL) 152 H 146 H (70-110) mg/dL Urine Blood (Negative) Hyaline Casts (0-2) /lpf
[2023-09-25 11:13] VITALS: TEMP 98
[2023-09-25 11:54] LABS: Glucose,Whole Blood 224 mg/dL (70-110)
[2023-09-25 13:28] VITALS: BP 129/69; PULSE 75; RESP 18
[2023-09-25 16:57] LABS: Glucose,Whole Blood 264 mg/dL (70-110)
--- NOTE | 2023-09-25 17:09 | P.DS ---
Providers Date of admission: 09/23/23 19:50 Attending physician: Derian Link Consults: 09/23/23 19:40 Consult Physician Routine Consulting Provider: Symone Rachel Consult Reason/Comments: [email or web address] Do you want consulting provider notified?: Yes 09/23/23 21:46 Consult Physician Routine Consulting Provider: Josias Padilla Consult Reason/Comments: Syncope, Possible SZ Do you want consulting provider notified?: Yes Primary care physician: Derian [facility] Course: HISTORY OF PRESENT ILLNESS: 78-year-old one of my office patient seen for the last few years with known history of coronary artery disease post non-ST CA with triple-vessel require multiple angioplasty and stent placement, who is also known to have history of type 2 diabetes, stage IIIb chronic kidney disease, ischemic cardiomyopathy, hypertension, hyperlipidemia, paroxysmal atrial fibrillation, was in the hospital last time This past July for acute kidney injury with nonhealing ulcer on his foot along with significant abnormal liver function test. Found to have his acute kidney injury was mostly secondary to ATN in cardiogenic syndrome. Also had abnormal liver function test mostly from hypoperfusion related to his recent angioplasty and stent placement. Patient ejection fraction remained at 25 percentile and he had nonhealing ulcer of his foot start seeing the wound center has been on for the last few months. He presented to the emergency department today with syncopal episode witnessed by family and physical therapy, core being to the physical therapist show up at the house around 1:30 in the afternoon the patient was using the computer he walked to the bathroom and came back to the living room to see the physical therapist to talk about the plan for medical to do today he had a witnessed syncopal episode all of a sudden he does not recall any of it and according to physical therapy he had seizure-like activity lasted for couple minutes. She called 911 and patient brought to the emergency department at [facility]. He regained his consciousness completely back to normal since., Patient and do not describe any similar activity in the last few weeks. Same time patient had major cardiac event last few weeks also has been treated for left nonhealing ulcer and infection in his foot which she has been on quinolone lately for it. 09/24/2023: Patient was admitted last night still in emergency hold. No change no seizure activity since he has been watched carefully with the night, he will be seen cardiology neurology today with testing will be done baseline to decide next best management plan. REVIEW OF SYSTEMS: CONSTITUTIONAL: Well-developed no acute respiratory distress. EYES: No icterus sclerae, no conjunctivitis. EARS, NOSE, MOUTH, THROAT, and FACE: No sore throat, lymphadenopathy, carotid bruits or deformity. RESPIRATORY: Mild shortness of breath no cough or wheezes. CARDIOVASCULAR: Positive PND orthopnea and orthopnea. GASTROINTESTINAL: No Abd pain, Nausea or vomiting, no Diarrhea or constipation, No GI Bleed, no distention or masses. GENITOURINARY: Negative for Hematuria or UTI, no kidney stones. INTEGUMENT/BREAST: Negative for any muscular injury with mild osteoarthritis.. HEMATOLOGIC/LYMPHATIC: Negative for bleed or purpura. MUSCULOSKELTAL: Left foot has callus with healing ulcer currently better than what was 2-month ago. NEURLOGICAL: No LOC, Sz or syncope, blurred vision dizziness or abnormality.. BEHAVIORAL/PSYCH: Negative. ENDOCRINE: Negative. PHYSICAL EXAMINATION: General Appearance: Alert, cooperative, no distress, appears stated age. Neck HEENT: Supple, no lymphadenopathy, no thyroid enlargement, no carotid bruits. Lungs: Decreased breath sound bilaterally with fine rhonchi no crackles or wheezes. Chest Wall: Decreased expansion with deep inspiration no tenderness and no deformity was found on exam, no costochondral pain or discomfort. Heart: Irregular rate and rhythm, S1, S2 normal, no murmur, rub or gallop. Back: Symmetric, no curvature, ROM normal, no CVA tenderness. Abdomen: Soft, non-tender, bowel sounds active all four quadrants, no masses, no organomegaly. Extremities: Left foot has nonhealing ulcer on the plantar area. Pulses: 2+ and symmetric. Skin: Skin color, texture, tugor normal, no rashes or lesions. Neurologic: Alert oriented x3 cranial nerves II through XII intact, no motor deficit, no abnormal balance or gait. ASSESSMENT AND PLAN: _Syncope: Not a clear etiology but witnessed and believe can be seizure activity. Patient be hospitalized consult neurology plan for an EEG as for his brain CAT scan was negative also patient had complete testing last few months with echo carotid ultrasound with his ejection fraction being low he did have ventricular tachycardia can be the cause of his syncope which will be more cardiac syncope will has different affect normally but still cannot be 100% excluded. Even one of the possibility of this is torsade de point from the effect of Levaquin recently can be the ER had missed finding in EKG we will do an EKG and still run it by cardiology. Not seeing much V. tach or arrhythmia at this point. _Advanced cardiac disease with severe cardiomyopathy and multiple vessel disease: Still seeing cardiology and still on medical management. _Cardiomyopathy: Cardiology will evaluate patient again for possibility of AICD specially with advanced cardiomyopathy with low ejection fraction but seeing if he is having any arrhythmia to push this to become more urgent. So we will have more bulk station agent while he is in will have at least event monitor when he is in the hospital. _A-fib: Continue Eliquis 2.5 mg twice a day still on metoprolol tartrate 50 mg twice a day. Pulse rate is not rapid and still doing better. _Stage IIIb chronic kidney disease with GFR of 35 creatinine 1.82 continue to avoid any nephrotoxic agent continue gentle hydration watch for any toxic medication. _Nonhealing ulcer in the left foot: Has been seen wound care and remain on Levaquin apparently from a new culture. Request some wound care while he is in the hospital. _Type 2 diabetes: Remain on insulin with Lantus or Tresiba 40 units a day along with 3 units of NovoLog AC meals plus sliding scales. _Chronic edema: Remain on furosemide. _Severe GERD continue omeprazole 20 mg daily. Hospital course: Patient was admitted to the hospital ended up seeing cardiology and evaluated for his current arrhythmia even his ejection fraction is quite low patient will be having a heart monitor for longer term and eventually be scheduled for an AICD which in my opinion at some point will help to solve any doubt about this episode itself. Majority of the concern of this event itself was seizure and seizure activity and fortunately his EEG came back completely negative with no major abnormality or impact. I do not see any reason to start him on any antiseizure medication at this point patient was clear from cardiology standpoint will send him home to see cardiology and plan for this AICD soon. Patient was very clear medically reviewed medication review his vital signs do not see any significant change or drop. Sadly with a decline in his heart function and condition last few months made the patient entire hemodynamic status extremely sensitive and susceptible for major change and weeks to come mostly why arrhythmia specially ventricular type can be extremely high to see and can be as sudden and as abrupt as what happened last event. Highly encouraged patient and his family to talk about this AICD because dilemma with it while his foot infection still been treated not clear cardiology will have the fear of implanted device and wire in the heart while still dealing with infection. At least having to have some sort of longer-term heart monitor can be corrected back to see if there is any event test taking place when patient is having symptoms can be helpful and beneficial. All should be run by his regular oil heaterman and probably by hog slaughterer as well. Patient be discharged home today follow-up in the office next week and he still have his regular follow-up at the wound clinic and follow-up with his oil heaterman to my knowledge there is a plan for at least an event monitor or possibly loop recorder to be placed by cardiology when seen in their office next. Time spent on discharging patient was over 35 minutes. Patient Condition at Discharge: Fair Plan - Discharge Summary Discharge Rx Participant: No New Discharge Prescriptions: Continue Ticagrelor [Brilinta] 90 mg PO BID #180 tab Insulin Degludec [Tresiba Flextouch U-100 Pen] 40 units SQ DAILY #0 INSULIN ASPART (NovoLOG) [NovoLOG (formulary)] 3 unit SQ AC-TID each Furosemide [Lasix] 40 mg PO BID@0900,1700 Levofloxacin [Levaquin] 500 mg PO DAILY Aspirin 81 mg PO DAILY #90 tab Apixaban [Eliquis] 2.5 mg PO BID #60 tab Nitroglycerin Sl Tabs [Nitrostat] 0.4 mg SUBLINGUAL Q5M PRN #100 tab PRN Reason: Chest Pain Sodium Chloride 0.65% Nasal [Deep Sea (Saline)] 2 spray NASAL QID PRN ml PRN Reason: Nasal Congestion Tamsulosin [Flomax] 0.4 mg PO DAILY Omeprazole 20 mg PO DAILY Metoprolol Tartrate [Lopressor] 50 mg PO BID@0900,1700 INSULIN ASPART (NovoLOG) [NovoLOG (formulary)] See Protocol SQ ACHS Discharge Medication List Apixaban [Eliquis] 2.5 mg PO BID #60 tab 07/31/23 [Rx] Aspirin 81 mg PO DAILY #90 tab 07/31/23 [Rx] Insulin Degludec [Tresiba Flextouch U-100 Pen] 40 units SQ DAILY #0 07/31/23 [Rx] Nitroglycerin Sl Tabs [Nitrostat] 0.4 mg SUBLINGUAL Q5M PRN #100 tab 07/31/23 [Rx] Ticagrelor [Brilinta] 90 mg PO BID #180 tab 07/31/23 [Rx] INSULIN ASPART (NovoLOG) [NovoLOG (formulary)] 3 unit SQ AC-TID each 08/12/23 [Rx] Sodium Chloride 0.65% Nasal [Deep Sea (Saline)] 2 spray NASAL QID PRN ml 08/12/23 [Rx] Furosemide [Lasix] 40 mg PO BID@0900,1700 09/23/23 [History] INSULIN ASPART (NovoLOG) [NovoLOG (formulary)] See Protocol SQ ACHS 09/23/23 [History] Levofloxacin [Levaquin] 500 mg PO DAILY 09/23/23 [History] Metoprolol Tartrate [Lopressor] 50 mg PO BID@0900,1700 09/23/23 [History] Omeprazole 20 mg PO DAILY 09/23/23 [History] Tamsulosin [Flomax] 0.4 mg PO DAILY 09/23/23 [History] Follow up Appointment(s)/Referral(s): [facility], [NON-STAFF] - 1 Week Richie Dean MD [STAFF PHYSICIAN] - 1 Week (Offices are closed at this time. Please call to make a post hospital follow up appointment.) Derian Link MD [Primary Care Provider] - 1-2 days (Offices are closed at this time. Please call to make a post hospital follow up appointment.) Patient Instructions/Handouts: Syncope (DC) Discharge Disposition: HOME WITH HOME HEALTH SERVICES
--- NOTE | 2023-09-28 21:14 | CDI ---
Documentation Clarification Form Date: 09/28/2023 09:06:51 PM From: Hillary Jolley Phone: Admit Date: 09/23/2023 07:50:00 PM Patient Name: Bhupinder Ruiz Visit Number: [id number] Discharge Date: 09/25/2023 05:34:00 PM ATTENTION: The Clinical Documentation Specialists (CDI) and [facility] Coding Staff appreciate your assistance in clarifying documentation. Please respond to the clarification below the line at the bottom and electronically sign. The CDI & [facility] Coding staff will review the response and follow-up if needed. Please note: Queries are made part of the Legal Health Record. If you have any questions, please contact the author of this message via ITS. Dr. Derian Link Your patient has the documented diagnosis of unspecified CHF Progress Note 38/. Additional information regarding the type of CHF is requested. History/Risk Factors: 78yo M, V Tach, ATN, HTN w CKD & CHF, DMII w ulcer and neuropathy, ICM, CAD w stents, PAF Clinical Indicators: VS/Pulse OX: 100 Echocardiogram Results: Moderate to severe LV systolicdysfunctionwith an ejection fraction of 30-35% Chest X Ray: Heart size is stable. Treatment: monitored In your professional opinion, can you please clarify the type of CHF if known? [ ] Chronic Systolic Heart Failure (reduced EF) [ ] Chronic Diastolic Heart Failure (preserved EF) [ xx ] Chronic Systolic & Diastolic Heart Failure [ ] Other, please specify [ ] Unable to determine (Template Last Revised: August 2020) MTDD
--- NOTE | 2023-09-28 21:21 | CDI ---
Documentation Clarification Form Date: 09/28/2023 09:16:00 PM From: Hillary Jolley Phone: Admit Date: 09/23/2023 07:50:00 PM Patient Name: Bhupinder Ruiz Visit Number: [id number] Discharge Date: 09/25/2023 05:34:00 PM ATTENTION: The Clinical Documentation Specialists (CDI) and [facility] Coding Staff appreciate your assistance in clarifying documentation. Please respond to the clarification below the line at the bottom and electronically sign. The CDI & [facility] Coding staff will review the response and follow-up if needed. Please note: Queries are made part of the Legal Health Record. If you have any questions, please contact the author of this message via ITS. Dr. Derian Link There is documentation of nonhealingulceron his foot per H&P. Additional specificity regarding the severity of the wound is requested. Patient history/risk factors: 78yo M, V Tach, ATN, HTN w CKD & CHF, DMII w ulcer and neuropathy, ICM, CAD w stents, PAF Clinical Indicators: nonhealingulcerandinfectionin his foot which she has been on quinolone Treatment: started seeing thewoundcenter has been on for the last few months; has been seenwoundcare and remain on Levaquin apparently from a new culture. Please clarify the severity of the wound: [ xx ] Limited to breakdown of skin [ ] With fat layer exposed [ ] Other, Please specify [ ] Unable to determine (Template Last Revised: September 2020) MTDD
== END 2023-09-25 17:34 | disposition home health service (06) | DRG 312 ==
LOC: EC 15:14 → 3SCARD 19:50
PROVIDERS: ADMIT Internal Medicine Geriatric Medicine; ATTEND Internal Medicine Geriatric Medicine
DX: I95.1 Orthostatic hypotension (principal); N17.0 Acute kidney failure with tubular necrosis; I13.0 Hypertensive heart and chronic kidney disease with heart failure and stage 1 through stage 4 chronic kidney disease, or unspecified chronic kidney disease; I50.42 Chronic combined systolic (congestive) and diastolic (congestive) heart failure; I27.20 Pulmonary hypertension, unspecified; L97.521 Non-pressure chronic ulcer of other part of left foot limited to breakdown of skin; E11.40 Type 2 diabetes mellitus with diabetic neuropathy, unspecified; E11.621 Type 2 diabetes mellitus with foot ulcer; E11.22 Type 2 diabetes mellitus with diabetic chronic kidney disease; N18.32 Chronic kidney disease, stage 3b; I34.0 Nonrheumatic mitral (valve) insufficiency; I25.5 Ischemic cardiomyopathy; I25.10 Atherosclerotic heart disease of native coronary artery without angina pectoris; I48.0 Paroxysmal atrial fibrillation; Z79.4 Long term (current) use of insulin; K21.9 Gastro-esophageal reflux disease without esophagitis; H91.90 Unspecified hearing loss, unspecified ear; I49.1 Atrial premature depolarization; E78.5 Hyperlipidemia, unspecified; Z79.01 Long term (current) use of anticoagulants; Z95.5 Presence of coronary angioplasty implant and graft; Z79.82 Long term (current) use of aspirin; Z79.02 Long term (current) use of antithrombotics/antiplatelets; I25.2 Old myocardial infarction; Z82.49 Family history of ischemic heart disease and other diseases of the circulatory system; Z79.899 Other long term (current) drug therapy; Z87.19 Personal history of other diseases of the digestive system
CPT/HCPCS: 36415; 70450; 71046; 80053; 81001; 82607; 82746; 83735; 83921; 84100; 84207; 84484; 85025; 85610; 85730; 93005; 93270; 93308; 95816; 99285

== ENCOUNTER 2024-01-29 09:53 | Inpatient (IN) | payer MEDICARE, BC ==
--- NOTE | 2024-01-29 10:11 | ED ---
General Adult HPI - General Chief complaint: Recheck/Abnormal Lab/Rx Stated complaint: L foot swollen, Fall, possible stroke Time Seen by Provider: 01/29/24 10:10 Source: patient, RN notes reviewed Mode of arrival: wheelchair Limitations: no limitations - History of Present Illness Initial comments: This is a 78-year-old male presents the emergency department accompanied by his with chief complaint of a fall. states that the patient was in the shower yesterday when she heard him mumbling and she went into the bathroom and at that he had an episode of emesis and that he was urinating. Dates that she was able to communicate with the patient during this and he did not pass out or hit his head. Patient states that this morning when he woke up he had pain of his left ankle. He does have a history of severe neuropathy and does not have feeling to his bilateral lower extremities. Currently he is denying chest pain, dyspnea, headaches. States that he feels slightly nauseous however has not eaten breakfast. History of ND with stent placement in July. states that patient has a history of stroke however is unaware of when these events occurred as they were found on imaging. - Related Data Home Medications Medication Instructions Recorded Confirmed Furosemide [Lasix] 40 mg PO BID@0900,1700 09/23/23 09/23/23 Metoprolol Tartrate [Lopressor] 50 mg PO BID@0900,1700 09/23/23 09/23/23 Omeprazole 20 mg PO DAILY 09/23/23 09/23/23 Tamsulosin [Flomax] 0.4 mg PO DAILY 09/23/23 09/23/23 Apixaban [Eliquis] 2.5 mg PO BID@0700,1700 01/29/24 01/29/24 INSULIN ASPART (NovoLOG) [NovoLOG See Protocol SQ ACHS 01/29/24 01/29/24 (formulary)] Nitroglycerin Sl Tabs [Nitrostat] 0.4 mg SL Q5M PRN 01/29/24 01/29/24 allopurinoL [Zyloprim] 100 mg PO DAILY 01/29/24 01/29/24 lisinopriL [Zestril] 2.5 mg PO DAILY 01/29/24 01/29/24 Previous Rx's Medication Instructions Recorded Aspirin 81 mg PO DAILY #90 tab 07/31/23 Insulin Degludec [Tresiba 40 units SQ DAILY #0 07/31/23 Flextouch U-100 Pen] Ticagrelor [Brilinta] 90 mg PO BID #180 tab 07/31/23 Sodium Chloride 0.65% Nasal [Deep 2 spray NASAL QID PRN ml 08/12/23 Sea (Saline)] Allergies Allergy/AdvReac Type Severity Reaction Status Date / Time No Known Allergies Allergy Verified 01/29/24 13:24 Review of Systems ROS Statement: Those systems with pertinent positive or pertinent negative responses have been documented in the HPI. ROS Other: All systems not noted in ROS Statement are negative. 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, [facility] Last Myocardial Infarction Date:: 07/2023 History of Any Multi-Drug Resistant Organisms: None Reported Past Surgical History: Cholecystectomy, Heart Catheterization With Stent Additional Past Surgical History / Comment(s): [address] July 2023 Past Anesthesia/Blood Transfusion Reactions: No Reported Reaction Date of Last Stent Placement:: 07/28/2023 Past Psychological History: No Psychological Hx Reported Smoking Status: Never smoker Past Alcohol Use History: Occasional Past Drug Use History: None Reported - Past Family History Mother Additional Family Medical History / Comment(s): Sick sinus syndrome Father Family Medical History: Congestive Heart Failure (CHF) Additional Family Medical History / Comment(s): brother-heart failure, other borther heart attack. nephew/niece cardiac stents, Brother(s) Family Medical History: Coronary Artery Disease (CAD) Additional Family Medical History / Comment(s): 2 Brothers were diagnosed with early onset coronary artery disease in their 40s General Exam Limitations: no limitations (hard of hearing) Head exam: Present: atraumatic, normocephalic, normal inspection Eye exam: Present: normal appearance, PERRL, EOMI. Absent: scleral icterus, conjunctival injection, periorbital swelling ENT exam: Present: normal exam, mucous membranes moist Neck exam: Present: normal inspection. Absent: tenderness, meningismus, lymphadenopathy Respiratory exam: Present: normal lung sounds bilaterally. Absent: respiratory distress, wheezes, rales, rhonchi, stridor Cardiovascular Exam: Present: regular rate, normal rhythm, normal heart sounds. Absent: systolic murmur, diastolic murmur, rubs, gallop, clicks GI/Abdominal exam: Present: soft, normal bowel sounds. Absent: distended, te nderness, guarding, rebound, rigid Left Ankle exam: Present: tenderness, swelling, ecchymosis, deformity. Absent: full ROM Foot/Toe exam: Present: tenderness, swelling, ecchymosis, deformity Neurovascular tendon exam: Present: no vascular compromise (palpable pulse not identified, however doppler used to report pulse of the LLE intact), sensory deficit. Absent: extremity cold to touch, pallor Right Hip exam: Present: full ROM (pain with flexion and extension), tenderness. Absent: ecchymosis, deformity, crepitus Neurological exam: Present: alert, oriented X3, CN II-XII intact Skin exam: Present: warm, dry, intact, normal color. Absent: rash Course Vital Signs 01/29/24 09:55 Temperature 98.1 F Pulse Rate 69 Respiratory 20 Rate Blood Pressure 107/67 O2 Sat by Pulse 99 Oximetry Medical Decision Making - Medical Decision Making Was pt. sent in by a medical professional or institution (, PA, [employer], urgent care, hospital, or long term...) When possible be specific @ -No Did you speak to anyone other than the patient for history (EMS, parent, family, police, friend...)? What history was obtained from this source @ -I spoke to the patient's at bedside he states that the patient had an issue while he was in the shower yesterday evening resulting in an episode of emesis and subsequent injury to the left ankle. denies the patient having a syncopal episode or seizure like activity. Did you review nursing and triage notes (agree or disagree)? Why? @ -I reviewed and agree with nursing and triage notes Were old charts reviewed (outside hosp., previous admission, EMS record, old EKG, old radiological studies, urgent care reports/EKG's, long term records)? Report findings @ -I reviewed the patient's chart note from 07/26/2023 where he presented to the emergency department chest pain and weakness. Was found that the patient's troponin was elevated where he was placed on heparin and given aspirin and Nitropaste. Differential Diagnosis (chest pain, altered mental status, abdominal pain women, abdominal pain men, vaginal bleeding, weakness, fever, dyspnea, syncope, headache, dizziness, GI bleed, back pain, seizure, CVA, palpatations, mental health, musculoskeletal)? @ -Differential Musculoskeletal Muscular strain, contusion, ligament sprain, fracture, arthritis, septic arthritis, bursitis, cellulitis, muscle spasm, nerve compression, DVT, arterial occlusion, herpes zoster, electrolyte abnormality, tumor.... This is not meant to be in all inclusive list EKG interpreted by me (3pts min.). @ -Completed at 1005, sinus rhythm with PVCs. Ventricular rate 85, NJ interval 202. QTc 406. No acute signs of ischemia. @ -XR left foot reveals early Charcot joint, soft tissue swelling dorsum foot with 3 plantar calcaneal heel spurs and degenerative joint changes of the greatest in the second and third distal joints. XR the right hip and AP pelvis no acute process identified CT interpreted by me (1pt min.). @ -None done U/S interpreted by me (1pt. min.). @ -None done What testing was considered but not performed or refused? (CT, X-rays, U/S, labs)? Why? @ -None What meds were considered but not given or refused? Why? @ -None Did you discuss the management of the patient with other professionals (professionals i.e. , PA, [employer], lab, RT, psych nurse, older adult social work specialist, fruit harvest worker, teacher, security officer supervisor, case finishing machine adjuster)? Give summary @ -i spoke to the patient's PCP, Dr. Link, in regard to the patient's findings and elevated troponin. Agrees to admission to trend troponin and consult cardiology. Was smoking cessation discussed for >3mins.? @ -No Was critical care preformed (if so, how long)? @ -No Were there social determinants of health that impacted care today? How? (Homelessness, low income, unemployed, alcoholism, drug addiction, transportation, low edu. Level, literacy, decrease access to med. care, snf, rehab)? @ -No Was there de-escalation of care discussed even if they declined (Discuss DNR or withdrawal of care, Hospice)? DNR status @ -No What co-morbidities impacted this encounter? (DM, HTN, Smoking, COPD, CAD, Cancer, CVA, ARF, Chemo, Hep., AIDS, mental health diagnosis, sleep apnea, morbid obesity)? @ -None Was patient admitted / discharged? Hospital course, mention meds given and route, prescriptions, significant lab abnormalities, going to OR and other pertinent info. @ -admitted. 78-year-old male with a fall, emesis and left ankle/foot injury. On examination patient is noted to have ecchymosis and edema of the left lower extremity. Palpable pulse was not felt however with poor there was a strong pedal pulse identified. Patient is currently denying symptoms of chest pain, shortness of breath, headaches. Endorses mild nausea. Additionally on examination patient noted to have pain of the right hip with movement, no obvious deficits noted of the overlying skin. Due to patient having episode of emesis yesterday evening and episode in the shower as described in HPI he will be evaluated via laboratory studies in addition to imaging of the left lower extremity and AP pelvis and right hip for further evaluation. Imaging unremarkable for acute fracture or bony process. On reevaluation of the patient, he was found to be mildly hypotensive with a blood pressure of systolics in the 110s and diastolics in the 50s. He is provided with a 500 L fluid bolus pending the rest of the laboratory results. CBC reveals mild leukocytosis of 15.3 and neutrophils of 13.1 which is likely reactive due to emesis. Patient has chronic kidney disease that has improved as compared to previous with a BUN of 30 and creatinine of 1.59. Troponin is elevated at 0.042, on EKG there are no acute changes as compared to previous, has been started on a heparin bolus and heparin infusion and has been accepted for admission to Dr. Link for evaluation of NSTEMI with cardiology on consult. Case discussed with Dr. Parham. Undiagnosed new problem with uncertain prognosis? @ -No Drug Therapy requiring intensive monitoring for toxicity (Heparin, Nitro, Insulin, Cardizem)? @ -No Were any procedures done? @ -No Diagnosis/symptom? @ -NSTEMI, left foot injury Acute, or Chronic, or Acute on Chronic? @ -acute Uncomplicated (without systemic symptoms) or Complicated (systemic symptoms)? @ -complicated Side effects of treatment? @ -No Exacerbation, Progression, or Severe Exacerbation? @ -No Poses a threat to life or bodily function? How? (Chest pain, USA, ND, pneumonia, PE, COPD, DKA, ARF, appy, cholecystitis, CVA, Diverticulitis, Homicidal, Suicidal, threat to staff... and all critical care pts) @ -possibly, untreated NSTEMI can lead to multiorgan system dysfunction and possible failure. - Lab Data Result diagrams: 01/29/24 10:57 01/29/24 10:57 Lab Results 01/29/24 01/29/24 01/29/24 Range/Units 10:57 10:57 10:57 WBC 15.3 H (3.8-10.6) k/uL RBC 3.66 L (4.30-5.90) m/uL Hgb 11.1 L (13.0-17.5) gm/dL Hct 33.9 L (39.0-53.0) % MCV 92.4 (80.0-100.0) fL MCH 30.2 (25.0-35.0) pg MCHC 32.7 (31.0-37.0) g/dL RDW 14.0 (11.5-15.5) % Plt Count 217 (150-450) k/uL MPV 8.6 Neutrophils % 86 % Lymphocytes % 6 % Monocytes % 6 % Eosinophils % 1 % Basophils % 0 % Neutrophils # 13.1 H (1.3-7.7) k/uL Lymphocytes # 0.9 L (1.0-4.8) k/uL Monocytes # 0.9 (0-1.0) k/uL Eosinophils # 0.1 (0-0.7) k/uL Basophils # 0.1 (0-0.2) k/uL PT 11.5 (10.0-12.5) sec INR 1.1 (<1.2) APTT 31.2 H (22.0-30.0) sec Sodium 137 (137-145) mmol/L Potassium 4.0 (3.5-5.1) mmol/L Chloride 105 (98-107) mmol/L Carbon Dioxide 25 (22-30) mmol/L Anion Gap 7 mmol/L BUN 30 H (9-20) mg/dL Creatinine 1.59 H (0.66-1.25) mg/dL Est GFR (CKD-EPI)AfAm 48 (>60 ml/min/1.73 sqM) Est GFR (CKD-EPI)NonAf 41 (>60 ml/min/1.73 sqM) Glucose 141 H (74-99) mg/dL Calcium 9.0 (8.4-10.2) mg/dL Magnesium 2.4 H (1.6-2.3) mg/dL Total Bilirubin 1.0 (0.2-1.3) mg/dL AST 16 L (17-59) U/L ALT 12 (4-49) U/L Alkaline Phosphatase 72 (38-126) U/L Troponin I (0.000-0.034) ng/mL Total Protein 6.4 (6.3-8.2) g/dL Albumin 3.5 (3.5-5.0) g/dL 01/29/24 Range/Units 10:57 WBC (3.8-10.6) k/uL RBC (4.30-5.90) m/uL Hgb (13.0-17.5) gm/dL Hct (39.0-53.0) % MCV (80.0-100.0) fL MCH (25.0-35.0) pg MCHC (31.0-37.0) g/dL RDW (11.5-15.5) % Plt Count (150-450) k/uL MPV Neutrophils % % Lymphocytes % % Monocytes % % Eosinophils % % Basophils % % Neutrophils # (1.3-7.7) k/uL Lymphocytes # (1.0-4.8) k/uL Monocytes # (0-1.0) k/uL Eosinophils # (0-0.7) k/uL Basophils # (0-0.2) k/uL PT (10.0-12.5) sec INR (<1.2) APTT (22.0-30.0) sec Sodium (137-145) mmol/L Potassium (3.5-5.1) mmol/L Chloride (98-107) mmol/L Carbon Dioxide (22-30) mmol/L Anion Gap mmol/L BUN (9-20) mg/dL Creatinine (0.66-1.25) mg/dL Est GFR (CKD-EPI)AfAm (>60 ml/min/1.73 sqM) Est GFR (CKD-EPI)NonAf (>60 ml/min/1.73 sqM) Glucose (74-99) mg/dL Calcium (8.4-10.2) mg/dL Magnesium (1.6-2.3) mg/dL Total Bilirubin (0.2-1.3) mg/dL AST (17-59) U/L ALT (4-49) U/L Alkaline Phosphatase (38-126) U/L Troponin I 0.042 H* (0.000-0.034) ng/mL Total Protein (6.3-8.2) g/dL Albumin (3.5-5.0) g/dL Disposition Clinical Impression: NSTEMI (non-ST elevated myocardial infarction), Traumatic ecchymosis of left foot Disposition: ADMITTED IP TO THIS [facility] Condition: Serious Referrals: Derian Link MD [Primary Care Provider] - 1-2 days Decision to Admit Reason: Admit from EC Decision Date: 01/29/24 Decision Time: 12:50
[2024-01-29 11:18] LABS: INR 1.1 (<1.2); Partial Thromboplastin Time 31.2 sec (22.0-30.0); Prothrombin Time 11.5 sec (10.0-12.5)
[2024-01-29 11:20] LABS: Basophils # (A) 0.1 k/uL (0-0.2); Basophils % (A) 0 %; Eosinophils # (A) 0.1 k/uL (0-0.7); Eosinophils % (A) 1 %; HCT 33.9 % (39.0-53.0); HGB 11.1 gm/dL (13.0-17.5); Lymphocytes # (A) 0.9 k/uL (1.0-4.8); Lymphocytes % (A) 6 %; MCH 30.2 pg (25.0-35.0); MCHC 32.7 g/dL (31.0-37.0); MCV 92.4 fL (80.0-100.0); Mean Platelet Volume 8.6; Monocytes # (A) 0.9 k/uL (0-1.0); Monocytes % (A) 6 %; Neutrophils # (A) 13.1 k/uL (1.3-7.7); Neutrophils % (A) 86 %; Platelet Count 217 k/uL (150-450); RBC 3.66 m/uL (4.30-5.90); WBC 15.3 k/uL (3.8-10.6)
[2024-01-29 11:32] LABS: ALT 12 U/L (4-49); AST 16 U/L (17-59); African American GFR (CKD) 48 (>60 ml/min/1.73 sqM); Albumin 3.5 g/dL (3.5-5.0); Alkaline Phosphatase 72 U/L (38-126); Anion Gap 7 mmol/L; Blood Urea Nitrogen 30 mg/dL (9-20); Carbon Dioxide 25 mmol/L (22-30); Chloride 105 mmol/L (98-107); Glucose 141 mg/dL (74-99); Magnesium 2.4 mg/dL (1.6-2.3); Non-African American GFR(CKD) 41 (>60 ml/min/1.73 sqM); Sodium 137 mmol/L (137-145); Total Protein 6.4 g/dL (6.3-8.2)
--- NOTE | 2024-01-29 11:49 | XR ---
EXAMINATION TYPE: XR ankle complete LT DATE OF EXAM: 01/29/2024 COMPARISON: None HISTORY: Fall injury swelling TECHNIQUE: 3 view left ankle FINDINGS: Ankle mortise is intact. No displaced fractures identified. Soft tissues appear within norm al limits. Plantar calcaneal heel spur is present. There may be flattening of the plantar arch. Follow up exams can be performed 7-10 days from acute trauma for continued pain. IMPRESSION: 1. No acute osseous abnormalities left ankle.
--- NOTE | 2024-01-29 11:51 | XR ---
EXAMINATION TYPE: XR Hip RT and AP Pelvis DATE OF EXAM: 01/29/2024 COMPARISON: None HISTORY: 6 swelling, fall TECHNIQUE: AP pelvis and two-view right hip FINDINGS: Femoral heads articulate with the acetabulum. Joint spaces are preserved. Symphysis pubis a nd sacroiliac joints are normal. Normal bowel gas is present. No acute fracture or dislocation of the right hip is evident. IMPRESSION: 1. No acute osseous abnormality. Follow-up can be performed as clinically indicated.
--- NOTE | 2024-01-29 11:52 | XR ---
EXAMINATION TYPE: XR foot complete LT DATE OF EXAM: 01/29/2024 COMPARISON: 10/27/2023 HISTORY: Pain and swelling fall TECHNIQUE: 3 view left foot FINDINGS: There is some deformity and erosion of the second and third metatarsophalangeal joint space s. No acute fractures evident. Degenerative joint change with narrowing is present in the proximal and d istal interphalangeal joint spaces. There are erosions of the proximal tarsal metatarsal junctions. T here is loss of the plantar arch. Correlate for Charcot joint. Plantar calcaneal heel spur is present . Diffuse soft tissue swelling along the dorsum of the foot. IMPRESSION: 1. Early Charcot joint left foot. 2. Soft tissue swelling dorsum foot. 3 plantar calcaneal heel spur. 4. Degenerative joint changes greatest at the second and third metatarsal phalangeal joint spaces
[2024-01-29] MEDS: SODIUM CHLORIDE 0.9% 500 ML 500 ML IV STA (12:19)
[2024-01-29] MEDS: HEPARIN SOD,PORK IN 0.45% NACL 25,000 UNIT in 0.45% NACL 1 250ML.BAG IV SCH ×2 (12:36→12:45)
[2024-01-29] MEDS: HEPARIN SODIUM 1,000 UN/ML (10ML VL) IV ONE (12:46)
[2024-01-29] MEDS ORDERED: NALOXONE 0.4 MG/ML 1 ML VIAL IV PRN (12:50)
[2024-01-29] MEDS ORDERED: ACETAMINOPHEN TAB 325 MG TAB PO PRN (12:50)
[2024-01-29] MEDS ORDERED: SODIUM CHLORIDE 0.65% NASAL SPRAY 44 ML BTL NASAL PRN (14:46)
[2024-01-29 15:13] LABS: Glucose,Whole Blood 125 mg/dL (70-110)
[2024-01-29] MEDS: METOPROLOL TARTRATE 50 MG TAB PO SCH (16:08)
[2024-01-29] MEDS: FUROSEMIDE 40 MG TAB PO SCH (16:08)
[2024-01-29 17:23] LABS: Glucose,Whole Blood 185 mg/dL (70-110)
[2024-01-29] MEDS: INSULIN ASPART (NovoLOG) 100 UNIT/ML VIAL SQ SCH (17:29)
[2024-01-29] MEDS: HEPARIN SODIUM 1,000 UN/ML (10ML VL) IV PRN (19:14)
[2024-01-29 20:43] LABS: Glucose,Whole Blood 252 mg/dL (70-110)
[2024-01-29] MEDS: TICAGRELOR 90 MG TAB PO SCH (20:44)
[2024-01-30 02:33] LABS: Basophils % (A) 0 %; Eosinophils # (A) 0.1 k/uL (0-0.7); Eosinophils % (A) 1 %; HCT 30.6 % (39.0-53.0); HGB 9.9 gm/dL (13.0-17.5); Lymphocytes # (A) 1.3 k/uL (1.0-4.8); Lymphocytes % (A) 11 %; MCH 30.7 pg (25.0-35.0); MCHC 32.5 g/dL (31.0-37.0); MCV 94.4 fL (80.0-100.0); Mean Platelet Volume 8.7; Monocytes # (A) 0.8 k/uL (0-1.0); Monocytes % (A) 6 %; Neutrophils # (A) 9.4 k/uL (1.3-7.7); Neutrophils % (A) 80 %; Platelet Count 211 k/uL (150-450); RBC 3.24 m/uL (4.30-5.90); RDW 13.9 % (11.5-15.5); WBC 11.9 k/uL (3.8-10.6)
[2024-01-30 02:34] LABS: INR 1.1 (<1.2); Prothrombin Time 11.9 sec (10.0-12.5)
[2024-01-30 05:27] LABS: Glucose,Whole Blood 193 mg/dL (70-110)
[2024-01-30] MEDS: APIXABAN 2.5 MG TABLET PO SCH (06:04)
[2024-01-30] MEDS: PANTOPRAZOLE 40 MG TABLET PO SCH (06:04)
--- NOTE | 2024-01-30 07:13 | P.HPIM ---
History of Present Illness H&P Date: 01/29/24 HISTORY OF PRESENT ILLNESS: 78-year-old with active medical history of coronary artery disease post non- STEMI with triple-vessel post stent placement (history of type 2 diabetes, stage IIIb chronic kidney disease, ischemic cardiomyopathy, hypertension, hyperlipidemia, paroxysmal atrial fibrillation was in the hospital last time with syncopal episode witnessed and believed to be seizure at the time was in the hospital for few days was seen neurology and cardiology. 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 He is doing fine through the day on 01/29/2024 till later when he started feeling to have slight hypoglycemia he took handful of grapes angiogram then he felt slightly bit sick according to his he went into the bathroom and get in the shower and become more sick to start throwing up he fell in the shower without any syncopal episode he was fully alert and awake for the whole thing the heard his stump falling in the shower went in and found him having significant nausea and vomiting with significant amount of diarrhea at that point he become more alert but still extremely weak with the fall he twisted his foot and created more problems and discomfort and her the big toe and the third part of his foot as well. No obvious site going him to the emergency room with the above problem patient is still quite bit symptomatic but no further nausea or vomiting. Seen and evaluated in the emergency department had multiple x-ray including left ankle shows no fracture or deformity. Left hip and pelvis shows no acute abnormality or fracture as well. And full x-ray of the foot shows early Charcot joint of the left foot with soft tissue swelling in the dorsum of the foot with 3 plantar calcaneal heel spur with degenerative joint change greatest at the second and third metatarsal phalangeal joint space. Laboratory evaluation shows white blood cell to be 15,300 with hemoglobin 11.1 mostly neutrophil cell, blood sugar is mildly elevated creatinine at 1.59 with GFR at 41. BNP was 2390 troponin initially was mildly elevated at 0.042. Emergency room decided to admit patient for but they believe might be non-STEMI with his cardiac history and current symptoms was started on heparin drip and consult cardiology admit patient to the hospital. REVIEW OF SYSTEMS: CONSTITUTIONAL: Well-developed no acute respiratory distress. EYES: No icterus sclerae, no conjunctivitis. EARS, NOSE, MOUTH, THROAT, and FACE: No sore throat, lymphadenopathy, carotid b ruits or deformity. RESPIRATORY: Mild shortness of breath no cough or wheezes. CARDIOVASCULAR: Positive PND orthopnea and orthopnea. No chest pain or angina. GASTROINTESTINAL: Still having slight abdominal discomfort with nausea no vomiting no further GI bleed but continued to have slight diarrhea as well. GENITOURINARY: Negative for Hematuria or UTI, no kidney stones. INTEGUMENT/BREAST: Negative for any muscular injury with mild osteoarthritis.. HEMATOLOGIC/LYMPHATIC: Negative for bleed or purpura. MUSCULOSKELTAL: Left foot has callus with healing ulcer quite with a bruise around the first and second toe with mild ecchymosis and slight hemorrhage under the toe. NEURLOGICAL: No LOC, Sz or syncope, blurred vision dizziness or abnormality.. BEHAVIORAL/PSYCH: Negative. ENDOCRINE: Negative. PHYSICAL EXAMINATION: General Appearance: Alert, cooperative, no distress, appears stated age. Neck HEENT: Supple, no lymphadenopathy, no thyroid enlargement, no carotid b ruits. Lungs: Decreased breath sound bilaterally with fine rhonchi no crackles or wheezes. Chest Wall: Decreased expansion with deep inspiration no tenderness and no deformity was found on exam, no costochondral pain or discomfort. Heart: Irregular rate and rhythm, S1, S2 normal, no murmur, rub or gallop. Back: Symmetric, no curvature, ROM normal, no CVA tenderness. Abdomen: Soft positive bowel sounds no organomegaly or tenderness slight discomfort in the epigastric area and left lower quadrant area no rebound or rigidity. Extremities: Left foot with quite a bit larger bruise and hematoma around the big toe and under the joint between the metatarsal and the phalangeal area first and second toes mostly. Pulses: 2+ and symmetric. Skin: Skin color, texture, tugor normal, no rashes or lesions. Neurologic: Alert oriented x3 cranial nerves II through XII intact, no motor deficit, no abnormal balance or gait. ASSESSMENT AND PLAN: _Possible non-ST [place]: With elevated troponin patient is not having any chest pain but he is diabetic and has atypical complaint normally, will admit patient to the hospital consult cardiology CK troponin x 3 will be done. _Severe gastroenteritis: Not a clear etiology whether had slight symptoms of hypoglycemia drove him into having nausea but ended up having bad diarrhea he is not symptomatic with his exam we will continue hydration for now try to exclude a possible gastrointestinal bleed of any type repeat CBC in the next 12 hours. _Fall with no syncope the patient was fully awake for the whole thing per his testimony and his as well had mild injury to the left foot mostly no injury anywhere else in his body this is happened after he started his severe nausea and vomiting probably was more related to extreme hypertension his blood pressure is much better so far will continue hydration for now. _Advanced cardiac disease with severe cardiomyopathy and multiple vessel disease: Still seeing cardiology and still on medical management. _Multiple vessel coronary artery disease post angioplasty and stent placement: S till on secondary prevention resume meds patient does not have any typical signs and symptoms at this point. _A-fib: Was started on heparin drip by the emergency department will hold Eliquis till tomorrow morning after his second and third troponin if negative discontinue heparin and start him back on Eliquis 2.5 mg twice a day still on metoprolol tartrate 50 mg twice a day. _Stage IIIb chronic kidney disease with GFR of 41 creatinine 1.59 continue to avoid any nephrotoxic agent continue gentle hydration watch for any toxic medication. _Severe deformity and bruise of the left foot: Continue to watch for any increase of his hematoma as soon as he is able to put pressure and weight on it continue to use his special design shoes with watch for any increased pain over period of time if having symptoms repeat x-ray again and if needed another CAT scan. _Type 2 diabetes: Accu-Chek with sliding. Along with Tresiba 40 units daily NovoLog AC meals. _Severe GERD continue omeprazole 20 mg daily. _DVT prophylaxis: Remain on Eliquis. _GI prophylaxis: Remain on omeprazole. _CODE STATUS: Full code. _Admit patient to the inpatient service for 1-2 night stay. 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, [facility] Last Myocardial Infarction Date:: 07/2023 History of Any Multi-Drug Resistant Organisms: None Reported Past Surgical History: Cholecystectomy, Heart Catheterization With Stent Additional Past Surgical History / Comment(s): [address] July 2023 Past Anesthesia/Blood Transfusion Reactions: No Reported Reaction Date of Last Stent Placement:: 07/28/2023 Past Psychological History: No Psychological Hx Reported Smoking Status: Never smoker Past Alcohol Use History: Occasional Past Drug Use History: None Reported - Past Family History Mother Additional Family Medical History / Comment(s): Sick sinus syndrome Father Family Medical History: Congestive Heart Failure (CHF) Additional Family Medical History / Comment(s): brother-heart failure, other borther heart attack. nephew/niece cardiac stents, Brother(s) Family Medical History: Coronary Artery Disease (CAD) Additional Family Medical History / Comment(s): 2 Brothers were diagnosed with early onset coronary artery disease in their 40s Medications and Allergies Home Medications Medication Instructions Recorded Confirmed Type Aspirin 81 mg PO DAILY #90 tab 07/31/23 01/29/24 Rx Insulin Degludec [Tresiba 40 units SQ DAILY #0 07/31/23 01/29/24 Rx Flextouch U-100 Pen] Ticagrelor [Brilinta] 90 mg PO BID #180 tab 07/31/23 01/29/24 Rx Sodium Chloride 0.65% Nasal [Deep 2 spray NASAL QID PRN ml 08/12/23 01/29/24 Rx Sea (Saline)] Furosemide [Lasix] 40 mg PO BID@0700,1700 09/23/23 01/29/24 History Metoprolol Tartrate [Lopressor] 50 mg PO BID@0700,1700 09/23/23 01/29/24 History Omeprazole 20 mg PO DAILY 09/23/23 01/29/24 History Tamsulosin [Flomax] 0.4 mg PO DAILY 09/23/23 01/29/24 History Apixaban [Eliquis] 2.5 mg PO BID@0700,1700 01/29/24 01/29/24 History INSULIN ASPART (NovoLOG) [NovoLOG See Protocol SQ ACHS 01/29/24 01/29/24 History (formulary)] Nitroglycerin Sl Tabs [Nitrostat] 0.4 mg SL Q5M PRN 01/29/24 01/29/24 History allopurinoL [Zyloprim] 100 mg PO DAILY 01/29/24 01/29/24 History lisinopriL [Zestril] 2.5 mg PO DAILY 01/29/24 01/29/24 History Allergies Allergy/AdvReac Type Severity Reaction Status Date / Time No Known Allergies Allergy Verified 01/29/24 13:24 Physical Exam Vitals: Vital Signs Temp Pulse Resp BP Pulse Ox 01/29/24 13:58 88 16 106/55 96 01/29/24 09:55 98.1 F 69 20 107/67 99 Intake and Output 01/28/24 01/29/24 01/29/24 22:59 06:59 14:59 Other: Weight 88.904 kg Results CBC & Chem 7: 01/30/24 02:05 01/29/24 10:57 Labs: Abnormal Lab Results - Last 24 Hours (Table) 01/29/24 01/29/24 01/29/24 Range/Units 10:57 10:57 10:57 WBC 15.3 H (3.8-10.6) k/uL RBC 3.66 L (4.30-5.90) m/uL Hgb 11.1 L (13.0-17.5) gm/dL Hct 33.9 L (39.0-53.0) % Neutrophils # 13.1 H (1.3-7.7) k/uL Lymphocytes # 0.9 L (1.0-4.8) k/uL APTT 31.2 H (22.0-30.0) sec BUN 30 H (9-20) mg/dL Creatinine 1.59 H (0.66-1.25) mg/dL Glucose 141 H (74-99) mg/dL Magnesium 2.4 H (1.6-2.3) mg/dL AST 16 L (17-59) U/L Troponin I (0.000-0.034) ng/mL 01/29/24 Range/Units 10:57 WBC (3.8-10.6) k/uL RBC (4.30-5.90) m/uL Hgb (13.0-17.5) gm/dL Hct (39.0-53.0) % Neutrophils # (1.3-7.7) k/uL Lymphocytes # (1.0-4.8) k/uL APTT (22.0-30.0) sec BUN (9-20) mg/dL Creatinine (0.66-1.25) mg/dL Glucose (74-99) mg/dL Magnesium (1.6-2.3) mg/dL AST (17-59) U/L Troponin I 0.042 H* (0.000-0.034) ng/mL
[2024-01-30] MEDS ORDERED: NON FORMULARY DRUG (Omeprazole [Omeprazole] 20 MG Capsule.Dr) PO SCH (09:00)
[2024-01-30] MEDS ORDERED: ASPIRIN 81 MG PO SCH (09:00)
[2024-01-30] MEDS: TAMSULOSIN 0.4 MG CAP.ER.24H PO SCH (09:28)
[2024-01-30] MEDS: allopurinoL 100 MG TAB PO SCH (09:28)
[2024-01-30] MEDS: INSULIN DETEMIR (LEVEMIR) 100 UNIT/ML SYR SQ SCH (09:28)
--- NOTE | 2024-01-30 09:58 | P.CRDCN ---
History of Present Illness History of present illness: HISTORY OF PRESENT ILLNESS: This is a 78-year-old male with a past medical history significant for coronary artery disease with previous stenting, cardiomyopathy, paroxysmal atrial fibril lation hypertension, hyperlipidemia, and diabetes. Patient follows in the office with Dr. Dean. We have been asked to see the patient in consultation for non-STEMI. Patient examined at the bedside. Patient states yesterday he was in the shower when he fell and twisted his ankle. Patient states that he remembers the entire event and did not experience any syncope. Patient currently denies any chest pain or pressure. He denies any shortness of breath. He reports discomfort of his right foot this morning which is very swollen and bruised. Vital signs are stable. DIAGNOSTICS: - EKG reveals sinus mechanism with PVCs. No signs of acute ischemia. - Laboratory data: WBC 11.9. Hemoglobin 9.9. Platelet count 211. Sodium 137. Potassium 4.0. BUN 30. Creatinine 1.59. Troponin 0.042. 0.032. - Current home cardiac medications include lisinopril 2.5 mg daily, Brilinta 90 mg twice a day, metoprolol tartrate 50 mg twice a day, Lasix 40 mg twice a day, aspirin 81 mg daily, Eliquis 2.5 mg twice a day - Most recent echocardiogram obtained in September 2023 revealed ejection fraction 30 to 35% - Cardiac catheterization history: July 2023 with stenting of the right coronary artery, left anterior descending artery, and Impella placement REVIEW OF SYSTEMS: At the time of my exam: CONSTITUTIONAL: Denies fever or chills. HEENT: Denies blurred vision, vision changes, or eye pain. Denies hemoptysis CARDIOVASCULAR: Denies chest pain. Denies orthopnea. Denies PND. Denies palpitations RESPIRATORY: Denies shortness of breath. GASTROINTESTINAL: Denies abdominal pain. Denies nausea or vomiting. HEMATOLOGIC: Denies bleeding disorders. GENITOURINARY: Denies any blood in urine. SKIN: Denies pruitis. Denies rash. PHYSICAL EXAM: VITAL SIGNS: Reviewed. GENERAL: Well-developed in no acute distress. HEENT: Head is normocephalic. Pupils are equal, round. Sclerae anicteric. Mucous membranes of the mouth are moist. Neck supple. No JVD or thyromegaly LUNGS: Respirations even and unlabored. Lungs essentially clear to auscultation bilaterally. HEART: Regular rate and rhythm. S1 and S2 heard. ABDOMEN: Soft. Nondistended. Nontender. EXTREMITIES: Normal range of motion. No clubbing or cyanosis. Peripheral pulses intact. Left ankle with significant edema and bruising NEUROLOGIC: Awake and alert. Oriented x 3. ASSESSMENT: Status post mechanical fall without syncope with trauma to left ankle Coronary artery disease with previous stenting of the RCA and LAD, July 2023 Ischemic cardiomyopathy, 30 to 35% Paroxysmal atrial fibrillation Chronic kidney disease Elevated troponin secondary to chronic kidney disease, no acute ischemia or injury, no clinical significance Hypertension Hyperlipidemia Diabetes PLAN: An acute coronary but has been ruled out Obtain 2D echo to assess cardiac structure and function Continue Brilinta due to stenting in July 2023. May discontinue aspirin. Increase Eliquis to appropriate dosing of 5 mg twice a day for thromboembolic protection Continue additional cardiac medications Further recommendations pending patient course Nurse practitioner note has been reviewed by physician. Signing provider agrees with the documented findings, assessment, and plan of care documented by REHABILITATION SERVICES COORDINATOR as a scribe. 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, [facility] Last Myocardial Infarction Date:: 07/2023 History of Any Multi-Drug Resistant Organisms: None Reported Past Surgical History: Cholecystectomy, Heart Catheterization With Stent Additional Past Surgical History / Comment(s): [address] July 2023 Past Anesthesia/Blood Transfusion Reactions: No Reported Reaction Date of Last Stent Placement:: 07/28/2023 Past Psychological History: No Psychological Hx Reported Smoking Status: Never smoker Past Alcohol Use History: Occasional Past Drug Use History: None Reported - Past Family History Mother Additional Family Medical History / Comment(s): Sick sinus syndrome Father Family Medical History: Congestive Heart Failure (CHF) Additional Family Medical History / Comment(s): brother-heart failure, other borther heart attack. nephew/niece cardiac stents, Brother(s) Family Medical History: Coronary Artery Disease (CAD) Additional Family Medical History / Comment(s): 2 Brothers were diagnosed with early onset coronary artery disease in their 40s Medications and Allergies Home Medications Medication Instructions Recorded Confirmed Type Aspirin 81 mg PO DAILY #90 tab 07/31/23 01/29/24 Rx Insulin Degludec [Tresiba 40 units SQ DAILY #0 07/31/23 01/29/24 Rx Flextouch U-100 Pen] Ticagrelor [Brilinta] 90 mg PO BID #180 tab 07/31/23 01/29/24 Rx Sodium Chloride 0.65% Nasal [Deep 2 spray NASAL QID PRN ml 08/12/23 01/29/24 Rx Sea (Saline)] Furosemide [Lasix] 40 mg PO BID@0700,1700 09/23/23 01/29/24 History Metoprolol Tartrate [Lopressor] 50 mg PO BID@0700,1700 09/23/23 01/29/24 History Omeprazole 20 mg PO DAILY 09/23/23 01/29/24 History Tamsulosin [Flomax] 0.4 mg PO DAILY 09/23/23 01/29/24 History Apixaban [Eliquis] 2.5 mg PO BID@0700,1700 01/29/24 01/29/24 History INSULIN ASPART (NovoLOG) [NovoLOG See Protocol SQ ACHS 01/29/24 01/29/24 History (formulary)] Nitroglycerin Sl Tabs [Nitrostat] 0.4 mg SL Q5M PRN 01/29/24 01/29/24 History allopurinoL [Zyloprim] 100 mg PO DAILY 01/29/24 01/29/24 History lisinopriL [Zestril] 2.5 mg PO DAILY 01/29/24 01/29/24 History Allergies Allergy/AdvReac Type Severity Reaction Status Date / Time No Known Allergies Allergy Verified 01/29/24 13:24 Physical Exam Vitals: Vital Signs Temp Pulse Pulse Resp BP BP Pulse Ox 01/30/24 09:14 98.5 F 81 17 116/55 95 01/30/24 03:58 98.5 F 80 18 119/42 93 L 01/29/24 23:35 98.8 F 83 18 155/72 96 01/29/24 20:26 98.3 F 78 18 149/67 98 01/29/24 19:59 99.8 F H 70 16 111/40 95 01/29/24 18:00 98.3 F 80 18 115/52 99 01/29/24 13:58 88 16 106/55 96 01/29/24 09:55 98.1 F 69 20 107/67 99 Intake and Output 01/29/24 01/30/24 01/30/24 22:59 06:59 14:59 Intake Total 65 101.094 240 Balance 65 101.094 240 Intake: Intake, IV Titration 65 101.094 Amount Heparin Sod,Pork in 0.45% 65 101.094 NaCl 25,000 unit In 0.45 % NaCl 1 250ml.bag @ 11. 248 UNITS/KG/HR 10 mls/hr IV .Q24H [facility] Rx#: [id number] Oral 240 Other: Voiding Method Toilet Toilet Toilet # Voids 1 3 Weight 88.904 kg 89.3 kg Results 01/30/24 02:05 01/29/24 10:57 Cardiac Enzymes 01/29/24 01/29/24 01/29/24 Range/Units 10:57 10:57 14:19 AST 16 L (17-59) U/L Troponin I 0.042 H* 0.032 (0.000-0.034) ng/mL Coagulation 01/29/24 01/29/24 01/30/24 Range/Units 10:57 18:06 02:05 PT 11.5 (10.0-12.5) sec APTT 31.2 H 38.7 H 38.4 H (22.0-30.0) sec 01/30/24 Range/Units 02:05 PT 11.9 (10.0-12.5) sec APTT (22.0-30.0) sec CBC 01/29/24 01/30/24 Range/Units 10:57 02:05 WBC 15.3 H 11.9 H (3.8-10.6) k/uL RBC 3.66 L 3.24 L (4.30-5.90) m/uL Hgb 11.1 L 9.9 L (13.0-17.5) gm/dL Hct 33.9 L 30.6 L (39.0-53.0) % Plt Count 217 211 (150-450) k/uL Comprehensive Metabolic Panel 01/29/24 Range/Units 10:57 Sodium 137 (137-145) mmol/L Potassium 4.0 (3.5-5.1) mmol/L Chloride 105 (98-107) mmol/L Carbon Dioxide 25 (22-30) mmol/L BUN 30 H (9-20) mg/dL Creatinine 1.59 H (0.66-1.25) mg/dL Glucose 141 H (74-99) mg/dL Calcium 9.0 (8.4-10.2) mg/dL AST 16 L (17-59) U/L ALT 12 (4-49) U/L Alkaline Phosphatase 72 (38-126) U/L Total Protein 6.4 (6.3-8.2) g/dL Albumin 3.5 (3.5-5.0) g/dL Current Medications Generic Name Dose Route Start Last Admin Trade Name Freq PRN Reason Stop Dose Admin Acetaminophen 650 mg 01/29/24 12:50 Acetaminophen Tab 325 Mg Tab PO Q6HR PRN Mild Pain or Fever > 100.5 Allopurinol 100 mg 01/30/24 09:00 01/30/24 09:28 Allopurinol 100 Mg Tab PO 100 mg DAILY GUSTAVO Administration Apixaban 5 mg 01/30/24 17:00 Apixaban 5 Mg Tab PO BID@0700,1700 GUSTAVO Protocol Furosemide 40 mg 01/29/24 17:00 01/30/24 06:04 Furosemide 40 Mg Tab PO 40 mg BID@0700,1700 GUSTAVO Administration Ceftriaxone Sodium 1 gm/ 50 mls @ 100 mls/hr 01/29/24 18:45 01/29/24 18:38 Sodium Chloride IVPB 100 mls/hr Q24HR GUSTAVO Administration Protocol Insulin Aspart 0 unit 01/29/24 17:30 01/30/24 06:04 Insulin Aspart (Novolog) 100 Unit/Ml Vial SQ 2 unit ACHS GUSTAVO Administration Protocol Insulin Detemir 40 unit 01/30/24 09:00 01/30/24 09:28 Insulin Detemir (Levemir) 100 Unit/Ml Syr SQ 40 unit DAILY GUSTAVO Administration Lisinopril 2.5 mg 01/30/24 09:00 01/30/24 09:28 Lisinopril 2.5 Mg Tab PO 2.5 mg DAILY GUSTAVO Administration Metoprolol Tartrate 50 mg 01/29/24 17:00 01/30/24 06:04 Metoprolol Tartrate 50 Mg Tab PO 50 mg BID@0700,1700 GUSTAVO Administration Naloxone HCl 0.2 mg 01/29/24 12:50 Naloxone 0.4 Mg/Ml 1 Ml Vial IV Q2M PRN Opioid Reversal Pantoprazole Sodium 40 mg 01/30/24 07:30 01/30/24 06:04 Pantoprazole 40 Mg Tablet PO 40 mg [id number] GUSTAVO Administration Sodium Chloride 2 spray 01/29/24 14:46 Sodium Chloride 0.65% Nasal [place] 44 Ml Btl NASAL QID PRN Nasal Congestion Tamsulosin HCl 0.4 mg 01/30/24 09:00 01/30/24 09:28 Tamsulosin 0.4 Mg Cap.Er.24h PO 0.4 mg DAILY GUSTAVO Administration Ticagrelor 90 mg 01/29/24 21:00 01/30/24 09:28 Ticagrelor 90 Mg Tab PO 90 mg BID GUSTAVO Administration Intake and Output 01/29/24 01/30/24 01/30/24 22:59 06:59 14:59 Intake Total 65 101.094 240 Balance 65 101.094 240 Intake: Intake, IV Titration 65 101.094 Amount Heparin Sod,Pork in 0.45% 65 101.094 NaCl 25,000 unit In 0.45 % NaCl 1 250ml.bag @ 11. 248 UNITS/KG/HR 10 mls/hr IV .Q24H G[facility]O Rx#: [id number] Oral 240 Other: Voiding Method Toilet Toilet Toilet # Voids 1 3 Weight 88.904 kg 89.3 kg 01/30/24 02:05 01/29/24 10:57
[2024-01-30 11:43] LABS: Glucose,Whole Blood 391 mg/dL (70-110)
[2024-01-30 14:25] LABS: Erythrocyte Sedimentation Rate 55 mm/Hr (0-20)
[2024-01-30 16:16] LABS: Glucose,Whole Blood 296 mg/dL (70-110)
[2024-01-30] MEDS: APIXABAN 5 MG TAB PO SCH (16:44)
[2024-01-30 20:01] LABS: Glucose,Whole Blood 273 mg/dL (70-110)
--- NOTE | 2024-01-30 22:32 | P.CONS ---
History of Present Illness - Reason for Consult Consult date: 01/30/24 Infected left foot Requesting physician: Derian Link - Chief Complaint Fall left foot swelling and redness x few days - History of Present Illness Patient is a 78-year-old male with a past medical history significant for diabetes mellitus hypertension hyperlipidemia [place] reflux Charcot foot and a previous history of left diabetic foot ulcer for the patient due to follow at [facility] [place] patient now presenting to [facility] ER apparently the patient did have a fall in the shower patient apparently slipped did have a fall did have an episode of emesis but no clear history of any loss of consciousness the next morning the patient woke up and was complaining of pain to the left ankle area no noticed to have significant bruising and swelling of the left foot and ankle area but no skin breakdown or drainage patient denies high-grade fever at home however patient on arrival was afebrile he did have a fever of 99.8 F last evening at the patient mention he also have some chills patient denies having any headache or URI symptoms no chest pain shortness of breath or cough no nausea vomiting no abdominal pain or any diarrhea patient workup did include a white count of 15.3 with a left shift BUN/creatinine has been mildly elevated liver enzymes are normal no cultures were done patient was given a dose of Rocephin infectious disease was consulted for further management of antibiotic therapy Review of Systems Positive point and negatives has been mentioned in the HPI, complete review of systems was performed and all other systems are negative Past Medical History Past Medical History: Diabetes Mellitus, GERD/Reflux, Hearing Disorder / Deafness, Hyperlipidemia, Hypertension, Myocardial Infarction ([place]) Additional Past Medical History / Comment(s): 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, [facility] Last Myocardial Infarction Date:: 07/2023 History of Any Multi-Drug Resistant Organisms: None Reported Past Surgical History: Cholecystectomy, Heart Catheterization With Stent Additional Past Surgical History / Comment(s): [address] July 2023 Past Anesthesia/Blood Transfusion Reactions: No Reported Reaction Date of Last Stent Placement:: 07/28/2023 Past Psychological History: No Psychological Hx Reported Smoking Status: Never smoker Past Alcohol Use History: Occasional Past Drug Use History: None Reported - Past Family History Mother Additional Family Medical History / Comment(s): Sick sinus syndrome Father Family Medical History: Congestive Heart Failure (CHF) Additional Family Medical History / Comment(s): brother-heart failure, other borther heart attack. nephew/niece cardiac stents, Brother(s) Family Medical History: Coronary Artery Disease (CAD) Additional Family Medical History / Comment(s): 2 Brothers were diagnosed with early onset coronary artery disease in their 40s Medications and Allergies Home Medications Medication Instructions Recorded Confirmed Type Aspirin 81 mg PO DAILY #90 tab 07/31/23 01/29/24 Rx Insulin Degludec [Tresiba 40 units SQ DAILY #0 07/31/23 01/29/24 Rx Flextouch U-100 Pen] Ticagrelor [Brilinta] 90 mg PO BID #180 tab 07/31/23 01/29/24 Rx Sodium Chloride 0.65% Nasal [Deep 2 spray NASAL QID PRN ml 08/12/23 01/29/24 Rx Sea (Saline)] Furosemide [Lasix] 40 mg PO BID@0700,1700 09/23/23 01/29/24 History Metoprolol Tartrate [Lopressor] 50 mg PO BID@0700,1700 09/23/23 01/29/24 History Omeprazole 20 mg PO DAILY 09/23/23 01/29/24 History Tamsulosin [Flomax] 0.4 mg PO DAILY 09/23/23 01/29/24 History Apixaban [Eliquis] 2.5 mg PO BID@0700,1700 01/29/24 01/29/24 History INSULIN ASPART (NovoLOG) [NovoLOG See Protocol SQ ACHS 01/29/24 01/29/24 History (formulary)] Nitroglycerin Sl Tabs [Nitrostat] 0.4 mg SL Q5M PRN 01/29/24 01/29/24 History allopurinoL [Zyloprim] 100 mg PO DAILY 01/29/24 01/29/24 History lisinopriL [Zestril] 2.5 mg PO DAILY 01/29/24 01/29/24 History Allergies Allergy/AdvReac Type Severity Reaction Status Date / Time No Known Allergies Allergy Verified 01/29/24 13:24 Physical Exam Vitals: Vital Signs Temp Pulse Pulse Resp BP BP Pulse Ox 01/30/24 12:04 63 16 119/71 96 01/30/24 09:14 98.5 F 81 17 116/55 95 01/30/24 03:58 98.5 F 80 18 119/42 93 L 01/29/24 23:35 98.8 F 83 18 155/72 96 01/29/24 20:26 98.3 F 78 18 149/67 98 01/29/24 19:59 99.8 F H 70 16 111/40 95 01/29/24 18:00 98.3 F 80 18 115/52 99 01/29/24 13:58 88 16 106/55 96 Intake and Output 01/29/24 01/30/24 01/30/24 22:59 06:59 14:59 Intake Total 65 101.094 240 Balance 65 101.094 240 Intake: Intake, IV Titration 65 101.094 Amount Heparin Sod,Pork in 0.45% 65 101.094 NaCl 25,000 unit In 0.45 % NaCl 1 250ml.bag @ 11. 248 UNITS/KG/HR 10 mls/hr IV .Q24H [facility] Rx#: [id number] Oral 240 Other: Voiding Method Toilet Toilet Toilet # Voids 1 3 Weight 88.904 kg 89.3 kg GENERAL DESCRIPTION: Elderly male lying in bed, no distress. No tachypnea or accessory muscle of respiration use. HEENT: Shows Pallor , no scleral icterus. Oral mucous membrane is dry. No pharyngeal erythema or thrush NECK: Trachea central, no thyromegaly. LUNGS: Unlabored breathing. Clear to auscultation anteriorly. No wheeze or c rackle. HEART: S1, S2, regular rate and rhythm. No loud murmur ABDOMEN: Soft, no tenderness , guarding or rigidity, no organomegaly EXTREMITIES: Left foot did have a bruising some swelling and minimal redness slightly warm to touch SKIN: No rash, no masses palpable. NEUROLOGICAL: The patient is awake, alert, oriented x3, mood and affect normal. Results CBC & Chem 7: 01/30/24 02:05 01/29/24 10:57 Labs: Abnormal Lab Results - Last 24 Hours (Table) 01/29/24 01/29/24 01/29/24 Range/Units 15:11 17:21 18:06 WBC (3.8-10.6) k/uL RBC (4.30-5.90) m/uL Hgb (13.0-17.5) gm/dL Hct (39.0-53.0) % Neutrophils # (1.3-7.7) k/uL APTT 38.7 H (22.0-30.0) sec POC Glucose (mg/dL) 125 H 185 H (70-110) mg/dL 01/29/24 01/30/24 01/30/24 Range/Units 20:41 02:05 02:05 WBC 11.9 H (3.8-10.6) k/uL RBC 3.24 L (4.30-5.90) m/uL Hgb 9.9 L (13.0-17.5) gm/dL Hct 30.6 L (39.0-53.0) % Neutrophils # 9.4 H (1.3-7.7) k/uL APTT 38.4 H (22.0-30.0) sec POC Glucose (mg/dL) 252 H (70-110) mg/dL 01/30/24 01/30/24 Range/Units 05:24 11:41 WBC (3.8-10.6) k/uL RBC (4.30-5.90) m/uL Hgb (13.0-17.5) gm/dL Hct (39.0-53.0) % Neutrophils # (1.3-7.7) k/uL APTT (22.0-30.0) sec POC Glucose (mg/dL) 193 H 391 H (70-110) mg/dL Assessment and Plan (1) Cellulitis of left foot Current Visit: Yes Status: Acute Code(s): L03.116 - CELLULITIS OF LEFT LOWER LIMB SNOMED Code(s): 21608245838904543 Plan: 1patient with the left foot and ankle area swelling redness did have significant bruising with recent history of trauma however likely a component of cellulitis as the patient did have fever and elevated white count likely from gram-positive skin hoda 2-we will obtain blood cultures and inflammatory markers 3-discontinue Rocephin 4-start the patient on cefazolin 2 g every 8 hours We will follow on clinical condition and cultures to further adjust medication if needed Thank you for this consultation we will follow the patient along with you Dictation was produced using dragon dictation software. please excuse any grammatical, word or spelling errors. Time with Patient: Greater than 30
[2024-01-31 06:11] LABS: Glucose,Whole Blood 280 mg/dL (70-110)
[2024-01-31 07:36] LABS: HCT 32.2 % (39.0-53.0); HGB 10.2 gm/dL (13.0-17.5); MCH 30.2 pg (25.0-35.0); MCHC 31.8 g/dL (31.0-37.0); MCV 94.7 fL (80.0-100.0); Mean Platelet Volume 8.5; Platelet Count 259 k/uL (150-450); RBC 3.39 m/uL (4.30-5.90); RDW 13.6 % (11.5-15.5); WBC 10.8 k/uL (3.8-10.6)
[2024-01-31 07:54] LABS: ALT 13 U/L (4-49); AST 19 U/L (17-59); African American GFR (CKD) 46 (>60 ml/min/1.73 sqM); Alkaline Phosphatase 76 U/L (38-126); Anion Gap 10 mmol/L; Blood Urea Nitrogen 33 mg/dL (9-20); Calcium 8.5 mg/dL (8.4-10.2); Carbon Dioxide 23 mmol/L (22-30); Chloride 101 mmol/L (98-107); Glucose 248 mg/dL (74-99); Non-African American GFR(CKD) 40 (>60 ml/min/1.73 sqM); Potassium 3.6 mmol/L (3.5-5.1); Sodium 134 mmol/L (137-145); Total Bilirubin 0.5 mg/dL (0.2-1.3); Total Protein 5.7 g/dL (6.3-8.2)
--- NOTE | 2024-01-31 08:09 | P.PN ---
Subjective Progress Note Date: 01/30/24 HISTORY OF PRESENT ILLNESS: 78-year-old with active medical history of coronary artery disease post non- STEMI with triple-vessel post stent placement (history of type 2 diabetes, stage IIIb chronic kidney disease, ischemic cardiomyopathy, hypertension, hyperlipidemia, paroxysmal atrial fibrillation was in the hospital last time with syncopal episode witnessed and believed to be seizure at the time was in the hospital for few days was seen neurology and cardiology. 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 He is doing fine through the day on 01/29/2024 till later when he started feeling to have slight hypoglycemia he took handful of grapes angiogram then he felt slightly bit sick according to his he went into the bathroom and get in the shower and become more sick to start throwing up he fell in the shower without any syncopal episode he was fully alert and awake for the whole thing the heard his stump falling in the shower went in and found him having significant nausea and vomiting with significant amount of diarrhea at that point he become more alert but still extremely weak with the fall he twisted his foot and created more problems and discomfort and her the big toe and the third part of his foot as well. No obvious site going him to the emergency room with the above problem patient is still quite bit symptomatic but no further nausea or vomiting. Seen and evaluated in the emergency department had multiple x-ray including left ankle shows no fracture or deformity. Left hip and pelvis shows no acute abnormality or fracture as well. And full x-ray of the foot shows early Charcot joint of the left foot with soft tissue swelling in the dorsum of the foot with 3 plantar calcaneal heel spur with degenerative joint change greatest at the second and third metatarsal phalangeal joint space. Laboratory evaluation shows white blood cell to be 15,300 with hemoglobin 11.1 mostly neutrophil cell, blood sugar is mildly elevated creatinine at 1.59 with GFR at 41. BNP was 2390 troponin initially was mildly elevated at 0.042. Emergency room decided to admit patient for but they believe might be non-STEMI with his cardiac history and current symptoms was started on heparin drip and consult cardiology admit patient to the hospital. 01/30/2024: Patient is not having any further syncopal episode, laboratory value creatinine 1.60 blood sugar still mildly elevated, C-reactive protein was 33.9, fortunately uric acid was low no sign of gout. Can also cause the left foot from the injury site blew up will become extremely swell red and hot. Infectious disease consultation was done diagnosed this to be most likely cellulitis with the current infection and deformed foot decided to switch his Rocephin to cefazolin 2 g every 8 hours culture still negative at this point no open area require any topical product to help with. The patient will stay off his foot currently. REVIEW OF SYSTEMS: CONSTITUTIONAL: Well-developed no acute respiratory distress. EYES: No icterus sclerae, no conjunctivitis. EARS, NOSE, MOUTH, THROAT, and FACE: No sore throat, lymphadenopathy, carotid bruits or deformity. RESPIRATORY: Mild shortness of breath no cough or wheezes. CARDIOVASCULAR: Positive PND orthopnea and orthopnea. No chest pain or angina. GASTROINTESTINAL: Still having slight abdominal discomfort with nausea no vomiting no further GI bleed but continued to have slight diarrhea as well. GENITOURINARY: Negative for Hematuria or UTI, no kidney stones. INTEGUMENT/BREAST: Negative for any muscular injury with mild osteoarthritis.. HEMATOLOGIC/LYMPHATIC: Negative for bleed or purpura. MUSCULOSKELTAL: Left foot has callus with healing ulcer quite with a bruise around the first and second toe with mild ecchymosis and slight hemorrhage under the toe. NEURLOGICAL: No LOC, Sz or syncope, blurred vision dizziness or abnormality.. BEHAVIORAL/PSYCH: Negative. ENDOCRINE: Negative. PHYSICAL EXAMINATION: General Appearance: Alert, cooperative, no distress, appears stated age. Neck HEENT: Supple, no lymphadenopathy, no thyroid enlargement, no carotid bruits. Lungs: Decreased breath sound bilaterally with fine rhonchi no crackles or wheezes. Chest Wall: Decreased expansion with deep inspiration no tenderness and no deformity was found on exam, no costochondral pain or discomfort. Heart: Irregular rate and rhythm, S1, S2 normal, no murmur, rub or gallop. Back: Symmetric, no curvature, ROM normal, no CVA tenderness. Abdomen: Soft positive bowel sounds no organomegaly or tenderness slight discomfort in the epigastric area and left lower quadrant area no rebound or rigidity. Extremities: Left foot with quite a bit larger bruise and hematoma around the big toe and under the joint between the metatarsal and the phalangeal area first and second toes mostly. Pulses: 2+ and symmetric. Skin: Skin color, texture, tugor normal, no rashes or lesions. Neurologic: Alert oriented x3 cranial nerves II through XII intact, no motor deficit, no abnormal balance or gait. ASSESSMENT AND PLAN: _ non-ST IN was excluded: Second troponin was negative the patient is not having any further symptoms. _Severe cellulitis of the left foot with deformed foot significant swelling with elevated C-reactive protein, patient was started on cefazolin 2 g every 8 hours and off Rocephin. _Severe gastroenteritis: No further signs and symptoms of gastrointestinal including diarrhea nausea or vomiting. _Fall with no syncope the patient was fully awake for the whole thing per his testimony and his as well had mild injury to the left foot mostly no injury anywhere else in his body this is happened after he started his severe nausea and vomiting probably was more related to extreme hypertension his blood pressure is much better so far will continue hydration for now. _Advanced cardiomyopathy mostly ischemic with ejection fraction of 30-35 percentile remain on medical management. _Multiple vessel coronary artery disease post angioplasty and stent placement: Last stent was RCA and LAD back in July 2023 and is currently remain on Brilinta with aspirin has not stopped. _A-fib: Switched back to Eliquis and dose was increased up to 5 mg twice a day and remain on metoprolol tartrate 50 mg twice a day. _Stage IIIb chronic kidney disease with GFR of 41 creatinine 1.59 continue to avoid any nephrotoxic agent continue gentle hydration watch for any toxic medication. _Severe deformity and bruise of the left foot: Continue to watch for any increase of his hematoma as soon as he is able to put pressure and weight on it continue to use his special design shoes with watch for any increased pain over period of time if having symptoms repeat x-ray again and if needed another CAT scan. _Type 2 diabetes: Accu-Chek with sliding. Along with Tresiba 40 units daily NovoLog AC meals. _Severe GERD continue omeprazole 20 mg daily. _DVT prophylaxis: Remain on Eliquis. Discussion: No further signs and symptoms of any abnormality require help from a cardiac standpoint the patient developed to have severe cellulitis with all signs and symptoms of redness heat and increased pain with swelling infectious disease seen patient start cefazolin instead of Rocephin will continue current management still watch for any further finding with culture if needed patient might require to go for either bone scan or CAT scan of the foot to exclude any involvement and the bone at that time. Objective - Vital Signs Vital signs: Vital Signs Temp 97.9 F 01/30/24 20:00 Pulse 87 01/30/24 20:00 Resp 18 01/30/24 20:00 BP 135/69 01/30/24 20:00 Pulse Ox 95 01/30/24 20:00 FiO2 Intake & Output 01/30/24 01/30/24 01/31/24 06:59 18:59 06:59 Intake Total 166.094 480 120 Balance 166.094 480 120 Weight 89.3 kg Intake: Intake, IV Titration 166.094 Amount Heparin Sod,Pork in 0.45% 166.094 NaCl 25,000 unit In 0.45 % NaCl 1 250ml.bag @ 11. 248 UNITS/KG/HR 10 mls/hr IV .Q24H [facility] Rx#: [id number] Oral 480 120 Other: Voiding Method Toilet Toilet Toilet # Voids 3 1 1 # Bowel Movements 1 - Labs CBC & Chem 7: 01/31/24 06:56 01/31/24 06:56 Labs: Abnormal Lab Results - Last 24 Hours (Table) 01/30/24 01/30/24 01/30/24 Range/Units 02:05 02:05 05:24 WBC 11.9 H (3.8-10.6) k/uL RBC 3.24 L (4.30-5.90) m/uL Hgb 9.9 L (13.0-17.5) gm/dL Hct 30.6 L (39.0-53.0) % Neutrophils # 9.4 H (1.3-7.7) k/uL ESR 55 H (0-20) mm/Hr APTT 38.4 H (22.0-30.0) sec POC Glucose (mg/dL) 193 H (70-110) mg/dL C-Reactive Protein (<1.0) mg/dL 01/30/24 01/30/24 01/30/24 Range/Units 11:41 15:00 16:15 WBC (3.8-10.6) k/uL RBC (4.30-5.90) m/uL Hgb (13.0-17.5) gm/dL Hct (39.0-53.0) % Neutrophils # (1.3-7.7) k/uL ESR (0-20) mm/Hr APTT (22.0-30.0) sec POC Glucose (mg/dL) 391 H 296 H (70-110) mg/dL C-Reactive Protein 33.9 H (<1.0) mg/dL 01/30/24 Range/Units 19:56 WBC (3.8-10.6) k/uL RBC (4.30-5.90) m/uL Hgb (13.0-17.5) gm/dL Hct (39.0-53.0) % Neutrophils # (1.3-7.7) k/uL ESR (0-20) mm/Hr APTT (22.0-30.0) sec POC Glucose (mg/dL) 273 H (70-110) mg/dL C-Reactive Protein (<1.0) mg/dL
--- NOTE | 2024-01-31 10:06 | P.PN ---
Subjective HISTORY OF PRESENT ILLNESS: This is a 78-year-old male with a past medical history significant for coronary artery disease with previous stenting, cardiomyopathy, paroxysmal atrial fibrillation hypertension, hyperlipidemia, and diabetes. Patient follows in the office with Dr. Dean. We have been asked to see the patient in consultation for non-STEMI. Patient examined at the bedside. Patient states yesterday he was in the shower when he fell and twisted his ankle. Patient states that he remembers the entire event and did not experience any syncope. Patient currently denies any chest pain or pressure. He denies any shortness of breath. He reports discomfort of his right foot this morning which is very swollen and bruised. Vital signs are stable. DIAGNOSTICS: - EKG reveals sinus mechanism with PVCs. No signs of acute ischemia. - Laboratory data: WBC 11.9. Hemoglobin 9.9. Platelet count 211. Sodium 137. Potassium 4.0. BUN 30. Creatinine 1.59. Troponin 0.042. 0.032. - Current home cardiac medications include lisinopril 2.5 mg daily, Brilinta 90 mg twice a day, metoprolol tartrate 50 mg twice a day, Lasix 40 mg twice a day, aspirin 81 mg daily, Eliquis 2.5 mg twice a day - Most recent echocardiogram obtained in September 2023 revealed ejection fraction 30 to 35% - Cardiac catheterization history: July 2023 with stenting of the right coronary artery, left anterior descending artery, and Impella placement 01/31/2024 Patient examined this morning at the bedside. Patient currently denies chest pain or pressure. He denies shortness of breath. Vital signs are stable. Patient does have Taurus wrap to his left ankle. He is awaiting orthopedic evaluation. PHYSICAL EXAM: VITAL SIGNS: Reviewed. GENERAL: Well-developed in no acute distress. HEENT: Head is normocephalic. Pupils are equal, round. Sclerae anicteric. Mucous membranes of the mouth are moist. Neck supple. No JVD or thyromegaly LUNGS: Respirations even and unlabored. Lungs essentially clear to auscultation bilaterally. HEART: Regular rate and rhythm. S1 and S2 heard. ABDOMEN: Soft. Nondistended. Nontender. EXTREMITIES: Normal range of motion. No clubbing or cyanosis. Peripheral pulses intact. Left ankle with significant edema and bruising NEUROLOGIC: Awake and alert. Oriented x 3. ASSESSMENT: Status post mechanical fall without syncope with trauma to left ankle Coronary artery disease with previous stenting of the RCA and LAD, July 2023 Ischemic cardiomyopathy, 30 to 35% Paroxysmal atrial fibrillation Chronic kidney disease Elevated troponin secondary to chronic kidney disease, no acute ischemia or injury, no clinical significance Hypertension Hyperlipidemia Diabetes PLAN: An acute coronary but has been ruled out 2D echo remains pending. Continue Brilinta due to stenting in July 2023. Aspirin discontinued Eliquis increased yesterday to appropriate dosing of 5 mg twice a day for thromboembolic protection Continue additional cardiac medications Further recommendations pending patient course Nurse practitioner note has been reviewed by physician. Signing provider agrees with the documented findings, assessment, and plan of care documented by EMERGENCY MANAGER as a scribe. Objective - Vital Signs Vital signs: Vital Signs Temp 99.1 F 01/31/24 08:35 Pulse 79 01/31/24 08:35 Resp 16 01/31/24 08:35 BP 123/59 01/31/24 08:35 Pulse Ox 97 01/31/24 08:35 FiO2 Intake & Output 01/30/24 01/31/24 01/31/24 18:59 06:59 18:59 Intake Total 480 120 590 Balance 480 120 590 Weight 88.6 kg Intake: Oral 480 120 590 Other: Voiding Method Toilet Toilet Toilet # Voids 1 2 # Bowel Movements 1 - Labs CBC & Chem 7: 01/31/24 06:56 01/31/24 06:56 Labs: Abnormal Lab Results - Last 24 Hours (Table) 01/30/24 01/30/24 01/30/24 Range/Units 02:05 11:41 15:00 WBC (3.8-10.6) k/uL RBC (4.30-5.90) m/uL Hgb (13.0-17.5) gm/dL Hct (39.0-53.0) % ESR 55 H (0-20) mm/Hr Sodium (137-145) mmol/L BUN (9-20) mg/dL Creatinine (0.66-1.25) mg/dL Glucose (74-99) mg/dL POC Glucose (mg/dL) 391 H (70-110) mg/dL C-Reactive Protein 33.9 H (<1.0) mg/dL Total Protein (6.3-8.2) g/dL Albumin (3.5-5.0) g/dL 01/30/24 01/30/24 01/31/24 Range/Units 16:15 19:56 06:09 WBC (3.8-10.6) k/uL RBC (4.30-5.90) m/uL Hgb (13.0-17.5) gm/dL Hct (39.0-53.0) % ESR (0-20) mm/Hr Sodium (137-145) mmol/L BUN (9-20) mg/dL Creatinine (0.66-1.25) mg/dL Glucose (74-99) mg/dL POC Glucose (mg/dL) 296 H 273 H 280 H (70-110) mg/dL C-Reactive Protein (<1.0) mg/dL Total Protein (6.3-8.2) g/dL Albumin (3.5-5.0) g/dL 01/31/24 01/31/24 Range/Units 06:56 06:56 WBC 10.8 H (3.8-10.6) k/uL RBC 3.39 L (4.30-5.90) m/uL Hgb 10.2 L (13.0-17.5) gm/dL Hct 32.2 L (39.0-53.0) % ESR (0-20) mm/Hr Sodium 134 L (137-145) mmol/L BUN 33 H (9-20) mg/dL Creatinine 1.63 H (0.66-1.25) mg/dL Glucose 248 H (74-99) mg/dL POC Glucose (mg/dL) (70-110) mg/dL C-Reactive Protein (<1.0) mg/dL Total Protein 5.7 L (6.3-8.2) g/dL Albumin 3.0 L (3.5-5.0) g/dL
[2024-01-31 12:13] LABS: Glucose,Whole Blood 315 mg/dL (70-110)
--- NOTE | 2024-01-31 12:26 | P.PN ---
Subjective Progress Note Date: 01/31/24 Principal diagnosis: Reason for follow-up is left foot cellulitis Patient is a 78-year-old male with a past medical history significant for diabetes mellitus hypertension hyperlipidemia [place] reflux Charcot foot was brought to the hospital after the patient did have a fall in the bathroom has developed significant bruising swelling and possible cellulitis to the left foot and ankle area. On today's evaluation that is 01/31/2024, Patient is afebrile this morning and denies any chills, patient mention breathing comfortably and is currently on room air, patient denies any chest pain occasional cough patient denies any abdominal pain no diarrhea no nausea no vomiting patient denies pain to the left foot. Patient white count is down to 10.8 creatinine is 1.63 blood cultures pending Objective - Vital Signs Vital signs: Vital Signs Temp 99.1 F 01/31/24 08:35 Pulse 79 01/31/24 08:35 Resp 16 01/31/24 08:35 BP 123/59 01/31/24 08:35 Pulse Ox 97 01/31/24 08:35 FiO2 Intake & Output 01/30/24 01/31/24 01/31/24 18:59 06:59 18:59 Intake Total 480 120 590 Balance 480 120 590 Weight 88.6 kg Intake: Oral 480 120 590 Other: Voiding Method Toilet Toilet Toilet # Voids 1 2 # Bowel Movements 1 - Exam GENERAL DESCRIPTION: An elderly male lying in bed in no distress RESPIRATORY SYSTEM: Unlabored breathing , decreased breath sounds at bases HEART: S1 S2 regular rate and rhythm , ABDOMEN: Soft , no tenderness EXTREMITIES: Left foot did have some swelling minimal redness and warmth and bruising around the big toe no open wound or drainage - Labs CBC & Chem 7: 01/31/24 06:56 01/31/24 06:56 Labs: Abnormal Lab Results - Last 24 Hours (Table) 01/30/24 01/30/24 01/30/24 Range/Units 02:05 11:41 15:00 WBC (3.8-10.6) k/uL RBC (4.30-5.90) m/uL Hgb (13.0-17.5) gm/dL Hct (39.0-53.0) % ESR 55 H (0-20) mm/Hr Sodium (137-145) mmol/L BUN (9-20) mg/dL Creatinine (0.66-1.25) mg/dL Glucose (74-99) mg/dL POC Glucose (mg/dL) 391 H (70-110) mg/dL C-Reactive Protein 33.9 H (<1.0) mg/dL Total Protein (6.3-8.2) g/dL Albumin (3.5-5.0) g/dL 01/30/24 01/30/24 01/31/24 Range/Units 16:15 19:56 06:09 WBC (3.8-10.6) k/uL RBC (4.30-5.90) m/uL Hgb (13.0-17.5) gm/dL Hct (39.0-53.0) % ESR (0-20) mm/Hr Sodium (137-145) mmol/L BUN (9-20) mg/dL Creatinine (0.66-1.25) mg/dL Glucose (74-99) mg/dL POC Glucose (mg/dL) 296 H 273 H 280 H (70-110) mg/dL C-Reactive Protein (<1.0) mg/dL Total Protein (6.3-8.2) g/dL Albumin (3.5-5.0) g/dL 01/31/24 01/31/24 Range/Units 06:56 06:56 WBC 10.8 H (3.8-10.6) k/uL RBC 3.39 L (4.30-5.90) m/uL Hgb 10.2 L (13.0-17.5) gm/dL Hct 32.2 L (39.0-53.0) % ESR (0-20) mm/Hr Sodium 134 L (137-145) mmol/L BUN 33 H (9-20) mg/dL Creatinine 1.63 H (0.66-1.25) mg/dL Glucose 248 H (74-99) mg/dL POC Glucose (mg/dL) (70-110) mg/dL C-Reactive Protein (<1.0) mg/dL Total Protein 5.7 L (6.3-8.2) g/dL Albumin 3.0 L (3.5-5.0) g/dL Assessment and Plan (1) Cellulitis of left foot Current Visit: Yes Status: Acute Code(s): L03.116 - CELLULITIS OF LEFT LOWER LIMB SNOMED Code(s): 76168813802533652 Plan: 1patient with the left foot and ankle area swelling redness did have significant bruising with recent history of trauma however likely a component of cellulitis as the patient did have fever and elevated white count likely from gram-positive skin hoda 2-blood cultures currently pending did have elevated CRP of 33.3 3-patient has been eval by orthopedics and have consulted vascular surgery await their evaluation 4-continue the patient on cefazolin 2 g every 8 hours while waiting for the workup to be completed Dictation was produced using [employer] dictation software. please excuse any grammatical, word or spelling errors. Time with Patient: Less than 30
--- NOTE | 2024-01-31 12:44 | P.CNOR ---
History of Present Illness - [facility] Consult date: 01/31/24 Consult reason: other (Left foot/ankle injury) History of present illness: Patient is a 78-year-old male who was brought to [facility] on 01/29/2024 for further evaluation of a fall that occurred on 01/28/2024 along with left foot/ankle swelling. Patient has a very detailed cardiac and diabetic h istory. Patient was admitted to the hospital under internal medicine, multiple consults have been placed. Patient's been evaluated by both infectious disease and cardiology. Our orthopedic team was consulted due to the left ankle/foot swelling. Patient was evaluated today at bedside, he is resting comfortably, he appears to be in no acute distress. Patient has a relatively detailed history with regards to his left foot. 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 Patient has severe neuropathy in both feet, he is limited if any feeling in the bilateral feet. He has known diagnosis of Charcot foot involving that left lower extremity. Patient is relatively poor historian with regards to the recent fall Patient is a relatively poor historian with regards to describing the trauma that occurred on 01/28/2024 and how the symptoms have progressed. He states that the swelling seems to be a little bit better than yesterday. Patient's white blood cell counts remain elevated along with his inflammatory markers. He was started on IV antibiotics once admitted to the hospital. 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, [facility] Last Myocardial Infarction Date:: 07/2023 History of Any Multi-Drug Resistant Organisms: None Reported Past Surgical History: Cholecystectomy, Heart Catheterization With Stent Additional Past Surgical History / Comment(s): [address] July 2023 Past Anesthesia/Blood Transfusion Reactions: No Reported Reaction Date of Last Stent Placement:: 07/28/2023 Past Psychological History: No Psychological Hx Reported Smoking Status: Never smoker Past Alcohol Use History: Occasional Past Drug Use History: None Reported - Past Family History Mother Additional Family Medical History / Comment(s): Sick sinus syndrome Father Family Medical History: Congestive Heart Failure (CHF) Additional Family Medical History / Comment(s): brother-heart failure, other borther heart attack. nephew/niece cardiac stents, Brother(s) Family Medical History: Coronary Artery Disease (CAD) Additional Family Medical History / Comment(s): 2 Brothers were diagnosed with early onset coronary artery disease in their 40s Medications and Allergies Home Medications Medication Instructions Recorded Confirmed Type RX: Aspirin 81 mg PO DAILY #90 tab 07/31/23 01/29/24 Rx RX: Insulin Degludec [Tresiba 40 units SQ DAILY #0 07/31/23 01/29/24 Rx Flextouch U-100 Pen] RX: Ticagrelor [Brilinta] 90 mg PO BID #180 tab 07/31/23 01/29/24 Rx RX: Sodium Chloride 0.65% Nasal 2 spray NASAL QID PRN ml 08/12/23 01/29/24 Rx [Deep Sea (Saline)] RX: Furosemide [Lasix] 40 mg PO BID@0700,1700 09/23/23 01/29/24 History RX: Metoprolol Tartrate [Lopressor] 50 mg PO BID@0700,1700 09/23/23 01/29/24 History RX: Omeprazole 20 mg PO DAILY 09/23/23 01/29/24 History RX: Tamsulosin [Flomax] 0.4 mg PO DAILY 09/23/23 01/29/24 History RX: Apixaban [Eliquis] 2.5 mg PO BID@0700,1700 01/29/24 01/29/24 History RX: INSULIN ASPART (NovoLOG) See Protocol SQ ACHS 01/29/24 01/29/24 History [NovoLOG (formulary)] RX: Nitroglycerin Sl Tabs 0.4 mg SL Q5M PRN 01/29/24 01/29/24 History [Nitrostat] allopurinoL [Zyloprim] 100 mg PO DAILY 01/29/24 01/29/24 History lisinopriL [Zestril] 2.5 mg PO DAILY 01/29/24 01/29/24 History Allergies Allergy/AdvReac Type Severity Reaction Status Date / Time No Known Allergies Allergy Verified 01/29/24 13:24 Physical Examination Left lower extremity: No open lesions are visualized throughout the foot or ankle. There is a healed wound on the plantar aspect of the foot, there is a new blister that is formed medial to this, it seems fluid-filled. There is no obvious erythema or obvious purulent material in that area. No significant erythema present in the forefoot, ankle, lower leg, knee. There is significant swelling present in the midfoot/forefoot. There is significant ecchymosis noted to the big toe more on the lateral and plantar aspect. Sensory exam to light touch throughout the medial, lateral, plantar and dorsal aspect of the foot and ankle are nonexistent Patient is able to wiggle the toes, he is able to plantarflex and dorsiflex minimally. Strength testing was not assessed of the foot and ankle. Flexion and extension are intact at the knee, there is no pain reproduced. Logroll maneuver reproduces no pain in the groin Skin is warm to touch throughout the extremity touch, I am unable to appreciate a dorsalis pedis pulse due to on the amount of swelling on the dorsal aspect of the foot. Calf is soft, no tenderness with palpation Results - Labs Labs: Abnormal Lab Results - Last 24 Hours (Table) 01/30/24 01/30/24 01/30/24 Range/Units 02:05 15:00 16:15 WBC (3.8-10.6) k/uL RBC (4.30-5.90) m/uL Hgb (13.0-17.5) gm/dL Hct (39.0-53.0) % ESR 55 H (0-20) mm/Hr Sodium (137-145) mmol/L BUN (9-20) mg/dL Creatinine (0.66-1.25) mg/dL Glucose (74-99) mg/dL POC Glucose (mg/dL) 296 H (70-110) mg/dL C-Reactive Protein 33.9 H (<1.0) mg/dL Total Protein (6.3-8.2) g/dL Albumin (3.5-5.0) g/dL 01/30/24 01/31/24 01/31/24 Range/Units 19:56 06:09 06:56 WBC 10.8 H (3.8-10.6) k/uL RBC 3.39 L (4.30-5.90) m/uL Hgb 10.2 L (13.0-17.5) gm/dL Hct 32.2 L (39.0-53.0) % ESR (0-20) mm/Hr Sodium (137-145) mmol/L BUN (9-20) mg/dL Creatinine (0.66-1.25) mg/dL Glucose (74-99) mg/dL POC Glucose (mg/dL) 273 H 280 H (70-110) mg/dL C-Reactive Protein (<1.0) mg/dL Total Protein (6.3-8.2) g/dL Albumin (3.5-5.0) g/dL 01/31/24 01/31/24 Range/Units 06:56 12:12 WBC (3.8-10.6) k/uL RBC (4.30-5.90) m/uL Hgb (13.0-17.5) gm/dL Hct (39.0-53.0) % ESR (0-20) mm/Hr Sodium 134 L (137-145) mmol/L BUN 33 H (9-20) mg/dL Creatinine 1.63 H (0.66-1.25) mg/dL Glucose 248 H (74-99) mg/dL POC Glucose (mg/dL) 315 H (70-110) mg/dL C-Reactive Protein (<1.0) mg/dL Total Protein 5.7 L (6.3-8.2) g/dL Albumin 3.0 L (3.5-5.0) g/dL H & H 01/29/24 01/30/24 01/31/24 Range/Units 10:57 02:05 06:56 Hgb 11.1 L 9.9 L 10.2 L (13.0-17.5) gm/dL Hct 33.9 L 30.6 L 32.2 L (39.0-53.0) % Coagulation 01/29/24 01/30/24 Range/Units 10:57 02:05 INR 1.1 1.1 (<1.2) Result Diagrams: 01/31/24 06:56 01/31/24 06:56 - Diagnostic results Ankle/Foot x-ray: report reviewed, image reviewed (Report and images were reviewed of the left ankle and foot. No acute fractures or dislocations were appreciated. Findings consistent with Charcot joint involving the midfoot present.) Assessment and Plan Assessment: Left foot Charcot arthropathy Left foot cellulitis Left foot plantar blister/wound Left big toe swelling/skin discoloration History of recent fall Bilateral lower extremity diabetic neuropathy Multiple medical comorbidities Plan: I was able to discuss the case, this to include both physical exam findings and imaging studies and my attending Dr. Maher. No emergent orthopedic surgical intervention is recommended at this time Consults have been placed for both wound care and vascular surgery to evaluate the patient, await their recommendation Recommend constant elevation to help with soft tissue swelling Basic bandaging to the plantar wound. Taurus bandages okay, avoid excessive compression to prevent skin breakdown GI and DVT prophylaxis per primary medical service Other medical specialty recommendations appreciated Further recommendations to follow Time with Patient: Less than 30
--- NOTE | 2024-01-31 13:37 | P.PN ---
Subjective Progress Note Date: 01/31/24 HISTORY OF PRESENT ILLNESS: 78-year-old with active medical history of coronary artery disease post non- STEMI with triple-vessel post stent placement (history of type 2 diabetes, stage IIIb chronic kidney disease, ischemic cardiomyopathy, hypertension, hyperlipidemia, paroxysmal atrial fibrillation was in the hospital last time with syncopal episode witnessed and believed to be seizure at the time was in the hospital for few days was seen neurology and cardiology. 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 He is doing fine through the day on 01/29/2024 till later when he started feeling to have slight hypoglycemia he took handful of grapes angiogram then he felt slightly bit sick according to his he went into the bathroom and get in the shower and become more sick to start throwing up he fell in the shower without any syncopal episode he was fully alert and awake for the whole thing the heard his stump falling in the shower went in and found him having significant nausea and vomiting with significant amount of diarrhea at that point he become more alert but still extremely weak with the fall he twisted his foot and created more problems and discomfort and her the big toe and the third part of his foot as well. No obvious site going him to the emergency room with the above problem patient is still quite bit symptomatic but no further nausea or vomiting. Seen and evaluated in the emergency department had multiple x-ray including left ankle shows no fracture or deformity. Left hip and pelvis shows no acute abnormality or fracture as well. And full x-ray of the foot shows early Charcot joint of the left foot with soft tissue swelling in the dorsum of the foot with 3 plantar calcaneal heel spur with degenerative joint change greatest at the second and third metatarsal phalangeal joint space. Laboratory evaluation shows white blood cell to be 15,300 with hemoglobin 11.1 mostly neutrophil cell, blood sugar is mildly elevated creatinine at 1.59 with GFR at 41. BNP was 2390 troponin initially was mildly elevated at 0.042. Emergency room decided to admit patient for but they believe might be non-STEMI with his cardiac history and current symptoms was started on heparin drip and consult cardiology admit patient to the hospital. 01/30/2024: Patient is not having any further syncopal episode, laboratory value creatinine 1.60 blood sugar still mildly elevated, C-reactive protein was 33.9, fortunately uric acid was low no sign of gout. Can also cause the left foot from the injury site blew up will become extremely swell red and hot. Infectious disease consultation was done diagnosed this to be most likely cellulitis with the current infection and deformed foot decided to switch his Rocephin to cefazolin 2 g every 8 hours culture still negative at this point no open area require any topical product to help with. The patient will stay off his foot currently. 01/31/2024: Continue to have significant pain and discomfort with swallowing and left foot, infectious disease has switched his antibiotics and kept him on cefazolin 2 g every 8 hours. Was seen orthopedic this morning felt the combination of cellulitis along with left foot plantar blister 1 with left big toe swelling with skin discoloration along with left foot Charcot with arthropathy once to involve wound care along with vascular for any possibility both consult as requested. Patient stable otherwise vitals are very stable lab and blood work shows creatinine 1.63 blood sugars mildly elevated still will adjust medication to keep it under control, no reason to believe the blister on the foot need to be open at this point because that will create more problems. limit patient activity for able to use the bathroom but try to stay in the chair with leg elevation will be more helpful. Patient is not going to be discharged today waiting to be evaluated by wound care and vascular tomorrow before we decide on the final plan. REVIEW OF SYSTEMS: CONSTITUTIONAL: Well-developed no acute respiratory distress. EYES: No icterus sclerae, no conjunctivitis. EARS, NOSE, MOUTH, THROAT, and FACE: No sore throat, lymphadenopathy, carotid bruits or deformity. RESPIRATORY: Mild shortness of breath no cough or wheezes. CARDIOVASCULAR: Positive PND orthopnea and orthopnea. No chest pain or angina. GASTROINTESTINAL: Still having slight abdominal discomfort with nausea no vomiting no further GI bleed but continued to have slight diarrhea as well. GENITOURINARY: Negative for Hematuria or UTI, no kidney stones. INTEGUMENT/BREAST: Negative for any muscular injury with mild osteoarthritis.. HEMATOLOGIC/LYMPHATIC: Negative for bleed or purpura. MUSCULOSKELTAL: Left foot has callus with healing ulcer quite with a bruise around the first and second toe with mild ecchymosis and slight hemorrhage under the toe. NEURLOGICAL: No LOC, Sz or syncope, blurred vision dizziness or abnormality.. BEHAVIORAL/PSYCH: Negative. ENDOCRINE: Negative. PHYSICAL EXAMINATION: General Appearance: Alert, cooperative, no distress, appears stated age. Neck HEENT: Supple, no lymphadenopathy, no thyroid enlargement, no carotid bruits. Lungs: Decreased breath sound bilaterally with fine rhonchi no crackles or wheezes. Chest Wall: Decreased expansion with deep inspiration no tenderness and no deformity was found on exam, no costochondral pain or discomfort. Heart: Irregular rate and rhythm, S1, S2 normal, no murmur, rub or gallop. Back: Symmetric, no curvature, ROM normal, no CVA tenderness. Abdomen: Soft positive bowel sounds no organomegaly or tenderness slight discomfort in the epigastric area and left lower quadrant area no rebound or rigidity. Extremities: Left foot with quite a bit larger bruise and hematoma around the big toe and under the joint between the metatarsal and the phalangeal area first and second toes mostly. Pulses: 2+ and symmetric. Skin: Skin color, texture, tugor normal, no rashes or lesions. Neurologic: Alert oriented x3 cranial nerves II through XII intact, no motor deficit, no abnormal balance or gait. ASSESSMENT AND PLAN: _ non-ST [place] was excluded: Second troponin was negative the patient is not having any further symptoms. _Severe cellulitis of the left foot with deformed foot significant swelling with elevated C-reactive protein, patient was started on cefazolin 2 g every 8 hours and off Rocephin. Was seen Ortho no intervention required, and requested consultation by vascular and wound care. _Severe gastroenteritis: No further signs and symptoms of gastrointestinal including diarrhea nausea or vomiting. _Left Charcot foot arthropathy with cellulitis and plantar blister wound with significant swelling and discoloration of the skin of the left big toe: Request vascular and wound care referral in the meanwhile continue to keep patient off his foot continue IV antibiotics and topical care. _Fall with no syncope the patient was fully awake for the whole thing per his testimony and his as well had mild injury to the left foot mostly no injury anywhere else in his body this is happened after he started his severe nausea and vomiting probably was more related to extreme hypertension his blood pressure is much better so far will continue hydration for now. _Advanced cardiomyopathy mostly ischemic with ejection fraction of 30-35 percentile remain on medical management. _Multiple vessel coronary artery disease post angioplasty and stent placement: Last stent was RCA and LAD back in July 2023 and is currently remain on Brilinta with aspirin has not stopped. _A-fib: Switched back to Eliquis and dose was increased up to 5 mg twice a day and remain on metoprolol tartrate 50 mg twice a day. _Stage IIIb chronic kidney disease with GFR of 41 creatinine 1.59 continue to avoid any nephrotoxic agent continue gentle hydration watch for any toxic medication. _Type 2 diabetes: Accu-Chek with sliding. Along with Tresiba 40 units daily NovoLog AC meals. _Severe GERD continue omeprazole 20 mg daily. _DVT prophylaxis: Remain on Eliquis. Discussion: Delay discharge for now, continue current management, continue IV antibiotic cefazolin, vascular and wound care consult continue with topical care continue to watch for any open sore area. Objective - Vital Signs Vital signs: Vital Signs Temp 98.2 F 01/31/24 03:42 Pulse 89 01/31/24 03:42 Resp 18 01/31/24 03:42 BP 126/69 01/31/24 03:42 Pulse Ox 96 01/31/24 03:42 FiO2 Intake & Output 01/30/24 01/31/24 01/31/24 18:59 06:59 18:59 Intake Total 480 120 Balance 480 120 Weight 88.6 kg Intake: Oral 480 120 Other: Voiding Method Toilet Toilet # Voids 1 2 # Bowel Movements 1 - Labs CBC & Chem 7: 01/31/24 06:56 01/31/24 06:56 Labs: Abnormal Lab Results - Last 24 Hours (Table) 01/30/24 01/30/24 01/30/24 Range/Units 02:05 11:41 15:00 WBC (3.8-10.6) k/uL RBC (4.30-5.90) m/uL Hgb (13.0-17.5) gm/dL Hct (39.0-53.0) % ESR 55 H (0-20) mm/Hr Sodium (137-145) mmol/L BUN (9-20) mg/dL Creatinine (0.66-1.25) mg/dL Glucose (74-99) mg/dL POC Glucose (mg/dL) 391 H (70-110) mg/dL C-Reactive Protein 33.9 H (<1.0) mg/dL Total Protein (6.3-8.2) g/dL Albumin (3.5-5.0) g/dL 01/30/24 01/30/24 01/31/24 Range/Units 16:15 19:56 06:09 WBC (3.8-10.6) k/uL RBC (4.30-5.90) m/uL Hgb (13.0-17.5) gm/dL Hct (39.0-53.0) % ESR (0-20) mm/Hr Sodium (137-145) mmol/L BUN (9-20) mg/dL Creatinine (0.66-1.25) mg/dL Glucose (74-99) mg/dL POC Glucose (mg/dL) 296 H 273 H 280 H (70-110) mg/dL C-Reactive Protein (<1.0) mg/dL Total Protein (6.3-8.2) g/dL Albumin (3.5-5.0) g/dL 01/31/24 01/31/24 Range/Units 06:56 06:56 WBC 10.8 H (3.8-10.6) k/uL RBC 3.39 L (4.30-5.90) m/uL Hgb 10.2 L (13.0-17.5) gm/dL Hct 32.2 L (39.0-53.0) % ESR (0-20) mm/Hr Sodium 134 L (137-145) mmol/L BUN 33 H (9-20) mg/dL Creatinine 1.63 H (0.66-1.25) mg/dL Glucose 248 H (74-99) mg/dL POC Glucose (mg/dL) (70-110) mg/dL C-Reactive Protein (<1.0) mg/dL Total Protein 5.7 L (6.3-8.2) g/dL Albumin 3.0 L (3.5-5.0) g/dL
[2024-01-31 17:07] LABS: Glucose,Whole Blood 318 mg/dL (70-110)
[2024-01-31 20:23] LABS: Glucose,Whole Blood 228 mg/dL (70-110)
[2024-02-01 06:33] LABS: Glucose,Whole Blood 251 mg/dL (70-110)
[2024-02-01 11:49] LABS: Glucose,Whole Blood 382 mg/dL (70-110)
--- NOTE | 2024-02-01 13:35 | P.GSCN ---
History of Present Illness Consult date: 02/01/24 Reason for Consult: Left foot wound Requesting physician: Devon Dominguez History of present illness: This is a pleasant 78-year-old male with past medical history coronary artery disease with recent stenting in July 2023, insulin-dependent diabetes, hypertension, hyperlipidemia, atrial fibrillation and myocardial infarction who presented to the emergency department after sustaining a fall. Patient's states that he was in the shower, he wears flip-flops in the shower he was not using his shower chair and patient had reported that his legs just gave out and he sustained a fall. The next day he noticed significant swelling and bruising of his left foot and ankle. He does have a history of diabetic wound to the left plantar aspect of his foot which he states he had seen wound care and underwent wound care therapy as well as HBO therapy ending back around November. Orthopedics was consulted initially to see patient for left ankle foot injury with no indication for any surgical intervention. Consults were placed to wound care and vascular surgery for left foot wound. Patient currently denies any shortness of breath, chest pain, abdominal pain nausea or vomiting. He has been afebrile. Has had Charcot foot with previous wound as mentioned. Does have some pink and swelling of the left foot and ankle. Review of Systems A 14 point review systems was completed all pertinent positives and negatives as stated in the HPI. 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, [facility] Last Myocardial Infarction Date:: 07/2023 History of Any Multi-Drug Resistant Organisms: None Reported Past Surgical History: Cholecystectomy, Heart Catheterization With Stent Additional Past Surgical History / Comment(s): [address] July 2023 Past Anesthesia/Blood Transfusion Reactions: No Reported Reaction Date of Last Stent Placement:: 07/28/2023 Past Psychological History: No Psychological Hx Reported Smoking Status: Never smoker Past Alcohol Use History: Occasional Past Drug Use History: None Reported - Past Family History Mother Additional Family Medical History / Comment(s): Sick sinus syndrome Father Family Medical History: Congestive Heart Failure (CHF) Additional Family Medical History / Comment(s): brother-heart failure, other borther heart attack. nephew/niece cardiac stents, Brother(s) Family Medical History: Coronary Artery Disease (CAD) Additional Family Medical History / Comment(s): 2 Brothers were diagnosed with early onset coronary artery disease in their 40s Medications and Allergies Home Medications Medication Instructions Recorded Confirmed Type Aspirin 81 mg PO DAILY #90 tab 07/31/23 01/29/24 Rx Insulin Degludec [Tresiba 40 units SQ DAILY #0 07/31/23 01/29/24 Rx Flextouch U-100 Pen] Ticagrelor [Brilinta] 90 mg PO BID #180 tab 07/31/23 01/29/24 Rx Sodium Chloride 0.65% Nasal [Deep 2 spray NASAL QID PRN ml 08/12/23 01/29/24 Rx Sea (Saline)] Furosemide [Lasix] 40 mg PO BID@0700,1700 09/23/23 01/29/24 History Metoprolol Tartrate [Lopressor] 50 mg PO BID@0700,1700 09/23/23 01/29/24 History Omeprazole 20 mg PO DAILY 09/23/23 01/29/24 History Tamsulosin [Flomax] 0.4 mg PO DAILY 09/23/23 01/29/24 History Apixaban [Eliquis] 2.5 mg PO BID@0700,1700 01/29/24 01/29/24 History INSULIN ASPART (NovoLOG) [NovoLOG See Protocol SQ ACHS 01/29/24 01/29/24 History (formulary)] Nitroglycerin Sl Tabs [Nitrostat] 0.4 mg SL Q5M PRN 01/29/24 01/29/24 History allopurinoL [Zyloprim] 100 mg PO DAILY 01/29/24 01/29/24 History lisinopriL [Zestril] 2.5 mg PO DAILY 01/29/24 01/29/24 History Allergies Allergy/AdvReac Type Severity Reaction Status Date / Time No Known Allergies Allergy Verified 01/29/24 13:24 Surgical - Exam Vital Signs Temp Pulse Resp BP Pulse Ox 98.1 F 69 20 107/67 99 01/29/24 09:55 01/29/24 09:55 01/29/24 09:55 01/29/24 09:55 01/29/24 09:55 General appearance: The patient is alert, oriented, appears in no acute distress. HET: Head is normocephalic and atraumatic. Pupils are equal and reactive. Neck: Supple. Heart: Regular. Lungs: Equal expansion, normal respiratory effort. Abdomen: Soft, nontender, nondistended. Extremities: Left foot and ankle with swelling and ecchymosis. Blister between great toe and second toe. Also noted blister with bruising to the plantar aspect of left foot. Previously healed wound to plantar aspect of foot. Left Charcot foot. Palpable bilateral femoral and PT pulses. Positive DP signals. Neurological: No focal deficits. Results - Labs 01/31/24 06:56 01/31/24 06:56 Abnormal Lab Results - Last 24 Hours (Table) 01/31/24 01/31/24 01/31/24 Range/Units 12:12 17:06 20:18 POC Glucose (mg/dL) 315 H 318 H 228 H (70-110) mg/dL 02/01/24 Range/Units 06:30 POC Glucose (mg/dL) 251 H (70-110) mg/dL Microbiology - Last 24 Hours (Table) 01/30/24 15:04 Blood Culture - Preliminary Blood - Imaging Comments: Left ankle x-ray reports no acute osseous abnormalities left ankle. Left foot x-ray reports early Charcot joint left foot. Soft tissue swelling dorsum foot. plantar calcaneal heel spur. Degenerative joint changes greatest at the second and third metatarsal phalangeal joint spaces Assessment and Plan Assessment: 1. Left foot/ankle injury 2. Mechanical fall 3. Charcot foot 4. Type 2 insulin-dependent diabetes mellitus 5. History of diabetic foot wound 6. Peripheral neuropathy 7. Coronary artery disease with recent stenting 8. Atrial fibrillation Plan: Patient without any notable open wounds. There is a blister between the first and second toe with minimal drainage, continue with 4 x 4 between toes. Wrap left foot and ankle with Taurus wrap. Keep elevated. May apply ice. Patient had recent arterial duplex done in August of this year. ABIs right 1.10, left 1.40 normal ABIs, toe brachial indices suggest moderate disease secondary to diabetes mellitus. Offload weight to left lower extremity. There is no indication for any vascular surgical intervention. Thank you for this consultation, we will sign off at this time. The impression and plan of care has been dictated as directed. I performed a history and examination of this patient, discussed the same with the dictator. I agree with the dictator's note ,documented as a scribe. Any additional findings or plans will be noted.
--- NOTE | 2024-02-01 15:09 | P.PN ---
Subjective Progress Note Date: 02/01/24 HISTORY OF PRESENT ILLNESS: This is a 78-year-old male with a past medical history significant for coronary artery disease with previous stenting, cardiomyopathy, paroxysmal atrial fibrillation hypertension, hyperlipidemia, and diabetes. Patient follows in the office with Dr. Dean. We have been asked to see the patient in consultation for non-STEMI. Patient examined at the bedside. Patient states yesterday he was in the shower when he fell and twisted his ankle. Patient states that he remembers the entire event and did not experience any syncope. Patient currently denies any chest pain or pressure. He denies any shortness of breath. He reports discomfort of his right foot this morning which is very swollen and bruised. Vital signs are stable. DIAGNOSTICS: - EKG reveals sinus mechanism with PVCs. No signs of acute ischemia. - Laboratory data: WBC 11.9. Hemoglobin 9.9. Platelet count 211. Sodium 137. Potassium 4.0. BUN 30. Creatinine 1.59. Troponin 0.042. 0.032. - Current home cardiac medications include lisinopril 2.5 mg daily, Brilinta 90 mg twice a day, metoprolol tartrate 50 mg twice a day, Lasix 40 mg twice a day, aspirin 81 mg daily, Eliquis 2.5 mg twice a day - Most recent echocardiogram obtained in September 2023 revealed ejection fraction 30 to 35% - Cardiac catheterization history: July 2023 with stenting of the right coronary artery, left anterior descending artery, and Impella placement 01/31/2024 Patient examined this morning at the bedside. Patient currently denies chest pain or pressure. He denies shortness of breath. Vital signs are stable. Nitin ortega does have Taurus wrap to his left ankle. He is awaiting orthopedic evaluation. 01/31 Patient denies have any chest pain no shortness of breath. Blood pressure 114/70, heart rate 76, pulse ox 96% on room air. PHYSICAL EXAM: VITAL SIGNS: Reviewed. GENERAL: Well-developed in no acute distress. HEENT: Head is normocephalic. Pupils are equal, round. Sclerae anicteric. Mucous membranes of the mouth are moist. Neck supple. No JVD or thyromegaly LUNGS: Respirations even and unlabored. Lungs scattered expiratory wheeze. HEART: Regular rate and rhythm. S1 and S2 heard. ABDOMEN: Soft. Nondistended. Nontender. EXTREMITIES: Normal range of motion. No clubbing or cyanosis. Peripheral pulses intact. Left ankle with significant edema and bruising NEUROLOGIC: Awake and alert. Oriented x 3. ASSESSMENT: Status post mechanical fall without syncope with trauma to left ankle Coronary artery disease with previous stenting of the RCA and LAD, July 2023 Ischemic cardiomyopathy, 30 to 35% Paroxysmal atrial fibrillation Chronic kidney disease Elevated troponin secondary to chronic kidney disease, no acute ischemia or injury, no clinical significance Hypertension Hyperlipidemia Diabetes PLAN: An acute coronary but has been ruled out Continue Brilinta due to stenting in July 2023. Aspirin discontinued Continue Eliquis 5 mg twice a day for thromboembolic protection Continue additional cardiac medications Cardiology will sign off this case and follow on an as-needed basis. Please reconsult for any new concerns. Patient may follow-up in the office in one to [address] Dean. Nurse practitioner note has been reviewed by physician. Signing provider agrees with the documented findings, assessment, and plan of care documented by TIRE MOUNTER as a scribe. Objective - Vital Signs Vital signs: Vital Signs Temp 98.3 F 02/01/24 08:07 Pulse 61 02/01/24 08:07 Resp 18 02/01/24 08:07 BP 114/56 02/01/24 08:07 Pulse Ox 100 02/01/24 08:07 FiO2 Intake & Output 01/31/24 02/01/24 02/01/24 18:59 06:59 18:59 Intake Total 948 360 Balance 948 360 Weight 88 kg Intake: Oral 948 360 Other: Voiding Method Toilet Toilet Toilet # Voids 2 1 - Labs CBC & Chem 7: 01/31/24 06:56 01/31/24 06:56 Labs: Abnormal Lab Results - Last 24 Hours (Table) 01/31/24 01/31/24 01/31/24 Range/Units 12:12 17:06 20:18 POC Glucose (mg/dL) 315 H 318 H 228 H (70-110) mg/dL 02/01/24 Range/Units 06:30 POC Glucose (mg/dL) 251 H (70-110) mg/dL Microbiology - Last 24 Hours (Table) 01/30/24 15:04 Blood Culture - Preliminary Blood
--- NOTE | 2024-02-01 16:33 | CA ---
Transthoracic Echo Report Name: Bhupinder Ruiz Age: 78 Gender: M : 1945 Exam Date: 02/01/2024 14:21 Exam Location: [place] [address] [place] Echo Ht (in): 69 Wt (lb): 196 Ordering Physician: Alisa Melendrez Attending/Referring Phys: [id number], Parvin [employer] Anisha Mcallister RDCS Procedure CPT: Indications: LV function Cardiac Hx: Technical Quality: Fair Contrast 1: Definity Total Dose (mL): 2 Contrast 2: Total Dose (mL): MEASUREMENTS (Male / Female) Normal Values 2D ECHO LV Diastolic Diameter PLAX 4.9 cm 4.2 - 5.9 / 3.9 - 5.3 cm LV Systolic Diameter PLAX 4.4 cm IVS Diastolic Thickness 1.2 cm 0.6 - 1.0 / 0.6 - 0.9 cm LVPW Diastolic Thickness 1.2 cm 0.6 - 1.0 / 0.6 - 0.9 cm LV Relative Wall Thickness 0.5 RV Internal Dim ED PLAX 2.1 cm LA Systolic Diameter LX 4.5 cm 3.0 - 4.0 / 2.7 - 3.8 cm LV Diastolic Volume MOD BP 95.5 cm??? 67 - 155 / 56 - 104 cm??? LV Systolic Volume MOD BP 57.9 cm??? 22 - 58 / 19 - 49 cm??? LV Ejection Fraction MOD BP 39.4 % >= 55 % LV Cardiac Index MOD BP 1469.1 cm???/min???m??? LV Diastolic Volume MOD 4C 92.7 cm??? LV Systolic Volume MOD 4C 54.6 cm??? LV Ejection Fraction MOD 4C 41.1 % LV Cardiac Index MOD 4C 1488.6 cm???/min???m??? LV Diastolic Length 4C 7.4 cm LV Systolic Length 4C 6.7 cm LV Diastolic Volume MOD 2C 95.7 cm??? LV Systolic Volume MOD 2C 61.7 cm??? LV Ejection Fraction MOD 2C 35.6 % LV Cardiac Index MOD 2C 1327.7 cm???/min???m??? LV Diastolic Length 2C 7.6 cm LV Systolic Length 2C 6.8 cm M-MODE Aortic Root Diameter MM 3.4 cm LA Ao Ratio MM 0.5 FINDINGS Left Ventricle Left ventricular ejection fraction is estimated at 35-40 %. Mildly increased septal wall thickness. Moderately decreased left ventricular ejection fraction. Global left ventricular hypokinesis. Right Ventricle Normal right ventricular size and function. Right Atrium Normal right atrial size. Left Atrium Mildly increased left atrial diameter. Mitral Valve Structurally normal mitral valve. Aortic Valve Trileaflet aortic valve. Tricuspid Valve Structurally normal tricuspid valve. Pulmonic Valve Structurally normal pulmonic valve. Pericardium No pericardial or pleural effusion. Aorta Normal size aortic root and proximal ascending aorta. CONCLUSIONS Left ventricular ejection fraction 35-40% Mildly increased left ventricular wall thickness Mildly dilated left atrium No pericardial effusion Previewed by: Dr. Haile Lyons DO (Electronically Signed) Final Date: 01 February 2024 16:32
[2024-02-01 16:45] LABS: Glucose,Whole Blood 311 mg/dL (70-110)
--- NOTE | 2024-02-01 17:29 | P.PN ---
Subjective Progress Note Date: 02/01/24 Principal diagnosis: Reason for follow-up is left foot cellulitis Patient is a 78-year-old male with a past medical history significant for diabetes mellitus hypertension hyperlipidemia CA reflux Charcot foot was brought to the hospital after the patient did have a fall in the bathroom has developed significant bruising swelling and possible cellulitis to the left foot and ankle area. On today's evaluation that is 02/01/2024,the patient denies any fever or any chills, patient is breathing comfortably on room air, the patient denies chest pain shortness of breath and no significant cough, patient denies abdominal pain, no nausea vomiting or diarrhea and denies pain to the left foot. No new lab has been obtained today blood culture currently pending. Objective - Vital Signs Vital signs: Vital Signs Temp 98.3 F 02/01/24 08:07 Pulse 76 02/01/24 11:52 Resp 18 02/01/24 11:52 BP 114/70 02/01/24 11:52 Pulse Ox 96 02/01/24 11:52 FiO2 Intake & Output 01/31/24 02/01/24 02/01/24 18:59 06:59 18:59 Intake Total 948 360 Balance 948 360 Weight 88 kg Intake: Oral 948 360 Other: Voiding Method Toilet Toilet Toilet # Voids 2 1 - Exam GENERAL DESCRIPTION: An elderly male lying in bed in no distress RESPIRATORY SYSTEM: Unlabored breathing , decreased breath sounds at bases HEART: S1 S2 regular rate and rhythm , ABDOMEN: Soft , no tenderness EXTREMITIES: Left foot currently dressed no drainage on the dressing - Labs CBC & Chem 7: 01/31/24 06:56 01/31/24 06:56 Labs: Abnormal Lab Results - Last 24 Hours (Table) 01/31/24 01/31/24 02/01/24 Range/Units 17:06 20:18 06:30 POC Glucose (mg/dL) 318 H 228 H 251 H (70-110) mg/dL 02/01/24 Range/Units 11:44 POC Glucose (mg/dL) 382 H (70-110) mg/dL Microbiology - Last 24 Hours (Table) 01/30/24 15:04 Blood Culture - Preliminary Blood Assessment and Plan (1) Cellulitis of left foot Current Visit: Yes Status: Acute Code(s): L03.116 - CELLULITIS OF LEFT LOWER LIMB SNOMED Code(s): 33147621078153138 Plan: 1patient with the left foot and ankle area swelling redness did have significant bruising with recent history of trauma however likely a component of cellulitis as the patient did have fever and elevated white count likely from gram-positive skin hoda 2-blood cultures currently pending did have elevated CRP of 33.3 3-patient has been eval by orthopedics and vascular surgery recommending no surgical intervention 4-patient to continue with cefazolin 2 g every 8 hours and monitor clinical course closely Dictation was produced using [employer] dictation software. please excuse any grammatical, word or spelling errors. Time with Patient: Less than 30
[2024-02-01 20:14] LABS: Glucose,Whole Blood 282 mg/dL (70-110)
[2024-02-01] MEDS: ATORVASTATIN 20 MG TAB PO SCH (20:41)
--- NOTE | 2024-02-01 22:22 | P.PN ---
Subjective Progress Note Date: 02/01/24 HISTORY OF PRESENT ILLNESS: 78-year-old with active medical history of coronary artery disease post non- STEMI with triple-vessel post stent placement (history of type 2 diabetes, stage IIIb chronic kidney disease, ischemic cardiomyopathy, hypertension, hyperlipidemia, paroxysmal atrial fibrillation was in the hospital last time with syncopal episode witnessed and believed to be seizure at the time was in the hospital for few days was seen neurology and cardiology. 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 He is doing fine through the day on 01/29/2024 till later when he started feeling to have slight hypoglycemia he took handful of grapes angiogram then he felt slightly bit sick according to his he went into the bathroom and get in the shower and become more sick to start throwing up he fell in the shower without any syncopal episode he was fully alert and awake for the whole thing the heard his stump falling in the shower went in and found him having significant nausea and vomiting with significant amount of diarrhea at that point he become more alert but still extremely weak with the fall he twisted his foot and created more problems and discomfort and her the big toe and the third part of his foot as well. No obvious site going him to the emergency room with the above problem patient is still quite bit symptomatic but no further nausea or vomiting. Seen and evaluated in the emergency department had multiple x-ray including left ankle shows no fracture or deformity. Left hip and pelvis shows no acute abnormality or fracture as well. And full x-ray of the foot shows early Charcot joint of the left foot with soft tissue swelling in the dorsum of the foot with 3 plantar calcaneal heel spur with degenerative joint change greatest at the second and third metatarsal phalangeal joint space. Laboratory evaluation shows white blood cell to be 15,300 with hemoglobin 11.1 mostly neutrophil cell, blood sugar is mildly elevated creatinine at 1.59 with GFR at 41. BNP was 2390 troponin initially was mildly elevated at 0.042. Emergency room decided to admit patient for but they believe might be non-STEMI with his cardiac history and current symptoms was started on heparin drip and consult cardiology admit patient to the hospital. 01/30/2024: Patient is not having any further syncopal episode, laboratory value creatinine 1.60 blood sugar still mildly elevated, C-reactive protein was 33.9, fortunately uric acid was low no sign of gout. Can also cause the left foot from the injury site blew up will become extremely swell red and hot. Infectious disease consultation was done diagnosed this to be most likely cellulitis with the current infection and deformed foot decided to switch his Rocephin to cefazolin 2 g every 8 hours culture still negative at this point no open area require any topical product to help with. The patient will stay off his foot currently. 01/31/2024: Continue to have significant pain and discomfort with swallowing and left foot, infectious disease has switched his antibiotics and kept him on cefazolin 2 g every 8 hours. Was seen orthopedic this morning felt the combination of cellulitis along with left foot plantar blister 1 with left big toe swelling with skin discoloration along with left foot Charcot with arthropathy once to involve wound care along with vascular for any possibility both consult as requested. Patient stable otherwise vitals are very stable lab and blood work shows creatinine 1.63 blood sugars mildly elevated still will adjust medication to keep it under control, no reason to believe the blister on the foot need to be open at this point because that will create more problems. limit patient activity for able to use the bathroom but try to stay in the chair with leg elevation will be more helpful. Patient is not going to be discharged today waiting to be evaluated by wound care and vascular tomorrow before we decide on the final plan. 02/01/2024: Vascular surgery seen patient for severe PAD and Charcot foot with current injury ELISEO of the right was 1.1 and the left 1.4 normal ELISEO toe brachial and ice suggest moderate disease secondary to diabetes. No revascularization required at this point continue topical care for the blister between the first and second toe on the left side to minimize the drainage continue 4 x 4 between the toes wrapped left foot ankle with Taurus wrap as well to reduce edema. Contin ue IV antibiotic and wound care as well. Infectious disease seen significant elevated CRP at 33.3 still have pending culture with fever and elevated white blood cell expected coverage for gram-negative continue cefazolin at this point till the culture is finalized. Also patient seen cardiology no sign of non-ST [place] at this point no need for any active cardiology management. REVIEW OF SYSTEMS: CONSTITUTIONAL: Well-developed no acute respiratory distress. EYES: No icterus sclerae, no conjunctivitis. EARS, NOSE, MOUTH, THROAT, and FACE: No sore throat, lymphadenopathy, carotid bruits or deformity. RESPIRATORY: Mild shortness of breath no cough or wheezes. CARDIOVASCULAR: Positive PND orthopnea and orthopnea. No chest pain or angina. GASTROINTESTINAL: Still having slight abdominal discomfort with nausea no vomiting no further GI bleed but continued to have slight diarrhea as well. GENITOURINARY: Negative for Hematuria or UTI, no kidney stones. INTEGUMENT/BREAST: Negative for any muscular injury with mild osteoarthritis.. HEMATOLOGIC/LYMPHATIC: Negative for bleed or purpura. MUSCULOSKELTAL: Left foot has callus with healing ulcer quite with a bruise around the first and second toe with mild ecchymosis and slight hemorrhage under the toe. NEURLOGICAL: No LOC, Sz or syncope, blurred vision dizziness or abnormality.. BEHAVIORAL/PSYCH: Negative. ENDOCRINE: Negative. PHYSICAL EXAMINATION: General Appearance: Alert, cooperative, no distress, appears stated age. Neck HEENT: Supple, no lymphadenopathy, no thyroid enlargement, no carotid bruits. Lungs: Decreased breath sound bilaterally with fine rhonchi no crackles or wheezes. Chest Wall: Decreased expansion with deep inspiration no tenderness and no deformity was found on exam, no costochondral pain or discomfort. Heart: Irregular rate and rhythm, S1, S2 normal, no murmur, rub or gallop. Back: Symmetric, no curvature, ROM normal, no CVA tenderness. Abdomen: Soft positive bowel sounds no organomegaly or tenderness slight discomfort in the epigastric area and left lower quadrant area no rebound or rigidity. Extremities: Left foot with quite a bit larger bruise and hematoma around the big toe and under the joint between the metatarsal and the phalangeal area first and second toes mostly. Pulses: 2+ and symmetric. Skin: Skin color, texture, tugor normal, no rashes or lesions. Neurologic: Alert oriented x3 cranial nerves II through XII intact, no motor d eficit, no abnormal balance or gait. ASSESSMENT AND PLAN: _Severe cellulitis of the left foot with Charcot foot significant swelling with elevated C-reactive protein, patient was started on cefazolin 2 g every 8 hours and off Rocephin. Still seen by infectious disease, wound care and vascular. _Severe gastroenteritis: No further signs and symptoms of gastrointestinal including diarrhea nausea or vomiting. _Left Charcot foot arthropathy with cellulitis and plantar blister wound with significant swelling and discoloration of the skin of the left big toe: Request vascular and wound care referral in the meanwhile continue to keep patient off his foot continue IV antibiotics and topical care. _ non-ST [place] was excluded: Second troponin was negative the patient is not having any further symptoms. _Type 2 diabetes: Accu-Chek with sliding. Along with Tresiba 40 units daily NovoLog AC meals. _Stage IIIb chronic kidney disease with GFR of 41 creatinine 1.59 continue to avoid any nephrotoxic agent continue gentle hydration watch for any toxic medication. _Fall with no syncope the patient was fully awake for the whole thing per his testimony and his as well had mild injury to the left foot mostly no injury anywhere else in his body this is happened after he started his severe nausea and vomiting probably was more related to extreme hypertension his blood pressure is much better so far will continue hydration for now. _Advanced cardiomyopathy mostly ischemic with ejection fraction of 30-35 percentile remain on medical management. _Multiple vessel coronary artery disease post angioplasty and stent placement: Last stent was RCA and LAD back in July 2023 and is currently remain on Brilinta with aspirin has not stopped. _A-fib: Switched back to Eliquis and dose was increased up to 5 mg twice a day and remain on metoprolol tartrate 50 mg twice a day. _Severe GERD continue omeprazole 20 mg daily. _DVT prophylaxis: Remain on Eliquis. Discussion: Continue topical care, still seen infectious disease, vascular and wound care. Non-ST [place] is completely excluded no need for any further management this point cardiology fraga. Objective - Vital Signs Vital signs: Vital Signs Temp 98.1 F 02/01/24 04:00 Pulse 66 02/01/24 04:00 Resp 14 02/01/24 04:00 BP 128/54 02/01/24 04:00 Pulse Ox 98 02/01/24 04:00 FiO2 Intake & Output 01/31/24 01/31/24 02/01/24 06:59 18:59 06:59 Intake Total 120 948 Balance 120 948 Weight 88.6 kg 88 kg Intake: Oral 120 948 Other: Voiding Method Toilet Toilet Toilet # Voids 2 2 1 - Labs CBC & Chem 7: 07/14/24 06:56 01/31/24 06:56 Labs: Abnormal Lab Results - Last 24 Hours (Table) 01/31/24 01/31/24 01/31/24 Range/Units 06:56 06:56 12:12 WBC 10.8 H (3.8-10.6) k/uL RBC 3.39 L (4.30-5.90) m/uL Hgb 10.2 L (13.0-17.5) gm/dL Hct 32.2 L (39.0-53.0) % Sodium 134 L (137-145) mmol/L BUN 33 H (9-20) mg/dL Creatinine 1.63 H (0.66-1.25) mg/dL Glucose 248 H (74-99) mg/dL POC Glucose (mg/dL) 315 H (70-110) mg/dL Total Protein 5.7 L (6.3-8.2) g/dL Albumin 3.0 L (3.5-5.0) g/dL 01/31/24 01/31/24 Range/Units 17:06 20:18 WBC (3.8-10.6) k/uL RBC (4.30-5.90) m/uL Hgb (13.0-17.5) gm/dL Hct (39.0-53.0) % Sodium (137-145) mmol/L BUN (9-20) mg/dL Creatinine (0.66-1.25) mg/dL Glucose (74-99) mg/dL POC Glucose (mg/dL) 318 H 228 H (70-110) mg/dL Total Protein (6.3-8.2) g/dL Albumin (3.5-5.0) g/dL Microbiology - Last 24 Hours (Table) 01/30/24 15:04 Blood Culture - Preliminary Blood
[2024-02-02 05:44] LABS: Glucose,Whole Blood 228 mg/dL (70-110)
[2024-02-02 07:50] LABS: HCT 34.4 % (39.0-53.0); HGB 10.9 gm/dL (13.0-17.5); MCH 30.1 pg (25.0-35.0); MCHC 31.9 g/dL (31.0-37.0); MCV 94.6 fL (80.0-100.0); Mean Platelet Volume 8.2; Platelet Count 316 k/uL (150-450); RBC 3.63 m/uL (4.30-5.90); RDW 13.6 % (11.5-15.5); WBC 10.4 k/uL (3.8-10.6)
[2024-02-02] MEDS: INSULIN DETEMIR (LEVEMIR) 100 UNIT/ML SYR SQ SCH (07:54)
[2024-02-02 08:49] LABS: ALT 12 U/L (4-49); AST 21 U/L (17-59); African American GFR (CKD) 52 (>60 ml/min/1.73 sqM); Alkaline Phosphatase 72 U/L (38-126); Anion Gap 7 mmol/L; Blood Urea Nitrogen 31 mg/dL (9-20); Calcium 8.5 mg/dL (8.4-10.2); Carbon Dioxide 25 mmol/L (22-30); Chloride 104 mmol/L (98-107); Glucose 194 mg/dL (74-99); Non-African American GFR(CKD) 45 (>60 ml/min/1.73 sqM); Potassium 3.6 mmol/L (3.5-5.1); Sodium 136 mmol/L (137-145); Total Bilirubin 0.4 mg/dL (0.2-1.3); Total Protein 5.9 g/dL (6.3-8.2)
--- NOTE | 2024-02-02 11:01 | P.CONS ---
History of Present Illness - Reason for Consult Consult date: 02/02/24 wound care - History of Present Illness This is a 78-year-old patient known to the wound care center with history of diabetes Charcot foot and neuropathy. Patient had a ulceration to the heel that has been epithelialized and he is no longer patient to the wound care center. Patient had sustained a fall however he is a poor historian regarding the fall. Patient has ecchymosis to the left plantar foot and left great toe. Blistering is noted to the left plantar medial foot. And the left great toe. The blister is resulted in a ulceration to the webbing of digits 1 and 2. Blisters contained sanguinous fluid. With draining noted to this open ulceration. The ulceration measures approximately 0.6 x 0.4 x 0.1 cm with granulation to the wound bed wound edges are attached to the wound base from 1:00 to 6:00 at unattached thereafter. Review Of Systems: Constitutional: No fever, no chills, no night sweats. No weight change. No weakness, fatigue or lethargy. No daytime sleepiness. Integumentary:reports wounds, no lesions. No rash or pruritus. No unusual bruising. No change in hair or nails. Physical exam: General Appearance: Alert, cooperative, no distress, appears stated age. Skin: See HPI all other Skin color, texture, tugor normal, no rashes or lesions. Neurologic: Alert oriented x3 Assessment: 1. Nonhealing ulceration of other part of left foot with fat layer exposure 2. Diabetic foot ulcer 3. Charcot foot. Plan: 1. Apply absorptive silver rope between the first and second digit. Zinc barrier cream to the foot. Wrap with gauze and secure with tape. Change Thursday. Patient would benefit from advanced wound care and wound care setting. Be happy to see him upon discharge. Thank you for the consultation any questions please contact the wound care center DNP note has been reviewed and discussed with Dr. Kowalski and the impression and plan of care has been directed as dictated. 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, [facility] Last Myocardial Infarction Date:: 07/2023 History of Any Multi-Drug Resistant Organisms: None Reported Past Surgical History: Cholecystectomy, Heart Catheterization With Stent Additional Past Surgical History / Comment(s): [address] July 2023 Past Anesthesia/Blood Transfusion Reactions: No Reported Reaction Date of Last Stent Placement:: 07/28/2023 Past Psychological History: No Psychological Hx Reported Smoking Status: Never smoker Past Alcohol Use History: Occasional Past Drug Use History: None Reported - Past Family History Mother Additional Family Medical History / Comment(s): Sick sinus syndrome Father Family Medical History: Congestive Heart Failure (CHF) Additional Family Medical History / Comment(s): brother-heart failure, other borther heart attack. nephew/niece cardiac stents, Brother(s) Family Medical History: Coronary Artery Disease (CAD) Additional Family Medical History / Comment(s): 2 Brothers were diagnosed with early onset coronary artery disease in their 40s Medications and Allergies Home Medications Medication Instructions Recorded Confirmed Type Aspirin 81 mg PO DAILY #90 tab 07/31/23 01/29/24 Rx Insulin Degludec [Tresiba 40 units SQ DAILY #0 07/31/23 01/29/24 Rx Flextouch U-100 Pen] Ticagrelor [Brilinta] 90 mg PO BID #180 tab 07/31/23 01/29/24 Rx Sodium Chloride 0.65% Nasal [Deep 2 spray NASAL QID PRN ml 08/12/23 01/29/24 Rx Sea (Saline)] Furosemide [Lasix] 40 mg PO BID@0700,1700 09/23/23 01/29/24 History Metoprolol Tartrate [Lopressor] 50 mg PO BID@0700,1700 09/23/23 01/29/24 History Omeprazole 20 mg PO DAILY 09/23/23 01/29/24 History Tamsulosin [Flomax] 0.4 mg PO DAILY 09/23/23 01/29/24 History Apixaban [Eliquis] 2.5 mg PO BID@0700,1700 01/29/24 01/29/24 History INSULIN ASPART (NovoLOG) [NovoLOG See Protocol SQ ACHS 01/29/24 01/29/24 History (formulary)] Nitroglycerin Sl Tabs [Nitrostat] 0.4 mg SL Q5M PRN 01/29/24 01/29/24 History allopurinoL [Zyloprim] 100 mg PO DAILY 01/29/24 01/29/24 History lisinopriL [Zestril] 2.5 mg PO DAILY 01/29/24 01/29/24 History Allergies Allergy/AdvReac Type Severity Reaction Status Date / Time No Known Allergies Allergy Verified 01/29/24 13:24 Physical Exam Vitals: Vital Signs Temp Pulse Pulse Resp BP Pulse Ox 02/02/24 07:46 98.1 F 65 16 126/63 97 02/02/24 04:00 98.0 F 77 16 146/73 96 02/01/24 23:41 98.3 F 78 16 120/63 98 02/01/24 20:00 98.3 F 71 16 110/56 97 02/01/24 15:14 83 17 138/75 97 02/01/24 11:52 76 18 114/70 96 Intake and Output 02/01/24 02/02/24 02/02/24 22:59 06:59 14:59 Intake Total 240 118 Balance 240 118 Intake: Oral 240 118 Other: Voiding Method Toilet Toilet Toilet Weight 85.956 kg Results CBC & Chem 7: 02/02/24 07:32 02/02/24 07:32 Labs: Abnormal Lab Results - Last 24 Hours (Table) 02/01/24 02/01/24 02/01/24 Range/Units 11:44 16:42 20:13 RBC (4.30-5.90) m/uL Hgb (13.0-17.5) gm/dL Hct (39.0-53.0) % Sodium (137-145) mmol/L BUN (9-20) mg/dL Creatinine (0.66-1.25) mg/dL Glucose (74-99) mg/dL POC Glucose (mg/dL) 382 H 311 H 282 H (70-110) mg/dL Total Protein (6.3-8.2) g/dL Albumin (3.5-5.0) g/dL 02/02/24 02/02/24 02/02/24 Range/Units 05:43 07:32 07:32 RBC 3.63 L (4.30-5.90) m/uL Hgb 10.9 L (13.0-17.5) gm/dL Hct 34.4 L (39.0-53.0) % Sodium 136 L (137-145) mmol/L BUN 31 H (9-20) mg/dL Creatinine 1.47 H (0.66-1.25) mg/dL Glucose 194 H (74-99) mg/dL POC Glucose (mg/dL) 228 H (70-110) mg/dL Total Protein 5.9 L (6.3-8.2) g/dL Albumin 3.0 L (3.5-5.0) g/dL Microbiology - Last 24 Hours (Table) 01/30/24 15:04 Blood Culture - Preliminary Blood Assessment and Plan (1) Non-pressure chronic ulcer of other part of left foot with fat layer exposed Current Visit: Yes Status: Acute Code(s): L97.522 - NON-PRS CHRONIC ULCER OTH PRT LEFT FOOT W FAT LAYER EXPOSED SNOMED Code(s): 38064597065259248 (2) Type 2 diabetes mellitus with foot ulcer Current Visit: Yes Status: Acute Code(s): E11.621 - TYPE 2 DIABETES MELLITUS WITH FOOT ULCER; L97.509 - NON-PRESSURE CHRONIC ULCER OTH PRT UNSP FOOT W UNSP SEVERITY SNOMED Code(s): 3672048164777 (3) Charcot joint of foot due to diabetes Current Visit: Yes Status: Acute Code(s): E11.610 - TYPE 2 DIABETES MELLITUS W DIABETIC NEUROPATHIC ARTHROPATHY SNOMED Code(s): 213045847
[2024-02-02 11:57] LABS: Glucose,Whole Blood 229 mg/dL (70-110)
--- NOTE | 2024-02-02 12:16 | P.PN ---
Subjective Progress Note Date: 02/02/24 HISTORY OF PRESENT ILLNESS: 78-year-old with active medical history of coronary artery disease post non- STEMI with triple-vessel post stent placement (history of type 2 diabetes, stage IIIb chronic kidney disease, ischemic cardiomyopathy, hypertension, hyperlipidemia, paroxysmal atrial fibrillation was in the hospital last time with syncopal episode witnessed and believed to be seizure at the time was in the hospital for few days was seen neurology and cardiology. 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 He is doing fine through the day on 01/29/2024 till later when he started feeling to have slight hypoglycemia he took handful of grapes angiogram then he felt slightly bit sick according to his he went into the bathroom and get in the shower and become more sick to start throwing up he fell in the shower without any syncopal episode he was fully alert and awake for the whole thing the heard his stump falling in the shower went in and found him having significant nausea and vomiting with significant amount of diarrhea at that point he become more alert but still extremely weak with the fall he twisted his foot and created more problems and discomfort and her the big toe and the third part of his foot as well. No obvious site going him to the emergency room with the above problem patient is still quite bit symptomatic but no further nausea or vomiting. Seen and evaluated in the emergency department had multiple x-ray including left ankle shows no fracture or deformity. Left hip and pelvis shows no acute abnormality or fracture as well. And full x-ray of the foot shows early Charcot joint of the left foot with soft tissue swelling in the dorsum of the foot with 3 plantar calcaneal heel spur with degenerative joint change greatest at the second and third metatarsal phalangeal joint space. Laboratory evaluation shows white blood cell to be 15,300 with hemoglobin 11.1 mostly neutrophil cell, blood sugar is mildly elevated creatinine at 1.59 with GFR at 41. BNP was 2390 troponin initially was mildly elevated at 0.042. Emergency room decided to admit patient for but they believe might be non-STEMI with his cardiac history and current symptoms was started on heparin drip and consult cardiology admit patient to the hospital. 01/30/2024: Patient is not having any further syncopal episode, laboratory value creatinine 1.60 blood sugar still mildly elevated, C-reactive protein was 33.9, fortunately uric acid was low no sign of gout. Can also cause the left foot from the injury site blew up will become extremely swell red and hot. Infectious disease consultation was done diagnosed this to be most likely cellulitis with the current infection and deformed foot decided to switch his Rocephin to cefazolin 2 g every 8 hours culture still negative at this point no open area require any topical product to help with. The patient will stay off his foot currently. 01/31/2024: Continue to have significant pain and discomfort with swallowing and left foot, infectious disease has switched his antibiotics and kept him on cefazolin 2 g every 8 hours. Was seen orthopedic this morning felt the combination of cellulitis along with left foot plantar blister 1 with left big toe swelling with skin discoloration along with left foot Charcot with arthropathy once to involve wound care along with vascular for any possibility both consult as requested. Patient stable otherwise vitals are very stable lab and blood work shows creatinine 1.63 blood sugars mildly elevated still will adjust medication to keep it under control, no reason to believe the blister on the foot need to be open at this point because that will create more problems. limit patient activity for able to use the bathroom but try to stay in the chair with leg elevation will be more helpful. Patient is not going to be discharged today waiting to be evaluated by wound care and vascular tomorrow before we decide on the final plan. 02/01/2024: Vascular surgery seen patient for severe PAD and Charcot foot with current injury ELISEO of the right was 1.1 and the left 1.4 normal ELISEO toe brachial and ice suggest moderate disease secondary to diabetes. No revascularization required at this point continue topical care for the blister between the first and second toe on the left side to minimize the drainage continue 4 x 4 between the toes wrapped left foot ankle with Taurus wrap as well to reduce edema. Tyree nue IV antibiotic and wound care as well. Infectious disease seen significant elevated CRP at 33.3 still have pending culture with fever and elevated white blood cell expected coverage for gram-negative continue cefazolin at this point till the culture is finalized. Also patient seen cardiology no sign of non-ST OR at this point no need for any active cardiology management. 02/02/24: Patient remains on cefazolin 2g every 8 hours, awaiting ID recommendations for antibiotics at discharge. Blood cultures negative to date. No plans for intervention from vascular, continue wound care. No cardiac i ntervention at this time, EF improved to 35-40% based on 01/31 echo, cardiology has signed off, recommend follow up in office in 1-[address] Kiser. WBC continues to trend down 10.4 today, hemoglobin 10.9, BUN 31, Cr 1.47. Vital signs remain stable, afebrile. Patient is feeling well, resting comfortably in bed. REVIEW OF SYSTEMS: CONSTITUTIONAL: Well-developed no acute respiratory distress. EYES: No icterus sclerae, no conjunctivitis. EARS, NOSE, MOUTH, THROAT, and FACE: No sore throat, lymphadenopathy, carotid bruits or deformity. RESPIRATORY: Mild shortness of breath, no cough or wheezes. CARDIOVASCULAR: Positive PND orthopnea and orthopnea. No chest pain or angina. GASTROINTESTINAL: Still having slight abdominal discomfort with nausea no vomi ting no further GI bleed but continued to have slight diarrhea as well. GENITOURINARY: Negative for Hematuria or UTI, no kidney stones. INTEGUMENT/BREAST: Negative for any muscular injury with mild osteoarthritis.. HEMATOLOGIC/LYMPHATIC: Negative for bleed or purpura. MUSCULOSKELTAL: Left foot has callus with healing ulcer quite with a bruise around the first and second toe with mild ecchymosis and slight hemorrhage under the toe. NEURLOGICAL: No LOC, Sz or syncope, blurred vision dizziness or abnormality.. BEHAVIORAL/PSYCH: Negative. ENDOCRINE: Negative. PHYSICAL EXAMINATION: General Appearance: Alert, cooperative, no distress, appears stated age. Neck HEENT: Supple, no lymphadenopathy, no thyroid enlargement, no carotid bruits. Lungs: Decreased breath sound bilaterally, no ronchi, crackles, or wheezing. Chest Wall: Normal expansion with deep inspiration no tenderness and no deformity was found on exam, no costochondral pain or discomfort. Heart: Irregular rate and rhythm, S1, S2 normal, no murmur, rub or gallop. Back: Symmetric, no curvature, ROM normal, no CVA tenderness. Abdomen: Soft positive bowel sounds no organomegaly, non-tender, no rebound or rigidity. Extremities: Left foot with quite a bit larger bruise and hematoma around the big toe and under the joint between the metatarsal and the phalangeal area first and second toes mostly. Pulses: 2+ and symmetric. Skin: Skin color, texture, tugor normal, no rashes or lesions. Neurologic: Alert oriented x3 cranial nerves II through XII intact, no motor deficit, no abnormal balance or gait. ASSESSMENT AND PLAN: _Severe cellulitis of the left foot with Charcot foot significant swelling with elevated C-reactive protein, patient was started on cefazolin 2 g every 8 hours and off Rocephin. Still being seen by infectious disease, wound care and vascular. No intervention indicated per wound care and vascular. Awaiting vascular and ID recommendations for discharge. _Severe gastroenteritis: No further signs and symptoms of gastrointestinal including diarrhea nausea or vomiting. _Left Charcot foot arthropathy with cellulitis and plantar blister wound with s ignificant swelling and discoloration of the skin of the left big toe: Vascular and wound care following, continue to keep patient off his foot, continue IV antibiotics and topical care. _ non-ST OR was excluded: Second troponin was negative the patient is not having any further symptoms. _Type 2 diabetes: Accu-Chek with sliding. Along with Levemir 50 units daily, NovoLog AC meals. _Stage IIIb chronic kidney disease: with GFR of 45 creatinine 1.47, continue to avoid any nephrotoxic agent, continue gentle hydration watch, for any toxic medication. _Fall with no syncope: The patient was fully awake for the whole thing per his testimony and his as well had mild injury to the left foot mostly no injury anywhere else in his body this is happened after he started his severe nausea and vomiting probably was more related to extreme hypertension his blood pressure is much better so far will continue hydration for now. _Advanced cardiomyopathy: mostly ischemic with ejection fraction increased to 35-40% based on lastest echo, previously was 30-35%, remain on medical management. _Multiple vessel coronary artery disease post angioplasty and stent placement: Last stent was RCA and LAD back in July 2023 and is currently remain on Brilinta with aspirin has not stopped. _A-fib: Switched back to Eliquis and dose was increased up to 5 mg twice a day and remain on metoprolol tartrate 50 mg twice a day. _Severe GERD continue omeprazole 20 mg daily. _DVT prophylaxis: Remain on Eliquis. Discussion: Continue topical care, still being followed by infectious disease, vascular and wound care. Wound care recommend following up in office outpatient for advance woundcare, further recommendations include applying absorptive silver rope between the first and second digit as well as Zinc barrier cream to the foot, wrap foot with gauze and secure with tape. Dressing changes every Mo , , and Thursday. Non-ST OR is completely excluded no need for any further management this point cardiology fraga. Awaiting recommendations from ID and vascular, anticipate discharge in next 24 hours. The patient was seen and evaluated by Dr. Link. Plan, assessment and medications were all discussed, reviewed, and directed by Dr. Link with Anton Rodriguez [employer] acting as a scribe. Objective - Vital Signs Vital signs: Vital Signs Temp 98.1 F 02/02/24 07:46 Pulse 65 02/02/24 07:46 Resp 16 02/02/24 07:46 BP 126/63 02/02/24 07:46 Pulse Ox 97 02/02/24 07:46 FiO2 Intake & Output 02/01/24 02/02/24 02/02/24 18:59 06:59 18:59 Intake Total 718 118 Balance 718 118 Weight 85.956 kg Intake: Oral 718 118 Other: Voiding Method Toilet Toilet Toilet # Voids 3 # Bowel Movements 1 - Labs CBC & Chem 7: 02/02/24 07:32 02/02/24 07:32 Labs: Abnormal Lab Results - Last 24 Hours (Table) 02/01/24 02/01/24 02/01/24 Range/Units 11:44 16:42 20:13 RBC (4.30-5.90) m/uL Hgb (13.0-17.5) gm/dL Hct (39.0-53.0) % Sodium (137-145) mmol/L BUN (9-20) mg/dL Creatinine (0.66-1.25) mg/dL Glucose (74-99) mg/dL POC Glucose (mg/dL) 382 H 311 H 282 H (70-110) mg/dL Total Protein (6.3-8.2) g/dL Albumin (3.5-5.0) g/dL 07/16/24 07/16/24 07/16/24 Range/Units 05:43 07:32 07:32 RBC 3.63 L (4.30-5.90) m/uL Hgb 10.9 L (13.0-17.5) gm/dL Hct 34.4 L (39.0-53.0) % Sodium 136 L (137-145) mmol/L BUN 31 H (9-20) mg/dL Creatinine 1.47 H (0.66-1.25) mg/dL Glucose 194 H (74-99) mg/dL POC Glucose (mg/dL) 228 H (70-110) mg/dL Total Protein 5.9 L (6.3-8.2) g/dL Albumin 3.0 L (3.5-5.0) g/dL Microbiology - Last 24 Hours (Table) 01/30/24 15:04 Blood Culture - Preliminary Blood
[2024-02-02] MEDS: ZINC OXIDE PASTE (Z-GUARD) 1 APPLIC TOPICAL SCH (12:29)
--- NOTE | 2024-02-02 15:37 | P.PN ---
Subjective Progress Note Date: 02/02/24 Principal diagnosis: Reason for follow-up is left foot cellulitis Patient is a 78-year-old male with a past medical history significant for diabetes mellitus hypertension hyperlipidemia [place] reflux Charcot foot was brought to the hospital after the patient did have a fall in the bathroom has developed significant bruising swelling and possible cellulitis to the left foot and ankle area. On today's evaluation that is 02/02/2024,the patient remains to be afebrile, patient is on room air not requiring supplemental oxygen and denies any shortness of breath no chest pain or cough.Patient denies having any nausea or vomiting, no abdominal pain and no diarrhea denies pain to the left foot. Patient white count is 10.4 creatinine is 1.47 blood cultures so far negative Objective - Vital Signs Vital signs: Vital Signs Temp 98.1 F 02/02/24 15:16 Pulse 80 02/02/24 15:16 Resp 16 02/02/24 15:16 BP 98/58 02/02/24 15:16 Pulse Ox 98 02/02/24 15:16 FiO2 Intake & Output 02/01/24 02/02/24 02/02/24 18:59 06:59 18:59 Intake Total 718 236 Balance 718 236 Weight 85.956 kg Intake: Oral 718 236 Other: Voiding Method Toilet Toilet Toilet # Voids 3 2 # Bowel Movements 1 - Exam GENERAL DESCRIPTION: An elderly male lying in bed in no distress RESPIRATORY SYSTEM: Unlabored breathing , decreased breath sounds at bases HEART: S1 S2 regular rate and rhythm , ABDOMEN: Soft , no tenderness EXTREMITIES: Left foot overall swelling persists redness slightly decreased did have bruising some clear drainage - Labs CBC & Chem 7: 02/02/24 07:32 02/02/24 07:32 Labs: Abnormal Lab Results - Last 24 Hours (Table) 02/01/24 02/01/24 02/02/24 Range/Units 16:42 20:13 05:43 RBC (4.30-5.90) m/uL Hgb (13.0-17.5) gm/dL Hct (39.0-53.0) % Sodium (137-145) mmol/L BUN (9-20) mg/dL Creatinine (0.66-1.25) mg/dL Glucose (74-99) mg/dL POC Glucose (mg/dL) 311 H 282 H 228 H (70-110) mg/dL Total Protein (6.3-8.2) g/dL Albumin (3.5-5.0) g/dL 02/02/24 02/02/24 02/02/24 Range/Units 07:32 07:32 11:55 RBC 3.63 L (4.30-5.90) m/uL Hgb 10.9 L (13.0-17.5) gm/dL Hct 34.4 L (39.0-53.0) % Sodium 136 L (137-145) mmol/L BUN 31 H (9-20) mg/dL Creatinine 1.47 H (0.66-1.25) mg/dL Glucose 194 H (74-99) mg/dL POC Glucose (mg/dL) 229 H (70-110) mg/dL Total Protein 5.9 L (6.3-8.2) g/dL Albumin 3.0 L (3.5-5.0) g/dL Microbiology - Last 24 Hours (Table) 01/30/24 15:04 Blood Culture - Preliminary Blood Assessment and Plan (1) Cellulitis of left foot Current Visit: Yes Status: Acute Code(s): L03.116 - CELLULITIS OF LEFT LOWER LIMB SNOMED Code(s): 12109718200264616 Plan: 1patient with the left foot and ankle area swelling redness did have significant bruising with recent history of trauma however likely a component of cellulitis as the patient did have fever and elevated white count likely from g fany-positive skin hoda 2-blood cultures currently pending did have elevated CRP of 33.3 3-patient has been eval by orthopedics and vascular surgery recommending no surgical intervention 4-patient did have resolution of his fever and the patient white count has normalized to continue with cefazolin 2 g every 8 hours and transition to oral antibiotics on discharge Dictation was produced using [employer] dictation software. please excuse any grammatical, word or spelling errors. Time with Patient: Less than 30
[2024-02-02 16:54] LABS: Glucose,Whole Blood 166 mg/dL (70-110)
[2024-02-02 20:20] LABS: Glucose,Whole Blood 220 mg/dL (70-110)
[2024-02-03 07:07] LABS: Glucose,Whole Blood 238 mg/dL (70-110)
[2024-02-03 07:43] VITALS: BP 154/81; PULSE 99; RESP 17; TEMP 98.2
[2024-02-03 12:07] LABS: Glucose,Whole Blood 367 mg/dL (70-110)
--- NOTE | 2024-02-03 12:31 | P.PN ---
Subjective Progress Note Date: 02/03/24 Principal diagnosis: Reason for follow-up is left foot cellulitis Patient is a 78-year-old male with a past medical history significant for diabetes mellitus hypertension hyperlipidemia [place] reflux Charcot foot was brought to the hospital after the patient did have a fall in the bathroom has developed significant bruising swelling and possible cellulitis to the left foot and ankle area. On today's evaluation that is 02/03/2024, the patient continues to be afebrile, the patient is on room air and breathing comfortably, the Pt denies having any chest pain or cough, the patient denies having any abdominal pain no vomiting or any diarrhea and denies pain to the left foot mention swelling that is slightly decreased. No new lab has been repeated blood culture has been negative Objective - Vital Signs Vital signs: Vital Signs Temp 98.2 F 02/03/24 07:03 Pulse 99 02/03/24 07:03 Resp 17 02/03/24 07:03 BP 154/81 02/03/24 07:03 Pulse Ox 98 02/03/24 07:03 FiO2 Intake & Output 02/02/24 02/03/24 02/03/24 18:59 06:59 18:59 Intake Total 680 Output Total 400 Balance 680 -400 Weight 88.1 kg Intake: Oral 680 Output: Urine 400 Other: Voiding Method Toilet Toilet # Voids 2 # Bowel Movements 1 - Exam GENERAL DESCRIPTION: An elderly male lying in bed in no distress RESPIRATORY SYSTEM: Unlabored breathing , decreased breath sounds at bases HEART: S1 S2 regular rate and rhythm , ABDOMEN: Soft , no tenderness EXTREMITIES: Left foot overall swelling persists redness slightly decreased did have bruising some clear drainage - Labs CBC & Chem 7: 02/02/24 07:32 02/02/24 07:32 Labs: Abnormal Lab Results - Last 24 Hours (Table) 02/02/24 02/02/24 02/02/24 Range/Units 11:55 16:53 20:14 POC Glucose (mg/dL) 229 H 166 H 220 H (70-110) mg/dL 02/03/24 Range/Units 07:05 POC Glucose (mg/dL) 238 H (70-110) mg/dL Microbiology - Last 24 Hours (Table) 01/30/24 15:04 Blood Culture - Preliminary Blood Assessment and Plan (1) Cellulitis of left foot Current Visit: Yes Status: Acute Code(s): L03.116 - CELLULITIS OF LEFT LOWER LIMB SNOMED Code(s): 76094917811730962 Plan: 1patient with the left foot and ankle area swelling redness did have significant bruising with recent history of trauma however likely a component of cellulitis as the patient did have fever and elevated white count likely from gram-positive skin hoda 2-blood cultures currently pending did have elevated CRP of 33.3 3-patient has been eval by orthopedics and vascular surgery recommending no surgical intervention 4-patient did have resolution of his fever and the patient white count has normalized 5patient to continue with cefazolin 2 g every 8 hours and transition to oral Keflex on discharge Dictation was produced using [employer] dictation software. please excuse any grammatical, word or spelling errors. Time with Patient: Less than 30
--- NOTE | 2024-02-03 13:03 | P.DS ---
Providers Date of admission: 01/29/24 13:14 Attending physician: Derian Link Consults: 01/29/24 12:50 Consult Physician Routine Consulting Provider: Haile Lyons Consult Reason/Comments: NSTEMI, history of stent placement 07/2023 Do you want consulting provider notified?: Yes 01/30/24 09:24 Consult Physician Routine Consulting Provider: Geoffrey Maher Consult Reason/Comments: trauma with Hematoma of the L Ankle Do you want consulting provider notified?: Yes Consult Physician Routine Consulting Provider: Nelsy Byers Consult Reason/Comments: Infected L foot Do you want consulting provider notified?: Yes Primary care physician: [facility] Course: HISTORY OF PRESENT ILLNESS: 78-year-old with active medical history of coronary artery disease post non-TRAN MS with triple-vessel post stent placement (history of type 2 diabetes, stage IIIb chronic kidney disease, ischemic cardiomyopathy, hypertension, hyperlipidemia, paroxysmal atrial fibrillation was in the hospital last time with syncopal episode witnessed and believed to be seizure at the time was in the hospital for few days was seen neurology and cardiology. 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 He is doing fine through the day on 01/29/2024 till later when he started feeling to have slight hypoglycemia he took handful of grapes angiogram then he felt slightly bit sick according to his he went into the bathroom and get in the shower and become more sick to start throwing up he fell in the shower without any syncopal episode he was fully alert and awake for the whole thing the heard his stump falling in the shower went in and found him having significant nausea and vomiting with significant amount of diarrhea at that point he become more alert but still extremely weak with the fall he twisted his foot and crea laura more problems and discomfort and her the big toe and the third part of his foot as well. No obvious site going him to the emergency room with the above problem patient is still quite bit symptomatic but no further nausea or vomiting. Seen and evaluated in the emergency department had multiple x-ray including left ankle shows no fracture or deformity. Left hip and pelvis shows no acute abnormality or fracture as well. And full x-ray of the foot shows early Charcot joint of the left foot with soft tissue swelling in the dorsum of the foot with 3 plantar calcaneal heel spur with degenerative joint change greatest at the second and third metatarsal phalangeal joint space. Laboratory evaluation shows white blood cell to be 15,300 with hemoglobin 11.1 mostly neutrophil cell, blood sugar is mildly elevated creatinine at 1.59 with GFR at 41. BNP was 2390 troponin initially was mildly elevated at 0.042. Emergency room decided to admit patient for but they believe might be non-STEMI with his cardiac history and current symptoms was started on heparin drip and consult cardiology admit patient to the hospital. 01/30/2024: Patient is not having any further syncopal episode, laboratory value creatinine 1.60 blood sugar still mildly elevated, C-reactive protein was 33.9, fortunately uric acid was low no sign of gout. Can also cause the left foot from the injury site blew up will become extremely swell red and hot. Infectious disease consultation was done diagnosed this to be most likely cellulitis with the current infection and deformed foot decided to switch his Rocephin to cefazolin 2 g every 8 hours culture still negative at this point no open area require any topical product to help with. The patient will stay off his foot currently. 01/31/2024: Continue to have significant pain and discomfort with swallowing and left foot, infectious disease has switched his antibiotics and kept him on cefazolin 2 g every 8 hours. Was seen orthopedic this morning felt the combinat ion of cellulitis along with left foot plantar blister 1 with left big toe swelling with skin discoloration along with left foot Charcot with arthropathy once to involve wound care along with vascular for any possibility both consult as requested. Patient stable otherwise vitals are very stable lab and blood work shows creatinine 1.63 blood sugars mildly elevated still will adjust medication to keep it under control, no reason to believe the blister on the foot need to be open at this point because that will create more problems. limit patient activity for able to use the bathroom but try to stay in the chair with leg elevation will be more helpful. Patient is not going to be discharged today waiting to be evaluated by wound care and vascular tomorrow before we decide on the final plan. 02/01/2024: Vascular surgery seen patient for severe PAD and Charcot foot with current injury ELISEO of the right was 1.1 and the left 1.4 normal ELISEO toe brachial and ice suggest moderate disease secondary to diabetes. No revascularization required at this point continue topical care for the blister between the first and second toe on the left side to minimize the drainage continue 4 x 4 between the toes wrapped left foot ankle with Taurus wrap as well to reduce edema. Continue IV antibiotic and wound care as well. Infectious disease seen significant elevated CRP at 33.3 still have pending culture with fever and elevated white blood cell expected coverage for gram-negative continue cefazolin at this point till the culture is finalized. Also patient seen cardiology no sign of non-ST MS at this point no need for any active cardiology management. 02/02/24: Patient remains on cefazolin 2g every 8 hours, awaiting ID recommendations for antibiotics at discharge. Blood cultures negative to date. No plans for intervention from vascular, continue wound care. No cardiac intervention at this time, EF improved to 35-40% based on 01/31 echo, cardiology has signed off, recommend follow up in office in 1-[address] Kiser. WBC continues to trend down 10.4 today, hemoglobin 10.9, BUN 31, Cr 1.47. Vital signs remain stable, afebrile. Patient is feeling well, resting comfortably in bed. 02/03/24: Patient doing very well today. Currently on cefazolin 2gm every 8 hours, planning to discharge home on doxycycline twice a day for 10 days, will still need to be seen by ID but following that will be free to go home. No issues overnight, no new labs. REVIEW OF SYSTEMS: CONSTITUTIONAL: Well-developed no acute respiratory distress. EYES: No icterus sclerae, no conjunctivitis. EARS, NOSE, MOUTH, THROAT, and FACE: No sore throat, lymphadenopathy, carotid bruits or deformity. RESPIRATORY: Mild shortness of breath, no cough or wheezes. CARDIOVASCULAR: Positive PND orthopnea and orthopnea. No chest pain or angina. GASTROINTESTINAL: No abdominal pain, nausea, vomiting, constipation, diarrhea, no GI bleeding, no distension or masses. GENITOURINARY: Negative for Hematuria or UTI, no kidney stones. INTEGUMENT/BREAST: Negative for any muscular injury.. HEMATOLOGIC/LYMPHATIC: Negative for bleed or purpura. MUSCULOSKELTAL: Left foot has callus with healing ulcer quite with a bruise around the first and second toe with mild ecchymosis and slight hemorrhage under the toe. NEURLOGICAL: No LOC, Sz or syncope, blurred vision dizziness or abnormality.. BEHAVIORAL/PSYCH: Negative. ENDOCRINE: Negative. PHYSICAL EXAMINATION: General Appearance: Alert, cooperative, no distress, appears stated age. Neck HEENT: Supple, no lymphadenopathy, no thyroid enlargement, no carotid bruits. Lungs: Decreased breath sound bilaterally, no ronchi, crackles, or wheezing. Chest Wall: Normal expansion with deep inspiration no tenderness and no def ormity was found on exam, no costochondral pain or discomfort. Heart: Regular rate and rhythm, S1, S2 normal, no murmur, rub or gallop. Back: Symmetric, no curvature, ROM normal, no CVA tenderness. Abdomen: Soft positive bowel sounds no organomegaly, non-tender, no rebound or rigidity. Extremities: Left foot with quite a bit larger bruise and hematoma around the big toe and under the joint between the metatarsal and the phalangeal area first and second toes mostly. Pulses: 2+ and symmetric. Skin: Skin color, texture, turgor normal, no rashes or lesions. Neurologic: Alert oriented x3 cranial nerves II through XII intact, no motor deficit, no abnormal balance or gait. ASSESSMENT AND PLAN: _Severe cellulitis of the left foot with Charcot foot: significant swelling with elevated C-reactive protein, patient was started on cefazolin 2 g every 8 hours and off Rocephin. Still being seen by infectious disease, wound care and vascular. No intervention indicated per wound care and vascular. Will plan to switch him to doxycycline 100mg twice a day for 10 days at discharge, to be closely followed by our practice as well as home care and wound care clinic. _Left Charcot foot arthropathy with cellulitis and plantar blister wound with significant swelling and discoloration of the skin of the left big toe: Vascular and wound care following, dressing to be changed today, continue antibiotics and topical care. _Severe gastroenteritis: No further signs and symptoms of gastrointestinal including diarrhea nausea or vomiting. _ non-ST MS was excluded: Second troponin was negative the patient is not having any further symptoms. _Type 2 diabetes: Accu-Chek with sliding. Will resume Tresiba 40 units at home, NovoLog AC meals. _Stage IIIb chronic kidney disease: with GFR of 45 creatinine 1.47, continue to avoid any nephrotoxic agent, continue gentle hydration, watch for any toxic medication. _Fall with no syncope: The patient was fully awake for the whole thing, per his testimony and his as well had mild injury to the left foot mostly, no injury anywhere else in his body this happened after he started his severe nausea and vomiting, probably was more related to extreme hypertension his blood pressure is much better so far will continue hydration for now. _Advanced cardiomyopathy: mostly ischemic with ejection fraction increased to 35-40% based on lastest echo, previously was 30-35%, remain on medical management. On furosemide 40mg PO twice a day. _Multiple vessel coronary artery disease post angioplasty and stent placement: Last stent was RCA and LAD back in July 2023 and is currently on Brilinta, aspirin has been stopped. _A-fib: Switched back to Eliquis and dose was increased up to 5 mg twice a day and remain on metoprolol tartrate 50 mg twice a day. _Severe GERD: continue omeprazole 20 mg daily. _DVT prophylaxis: Remain on Eliquis. Discussion: Patient overall is much improved, no further plans from vascular or cardiology, Non-ST MS has been excluded. Patient is to be seen today by ID, afterwards he will be able to go home. Will transition to doxycyline twice a day for 10 days at discharge. Home care has been arranged by social work. Patient will follow up with wound care clinic after discharge, and continue wound care recommendations at home. Wound care recommendations include applying absorptive silver rope between the first and second digit as well as Zinc barrier cream to the foot, wrap foot with gauze and secure with tape. Dressing changes to be done every Thursday, , and Thursday. Hospital Course: Patient was admitted to the hospital on 01/29/24 following a fall at home, prior to fall patient states he had felt hypoglycemic so ate some fruit, patient continued to feel unwell so went to shower where he began to vomit and patient recounts falling at this time in the shower, patient states he was awake the whole time. had heard the fall and found the patient in the shower, states he was weak but alert, was continuing to vomit and have diarrhea, and also had twisted his left foot in the fall, pain primarily around big toe and third toe. Patient presented to the emergency room where x-rays of left foot, hip, and pelvis were all negative for fracture, although x-ray of foot was positive for early Charcot joint of the left food with soft tissue swelling in the dorsum of the foot with 3 plantar calcaneal heel spur with degenerative joint change greatest at the second and third metatarsal phalangeal joint space. Bloodwork at time of admission revealed white blood cell to be 15,3 00 with hemoglobin 11.1 mostly neutrophil cell, blood sugar is mildly elevated creatinine at 1.59 with GFR at 41. BNP was 2390 troponin initially was mildly elevated at 0.042. Patient was admitted initially for concern over possible N- STEMI due patients extensive cardiac history. During the first 24 hours of admission, patient's vomiting and diarrhea had subsided, but the left foot injury significantly worsened, becoming extremely red, swollen, and warm to touch. CRP was found to be 33.3. Orthopedics and infectious disease were therefore consulted as well, and patient was started on rocephin for suspected cellulitis. Patient was seen by cardiology who reviewed admission blood work and recent cardiac testing, patient had undergone a cardiac catheterization in July 2023 with stents to RCA and LAD and Impella placement, and an echocardiogram performed in September 2023 showing EF 30-35%. EKG at time of admission did not demonstrate any acute ischemic changes. Elevated troponin found on admission is attributed to patient's chronic kidney disease rather than an acute ischemic injury. Repeat echocardiogram revealed improved EF now 35-40%. N-STEMI was been ruled out, no further cardiac intervention indicated, and cardiology signed-off. Per cardiology recommendations, patient's Eliquis was increased to 5mg twice a day for better thromboembolic protection, aspirin was discontinued, and patient will be discharged to follow-up with Dr. Kiser in 1-2 weeks. Patient was seen by orthopedics who agreed with diagnoses of Charcot arthropathy and cellulitis, recommended wound care and vascular evaluation, for which consults were placed. Did not recommend any orthopedic surgical intervention. Infectious disease saw patient and agreed with diagnosis of cellulitis and switched the patient on cefazolin 2g every 8 hours. Blood cultures were drawn and continue to be negative. White blood cells while elevated at admission continued to trend down, at time of discharge WBC are 10,400. Patient has responded well to IV antibiotics with decreased redness and swelling through remainder of admission. Infectious disease recommended continuing cefazolin IV until discharge, at which point patient could be switched to oral antibiotics. Patient will be sent home on doxycycline 100mg twice a day for 10 days. Vascular saw the patient to evaluate foot injury, reviewed arterial duplex performed in August 2023 which suggested moderate disease secondary to diabetes mellitus, did not feel there was any indication for vascular intervention at this point, recommendations included continued wound care, offloading weight to left foot, and keeping left lower extremity elevated. Wound care evaluated patient who made recommendations to continue wound care at discharge with dressing changes to be done three times a week and to follow in advanced wound care clinic for further monitoring and management, arrangements have been made for patient to do so. At time of discharge patient has remained afebrile for well over 48 hours, vitals signs have remained dmeian, and patient has felt significant improvement in symptoms as well as decreased pain in left foot. Patient was instructed on wound care recommendations and follow-up instructions, will plan to see him in our office early next week. Time spent on discharging patient was over 35 minutes. The patient was seen and evaluated by Dr. Link. Plan, assessment and medications were all discussed, reviewed, and directed by Dr. Link with Anton TIMMONS-Antoine acting as a scribe. Patient Condition at Discharge: Stable Plan - Discharge Summary Discharge Rx Participant: No New Discharge Prescriptions: New Apixaban [Eliquis] 5 mg PO BID@0700,1700 #60 tab Doxycycline Hyclate 100 mg PO AC-BID #20 capsule Atorvastatin [Lipitor] 20 mg PO HS #90 tab Continue Ticagrelor [Brilinta] 90 mg PO BID #180 tab Insulin Degludec [Tresiba Flextouch U-100 Pen] 40 units SQ DAILY #0 Furosemide [Lasix] 40 mg PO BID@0700,1700 allopurinoL [Zyloprim] 100 mg PO DAILY INSULIN ASPART (NovoLOG) [NovoLOG (formulary)] See Protocol SQ ACHS Sodium Chloride 0.65% Nasal [Deep Sea (Saline)] 2 spray NASAL QID PRN ml PRN Reason: Nasal Congestion Tamsulosin [Flomax] 0.4 mg PO DAILY Omeprazole 20 mg PO DAILY Metoprolol Tartrate [Lopressor] 50 mg PO BID@0700,1700 lisinopriL [Zestril] 2.5 mg PO DAILY Nitroglycerin Sl Tabs [Nitrostat] 0.4 mg SL Q5M PRN PRN Reason: Chest Pain Discontinued Aspirin 81 mg PO DAILY #90 tab Apixaban [Eliquis] 2.5 mg PO BID@0700,1700 Discharge Medication List Insulin Degludec [Tresiba Flextouch U-100 Pen] 40 units SQ DAILY #0 07/31/23 [Rx] Ticagrelor [Brilinta] 90 mg PO BID #180 tab 07/31/23 [Rx] Sodium Chloride 0.65% Nasal [Deep Sea (Saline)] 2 spray NASAL QID PRN ml 08/12/23 [Rx] Furosemide [Lasix] 40 mg PO BID@0700,1700 09/23/23 [History] Metoprolol Tartrate [Lopressor] 50 mg PO BID@0700,1700 09/23/23 [History] Omeprazole 20 mg PO DAILY 09/23/23 [History] Tamsulosin [Flomax] 0.4 mg PO DAILY 09/23/23 [History] INSULIN ASPART (NovoLOG) [NovoLOG (formulary)] See Protocol SQ ACHS 01/29/24 [History] Nitroglycerin Sl Tabs [Nitrostat] 0.4 mg SL Q5M PRN 01/29/24 [History] allopurinoL [Zyloprim] 100 mg PO DAILY 01/29/24 [History] lisinopriL [Zestril] 2.5 mg PO DAILY 01/29/24 [History] Apixaban [Eliquis] 5 mg PO BID@0700,1700 #60 tab 02/03/24 [Rx] Atorvastatin [Lipitor] 20 mg PO HS #90 tab 02/03/24 [Rx] Doxycycline Hyclate 100 mg PO AC-BID #20 capsule 02/03/24 [Rx] Follow up Appointment(s)/Referral(s): Richie Dean MD [STAFF PHYSICIAN] - 02/17/24 3:30 pm Derian Link MD [Primary Care Provider] - 02/08/24 11:30 am [facility], [NON-STAFF] - [facility] [NON-STAFF] - 02/11/24 8:00 am Patient Instructions/Handouts: Doxycycline (By mouth), Atorvastatin (By mouth), Apixaban (By mouth), Wound Infection (DC), Fall Prevention for Older Adults (DC) Activity/Diet/Wound Care/Special Instructions: Wound care orders-Apply absorptive Silver rope between the 1st and 2nd digit of left foot. Zinc barrier cream to plantar foot and left great toe. Wrap with rolled gauze and secure with tape. Discharge Disposition: HOME WITH HOME HEALTH SERVICES
--- NOTE | 2024-02-03 13:07 | P.PN ---
Subjective Progress Note Date: 02/03/24 HISTORY OF PRESENT ILLNESS: 78-year-old with active medical history of coronary artery disease post non- STEMI with triple-vessel post stent placement (history of type 2 diabetes, stage IIIb chronic kidney disease, ischemic cardiomyopathy, hypertension, hyperlipidemia, paroxysmal atrial fibrillation was in the hospital last time with syncopal episode witnessed and believed to be seizure at the time was in the hospital for few days was seen neurology and cardiology. 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 He is doing fine through the day on 01/29/2024 till later when he started feeling to have slight hypoglycemia he took handful of grapes angiogram then he felt slightly bit sick according to his he went into the bathroom and get in the shower and become more sick to start throwing up he fell in the shower without any syncopal episode he was fully alert and awake for the whole thing the heard his stump falling in the shower went in and found him having significant nausea and vomiting with significant amount of diarrhea at that point he become more alert but still extremely weak with the fall he twisted his foot and created more problems and discomfort and her the big toe and the third part of his foot as well. No obvious site going him to the emergency room with the above problem patient is still quite bit symptomatic but no further nausea or vomiting. Seen and evaluated in the emergency department had multiple x-ray including left ankle shows no fracture or deformity. Left hip and pelvis shows no acute abnormality or fracture as well. And full x-ray of the foot shows early Charcot joint of the left foot with soft tissue swelling in the dorsum of the foot with 3 plantar calcaneal heel spur with degenerative joint change greatest at the second and third metatarsal phalangeal joint space. Laboratory evaluation shows white blood cell to be 15,300 with hemoglobin 11.1 mostly neutrophil cell, blood sugar is mildly elevated creatinine at 1.59 with GFR at 41. BNP was 2390 troponin initially was mildly elevated at 0.042. Emergency room decided to admit patient for but they believe might be non-STEMI with his cardiac history and current symptoms was started on heparin drip and consult cardiology admit patient to the hospital. 01/30/2024: Patient is not having any further syncopal episode, laboratory value creatinine 1.60 blood sugar still mildly elevated, C-reactive protein was 33.9, fortunately uric acid was low no sign of gout. Can also cause the left foot from the injury site blew up will become extremely swell red and hot. Infectious disease consultation was done diagnosed this to be most likely cellulitis with the current infection and deformed foot decided to switch his Rocephin to cefazolin 2 g every 8 hours culture still negative at this point no open area require any topical product to help with. The patient will stay off his foot currently. 01/31/2024: Continue to have significant pain and discomfort with swallowing and left foot, infectious disease has switched his antibiotics and kept him on cefazolin 2 g every 8 hours. Was seen orthopedic this morning felt the combination of cellulitis along with left foot plantar blister 1 with left big toe swelling with skin discoloration along with left foot Charcot with arthropathy once to involve wound care along with vascular for any possibility both consult as requested. Patient stable otherwise vitals are very stable lab and blood work shows creatinine 1.63 blood sugars mildly elevated still will adjust medication to keep it under control, no reason to believe the blister on the foot need to be open at this point because that will create more problems. limit patient activity for able to use the bathroom but try to stay in the chair with leg elevation will be more helpful. Patient is not going to be discharged today waiting to be evaluated by wound care and vascular tomorrow before we decide on the final plan. 02/01/2024: Vascular surgery seen patient for severe PAD and Charcot foot with current injury ELISEO of the right was 1.1 and the left 1.4 normal ELISEO toe brachial and ice suggest moderate disease secondary to diabetes. No revascularization required at this point continue topical care for the blister between the first and second toe on the left side to minimize the drainage continue 4 x 4 between the toes wrapped left foot ankle with Taurus wrap as well to reduce edema. Contin ue IV antibiotic and wound care as well. Infectious disease seen significant elevated CRP at 33.3 still have pending culture with fever and elevated white blood cell expected coverage for gram-negative continue cefazolin at this point till the culture is finalized. Also patient seen cardiology no sign of non-ST AK at this point no need for any active cardiology management. 02/02/24: Patient remains on cefazolin 2g every 8 hours, awaiting ID recommendations for antibiotics at discharge. Blood cultures negative to date. No plans for intervention from vascular, continue wound care. No cardiac in tervention at this time, EF improved to 35-40% based on 01/31 echo, cardiology has signed off, recommend follow up in office in 1-[address] Kiser. WBC continues to trend down 10.4 today, hemoglobin 10.9, BUN 31, Cr 1.47. Vital signs remain stable, afebrile. Patient is feeling well, resting comfortably in bed. 02/03/24: Patient doing very well today. Currently on cefazolin 2gm every 8 hours, planning to discharge home on doxycycline twice a day for 10 days, will still need to be seen by ID but following that will be free to go home. No issues overnight, no new labs. REVIEW OF SYSTEMS: CONSTITUTIONAL: Well-developed no acute respiratory distress. EYES: No icterus sclerae, no conjunctivitis. EARS, NOSE, MOUTH, THROAT, and FACE: No sore throat, lymphadenopathy, carotid bruits or deformity. RESPIRATORY: Mild shortness of breath, no cough or wheezes. CARDIOVASCULAR: Positive PND orthopnea and orthopnea. No chest pain or angina. GASTROINTESTINAL: No abdominal pain, nausea, vomiting, constipation, diarrhea, no GI bleeding, no distension or masses. GENITOURINARY: Negative for Hematuria or UTI, no kidney stones. INTEGUMENT/BREAST: Negative for any muscular injury.. HEMATOLOGIC/LYMPHATIC: Negative for bleed or purpura. MUSCULOSKELTAL: Left foot has callus with healing ulcer quite with a bruise around the first and second toe with mild ecchymosis and slight hemorrhage under the toe. NEURLOGICAL: No LOC, Sz or syncope, blurred vision dizziness or abnormality.. BEHAVIORAL/PSYCH: Negative. ENDOCRINE: Negative. PHYSICAL EXAMINATION: General Appearance: Alert, cooperative, no distress, appears stated age. Neck HEENT: Supple, no lymphadenopathy, no thyroid enlargement, no carotid bruits. Lungs: Decreased breath sound bilaterally, no ronchi, crackles, or wheezing. Chest Wall: Normal expansion with deep inspiration no tenderness and no deformity was found on exam, no costochondral pain or discomfort. Heart: Regular rate and rhythm, S1, S2 normal, no murmur, rub or gallop. Back: Symmetric, no curvature, ROM normal, no CVA tenderness. Abdomen: Soft positive bowel sounds no organomegaly, non-tender, no rebound or rigidity. Extremities: Left foot with quite a bit larger bruise and hematoma around the big toe and under the joint between the metatarsal and the phalangeal area first and second toes mostly. Pulses: 2+ and symmetric. Skin: Skin color, texture, turgor normal, no rashes or lesions. Neurologic: Alert oriented x3 cranial nerves II through XII intact, no motor deficit, no abnormal balance or gait. ASSESSMENT AND PLAN: _Severe cellulitis of the left foot with Charcot foot: significant swelling with elevated C-reactive protein, patient was started on cefazolin 2 g every 8 hours and off Rocephin. Still being seen by infectious disease, wound care and vascular. No intervention indicated per wound care and vascular. Will plan to switch him to doxycycline 100mg twice a day for 10 days at discharge, to be closely followed by our practice as well as home care and wound care clinic. _Left Charcot foot arthropathy with cellulitis and plantar blister wound with significant swelling and discoloration of the skin of the left big toe: Vascular and wound care following, dressing to be changed today, continue antibiotics and topical care. _Severe gastroenteritis: No further signs and symptoms of gastrointestinal including diarrhea nausea or vomiting. _ non-ST AK was excluded: Second troponin was negative the patient is not having any further symptoms. _Type 2 diabetes: Accu-Chek with sliding. Will resume Tresiba 40 units at home, NovoLog AC meals. _Stage IIIb chronic kidney disease: with GFR of 45 creatinine 1.47, continue to avoid any nephrotoxic agent, continue gentle hydration, watch for any toxic medication. _Fall with no syncope: The patient was fully awake for the whole thing, per his testimony and his as well had mild injury to the left foot mostly, no injury anywhere else in his body this happened after he started his severe nausea and vomiting, probably was more related to extreme hypertension his blood pressure is much better so far will continue hydration for now. _Advanced cardiomyopathy: mostly ischemic with ejection fraction increased to 35-40% based on lastest echo, previously was 30-35%, remain on medical management. On furosemide 40mg PO twice a day. _Multiple vessel coronary artery disease post angioplasty and stent placement: Last stent was RCA and LAD back in July 2023 and is currently on Brilinta, aspirin has been stopped. _A-fib: Switched back to Eliquis and dose was increased up to 5 mg twice a day and remain on metoprolol tartrate 50 mg twice a day. _Severe GERD: continue omeprazole 20 mg daily. _DVT prophylaxis: Remain on Eliquis. Discussion: Patient overall is much improved, no further plans from vascular or cardiology, Non-ST AK has been excluded. Patient is to be seen today by ID, afterwards he will be able to go home. Will transition to doxycyline twice a day for 10 days at discharge. Home care has been arranged by social work. Patient will follow up with wound care clinic after discharge, and continue wound care recommendations at home. Wound care recommendations include applying absorptive silver rope between the first and second digit as well as Zinc barrier cream to the foot, wrap foot with gauze and secure with tape. Dressing changes to be done every Thursday, , and Thursday. The patient was seen and evaluated by Dr. Link. Plan, assessment and medications were all discussed, reviewed, and directed by Dr. Link with Anton TIMMONS-Antoine acting as a scribe. Objective - Vital Signs Vital signs: Vital Signs Temp 98.2 F 02/03/24 07:03 Pulse 99 02/03/24 07:03 Resp 17 02/03/24 07:03 BP 154/81 02/03/24 07:03 Pulse Ox 98 02/03/24 07:03 FiO2 Intake & Output 02/02/24 02/03/24 02/03/24 18:59 06:59 18:59 Intake Total 680 Output Total 400 Balance 680 -400 Weight 88.1 kg Intake: Oral 680 Output: Urine 400 Other: Voiding Method Toilet Toilet # Voids 2 # Bowel Movements 1 - Labs CBC & Chem 7: 02/02/24 07:32 02/02/24 07:32 Labs: Abnormal Lab Results - Last 24 Hours (Table) 02/02/24 02/02/24 02/02/24 Range/Units 11:55 16:53 20:14 POC Glucose (mg/dL) 229 H 166 H 220 H (70-110) mg/dL 02/03/24 Range/Units 07:05 POC Glucose (mg/dL) 238 H (70-110) mg/dL Microbiology - Last 24 Hours (Table) 01/30/24 15:04 Blood Culture - Preliminary Blood
--- NOTE | 2024-02-08 10:16 | CDI ---
Documentation Clarification Form Date: 02/08/2024 09:35:17 AM From: Mita Romero RN, CCDS Phone: [phone] Admit Date: 01/29/2024 01:14:00 PM Patient Name: Bhupinder Ruiz Visit Number: [id number] Discharge Date: 02/03/2024 02:50:00 PM ATTENTION: The Clinical Documentation Specialists (CDI) and [facility] Coding Staff appreciate your assistance in clarifying documentation. Please respond to the clarification below the line at the bottom and electronically sign. The CDI & [facility] Coding staff will review the response and follow-up if needed. Please note: Queries are made part of the Legal Health Record. If you have any questions, please contact the author of this message via ITS. Dr. Derian Link Cellulitis and Diabetes are documented in the progress notes. Additional clarification is requested. History/risk factors: DM, neuropathy, Charcot foot, non healing left foot ulcer. Presents with syncopal episode and cellulitis of left foot. Clinical Indicators: 01/30 ID: "Cellulitis of left foot. Start the patient on Cefazolin 2 g every 8 hours." 01/30 Ortho consult: "Bilateral lower extremity diabetic neuropathy." 02/01 Wound: "history of diabetes, Charcot foot and neuropathy. Non-pressure chronic ulcer of other part of left foot with fat layer exposed. Type 2 diabetes mellitus with foot ulcer. Charcot joint of foot due to diabetes." Discharge summary: "Severe cellulitis of the left foot with Charcot foot. Non-ST [place] was excluded. Type 2 diabetes: Accu-Chek with sliding. Will resume Tresiba 40 units at home, NovoLog AC meals." 01/28-02/02 POC glucose: [phone] Treatment: IV Cefazolin 2gm Q8H 01/29-02/02; IV Rocephin 1gm Q24H 01/28-01/29; Aspart insulin SS 01/28-02/02; Levemir 40 units SC daily 01/29-01/31; Levemir 50 units SC daily 02/01-02/02; Please clarify the etiology of the cellulitis, if known: [ XX ] Cellulitis is a diabetic skin complication [ ] Cellulitis is not a diabetic skin complication [ ] Other, please specify: [ ] Unable to determine MTDD
== END 2024-02-03 14:50 | disposition home health service (06) | DRG 638 ==
LOC: EC 09:53 → 3SCARD 13:14 → 5NMEDONC 02-03 01:25
PROVIDERS: ADMIT Internal Medicine Geriatric Medicine; ATTEND Internal Medicine Geriatric Medicine
DX: E11.628 Type 2 diabetes mellitus with other skin complications (principal); L03.116 Cellulitis of left lower limb; W18.2XXA Fall in (into) shower or empty bathtub, initial encounter; Y92.002 Bathroom of unspecified non-institutional (private) residence as the place of occurrence of the external cause; S90.32XA Contusion of left foot, initial encounter; S90.02XA Contusion of left ankle, initial encounter; N18.32 Chronic kidney disease, stage 3b; E11.610 Type 2 diabetes mellitus with diabetic neuropathic arthropathy; M77.32 Calcaneal spur, left foot; E11.621 Type 2 diabetes mellitus with foot ulcer; L97.522 Non-pressure chronic ulcer of other part of left foot with fat layer exposed; K21.9 Gastro-esophageal reflux disease without esophagitis; I49.3 Ventricular premature depolarization; K52.9 Noninfective gastroenteritis and colitis, unspecified; E11.22 Type 2 diabetes mellitus with diabetic chronic kidney disease; E11.40 Type 2 diabetes mellitus with diabetic neuropathy, unspecified; E78.5 Hyperlipidemia, unspecified; I48.0 Paroxysmal atrial fibrillation; H91.90 Unspecified hearing loss, unspecified ear; I12.9 Hypertensive chronic kidney disease with stage 1 through stage 4 chronic kidney disease, or unspecified chronic kidney disease; I25.10 Atherosclerotic heart disease of native coronary artery without angina pectoris; I25.5 Ischemic cardiomyopathy; I25.2 Old myocardial infarction; Z95.5 Presence of coronary angioplasty implant and graft; Z86.73 Personal history of transient ischemic attack (TIA), and cerebral infarction without residual deficits; Z82.49 Family history of ischemic heart disease and other diseases of the circulatory system; Z79.899 Other long term (current) drug therapy; Z79.82 Long term (current) use of aspirin; Z79.4 Long term (current) use of insulin; Z79.02 Long term (current) use of antithrombotics/antiplatelets; Z79.01 Long term (current) use of anticoagulants
CPT/HCPCS: 36415; 73502; 80053; 83735; 83880; 84484; 84550; 85025; 85027; 85610; 85652; 85730; 86140; 87040; 93005; 93306; 96365; 96366; 96367; 96375; 99285

== ENCOUNTER → 2024-03-28 | Outpatient (CLI) | payer MEDICARE, BC ==
--- NOTE | 2024-04-18 18:15 | MR ---
EXAMINATION TYPE: MR FOOT LT WO/W CON DATE OF EXAM: 03/28/2024 HISTORY: ulcer of left foot, checking for osteomyelitis. CONTRAST: Standard multiplanar, multisequence MRI departmental protocol images were obtained without contrast and with 9 mL intravenous Gadavist gadolinium contrast. COMPARISON: XR 01/29/2024 FINDINGS: Baseline Charcot arthropathy of the foot noted. Superficial to the metatarsal bases the plantar soft tissues demonstrates diffuse T1 and T2 prolongat ion consistent with cutaneous soft tissue swelling extending deeply to involve the subcutaneous adipo se compartment and the underlying musculature. However, there is no focal fluid collection to suggest focal soft tissue abscess and the subjacent sourav ny structures are negative for osteomyelitis at this time. IMPRESSION: Negative for soft tissue abscess or osteomyelitis. [facility], , 04/18/2024 6:13 PM
== END | disposition home or self-care (01) ==
LOC: RADMRIMAIN 21:00
PROVIDERS: ATTEND Thoracic Surgery (Cardiothoracic Vascular Surgery)
DX: L97.525 Non-pressure chronic ulcer of other part of left foot with muscle involvement without evidence of necrosis

== ENCOUNTER 2025-01-02 09:58 | Day surgery (SDC) | payer MEDICARE, OTHER ==
[2024-12-29 14:20] VITALS: BMI 32.5
[~2025-01-02 09:58] MED LIST changes: -DOBUTamine 250 MG in DEXTROSE 5% IN WATER 250 ML IV ONE; -DOBUTamine DRIP for NUC MED 500 MG in DEXTROSE/WATER 1 250ML.BAG IV ONE; +HYDROmorphone 0.5 MG/0.5 ML SYRINGE IVP PRN; +MIDAZOLAM 2 MG/2 ML VIAL IV PRN; +Pre Op ABX Message 1 EACH MISC MISCELLANE ONE
[2025-01-02] MEDS: IV FLUID CONTINUATION 1,000 ML IV ONE (10:30)
[2025-01-02 10:57] LABS: Glucose,Whole Blood 116 mg/dL (70-110)
[2025-01-02] MEDS: ACETAMINOPHEN TAB 500 MG TAB PO PRN (11:13)
[2025-01-02] MEDS: ONDANSETRON 4 MG/2 ML VIAL IVP ONE (11:13)
[2025-01-02] MEDS: DEXAMETHASONE SOD PHOSPHATE 4 MG/ML 1 ML VIAL IV ONE (11:13)
[2025-01-02] MEDS: HEPARIN SODIUM,PORCINE 5,000 UNIT/ML 1 ML VIAL SQ PRN (11:13)
[2025-01-02] MEDS: LACTATED RINGERS 1,000 ML IV SCH (11:14)
[2025-01-02 11:28] VITALS: TEMP 98.5
[2025-01-02] MEDS ORDERED: MIDAZOLAM 2 MG/2 ML VIAL ONE (11:52)
[2025-01-02] MEDS ORDERED: SUCCINYLCHOLINE CHLORIDE 200 MG/10 ML VIAL IV ONE (11:52)
[2025-01-02] MEDS ORDERED: fentaNYL (PF) 50 MCG/ML 2 ML AMP ONE (11:52)
[2025-01-02] MEDS ORDERED: PROPOFOL 10 MG/ML 20 ML VIAL IV ONE (11:52)
[2025-01-02] MEDS ORDERED: LIDOCAINE 1% INJ 10MG/ML (20 ML MDV) ONE (11:52)
[2025-01-02] MEDS: SODIUM CHLORIDE 0.9% 50 ML with ceFAZolin 2,000 MG IV ONE (12:21)
[2025-01-02] MEDS: BUPIVACAINE (PF) 0.25% 30 ML VIAL SQ ONE (12:32)
[2025-01-02] MEDS: LACTATED RINGERS 1,000 ML IV ONE ×2 (12:45→13:48)
[2025-01-02] MEDS ORDERED: NALOXONE 0.4 MG/ML 1 ML VIAL IV PRN (12:49)
--- NOTE | 2025-01-02 12:51 | P.OP ---
Date of Procedure: 01/02/25 Procedure(s) Performed: PREOPERATIVE DIAGNOSIS: Right neck mass with skin lesion POSTOPERATIVE DIAGNOSIS: Same PROCEDURE: Excision right neck mass with overlying skin lesion, intermediate closure SURGEON: Evan EBL: 2 cc ANESTHESIA: General COMPLICATIONS: None OPERATIVE PROCEDURE: Patient placed in the left cubitus position after general anesthesia achieved. Right neck prepped and draped sterilely. The patient had a scaly skin lesion measuring about 6 mm in size. This was overlying and slightly superior to a palpable mass. An elliptical incision was made overlying the palpable mass. The skin lesion was included with that. The subcutaneous tissue was divided using both sharp dissection and cautery. The patient had a firm mass that appeared somewhat lipomatous. This was able to be fully excised. Size of lesion 2.5 cm. This was sent to pathology. Subcutaneous layers were closed using interrupted 3-0 Vicryl sutures. Skin closed using a running 4-0 Monocryl subcuticular stitch. Skin glue and sterile dressing applied. DISPOSITION: Stable to recovery room
[2025-01-02 13:18] VITALS: RESP 16
[2025-01-02 14:04] LABS: Glucose,Whole Blood 112 mg/dL (70-110)
[2025-01-02 14:10] VITALS: BP 137/64; PULSE 71
== END 2025-01-02 14:26 | disposition home or self-care (01) ==
LOC: OR 09:58
PROVIDERS: ATTEND Surgery
DX: D17.0 Benign lipomatous neoplasm of skin and subcutaneous tissue of head, face and neck (principal); L57.0 Actinic keratosis; I11.0 Hypertensive heart disease with heart failure; I50.9 Heart failure, unspecified; I25.10 Atherosclerotic heart disease of native coronary artery without angina pectoris; I25.2 Old myocardial infarction; Z95.5 Presence of coronary angioplasty implant and graft; E11.9 Type 2 diabetes mellitus without complications; E78.5 Hyperlipidemia, unspecified; K21.9 Gastro-esophageal reflux disease without esophagitis; H91.90 Unspecified hearing loss, unspecified ear; Z79.4 Long term (current) use of insulin; Z79.01 Long term (current) use of anticoagulants; Z79.02 Long term (current) use of antithrombotics/antiplatelets; Z79.2 Long term (current) use of antibiotics; Z79.82 Long term (current) use of aspirin; Z79.899 Other long term (current) drug therapy
CPT/HCPCS: 21555; 88305; 88342; 88341; J2250; J0330; J1644; J1100; J2405; J0690; J2003; J3010; J2704; J0665